=== PATIENT | male | born 1960 | race Two or more races ===

== ENCOUNTER → 2016-04-01 | Outpatient (CLI) | payer BC ==
--- NOTE | 2016-04-01 08:21 | US ---
EXAMINATION TYPE: US abdomen complete DATE OF EXAM: 04/01/2016 7:24 AM COMPARISON: NONE CLINICAL HISTORY: R74.8 elevated liver enzymes. Pt states elevated LFT's EXAM MEASUREMENTS: Liver Length: 17.4 cm Gallbladder Wall: 0.2 cm CBD: 0.4 cm Spleen: 11.3 cm Right Kidney: 10.8 x 5.4 x 5.4 cm Left Kidney: 11.9 x 5.4 x 5.3 cm Pancreas: wnl Liver: Upper limits of normal for size/ Heterogeneous and difficult to penetrate Gallbladder: wnl Evidence for sonographic Morrow's sign: No CBD: wnl Spleen: wnl Right Kidney: wnl Left Kidney: wnl Upper IVC: wnl Abd Aorta: Prox and distal appeared wnl, mid gassed out The liver is heterogenous compatible with fatty liver. The intrahepatic portion of the IVC and proxim al abdominal aorta are within normal limits. There is no evidence of cholelithiasis. Common bile du ct is unremarkable. The visualized portions of the pancreas are homogenous. The spleen is unremarka ble. Kidneys are symmetric and free of hydronephrosis. No renal lesions are seen. IMPRESSION: Hepatic steatosis.
== END | disposition home or self-care (01) ==
LOC: RADUSWWP 07:02
PROVIDERS: ATTEND Family Medicine
DX: K76.0 Fatty (change of) liver, not elsewhere classified (principal)
CPT/HCPCS: 76700

== ENCOUNTER 2016-07-27 15:49 | Emergency (ER) | payer BC ==
--- NOTE | 2016-07-27 16:23 | ED ---
Lower Extremity Injury HPI - General Chief Complaint: Extremity Injury, Lower Stated Complaint: L knee pain Time Seen by Provider: 07/27/16 16:14 Source: patient, RN notes reviewed Mode of arrival: ambulatory Limitations: no limitations - History of Present Illness Initial Comments: 56-year-old male presents emergency department chief complaint of left knee pain. Patient states that 2 weeks ago he tripped and fell onto his left knee. Patient states that it was swollen and a little painful at that time. Patient states he then bumped his knee and a few days ago night been having some bruising around the knee. Patient states he is able to handle it with some discomfort. Patient states that he hasn't noticed any weakness or deformity to the knee. Patient has noticed some swelling over the patella. Patient states she was concerned due to his pains without that he should be evaluated.Patient denies any recent fever, chills, shortness of breath, chest pain, back pain, abdominal pain, nausea vomiting, numbness or tingling, dysuria or hematuria, constipation or diarrhea, headaches or visual changes, or any other current symptoms. - Related Data Home Medications Medication Instructions Recorded Confirmed No Known Home Medications [No 07/27/16 07/27/16 Known Home Medications] Allergies Allergy/AdvReac Type Severity Reaction Status Date / Time No Known Allergies Allergy Verified 07/27/16 16:26 Review of Systems ROS Statement: Those systems with pertinent positive or pertinent negative responses have been documented in the HPI. ROS Other: All systems not noted in ROS Statement are negative. Past Medical History Past Medical History: No Reported History History of Any Multi-Drug Resistant Organisms: None Reported Past Surgical History: No Surgical Hx Reported Past Psychological History: No Psychological Hx Reported Smoking Status: Current every day smoker Past Alcohol Use History: Abuse Past Drug Use History: None Reported General Exam - General Exam Comments Initial Comments: General: The patient is awake and alert, in no distress, and does not appear acutely ill. Neck: The neck is supple, there is no tenderness. Cardiovascular: There is a regular rate and rhythm. No murmur, rub or gallop is appreciated. Respiratory: Lungs are clear to auscultation, respirations are non-labored, breath sounds are equal. No wheezes, stridor, rales, or rhonchi. Musculoskeletal: Sensation intact with 2+ pulses throughout left lower extremity , full range of motion of left hip left knee and left ankle. Swelling over the left patella as well as associated ecchymosis throughout the leg. Neurological: CN II-XII intact, There are no obvious motor or sensory deficits. Coordination appears grossly intact. Speech is normal. Skin: Skin is warm and dry and no rashes or lesions are noted. Psychiatric: Normal mood and affect. Limitations: no limitations Course Vital Signs 07/27/16 16:01 Temperature 99.2 F Pulse Rate 75 Respiratory 20 Rate Blood Pressure 178/83 O2 Sat by Pulse 96 Oximetry Procedures - Orthopedic Splinting/Casting Injury #1 Side: left Lower Extremity Injury Location: knee Lower Extremity Immobilizer: Chi wrap Medical Decision Making - Medical Decision Making 56-year-old male presents emergency room chief complaint of left knee pain and ecchymosis. At this time x-rays reviewed that does show a hematoma. This time we did discuss follow-up we discussed return parameters all patient's questions. He stated that he understood the plan. This and will be discharged home. - Radiology Data Radiology results: report reviewed, image reviewed Disposition Clinical Impression: Traumatic hematoma of left knee Disposition: HOME SELF-CARE Condition: Stable Instructions: Knee Pain (ED) Additional Instructions: Please follow up with family doctor if symptoms have not improved over the next two days. Please return to the emergency room if your symptoms increase or worsen or for any other concerns. Referrals: Andrey Wills MD [Primary Care Provider] - 1-2 days Time of Disposition: 16:58
--- NOTE | 2016-07-27 16:40 | XR ---
EXAMINATION TYPE: XR knee 4V LT DATE OF EXAM: 07/27/2016 COMPARISON: NONE HISTORY: Pain extensive bruising after fall TECHNIQUE: 4 view left knee FINDINGS: Superficial soft tissue swelling is present. No acute fractures evident. No joint effusion is evident. Hematoma may be over the patellar soft tissues. IMPRESSION: 1. Suspected hematoma and soft tissue swelling superficial soft tissue anterior to the patella. 2. No underlying fracture is evident.
[2016-07-27 17:14] VITALS: BP 177/83; PULSE 79; RESP 15; TEMP 98.9
== END 2016-07-27 17:25 | disposition home or self-care (01) ==
LOC: EC 15:49
DX: S80.02XA Contusion of left knee, initial encounter (principal); F17.200 Nicotine dependence, unspecified, uncomplicated; W01.0XXA Fall on same level from slipping, tripping and stumbling without subsequent striking against object, initial encounter
CPT/HCPCS: 99283

== ENCOUNTER 2018-08-02 12:25 | Inpatient (IN) | payer BC ==
[2018-08-02] MEDS ORDERED: LORazepam 2 MG/ML INJ IV PRN ×2 (13:21)
[2018-08-02] MEDS ORDERED: THIAMINE 100 MG/ML 2 ML VIAL IM STA (13:21)
--- NOTE | 2018-08-02 13:22 | ED ---
General Adult HPI - General Chief complaint: Alcohol Stated complaint: bruising, leg swelling, abdominal tightness, alcoh Time Seen by Provider: 08/02/18 12:47 Source: patient, RN notes reviewed Mode of arrival: wheelchair Limitations: physical limitation - History of Present Illness Initial comments: 58-year-old male with a past medical history of GERD, hyperlipidemia, hypertension, chronic alcoholism presents to the emergency department for multiple complaints. She states that for the past few weeks he has had leg swelling. States his legs feel heavy. States he also has bruises on his arms and legs that he thinks could be from scratching. Patient was also complaining of abdominal tightness but denies any pain in the abdomen. States he is an alcoholic. States that he drank a 6 pack today. Denies any significant shortness of breath with this leg swelling. Denies any history of heart failure. Denies fevers or chills. Patient has no other complaints at this time including shortness of breath, chest pain, abdominal pain, nausea or vomiting, headache, or visual changes. - Related Data Home Medications Medication Instructions Recorded Confirmed Omeprazole Magnesium [PriLOSEC OTC] 20 mg PO DAILY PRN 08/02/18 08/02/18 Allergies Allergy/AdvReac Type Severity Reaction Status Date / Time No Known Allergies Allergy Verified 08/02/18 13:39 Review of Systems ROS Statement: Those systems with pertinent positive or pertinent negative responses have been documented in the HPI. ROS Other: All systems not noted in ROS Statement are negative. Past Medical History Past Medical History: GERD/Reflux, Hyperlipidemia, Hypertension History of Any Multi-Drug Resistant Organisms: None Reported Past Surgical History: No Surgical Hx Reported Past Psychological History: No Psychological Hx Reported Smoking Status: Current every day smoker Past Alcohol Use History: Abuse, Daily Past Drug Use History: None Reported General Exam Limitations: physical limitation General appearance: alert, in no apparent distress Head exam: Present: atraumatic, normocephalic, normal inspection Eye exam: Present: normal appearance, PERRL, EOMI. Absent: scleral icterus, conjunctival injection, periorbital swelling ENT exam: Present: normal exam, mucous membranes moist Neck exam: Present: normal inspection, full ROM. Absent: tenderness, meningismus, lymphadenopathy Respiratory exam: Present: normal lung sounds bilaterally. Absent: respiratory distress, wheezes, rales, rhonchi, stridor Cardiovascular Exam: Present: regular rate, normal rhythm, normal heart sounds. Absent: systolic murmur, diastolic murmur, rubs, gallop, clicks GI/Abdominal exam: Present: soft, normal bowel sounds. Absent: distended, tenderness (Soft nontender abdomen.), guarding, rebound, rigid Extremities exam: Present: pedal edema (2+ pitting edemia noted) Neurological exam: Present: alert, oriented X3, CN II-XII intact Psychiatric exam: Present: normal affect, normal mood Skin exam: Present: rash (Patient has a petechial looking rash noted to arms and legs) Course Vital Signs 08/02/18 12:37 Temperature 98.6 F Pulse Rate 96 Respiratory 18 Rate Blood Pressure 153/77 O2 Sat by Pulse 100 Oximetry EKG Findings - EKG Comments: EKG Findings:: Normal sinus rhythm, ventricular rate 94, NC interval 154, QTc 507 Medical Decision Making - Medical Decision Making 58-year-old male with a past medical history of GERD, hyperlipidemia, hypertension, chronic alcohol is a presents for multiple complaints. States he has had leg swelling denies any shortness of breath. States he has had bruises on his arms and legs. Remaining of abdominal tightness as well. Patient states he has an alcoholic drink a sixpack today. On exam patient does have a petechial bruising pattern noted on bilateral arms and legs. Lungs are clear to auscultation bilaterally. He does have some edema noted of the bilateral lower extremities. Patient has mild jaundice noted likely secondary to chronic ogles him. Patient does have a hemoglobin of 6 with a platelet count of 62. Occult blood pending. Ordered 1 unit of blood. This is microcytic in nature, likely secondary to chronic alcoholism and possibly GI bleed although patient denies any significant rectal bleeding noted. CMP does show hyponatremia and hypocalcemia. Bilirubin of 6 with transaminitis likely related to chronic alcoholism. Patient also has a pancreatitis with a lipase of 1851. Started on nothing by mouth diet. Patient will be started on 75 mls/hr of fluid due to hyponatremia. Started on CIWA protocol. Patient will be admitted with GI consult. - Lab Data Result diagrams: 08/02/18 13:45 08/02/18 13:45 Lab Results 08/02/18 08/02/18 08/02/18 Range/Units 13:45 13:45 13:45 WBC 9.8 (3.8-10.6) k/uL RBC 1.76 L (4.30-5.90) m/uL Hgb 6.0 L* (13.0-17.5) gm/dL Hct 17.4 L* (39.0-53.0) % MCV 98.8 (80.0-100.0) fL MCH 34.1 (25.0-35.0) pg MCHC 34.5 (31.0-37.0) g/dL RDW 15.6 H (11.5-15.5) % Plt Count 62 L (150-450) k/uL Neutrophils % 75 % Lymphocytes % 15 % Monocytes % 6 % Eosinophils % 2 % Basophils % 0 % Neutrophils # 7.3 (1.3-7.7) k/uL Lymphocytes # 1.5 (1.0-4.8) k/uL Monocytes # 0.6 (0-1.0) k/uL Eosinophils # 0.2 (0-0.7) k/uL Basophils # 0.0 (0-0.2) k/uL Manual Slide Review Performed Macrocytosis Slight PT (9.0-12.0) sec INR (<1.2) APTT (22.0-30.0) sec Sodium 124 L (137-145) mmol/L Potassium 4.8 (3.5-5.1) mmol/L Chloride 93 L (98-107) mmol/L Carbon Dioxide 14 L (22-30) mmol/L Anion Gap 17 mmol/L BUN 5 L (9-20) mg/dL Creatinine 0.52 L (0.66-1.25) mg/dL Est GFR (CKD-EPI)AfAm >90 (>60 ml/min/1.73 sqM) Est GFR (CKD-EPI)NonAf >90 (>60 ml/min/1.73 sqM) Glucose 106 H (74-99) mg/dL Calcium 7.4 L (8.4-10.2) mg/dL Magnesium 2.2 (1.6-2.3) mg/dL Total Bilirubin 6.0 H (0.2-1.3) mg/dL AST 350 H (17-59) U/L ALT 56 (21-72) U/L Alkaline Phosphatase 254 H (38-126) U/L Troponin I (0.000-0.034) ng/mL NT-Pro-B Natriuret Pep 165 pg/mL Total Protein 8.3 H (6.3-8.2) g/dL Albumin 3.3 L (3.5-5.0) g/dL Amylase 160 H (30-110) U/L Lipase 1851 H (23-300) U/L Serum Alcohol 172 mg/dL Blood Type Recheck 08/02/18 08/02/18 08/02/18 Range/Units 13:45 13:45 14:57 WBC (3.8-10.6) k/uL RBC (4.30-5.90) m/uL Hgb (13.0-17.5) gm/dL Hct (39.0-53.0) % MCV (80.0-100.0) fL MCH (25.0-35.0) pg MCHC (31.0-37.0) g/dL RDW (11.5-15.5) % Plt Count (150-450) k/uL Neutrophils % % Lymphocytes % % Monocytes % % Eosinophils % % Basophils % % Neutrophils # (1.3-7.7) k/uL Lymphocytes # (1.0-4.8) k/uL Monocytes # (0-1.0) k/uL Eosinophils # (0-0.7) k/uL Basophils # (0-0.2) k/uL Manual Slide Review Macrocytosis PT 14.3 H (9.0-12.0) sec INR 1.4 H (<1.2) APTT 37.4 H (22.0-30.0) sec Sodium (137-145) mmol/L Potassium (3.5-5.1) mmol/L Chloride (98-107) mmol/L Carbon Dioxide (22-30) mmol/L Anion Gap mmol/L BUN (9-20) mg/dL Creatinine (0.66-1.25) mg/dL Est GFR (CKD-EPI)AfAm (>60 ml/min/1.73 sqM) Est GFR (CKD-EPI)NonAf (>60 ml/min/1.73 sqM) Glucose (74-99) mg/dL Calcium (8.4-10.2) mg/dL Magnesium (1.6-2.3) mg/dL Total Bilirubin (0.2-1.3) mg/dL AST (17-59) U/L ALT (21-72) U/L Alkaline Phosphatase (38-126) U/L Troponin I 0.014 (0.000-0.034) ng/mL NT-Pro-B Natriuret Pep pg/mL Total Protein (6.3-8.2) g/dL Albumin (3.5-5.0) g/dL Amylase (30-110) U/L Lipase (23-300) U/L Serum Alcohol mg/dL Blood Type Recheck CABO Indicated Disposition Clinical Impression: Chronic alcoholism, Pancreatitis, Hyponatremia, Coagulopathy, Anemia Disposition: ADMITTED IP TO THIS HOSP Is patient prescribed a controlled substance at d/c from ED?: No Referrals: Vaughn Ceballos MD [Primary Care Provider] - 1-2 days Time of Disposition: 15:37
[2018-08-02] MEDS ORDERED: ONDANSETRON 4 MG/2 ML VIAL IVP STA (14:10)
[2018-08-02 14:13] LABS: INR 1.4 (<1.2); Partial Thromboplastin Time 37.4 sec (22.0-30.0); Prothrombin Time 14.3 sec (9.0-12.0)
--- NOTE | 2018-08-02 14:14 | XR ---
EXAMINATION TYPE: XR chest 2V DATE OF EXAM: 08/02/2018 COMPARISON: NONE HISTORY: Chest pain TECHNIQUE: Frontal and lateral views of the chest are obtained. FINDINGS: There is no pleural effusion or pneumothorax seen. Upper lobes of the lungs appears somew hat dense more so on the right than on the left may be technical, patient is rotated and there are ov erlying cardiac leads The cardiac silhouette size is upper limit normal. The osseous structures are intact. There are overlying cardiac leads. IMPRESSION: Suspect density in the upper lobes may be technical, follow-up PA and lateral chest x-ra y may be of benefit when patient is stable.
[2018-08-02 14:20] LABS: ALT 56 U/L (21-72); AST 350 U/L (17-59); African American GFR (CKD) >90 (>60 ml/min/1.73 sqM); Albumin 3.3 g/dL (3.5-5.0); Alkaline Phosphatase 254 U/L (38-126); Amylase 160 U/L (30-110); Anion Gap 17 mmol/L; Blood Urea Nitrogen 5 mg/dL (9-20); Calcium 7.4 mg/dL (8.4-10.2); Carbon Dioxide 14 mmol/L (22-30); Chloride 93 mmol/L (98-107); Glucose 106 mg/dL (74-99); Lipase 1851 U/L (23-300); Magnesium 2.2 mg/dL (1.6-2.3); Sodium 124 mmol/L (137-145); Total Protein 8.3 g/dL (6.3-8.2)
[2018-08-02 14:24] LABS: Potassium 4.8 mmol/L (3.5-5.1)
[2018-08-02 14:25] LABS: Alcohol 172 mg/dL
[2018-08-02 14:30] LABS: Basophils % (A) 0 %; Eosinophils # (A) 0.2 k/uL (0-0.7); Eosinophils % (A) 2 %; Lymphocytes # (A) 1.5 k/uL (1.0-4.8); Lymphocytes % (A) 15 %; MCH 34.1 pg (25.0-35.0); MCHC 34.5 g/dL (31.0-37.0); MCV 98.8 fL (80.0-100.0); Macrocytosis Slight; Mean Platelet Volume 10.4; Monocytes # (A) 0.6 k/uL (0-1.0); Monocytes % (A) 6 %; Neutrophils # (A) 7.3 k/uL (1.3-7.7); Neutrophils % (A) 75 %; RBC 1.76 m/uL (4.30-5.90); RDW 15.6 % (11.5-15.5); WBC 9.8 k/uL (3.8-10.6)
[2018-08-02 14:35] LABS: HCT 17.4 % (39.0-53.0)
[2018-08-02 14:50] LABS: Platelet Count 62 k/uL (150-450)
[2018-08-02] MEDS ORDERED: NALOXONE 0.4 MG/ML 1 ML VIAL IV PRN (15:39)
[2018-08-02] MEDS ORDERED: SODIUM CHLORIDE 0.9% 1,000 ML IV SCH (15:45)
[2018-08-02 15:58] LABS: Amorphous Sediment,Urine Rare /hpf; Appearance,Urine Clear (Clear); Bilirubin,Urine 1+ (Negative); Blood,Urine Trace (Negative); Color,Urine Yellow; Glucose,Urine (UA) Negative (Negative); Ketones,Urine 1+ (Negative); Leukocyte Esterase,Urine Negative (Negative); Mucus,Urine Rare /hpf; Nitrite,Urine Negative (Negative); Protein,Urine Negative (Negative); RBC,Urine 1 /hpf (0-5); Urobilinogen,Urine <2.0 mg/dL (<2.0); WBC,Urine 1 /hpf (0-5)
[2018-08-02] MEDS: PANTOPRAZOLE 40 MG/10 ML VIAL IVP SCH ×2 (17:52→20:06)
[2018-08-02] MEDS: THIAMINE 100 MG TAB PO SCH ×2 (19:11→19:18)
[2018-08-02] MEDS: LORazepam 2 MG/ML INJ IV PRN (19:11)
[2018-08-02] MEDS ORDERED: PANTOPRAZOLE 40 MG/10 ML VIAL IVP SCH (21:00)
[2018-08-02 22:35] LABS: Basophils % (A) 0 %; Eosinophils # (A) 0.2 k/uL (0-0.7); Eosinophils % (A) 3 %; HCT 26.4 % (39.0-53.0); Lymphocytes # (A) 1.3 k/uL (1.0-4.8); Lymphocytes % (A) 19 %; MCH 33.7 pg (25.0-35.0); MCHC 34.2 g/dL (31.0-37.0); MCV 98.7 fL (80.0-100.0); Macrocytosis Slight; Mean Platelet Volume 8.1; Monocytes # (A) 0.4 k/uL (0-1.0); Monocytes % (A) 5 %; Neutrophils # (A) 4.8 k/uL (1.3-7.7); Neutrophils % (A) 70 %; RBC 2.68 m/uL (4.30-5.90); WBC 6.8 k/uL (3.8-10.6)
[2018-08-03 00:01] LABS: Platelet Count 55 k/uL (150-450); Target Cells Present
--- NOTE | 2018-08-03 00:11 | P.HPIM ---
History of Present Illness H&P Date: 08/02/18 Chief Complaint: Tired History of presenting complaint: This is a pleasant 58-year-old patient of Dr. Wills. Patient has a known history of GERD hypertension hyperlipidemia but does not take any medications. Patient is a long-standing alcoholic for many years and his alcohol intake is acting gone up in the last 2 years. Drinks close to 20 beers at night. Patient now presents with feeling weak tired rundown some blood in his stools bruising on both upper extremities tired rundown abdominal distention. Some nausea. Has been feeling miserable most occurred back on drinking and decided to present to the hospital. Hemoglobin was found to be low-dose at 6.6. One unit of blood was ordered. Tired rundown. Review of systems: GEN.: Weak and tired EYES: Jaundiced] HEENT: None NECK: None RESPIRATORY: My shortness of breath CARDIOVASCULAR: Edema GASTROINTESTINAL: Abdominal distention, some blood in the stools GENITOURINARY: None MUSCULOSKELETAL: None LYMPHATICS: None HEMATOLOGICAL: Increased bruising PSYCHIATRY: Anxiety NEUROLOGICAL: None Past medical history: GERD, hypertension, hyperlipidemia patient does not take any medications Social history: Has been drinking for many years. Now closer 20 beers daily for last 2 years. . Used to work in a [employer]. Family history: Renny bypass Physical examination: VITAL SIGNS: 98.1, 99, 17, 157/70, 99% room air GENERAL: Average built BMI 37.2, sitting up, short of breath. EYES: Pupils equal. Conjunctiva icterusl. HEENT: External appearance of nose and ears normal, oral cavity grossly normal. NECK: JVD not raised; masses not palpable. HEART: First and second heart sounds are normal; gross edema. LUNGS: Respiratory rate increased, decreased breath sounds. ABDOMEN: Soft, distended, nontender, liver spleen not palpable, no masses palpable. LYMPHATICS: No lymph nodes palpable in the axilla and neck. PSYCH: Alert and oriented x3; mood and affect anxiousl. NEUROLOGICAL: Cranial nerves grossly intact; no facial asymmetry, power and sensation grossly intact DERMATOLOGICAL:. Extensive bruising on both upper extremities on the forearm. It is of dry skin on the lower extremity and dried up lesions Investigations: White count 9.8 hemoglobin 6 platelets 62 pro time 14.3 sodium 124 potassium 4.8 BUN 5 creatinine 0.5 to AST 350 in the 56 albumin 3.3 amylase 160 lipase is 1851 EKG tracing personally reviewed by me shows prolonged QT Chest x-ray film personally reviewed by me shows cardiomegaly Assessment: -Acute severe alcohol liver disease -Acute GI bleed consider variceal bleed -Acute severe anemia symptomatic from blood loss, requiring blood transfusion -Portal hypertension -Hepatic coagulopathy -Hyponatremia with hypervolemia -Chronic alcohol dependence disorder -Thrombocytopenia from chronic alcoholism -Metabolic acidosis -Acute pancreatitis secondary to alcoholism -Watch for alcohol withdrawal Plan: We will put the patient on Valium 5 mg by mouth 3 times a day for DVT prophylaxis. Stop the IV fluids. Put the patient on fluid restriction. Start the patient Aldactone. Diet clear liquids. GI be consulted with a view to endoscopy. Care was discussed with the patient. Patient presents in a scale. Prognosis guarded. Care was discussed with the patient. Also put the patient on telemetry. Past Medical History Past Medical History: GERD/Reflux, Hyperlipidemia, Hypertension History of Any Multi-Drug Resistant Organisms: None Reported Past Surgical History: No Surgical Hx Reported Past Anesthesia/Blood Transfusion Reactions: No Reported Reaction Smoking Status: Never smoker - Past Family History Father Additional Family Medical History / Comment(s): CABG Mother Family Medical History: Memory Impairment Additional Family Medical History / Comment(s): alzheimers Medications and Allergies Home Medications Medication Instructions Recorded Confirmed Type Omeprazole Magnesium [PriLOSEC OTC] 20 mg PO DAILY PRN 08/02/18 08/02/18 History Allergies Allergy/AdvReac Type Severity Reaction Status Date / Time No Known Allergies Allergy Verified 08/02/18 13:39 Physical Exam Vitals: Vital Signs Temp Pulse Pulse Resp BP BP Pulse Ox 08/02/18 23:19 95 17 08/02/18 23:18 98.3 F 95 17 129/65 98 08/02/18 21:05 98.1 F 96 17 151/70 99 08/02/18 20:00 96 17 08/02/18 19:54 98.1 F 99 17 157/70 99 08/02/18 19:41 98.1 F 99 18 151/70 08/02/18 18:30 93 20 141/81 100 08/02/18 18:00 94 132/63 100 08/02/18 17:30 98.8 F 92 18 136/67 99 08/02/18 17:20 94 18 148/70 08/02/18 17:00 99.1 F 93 19 147/64 100 08/02/18 16:50 99.4 F 91 18 150/70 95 08/02/18 16:30 87 18 139/66 08/02/18 16:20 93 18 139/66 08/02/18 16:10 90 18 139/66 08/02/18 16:00 91 15 154/73 08/02/18 14:00 147/68 08/02/18 12:37 98.6 F 96 18 153/77 100 Intake and Output 08/02/18 08/02/18 08/03/18 14:59 22:59 06:59 Intake Total 310 Balance 310 Intake: Blood Product 310 Rc As-1 Unit 310 [id number] Other: Voiding Method Toilet Toilet Weight 101.378 kg Results CBC & Chem 7: 08/02/18 22:15 08/02/18 13:45 Labs: Abnormal Lab Results - Last 24 Hours (Table) 08/02/18 08/02/18 08/02/18 Range/Units 13:45 13:45 13:45 RBC 1.76 L (4.30-5.90) m/uL Hgb 6.0 L* (13.0-17.5) gm/dL Hct 17.4 L* (39.0-53.0) % RDW 15.6 H (11.5-15.5) % Plt Count 62 L (150-450) k/uL PT 14.3 H (9.0-12.0) sec INR 1.4 H (<1.2) APTT 37.4 H (22.0-30.0) sec Sodium 124 L (137-145) mmol/L Chloride 93 L (98-107) mmol/L Carbon Dioxide 14 L (22-30) mmol/L BUN 5 L (9-20) mg/dL Creatinine 0.52 L (0.66-1.25) mg/dL Glucose 106 H (74-99) mg/dL Calcium 7.4 L (8.4-10.2) mg/dL Total Bilirubin 6.0 H (0.2-1.3) mg/dL AST 350 H (17-59) U/L Alkaline Phosphatase 254 H (38-126) U/L Total Protein 8.3 H (6.3-8.2) g/dL Albumin 3.3 L (3.5-5.0) g/dL Amylase 160 H (30-110) U/L Lipase 1851 H (23-300) U/L Urine Ketones (Negative) Urine Blood (Negative) Urine Bilirubin (Negative) Amorphous Sediment (None) /hpf Urine Mucus (None) /hpf Crossmatch 08/02/18 08/02/18 08/02/18 Range/Units 14:57 15:40 22:15 RBC 2.68 L (4.30-5.90) m/uL Hgb 9.0 L D (13.0-17.5) gm/dL Hct 26.4 L (39.0-53.0) % RDW (11.5-15.5) % Plt Count (150-450) k/uL PT (9.0-12.0) sec INR (<1.2) APTT (22.0-30.0) sec Sodium (137-145) mmol/L Chloride (98-107) mmol/L Carbon Dioxide (22-30) mmol/L BUN (9-20) mg/dL Creatinine (0.66-1.25) mg/dL Glucose (74-99) mg/dL Calcium (8.4-10.2) mg/dL Total Bilirubin (0.2-1.3) mg/dL AST (17-59) U/L Alkaline Phosphatase (38-126) U/L Total Protein (6.3-8.2) g/dL Albumin (3.5-5.0) g/dL Amylase (30-110) U/L Lipase (23-300) U/L Urine Ketones 1+ H (Negative) Urine Blood Trace H (Negative) Urine Bilirubin 1+ H (Negative) Amorphous Sediment Rare H (None) /hpf Urine Mucus Rare H (None) /hpf Crossmatch See Detail Thrombosis Risk Factor Assmnt - Choose All That Apply Each Factor Represents 1 point: Age 41-60 years, Swollen legs (current) Other Risk Factors: No Other congenital or acquired thrombophilia - If yes, enter type in comment: No Thrombosis Risk Factor Assessment Total Risk Factor Score: 2 Thrombosis Risk Factor Assessment Level: Low Risk
[2018-08-03] MEDS: DIAZEPAM 5 MG TAB PO SCH ×4 (00:20→21:20)
[2018-08-03] MEDS: METOPROLOL TARTRATE 12.5 MG TAB PO SCH ×3 (00:20→21:20)
[2018-08-03] MEDS ORDERED: CALCIUM CARBONATE 500 MG CHEWABLE PO PRN (06:39)
[2018-08-03 06:47] LABS: Basophils % (A) 0 %; Eosinophils # (A) 0.2 k/uL (0-0.7); Eosinophils % (A) 3 %; HCT 26.9 % (39.0-53.0); HGB 9.1 gm/dL (13.0-17.5); Lymphocytes # (A) 0.8 k/uL (1.0-4.8); Lymphocytes % (A) 12 %; MCH 33.7 pg (25.0-35.0); MCV 99.1 fL (80.0-100.0); Macrocytosis Slight; Mean Platelet Volume 8.6; Monocytes # (A) 0.3 k/uL (0-1.0); Monocytes % (A) 5 %; Neutrophils # (A) 5.2 k/uL (1.3-7.7); Neutrophils % (A) 79 %; Platelet Count 61 k/uL (150-450); RBC 2.71 m/uL (4.30-5.90); RDW 15.2 % (11.5-15.5); WBC 6.6 k/uL (3.8-10.6)
[2018-08-03 06:59] LABS: African American GFR (CKD) >90 (>60 ml/min/1.73 sqM); Anion Gap 8 mmol/L; Blood Urea Nitrogen 6 mg/dL (9-20); Calcium 7.3 mg/dL (8.4-10.2); Carbon Dioxide 19 mmol/L (22-30); Chloride 98 mmol/L (98-107); Glucose 98 mg/dL (74-99); Potassium 4.1 mmol/L (3.5-5.1); Sodium 125 mmol/L (137-145)
[2018-08-03] MEDS ORDERED: PHYTONADIONE ORAL 5 MG/5 ML ORAL.SYRG PO SCH (09:00)
[2018-08-03] MEDS ORDERED: PNEUMOCOCCAL VACC-PNEUMOVAX 23 25 MCG/0.5 ML VIAL IM ONE (09:00)
--- NOTE | 2018-08-03 09:12 | US ---
EXAMINATION TYPE: US abdomen limited DATE OF EXAM: 08/03/2018 COMPARISON: US 2017 CLINICAL HISTORY: Alcoholism. Alcoholism, abdomen pain, obese patient, exam done portable. EXAM MEASUREMENTS: Liver Length: 18.4 cm Gallbladder Wall: 0.3 cm CBD: 0.4 cm Right Kidney: 10.6 x 5.4 x 6.7 cm Difficult and limited study due to patient body habitus Pancreas: obscured by overlying midline bowel gas Liver: enlarged, attenuating, heterogeneous, decreased visualization of vessels suggestive of fatty infiltrate. This limits evaluation for hepatic masses. Gallbladder: low level echoes within dependant portion Evidence for sonographic Morrow's sign: no CBD: visualized portions wnl, limited by overlying bowel gas Right Kidney: wnl IMPRESSION: 1. Biliary sludge. No current evidence of acute cholecystitis. 2. Heterogenous and coarsened hepatic echotexture that can be seen in hepatic steatosis or other hepa tocellular diseases.
[2018-08-03] MEDS: SPIRONOLACTONE 25 MG TAB PO SCH (09:45)
[2018-08-03] MEDS: THIAMINE 100 MG TAB PO SCH ×2 (09:45→17:21)
[2018-08-03] MEDS: PANTOPRAZOLE 40 MG/10 ML VIAL IVP SCH ×2 (09:52→21:20)
--- NOTE | 2018-08-03 14:17 | P.CONS ---
History of Present Illness - Reason for Consult Consult date: 08/03/18 Pancreatitis Requesting physician: Smitha Jessica - Chief Complaint Abdominal pain - History of Present Illness 58-year-old male with a history of chronic alcoholism presents with abdominal pain lower leg swelling. Past medical history hypertension hyperlipidemia GERD. Hemoglobin 6. MCV 98. Platelet 62,000. White count 9.8. INR 1.4. Sodium 124. Potassium 4.8. BUN 5. Creatinine 0.5. Total bilirubin 6. AST 350. ALT 56. AP 254. Lipase 1851. Amylase 160. FOBT positive. Serum alcohol 172. Reports intermittent red blood stools over the last few days nothing severe. Denies hematemesis melena. No previous labs to compare. No history of GIB no history of EGD/colonoscopy. Consent abdomen biliary sludge no evidence of acute cholecystitis. Hepatic steatosis possible other hepatocellular diseases. Transfused 1 unit of blood present hemoglobin 9.1. Review of Systems RConstitutional: Denies fever, chills, sweats, weight gain, or loss. HEENT: Negative for migraines, blurred vision or loss, earaches, drainage, tinnitus, oral mucosal lesions, dysphagia, or odynophagia. Cardiac: Negative for chest pain, arrhythmias, or palpitation. Respiratory: Negative for shortness of breath, hemoptysis, cough, or sputum production. Gastrointestinal: See HPI for pertinent findings. Genitourinary: Negative for hematuria, urgency, frequency, polyuria, dysuria, or penile discharge. Musculoskeletal: Negative for muscle aches, swelling, arthritis, and arthralgias. Neurologic: Negative for stroke or TIA. Endocrine: Negative for thyroid problems. Skin: Negative for rash or itching. Psychiatric: Negative history for depression and anxietye Past Medical History Past Medical History: GERD/Reflux, Hyperlipidemia, Hypertension History of Any Multi-Drug Resistant Organisms: None Reported Past Surgical History: No Surgical Hx Reported Past Anesthesia/Blood Transfusion Reactions: No Reported Reaction Smoking Status: Never smoker - Past Family History Father Additional Family Medical History / Comment(s): CABG Mother Family Medical History: Memory Impairment Additional Family Medical History / Comment(s): alzheimers Medications and Allergies Home Medications Medication Instructions Recorded Confirmed Type Omeprazole Magnesium [PriLOSEC OTC] 20 mg PO DAILY PRN 08/02/18 08/02/18 History Allergies Allergy/AdvReac Type Severity Reaction Status Date / Time No Known Allergies Allergy Verified 08/02/18 13:39 Physical Exam Vitals: Vital Signs Temp Pulse Pulse Resp BP BP Pulse Ox 08/03/18 12:00 98.3 F 67 16 111/65 98 08/03/18 09:45 98.3 F 85 16 133/75 99 08/03/18 04:00 90 17 145/75 98 08/02/18 23:19 95 17 08/02/18 23:18 98.3 F 95 17 129/65 98 08/02/18 21:05 98.1 F 96 17 151/70 99 08/02/18 20:00 96 17 08/02/18 19:54 98.1 F 99 17 157/70 99 08/02/18 19:41 98.1 F 99 18 151/70 08/02/18 18:30 93 20 141/81 100 08/02/18 18:00 94 132/63 100 08/02/18 17:30 98.8 F 92 18 136/67 99 08/02/18 17:20 94 18 148/70 08/02/18 17:00 99.1 F 93 19 147/64 100 08/02/18 16:50 99.4 F 91 18 150/70 95 08/02/18 16:30 87 18 139/66 08/02/18 16:20 93 18 139/66 08/02/18 16:10 90 18 139/66 08/02/18 16:00 91 15 154/73 Intake and Output 08/02/18 08/03/18 08/03/18 22:59 06:59 14:59 Intake Total 310 1425 Balance 310 1425 Intake: Intake, IV Titration 825 Amount Sodium Chloride 0.9% 1, 825 000 ml @ 75 mls/hr IV . [id number] [facility] Rx#:[id number] Oral 600 Blood Product 310 Rc As-1 Unit 310 [id number] Other: Voiding Method Toilet Toilet # Voids 3 1 Weight 99.8 kg 99.8 kg General appearance: The patient is alert, oriented, in no acute distress. HET: Head is normocephalic and atraumatic. Pupils are equal and reactive. Oropharynx is clear without lesions. Jaundice sclera icterus. Neck: Supple without lymphadenopathy. Trachea midline. Heart: S1 S2. Regular rate and rhythm. Lungs: No crackles or wheezes are heard. Abdomen: Soft, nontender, nondistended with bowel sounds. No peritoneal signs. No palpable organomegaly or masses. Extremities: +3 BLE edema. Radial and pedal pulses are 2/4 bilaterally. Neurological: No focal deficits. Strength and sensation are grossly intact. Results CBC & Chem 7: 08/04/18 05:55 08/04/18 05:55 Labs: Abnormal Lab Results - Last 24 Hours (Table) 08/02/18 08/02/18 08/02/18 Range/Units 13:45 13:45 13:45 RBC 1.76 L (4.30-5.90) m/uL Hgb 6.0 L* (13.0-17.5) gm/dL Hct 17.4 L* (39.0-53.0) % RDW 15.6 H (11.5-15.5) % Plt Count 62 L (150-450) k/uL Lymphocytes # (1.0-4.8) k/uL PT 14.3 H (9.0-12.0) sec INR 1.4 H (<1.2) APTT 37.4 H (22.0-30.0) sec Sodium 124 L (137-145) mmol/L Chloride 93 L (98-107) mmol/L Carbon Dioxide 14 L (22-30) mmol/L BUN 5 L (9-20) mg/dL Creatinine 0.52 L (0.66-1.25) mg/dL Glucose 106 H (74-99) mg/dL Calcium 7.4 L (8.4-10.2) mg/dL Total Bilirubin 6.0 H (0.2-1.3) mg/dL AST 350 H (17-59) U/L Alkaline Phosphatase 254 H (38-126) U/L Total Protein 8.3 H (6.3-8.2) g/dL Albumin 3.3 L (3.5-5.0) g/dL Amylase 160 H (30-110) U/L Lipase 1851 H (23-300) U/L Urine Ketones (Negative) Urine Blood (Negative) Urine Bilirubin (Negative) Amorphous Sediment (None) /hpf Urine Mucus (None) /hpf Crossmatch 08/02/18 08/02/18 08/02/18 Range/Units 14:57 15:40 22:15 RBC 2.68 L (4.30-5.90) m/uL Hgb 9.0 L D (13.0-17.5) gm/dL Hct 26.4 L (39.0-53.0) % RDW (11.5-15.5) % Plt Count 55 L (150-450) k/uL Lymphocytes # (1.0-4.8) k/uL PT (9.0-12.0) sec INR (<1.2) APTT (22.0-30.0) sec Sodium (137-145) mmol/L Chloride (98-107) mmol/L Carbon Dioxide (22-30) mmol/L BUN (9-20) mg/dL Creatinine (0.66-1.25) mg/dL Glucose (74-99) mg/dL Calcium (8.4-10.2) mg/dL Total Bilirubin (0.2-1.3) mg/dL AST (17-59) U/L Alkaline Phosphatase (38-126) U/L Total Protein (6.3-8.2) g/dL Albumin (3.5-5.0) g/dL Amylase (30-110) U/L Lipase (23-300) U/L Urine Ketones 1+ H (Negative) Urine Blood Trace H (Negative) Urine Bilirubin 1+ H (Negative) Amorphous Sediment Rare H (None) /hpf Urine Mucus Rare H (None) /hpf Crossmatch See Detail 08/03/18 08/03/18 Range/Units 06:23 06:23 RBC 2.71 L (4.30-5.90) m/uL Hgb 9.1 L (13.0-17.5) gm/dL Hct 26.9 L (39.0-53.0) % RDW (11.5-15.5) % Plt Count 61 L (150-450) k/uL Lymphocytes # 0.8 L (1.0-4.8) k/uL PT (9.0-12.0) sec INR (<1.2) APTT (22.0-30.0) sec Sodium 125 L (137-145) mmol/L Chloride (98-107) mmol/L Carbon Dioxide 19 L (22-30) mmol/L BUN 6 L (9-20) mg/dL Creatinine 0.57 L (0.66-1.25) mg/dL Glucose (74-99) mg/dL Calcium 7.3 L (8.4-10.2) mg/dL Total Bilirubin (0.2-1.3) mg/dL AST (17-59) U/L Alkaline Phosphatase (38-126) U/L Total Protein (6.3-8.2) g/dL Albumin (3.5-5.0) g/dL Amylase (30-110) U/L Lipase (23-300) U/L Urine Ketones (Negative) Urine Blood (Negative) Urine Bilirubin (Negative) Amorphous Sediment (None) /hpf Urine Mucus (None) /hpf Crossmatch US - abdomen: report reviewed (Dr. Camarillo) Assessment and Plan (1) Pancreatitis Current Visit: Yes Status: Acute Code(s): K85.90 - ACUTE PANCREATITIS WITHOUT NECROSIS OR INFECTION, UNSP SNOMED Code(s): 19356060 (2) Anemia Narrative/Plan: normocytic component of acute blood loss as well as suspected nutritional anemia Current Visit: Yes Status: Acute Code(s): D64.9 - ANEMIA, UNSPECIFIED SNOMED Code(s): 757708857 (3) Chronic alcoholism Current Visit: Yes Status: Acute Code(s): F10.20 - ALCOHOL DEPENDENCE, UNCOMPLICATED SNOMED Code(s): 4917046 (4) Coagulopathy Current Visit: Yes Status: Acute Code(s): D68.9 - COAGULATION DEFECT, UNS PECIFIED SNOMED Code(s): 36540431 (5) Biliary sludge Current Visit: Yes Status: Acute Code(s): K83.8 - OTHER SPECIFIED DISEASES OF BILIARY TRACT SNOMED Code(s): 53219457 (6) Alcoholic hepatitis without ascites Current Visit: Yes Status: Acute Code(s): K70.10 - ALCOHOLIC HEPATITIS WITHOUT ASCITES SNOMED Code(s): 073431872 (7) Thrombocytopenia Current Visit: Yes Status: Acute Code(s): D69.6 - THROMBOCYTOPENIA, UNSPECIFIED SNOMED Code(s): 957256968 (8) Guaiac + stool Narrative/Plan: Underlying esophageal varices peptic ulcer disease portal hypertensive g astropathy cannot be excluded Current Visit: Yes Status: Acute Code(s): R19.5 - OTHER FECAL ABNORMALITIES SNOMED Code(s): 80809504 (9) Hyponatremia Current Visit: Yes Status: Acute Code(s): E87.1 - HYPO-OSMOLALITY AND HYPONATREMIA SNOMED Code(s): 46442529 Plan: 1. EGD/colonoscopy screening advised for evaluation of anemia; GI specialist will advise. Hepatitis screen. Protonix 40 mg twice daily. Liquid diet as tolerated. Daily CBC CMP amylase lipase PT/INR. We'll check ammonia. CIWA protocol. Alcohol abstinence advised. Thank you for this kind referral and the opportunity to participate in the care of your patient. This consultation was discussed with Dr. Camarillo. The impression and plan of care have been directed as dictated.
--- NOTE | 2018-08-03 22:33 | P.PN ---
Progress Note - Text Progress Note Date: 08/03/18 Presenting complaint: Tired Interval history: This is a pleasant 58-year-old patient of Dr. Wills. Patient has a known history of GERD hypertension hyperlipidemia but does not take any medications. Patient is a long-standing alcoholic for many years and his alcohol intake is acting gone up in the last 2 years. Drinks close to 20 beers at night. Patient now presents with feeling weak tired rundown some blood in his stools bruising on both upper extremities tired rundown abdominal distention. Some nausea. Has been feeling miserable most occurred back on drinking and decided to present to the hospital. Hemoglobin was found to be low-dose at 6.6. One unit of blood was ordered. Tired rundown. Today-sitting up. Tired. is present. Awaiting input from GI. On clear liquids. Tired and rundown. Review of systems: Was done for constitutional, cardiovascular, GI, pulmonary. relevant finding as above Physical examination: VITAL SIGNS: 98.3, 85, 16, 133 with 75, 95% room air GENERAL: Sitting at the edge of the bed, tired EYES: Pupils equal. Conjunctiva icterusl. HEENT: External appearance of nose and ears normal, oral cavity grossly normal. NECK: JVD not raised; masses not palpable. HEART: First and second heart sounds are normal; gross edema. LUNGS: Respiratory rate increased, decreased breath sounds. ABDOMEN: Soft, distended, nontender, liver spleen not palpable, no masses palpable. LYMPHATICS: No lymph nodes palpable in the axilla and neck. PSYCH: Alert and oriented x3; mood and affect anxiousl. NEUROLOGICAL: Cranial nerves grossly intact; no facial asymmetry, power and sensation grossly intact DERMATOLOGICAL:. Extensive bruising on both upper extremities on the forearm. It is of dry skin on the lower extremity and dried up lesions Investigations: White count 6.6, hemoglobin 9.1, potassium 4.1 sodium 125 BUN 6 creatinine 0.57 Abdominal ultrasound-showing biliary sludge Assessment: -Acute severe alcohol liver disease -Acute GI bleed consider variceal bleed -Acute severe anemia symptomatic from blood loss, requiring blood transfusion -Portal hypertension -Hepatic coagulopathy -Hyponatremia with hypervolemia -Chronic alcohol dependence disorder -Thrombocytopenia from chronic alcoholism -Metabolic acidosis -Acute pancreatitis secondary to alcoholism -Watch for alcohol withdrawal Plan: Continue current medication treatment plan. Patient is on Aldactone. Valium for DT prophylaxis. Awaiting input from GI. Care was discussed with the patient and at the bedside. Prognosis guarded.. Patient will need EGD/colonoscopy. Follow H&H
[2018-08-04 05:00] LABS: Hepatitis A Antibody IgM Non-Reactive (Non-Reactive); Hepatitis B Core IgM Non-Reactive (Non-Reactive)
[2018-08-04 06:40] LABS: INR 1.6 (<1.2); Prothrombin Time 16.4 sec (9.0-12.0)
[2018-08-04] MEDS: THIAMINE 100 MG TAB PO SCH ×2 (06:47→17:00)
[2018-08-04 06:50] LABS: ALT 48 U/L (21-72); AST 232 U/L (17-59); African American GFR (CKD) >90 (>60 ml/min/1.73 sqM); Albumin 2.3 g/dL (3.5-5.0); Alkaline Phosphatase 176 U/L (38-126); Amylase 80 U/L (30-110); Anion Gap 6 mmol/L; Blood Urea Nitrogen 8 mg/dL (9-20); Calcium 7.3 mg/dL (8.4-10.2); Carbon Dioxide 21 mmol/L (22-30); Chloride 102 mmol/L (98-107); Glucose 105 mg/dL (74-99); Lipase 789 U/L (23-300); Potassium 3.5 mmol/L (3.5-5.1); Sodium 129 mmol/L (137-145); Total Bilirubin 8.5 mg/dL (0.2-1.3); Total Protein 6.4 g/dL (6.3-8.2)
[2018-08-04 07:45] LABS: Anisocytosis Slight; Basophils % (A) 1 %; Eosinophils # (A) 0.2 k/uL (0-0.7); Eosinophils % (A) 3 %; HCT 25.6 % (39.0-53.0); HGB 8.4 gm/dL (13.0-17.5); Lymphocytes # (A) 1.2 k/uL (1.0-4.8); Lymphocytes % (A) 17 %; MCV 100.2 fL (80.0-100.0); Macrocytosis Slight; Mean Platelet Volume 10.7; Monocytes # (A) 0.4 k/uL (0-1.0); Monocytes % (A) 6 %; Neutrophils % (A) 72 %; RBC 2.55 m/uL (4.30-5.90); RDW 16.3 % (11.5-15.5)
[2018-08-04 07:51] LABS: Platelet Count 47 k/uL (150-450)
[2018-08-04] MEDS: METOPROLOL TARTRATE 12.5 MG TAB PO SCH ×2 (09:09→20:32)
[2018-08-04] MEDS: PHYTONADIONE ORAL 5 MG/5 ML ORAL.SYRG PO SCH (09:10)
[2018-08-04] MEDS: SPIRONOLACTONE 25 MG TAB PO SCH (09:10)
[2018-08-04] MEDS: PANTOPRAZOLE 40 MG/10 ML VIAL IVP SCH ×2 (09:10→20:33)
[2018-08-04] MEDS: DIAZEPAM 5 MG TAB PO SCH ×3 (09:10→20:32)
--- NOTE | 2018-08-04 11:02 | P.PN ---
Subjective Progress Note Date: 08/04/18 Principal diagnosis: Alcohol pancreatitis hepatitis anemia No active GI bleeding. No abdominal complaints. Tolerating clears. Hemoglobin 8.4. Platelet decreased to 47,000. INR increased to 1.6. Lipase improved 789. Amylase 80. CIWA protocol. Hepatitis screen nonreactive. Total bilirubin increased total bilirubin 8.5. AST 232. ALT 48. AP 176. Abdominal ultrasound biliary sludge no mentioning of ascites. Ammonia 66. Objective - Vital Signs Vital signs: Vital Signs Temp 98.1 F 08/04/18 09:00 Pulse 90 08/04/18 09:00 Resp 16 08/04/18 09:00 BP 115/61 08/04/18 09:00 Pulse Ox 97 08/04/18 09:00 Intake & Output 08/03/18 08/04/18 08/04/18 18:59 06:59 18:59 Intake Total 160 Balance 160 Weight 99.8 kg 98.9 kg Intake: Oral 160 Other: Voiding Method Toilet Toilet Toilet # Voids 2 1 1 - Exam General appearance: The patient is alert, oriented, in no acute distress. Jaundice. HET: Head is normocephalic and atraumatic. Pupils are equal and reactive. Oropharynx is clear without lesions. Sclerae icterus. Neck: Supple without lymphadenopathy. Trachea midline. Heart: S1 S2. Regular rate and rhythm. Lungs: No crackles or wheezes are heard. Abdomen: Soft, nontender, nondistended with bowel sounds. No peritoneal signs. No palpable organomegaly or masses. Extremities: +2 bilateral lower extremity edema Neurological: No focal deficits. Strength and sensation are grossly intact. - Labs CBC & Chem 7: 08/04/18 05:55 08/04/18 05:55 Labs: Abnormal Lab Results - Last 24 Hours (Table) 08/04/18 08/04/18 08/04/18 Range/Units 05:55 05:55 05:55 RBC 2.55 L (4.30-5.90) m/uL Hgb 8.4 L (13.0-17.5) gm/dL Hct 25.6 L (39.0-53.0) % MCV 100.2 H (80.0-100.0) fL RDW 16.3 H (11.5-15.5) % Plt Count 47 L (150-450) k/uL PT 16.4 H (9.0-12.0) sec INR 1.6 H (<1.2) Sodium (137-145) mmol/L Carbon Dioxide (22-30) mmol/L BUN (9-20) mg/dL Creatinine (0.66-1.25) mg/dL Glucose (74-99) mg/dL Calcium (8.4-10.2) mg/dL Total Bilirubin (0.2-1.3) mg/dL AST (17-59) U/L Alkaline Phosphatase (38-126) U/L Ammonia 66 H (<30) umol/L Albumin (3.5-5.0) g/dL Lipase (23-300) U/L 08/04/18 Range/Units 05:55 RBC (4.30-5.90) m/uL Hgb (13.0-17.5) gm/dL Hct (39.0-53.0) % MCV (80.0-100.0) fL RDW (11.5-15.5) % Plt Count (150-450) k/uL PT (9.0-12.0) sec INR (<1.2) Sodium 129 L (137-145) mmol/L Carbon Dioxide 21 L (22-30) mmol/L BUN 8 L (9-20) mg/dL Creatinine 0.63 L (0.66-1.25) mg/dL Glucose 105 H (74-99) mg/dL Calcium 7.3 L (8.4-10.2) mg/dL Total Bilirubin 8.5 H (0.2-1.3) mg/dL AST 232 H (17-59) U/L Alkaline Phosphatase 176 H (38-126) U/L Ammonia (<30) umol/L Albumin 2.3 L (3.5-5.0) g/dL Lipase 789 H (23-300) U/L Assessment and Plan (1) Pancreatitis Current Visit: Yes Status: Acute Code(s): K85.90 - ACUTE PANCREATITIS WITHOUT NECROSIS OR INFECTION, UNSP SNOMED Code(s): 99795543 (2) Anemia Narrative/Plan: component of acute blood loss as well as suspected nutritional anemia Current Visit: Yes Status: Acute Code(s): D64.9 - ANEMIA, UNSPECIFIED SNOMED Code(s): 089839703 (3) Chronic alcoholism Current Visit: Yes Status: Acute Code(s): F10.20 - ALCOHOL DEPENDENCE, UNCOMPLICATED SNOMED Code(s): 7835536 (4) Hyponatremia Current Visit: Yes Status: Acute Code(s): E87.1 - HYPO-OSMOLALITY AND HYPONATREMIA SNOMED Code(s): 67419840 (5) Biliary sludge Current Visit: Yes Status: Acute Code(s): K83.8 - OTHER SPECIFIED DISEASES OF BILIARY TRACT SNOMED Code(s): 43928992 (6) Alcoholic hepatitis without ascites Current Visit: Yes Status: Acute Code(s): K70.10 - ALCOHOLIC HEPATITIS WITHOUT ASCITES SNOMED Code(s): 826013406 (7) Thrombocytopenia Current Visit: Yes Status: Acute Code(s): D69.6 - THROMBOCYTOPENIA, UNSPECIFIED SNOMED Code(s): 254469699 (8) Guaiac + stool Narrative/Plan: Underlying esophageal varices peptic ulcer disease portal hypertensive gastropathy cannot be excluded Current Visit: Yes Status: Acute Code(s): R19.5 - OTHER FECAL ABNORMALITIES SNOMED Code(s): 36916174 (9) Coagulopathy Current Visit: Yes Status: Acute Code(s): D68.9 - COAGULATION DEFECT, UNSPECIFIED SNOMED Code(s): 81850840 Plan: 1. Dr. Camarillo advised EGD colonoscopy for variceal screening as well as for evaluation of anemia will schedule for Thursday if platelets and INR stable tomorrow. Patient may require FFP and platelets prior to procedure. Daily ammonia CBC CMP PT/INR. Continue present medical therapy. Healthy heart diet. Lactulose 20 grams BID. Receiving vitamin K. The pasteurizer has discussed the risks, benefits and alternative th erapies for the above-mentioned procedure and for both sedation/analgesia as well as necessary blood product administration, if indicated, as they pertain to this patient. The patient has indicated understanding and acceptance of the risks and procedures discussed. Assessment and plan a care discussed with Dr. Camarillo
[2018-08-04] MEDS: LACTULOSE 20 GM/30 ML CUP PO SCH ×2 (13:16→20:33)
--- NOTE | 2018-08-04 20:34 | P.PN ---
Progress Note - Text Progress Note Date: 08/05/18 Presenting complaint: Tired Interval history: This is a pleasant 58-year-old patient of Dr. Wills. Patient has a known history of GERD hypertension hyperlipidemia but does not take any medications. Patient is a long-standing alcoholic for many years and his alcohol intake is acting gone up in the last 2 years. Drinks close to 20 beers at night. Patient now presents with feeling weak tired rundown some blood in his stools bruising on both upper extremities tired rundown abdominal distention. Some nausea. Has been feeling miserable most occurred back on drinking and decided to present to the hospital. Hemoglobin was found to be low-dose at 6.6. One unit of blood was ordered. Tired rundown. Today-. No more GI bleed. Resting a bit. Tired. Seen by GI. Contemplating endoscopy both upper and lower. is present. On clear liquid diet. Review of systems: Was done for constitutional, cardiovascular, GI, pulmonary. relevant finding as above Current medications reviewed: Include Valium, lactulose, Lopressor, Protonix, vitamin K, Aldactone thiamine Physical examination: VITAL SIGNS: 98.1, 79, 16, 96 /50, 99% GENERAL: Laying in bed, awake, tired EYES: Pupils equal. Conjunctiva icterusl. HEENT: External appearance of nose and ears normal, oral cavity grossly normal. NECK: JVD not raised; masses not palpable. HEART: First and second heart sounds are normal; gross edema. LUNGS: Respiratory rate increased, decreased breath sounds. ABDOMEN: Soft, distended, nontender, liver spleen not palpable, no masses palpable. PSYCH: Alert and oriented x3; mood and affect anxiousl. DERMATOLOGICAL:. Extensive bruising on both upper extremities on the forearm. It is of dry skin on the lower extremity and dried up lesions Investigations: White count 7, hemoglobin 8.4, platelets 47, potassium 3.5, Assessment: -Acute severe alcohol liver disease -Acute GI bleed consider variceal bleed -Acute severe anemia symptomatic from blood loss, requiring blood transfusion -Portal hypertension -Hepatic coagulopathy -Hyponatremia with hypervolemia -Chronic alcohol dependence disorder -Thrombocytopenia from chronic alcoholism -Metabolic acidosis -Acute pancreatitis secondary to alcoholism -Watch for alcohol withdrawal Plan: Discussed with patient and . I again reinforced cessation of alcohol. If patient has endoscopy may need FFP and platelet. Otherwise don't expect pro time and platelets 2 improve acutely. Continue to follow labs.
[2018-08-05] MEDS: THIAMINE 100 MG TAB PO SCH ×2 (05:57→16:42)
[2018-08-05 06:25] LABS: ALT 50 U/L (21-72); AST 241 U/L (17-59); African American GFR (CKD) >90 (>60 ml/min/1.73 sqM); Albumin 2.5 g/dL (3.5-5.0); Alkaline Phosphatase 184 U/L (38-126); Anion Gap 8 mmol/L; Blood Urea Nitrogen 7 mg/dL (9-20); Calcium 7.6 mg/dL (8.4-10.2); Carbon Dioxide 19 mmol/L (22-30); Chloride 103 mmol/L (98-107); Glucose 110 mg/dL (74-99); Potassium 3.5 mmol/L (3.5-5.1); Sodium 130 mmol/L (137-145); Total Bilirubin 10.6 mg/dL (0.2-1.3); Total Protein 7.2 g/dL (6.3-8.2)
[2018-08-05 06:27] LABS: INR 1.7 (<1.2)
[2018-08-05 06:54] LABS: Anisocytosis Slight; Basophils % (A) 0 %; Eosinophils # (A) 0.2 k/uL (0-0.7); Eosinophils % (A) 2 %; HCT 25.2 % (39.0-53.0); HGB 8.7 gm/dL (13.0-17.5); Lymphocytes # (A) 1.3 k/uL (1.0-4.8); Lymphocytes % (A) 15 %; MCH 34.5 pg (25.0-35.0); MCHC 34.4 g/dL (31.0-37.0); MCV 100.3 fL (80.0-100.0); Macrocytosis Slight; Mean Platelet Volume 9.6; Monocytes # (A) 0.7 k/uL (0-1.0); Monocytes % (A) 8 %; Neutrophils # (A) 6.2 k/uL (1.3-7.7); Neutrophils % (A) 72 %; RBC 2.52 m/uL (4.30-5.90); RDW 16.7 % (11.5-15.5); WBC 8.6 k/uL (3.8-10.6)
[2018-08-05 07:24] LABS: Platelet Count 73 k/uL (150-450)
[2018-08-05] MEDS: LACTULOSE 20 GM/30 ML CUP PO SCH ×2 (09:25→20:36)
[2018-08-05] MEDS: SPIRONOLACTONE 25 MG TAB PO SCH (09:25)
[2018-08-05] MEDS: METOPROLOL TARTRATE 12.5 MG TAB PO SCH ×2 (09:26→20:36)
[2018-08-05] MEDS: PANTOPRAZOLE 40 MG/10 ML VIAL IVP SCH ×2 (09:26→20:36)
[2018-08-05] MEDS: DIAZEPAM 5 MG TAB PO SCH ×3 (09:26→20:36)
[2018-08-05] MEDS: PHYTONADIONE ORAL 5 MG/5 ML ORAL.SYRG PO SCH (09:27)
[2018-08-05] MEDS ORDERED: BISACODYL 5 MG TABLET.DR PO STA (10:55)
--- NOTE | 2018-08-05 11:08 | P.PN ---
Subjective Progress Note Date: 08/05/18 Principal diagnosis: Alcohol pancreatitis hepatitis anemia Bowel movement this morning with bright red blood on tissue only. No abdominal complaints. Hemoglobin 8.7. Platelet improved to 73,000. INR increased to 1.7. CIWA protocol. Hepatitis screen nonreactive. Total bilirubin increased total bilirubin 10.6. AST 241. ALT 50. AP 184. Abdominal ultrasound biliary sludge no mentioning of ascites. Ammonia improved 41. Objective - Vital Signs Vital signs: Vital Signs Temp 99.1 F 08/05/18 08:00 Pulse 86 08/05/18 08:00 Resp 18 08/05/18 08:00 BP 109/58 08/05/18 08:00 Pulse Ox 97 08/05/18 08:00 Intake & Output 08/04/18 08/05/18 08/05/18 18:59 06:59 18:59 Intake Total 820 Balance 820 Weight 97.8 kg Intake: Oral 820 Other: Voiding Method Toilet Toilet Toilet # Voids 1 2 # Bowel Movements 3 - Exam General appearance: The patient is alert, oriented, in no acute distress. Jaundice. HET: Head is normocephalic and atraumatic. Pupils are equal and reactive. Oropharynx is clear without lesions. Sclerae icterus. Neck: Supple without lymphadenopathy. Trachea midline. Heart: S1 S2. Regular rate and rhythm. Lungs: No crackles or wheezes are heard. Abdomen: Soft, nontender, nondistended with bowel sounds. No peritoneal signs. No palpable organomegaly or masses. Extremities: +2 bilateral lower extremity edema Neurological: No focal deficits. Strength and sensation are grossly intact. - Labs CBC & Chem 7: 08/05/18 06:00 08/05/18 06:00 Labs: Abnormal Lab Results - Last 24 Hours (Table) 08/05/18 08/05/18 08/05/18 Range/Units 06:00 06:00 06:00 RBC 2.52 L (4.30-5.90) m/uL Hgb 8.7 L (13.0-17.5) gm/dL Hct 25.2 L (39.0-53.0) % MCV 100.3 H (80.0-100.0) fL RDW 16.7 H (11.5-15.5) % Plt Count 73 L D (150-450) k/uL PT 17.0 H (9.0-12.0) sec INR 1.7 H (<1.2) Sodium 130 L (137-145) mmol/L Carbon Dioxide 19 L (22-30) mmol/L BUN 7 L (9-20) mg/dL Creatinine 0.65 L (0.66-1.25) mg/dL Glucose 110 H (74-99) mg/dL Calcium 7.6 L (8.4-10.2) mg/dL Total Bilirubin 10.6 H (0.2-1.3) mg/dL AST 241 H (17-59) U/L Alkaline Phosphatase 184 H (38-126) U/L Ammonia (<30) umol/L Albumin 2.5 L (3.5-5.0) g/dL 08/05/18 Range/Units 06:00 RBC (4.30-5.90) m/uL Hgb (13.0-17.5) gm/dL Hct (39.0-53.0) % MCV (80.0-100.0) fL RDW (11.5-15.5) % Plt Count (150-450) k/uL PT (9.0-12.0) sec INR (<1.2) Sodium (137-145) mmol/L Carbon Dioxide (22-30) mmol/L BUN (9-20) mg/dL Creatinine (0.66-1.25) mg/dL Glucose (74-99) mg/dL Calcium (8.4-10.2) mg/dL Total Bilirubin (0.2-1.3) mg/dL AST (17-59) U/L Alkaline Phosphatase (38-126) U/L Ammonia 41 H (<30) umol/L Albumin (3.5-5.0) g/dL Assessment and Plan (1) Pancreatitis Current Visit: Yes Status: Acute Code(s): K85.90 - ACUTE PANCREATITIS WITHOUT NECROSIS OR INFECTION, UNSP SNOMED Code(s): 43721797 (2) Anemia Narrative/Plan: normocytic component of acute blood loss as well as suspected nutritional anemia Current Visit: Yes Status: Acute Code(s): D64.9 - ANEMIA, UNSPECIFIED SNOMED Code(s): 742080615 (3) Chronic alcoholism Current Visit: Yes Status: Acute Code(s): F10.20 - ALCOHOL DEPENDENCE, UNCOMPLICATED SNOMED Code(s): 9594858 (4) Coagulopathy Current Visit: Yes Status: Acute Code(s): D68.9 - COAGULATION DEFECT, UNSP ECIFIED SNOMED Code(s): 22346037 (5) Biliary sludge Current Visit: Yes Status: Acute Code(s): K83.8 - OTHER SPECIFIED DISEASES OF BILIARY TRACT SNOMED Code(s): 63931685 (6) Alcoholic hepatitis without ascites Current Visit: Yes Status: Acute Code(s): K70.10 - ALCOHOLIC HEPATITIS WITHOUT ASCITES SNOMED Code(s): 202439473 (7) Thrombocytopenia Current Visit: Yes Status: Acute Code(s): D69.6 - THROMBOCYTOPENIA, UNSPECIFIED SNOMED Code(s): 598520269 (8) Guaiac + stool Narrative/Plan: Underlying esophageal varices peptic ulcer disease portal hypertensive ga stropathy cannot be excluded Current Visit: Yes Status: Acute Code(s): R19.5 - OTHER FECAL ABNORMALITIES SNOMED Code(s): 39231682 (9) Hyponatremia Current Visit: Yes Status: Acute Code(s): E87.1 - HYPO-OSMOLALITY AND HYPONATREMIA SNOMED Code(s): 86552344 Plan: 1. EGD colonoscopy tomorrow afternoon. Clear liquid diet. Daily CBC CMP ammo so PT/INR. The brick tester has discussed the risks, benefits and alternative therapies for the above-mentioned procedure and for both sedation/analgesia as well as necessary blood product administration, if indicated, as they pertain to this patient. The patient has indicated understanding and acceptance of the risks and procedures discussed. Assessment and plan a care discussed with Dr. Camarillo
[2018-08-05] MEDS ORDERED: PEG 3350-NA SULF,BICARB,CL/KCL 4,000 ML BOTTLE PO ONE (16:00)
[2018-08-05] MEDS: LACTATED RINGERS 1,000 ML IV SCH ×2 (17:28→19:46)
--- NOTE | 2018-08-05 22:39 | P.PN ---
Progress Note - Text Progress Note Date: 08/05/18 Presenting complaint: Tired Interval history: This is a pleasant 58-year-old patient of Dr. Wills. Patient has a known history of GERD hypertension hyperlipidemia but does not take any medications. Patient is a long-standing alcoholic for many years and his alcohol intake is acting gone up in the last 2 years. Drinks close to 20 beers at night. Patient now presents with feeling weak tired rundown some blood in his stools bruising on both upper extremities tired rundown abdominal distention. Some nausea. Has been feeling miserable most occurred back on drinking and decided to present to the hospital. Hemoglobin was found to be low-dose at 6.6. One unit of blood was ordered. Tired rundown. Today-. on clear liquid diet. Does feel a bit tired. Awaiting endoscopy possibly scheduled for Thursday. is present. No new issues. Review of systems: Was done for constitutional, cardiovascular, GI, pulmonary. relevant finding as above Current medications reviewed: Include Valium, lactulose, Lopressor, Protonix, vitamin K, Aldactone thiamine Physical examination: VITAL SIGNS: 99.1, 82, 18, 122/59, 98% room air GENERAL: propped up in bed awake, tired EYES: Pupils equal. Conjunctiva icterus HEENT: External appearance of nose and ears normal, oral cavity grossly normal. NECK: JVD not raised; masses not palpable. HEART: First and second heart sounds are normal; gross edema. LUNGS: Respiratory rate increased, decreased breath sounds. ABDOMEN: Soft, distended, nontender, liver spleen not palpable, no masses palpable. PSYCH: Alert and oriented x3; mood and affect anxiousl. DERMATOLOGICAL:. Extensive bruising on both upper extremities on the forearm. dried circular lesions crusting on both lower extremity Investigations: white count 8.6 hemoglobin 8.7 ProTime 17 sodium [id number] Assessment: - severe alcohol liver disease -Acute GI bleed consider variceal bleed -Acute severe anemia symptomatic from blood loss, requiring blood transfusion -Portal hypertension -Hepatic coagulopathy -Hyponatremia with hypervolemia -Chronic alcohol dependence disorder -Thrombocytopenia from chronic alcoholism -Metabolic acidosis -Acute pancreatitis secondary to alcoholism -Watch for alcohol withdrawal -Lower extremities circular lesions for aoutpatient dermatological consult Plan: relatively stable. Awaiting endoscopy. We'll cut back on the Valium dose. Overall prognosis is guarded.care was discussed with the patient by the time.
[2018-08-06] MEDS: THIAMINE 100 MG TAB PO SCH ×2 (06:45→17:06)
[2018-08-06] MEDS: SPIRONOLACTONE 25 MG TAB PO SCH (09:23)
[2018-08-06] MEDS: DIAZEPAM 5 MG TAB PO SCH ×3 (09:23→20:24)
[2018-08-06] MEDS: PANTOPRAZOLE 40 MG/10 ML VIAL IVP SCH ×2 (09:23→20:25)
[2018-08-06] MEDS: METOPROLOL TARTRATE 12.5 MG TAB PO SCH ×2 (09:23→20:24)
[2018-08-06] MEDS: LACTULOSE 20 GM/30 ML CUP PO SCH ×2 (09:24→20:25)
[2018-08-06 09:55] LABS: INR 1.7 (<1.2); Prothrombin Time 17.2 sec (9.0-12.0)
[2018-08-06 09:58] LABS: Anisocytosis Slight; Basophils # (A) 0.1 k/uL (0-0.2); Basophils % (A) 1 %; Eosinophils # (A) 0.2 k/uL (0-0.7); Eosinophils % (A) 3 %; HCT 25.9 % (39.0-53.0); HGB 8.8 gm/dL (13.0-17.5); Lymphocytes # (A) 1.4 k/uL (1.0-4.8); Lymphocytes % (A) 15 %; MCH 34.5 pg (25.0-35.0); MCHC 33.8 g/dL (31.0-37.0); MCV 101.9 fL (80.0-100.0); Macrocytosis Slight; Monocytes # (A) 0.8 k/uL (0-1.0); Monocytes % (A) 9 %; Neutrophils # (A) 6.3 k/uL (1.3-7.7); Neutrophils % (A) 70 %; RBC 2.54 m/uL (4.30-5.90); RDW 17.4 % (11.5-15.5)
[2018-08-06 09:59] LABS: Platelet Count 87 k/uL (150-450)
[2018-08-06] MEDS: PHYTONADIONE ORAL 5 MG/5 ML ORAL.SYRG PO SCH (10:07)
[2018-08-06 10:08] LABS: African American GFR (CKD) >90 (>60 ml/min/1.73 sqM); Albumin 2.5 g/dL (3.5-5.0); Anion Gap 10 mmol/L; Blood Urea Nitrogen 11 mg/dL (9-20); Calcium 7.4 mg/dL (8.4-10.2); Carbon Dioxide 14 mmol/L (22-30); Chloride 107 mmol/L (98-107); Glucose 96 mg/dL (74-99); Sodium 131 mmol/L (137-145); Total Bilirubin 11.4 mg/dL (0.2-1.3); Total Protein 7.1 g/dL (6.3-8.2)
[2018-08-06 10:12] LABS: ALT 43 U/L (21-72); AST 192 U/L (17-59); Alkaline Phosphatase 161 U/L (38-126); Potassium 3.6 mmol/L (3.5-5.1)
[2018-08-06] MEDS ORDERED: PROPOFOL 10 MG/ML 20 ML VIAL IV ONE (13:24)
[2018-08-06] MEDS ORDERED: LACTATED RINGERS 1,000 ML IV ONE (13:25)
--- NOTE | 2018-08-06 13:48 | P.PCN ---
Date of Procedure: 08/06/18 Procedure(s) Performed: Brief history: Patient is a pleasant 58-year-old male, scheduled for an upper endoscopy as well as colonoscopy as a part of evaluation of anemia and intermittent rectal bleeding. Patient was admitted to the hospital with acute alcoholic hepatitis and hemoglobin of 8.6 g/dL. His hemoglobin of intermittent rectal bleeding for the last few weeks. Procedure performed: Esophagogastroduodenoscopy Colonoscopy Preoperative diagnosis: Anesthesia: [facility] Procedure: After informed consent was obtained from the patient was brought into the endoscopy unit and IV sedation was administered by anesthesia under continuous monitoring. Initially upper endoscopy was done. The Olympus GF 160 video endoscope was inserted inserted into the mouth and esophagus intubated without any difficulty and was gradually advanced into the stomach and duodenum and carefully examined. The bulb and second part of the duodenum appeared normal. The scope was then withdrawn into the stomach adequately insufflated with air and upon careful examination the antrum and body, cardia and fundus had severe portal hypertensive gastropathy with no active bleeding. No gastric varices seen. The scope was then withdrawn into the esophagus. The GE junction was located at 40 cm to the incisors. It appeared regular with no erythema erosions or ulcerations. Rest of the esophagus appeared normal. Patient tolerated the procedure well. At this time the patient continued to remain sedation. Initial digital rectal examination was normal. Olympus CF 160 video colonoscope was then inserted into the rectum and gradually advanced to the cecum without any difficulty. Careful examination was performed as the scope was gradually being withdrawn. The prep was excellent. The cecum, ascending colon, transverse colon, descending colon, sigmoid colon and rectum appeared normal. Retroflexion was performed in the rectum and grade 2 internal hemorrhoids were noted. Patient tolerated the procedure well. Impression: 1. Upper endoscopy revealed severe portal hypertensive gastropathy but no evidence of esophageal or gastric varices. No active bleeding noted 2. Colonoscopy revealed grade 2 internal hemorrhoids but no evidence of colitis or colorectal neoplasia Recommendations: Findings of this examination were discussed with the patient. Diet will be advanced as tolerated.
[2018-08-06 14:45] VITALS: BMI 35.9
--- NOTE | 2018-08-06 20:05 | P.PN ---
Progress Note - Text Progress Note Date: 08/06/18 Presenting complaint: Tired Interval history: This is a pleasant 58-year-old patient of Dr. Wills. Patient has a known history of GERD hypertension hyperlipidemia but does not take any medications. Patient is a long-standing alcoholic for many years and his alcohol intake is acting gone up in the last 2 years. Drinks close to 20 beers at night. Patient now presents with feeling weak tired rundown some blood in his stools bruising on both upper extremities tired rundown abdominal distention. Some nausea. Has been feeling miserable most occurred back on drinking and decided to present to the hospital. Hemoglobin was found to be low-dose at 6.6. One unit of blood was ordered. Tired rundown. Today-. Tired. Had been a clear liquid diet. Saw the patient before evening of endoscopy. No new issues. is present. Review of systems: Was done for constitutional, cardiovascular, GI, pulmonary. relevant finding as above Current medications reviewed: Include Valium, lactulose, Lopressor, Protonix, vitamin K, Aldactone thiamine Physical examination: VITAL SIGNS: 9 8.4, 80, 16, 100/57, 98% r GENERAL: Laying bed awake, tired EYES: Pupils equal. Conjunctiva icterus HEENT: External appearance of nose and ears normal, oral cavity grossly normal. NECK: JVD not raised; masses not palpable. HEART: First and second heart sounds are normal; gross edema. LUNGS: Respiratory rate increased, decreased breath sounds. ABDOMEN: Soft, distended, nontender, liver spleen not palpable, no masses palpable. PSYCH: Alert and oriented x3; mood and affect anxiousl. DERMATOLOGICAL:. Extensive bruising on both upper extremities on the forearm. dried circular lesions crusting on both lower extremity Investigations: White count 9, hemoglobin 8.8, pro time 17.2, potassium 3.6, BUN 11, creatinine 0.89 Assessment: - severe alcohol liver disease -Acute GI bleed consider variceal bleed -Acute severe anemia symptomatic from blood loss, requiring blood transfusion -Portal hypertension -Hepatic coagulopathy -Hyponatremia with hypervolemia -Chronic alcohol dependence disorder -Thrombocytopenia from chronic alcoholism -Metabolic acidosis -Acute pancreatitis secondary to alcoholism -Watch for alcohol withdrawal -Lower extremities circular lesions for aoutpatient dermatological consult -Severe portal hypertensive gastropathy. No evidence of bleeding on EGD Plan: Patient was resumed on a diet after her procedure. We'll watch the patient overnight. She remained stable and could be discharge tomorrow. Earlier spoke to the patient and the .
[2018-08-06] MEDS: LACTATED RINGERS 1,000 ML IV SCH ×2 (20:25)
[2018-08-06] MEDS: LORazepam 2 MG/ML INJ IV PRN (21:42)
[2018-08-07] MEDS: THIAMINE 100 MG TAB PO SCH ×2 (06:34→09:26)
[2018-08-07 08:12] LABS: ALT 43 U/L (21-72); AST 170 U/L (17-59); African American GFR (CKD) >90 (>60 ml/min/1.73 sqM); Albumin 2.3 g/dL (3.5-5.0); Alkaline Phosphatase 166 U/L (38-126); Anion Gap 9 mmol/L; Blood Urea Nitrogen 13 mg/dL (9-20); Calcium 7.4 mg/dL (8.4-10.2); Carbon Dioxide 18 mmol/L (22-30); Chloride 106 mmol/L (98-107); Glucose 107 mg/dL (74-99); Potassium 2.9 mmol/L (3.5-5.1); Sodium 133 mmol/L (137-145); Total Bilirubin 11.5 mg/dL (0.2-1.3)
[2018-08-07] MEDS: LACTULOSE 20 GM/30 ML CUP PO SCH ×2 (09:26→22:43)
[2018-08-07] MEDS: DIAZEPAM 5 MG TAB PO SCH ×3 (09:26→22:42)
[2018-08-07] MEDS: METOPROLOL TARTRATE 12.5 MG TAB PO SCH ×2 (09:26→22:42)
[2018-08-07] MEDS: SPIRONOLACTONE 25 MG TAB PO SCH (09:26)
[2018-08-07] MEDS: PANTOPRAZOLE 40 MG/10 ML VIAL IVP SCH ×2 (09:26→22:42)
[2018-08-07] MEDS: PHYTONADIONE ORAL 5 MG/5 ML ORAL.SYRG PO SCH (09:32)
--- NOTE | 2018-08-07 09:53 | PN ---
PROGRESS NOTE DATE OF DICTATION: August 07, 2018 Patient is a 58-year-old male with history of heavy alcohol abuse of 20 years duration admitted to the hospital with acute alcoholic hepatitis and anemia. He underwent an EGD and colonoscopy yesterday that showed evidence of severe portal hypertensive gastropathy and small internal hemorrhoids. The patient also noted to have elevated LFTs and bilirubin has been gradually increasing consistent with acute alcoholic hepatitis. This morning, he complains of fatigue and weakness. Denies any abdominal pain. No nausea, vomiting. PHYSICAL EXAMINATION: He appears comfortable. No apparent distress. VITAL SIGNS: Stable. Blood pressure is 122/64, pulse 75, temperature 98.3. HEENT Examination unremarkable. Conjunctivae pink. Sclerae deeply icteric. Oral cavity no lesions. NECK: No JVD or lymph node enlargement. Chest was clear to auscultation. HEART: Regular rate and rhythm. ABDOMEN: Soft. Mild tenderness in the right upper quadrant area. Bowel sounds are positive. No organomegaly. EXTREMITIES no pedal edema. SKIN no rashes. NEUROLOGIC: Alert and oriented x3. No focal deficits. LABS: From today, bilirubin is 11.5, AST 170, ALT 143, alkaline phosphatase 166. IMPRESSION: 1. Acute alcoholic hepatitis with elevated LFTs, T-bilirubin gradually increasing but has stabilized since yesterday. 2. History of heavy alcohol abuse of more than 20 years duration. 3. Anemia with no active bleeding. EGD and colonoscopy done yesterday showed severe portal hypertensive gastropathy and grade 2 internal hemorrhoids. RECOMMENDATIONS: 1. Continue with symptomatic and supportive care. 2. I had a lengthy discussion with the patient regarding abstinence from alcohol, which was also discussed with the patient's yesterday. 3. Monitor labs closely. We will follow him closely during his hospital stay. Thank you for this consultation. MMODL / IJN: [id number] /
[2018-08-07] MEDS: LACTATED RINGERS 1,000 ML IV SCH ×2 (14:48)
[2018-08-07] MEDS: POTASSIUM CHLORIDE ER 20 MEQ TAB.ER PO SCH ×2 (14:49→16:20)
[2018-08-07] MEDS ORDERED: POTASSIUM CHLORIDE ER 20 MEQ TAB.ER PO STA (18:10)
[2018-08-08] MEDS: THIAMINE 100 MG TAB PO SCH (06:29)
[2018-08-08] MEDS: SPIRONOLACTONE 25 MG TAB PO SCH (07:31)
[2018-08-08] MEDS: DIAZEPAM 5 MG TAB PO SCH (07:31)
[2018-08-08] MEDS: LACTULOSE 20 GM/30 ML CUP PO SCH (07:32)
[2018-08-08] MEDS: METOPROLOL TARTRATE 12.5 MG TAB PO SCH (07:32)
[2018-08-08] MEDS: PANTOPRAZOLE 40 MG/10 ML VIAL IVP SCH (07:32)
[2018-08-08] MEDS: PHYTONADIONE ORAL 5 MG/5 ML ORAL.SYRG PO SCH (07:33)
[2018-08-08 09:40] VITALS: RESP 20
--- NOTE | 2018-08-08 11:11 | PN ---
PROGRESS NOTE DATE OF DICTATION: August 08, 2018. REQUESTING PHYSICIAN: Dr. Foreman The patient is a 58-year-old pleasant white male with history of alcoholic cirrhosis of the liver, admitted to the hospital with acute alcoholic hepatitis. He had gastrointestinal bleed and anemia. Had an EGD and colonoscopy done 2 days ago that showed severe portal hypertensive gastropathy and small internal hemorrhoids. He is doing much better today. He states at this time he feels more energetic. Appetite is coming back. However, he continues to have fatigue and weakness. No abdominal pain. No nausea, vomiting. No rectal bleeding. PHYSICAL EXAMINATION: Appears comfortable. No apparent distress. VITAL SIGNS: Stable. Blood pressure 111/72, pulse rate 77, temperature 98.6. HEENT examination unremarkable. Conjunctivae pink. Sclerae anicteric. Oral cavity no lesions. NECK: No jugular venous distention or lymph node enlargement. Chest: Clear to auscultation. HEART: Regular rate and rhythm. ABDOMEN was soft, it was slightly distended. Liver was palpable below the right costal margin. Extremities: No pedal edema. Skin no rashes. NEUROLOGIC: Alert and oriented x3. No focal deficits. LABS: From yesterday: T-bili was 11.5. AST 170, ALT 43, alkaline phosphatase 166. No labs from today. IMPRESSION: 1. Acute alcoholic hepatitis superimposed on alcoholic cirrhosis of the liver with LFTs gradually increasing. 2. Mild coagulopathy and thrombocytopenia secondary to advanced liver disease. 3. Heavy alcohol abuse of many years duration. 4. Gastrointestinal bleed status post EGD and colonoscopy 2 days ago. RECOMMENDATIONS: 1. Continue with symptomatic and supportive care. 2. Increase ambulation. 3. Discussed with the patient regarding abstinence from alcohol. 4. Repeat labs in the morning and we will follow him closely during his hospital stay. Thank you for this consultation. MMODL / IJN: [id number] /
[2018-08-08 11:30] VITALS: BP 98/53; PULSE 81; TEMP 98.4
--- NOTE | 2018-08-08 17:40 | P.PN ---
Progress Note - Text Progress Note Date: 08/07/18 Presenting complaint: Tired Interval history: This is a pleasant 58-year-old patient of Dr. Wills. Patient has a known history of GERD hypertension hyperlipidemia but does not take any medications. Patient is a long-standing alcoholic for many years and his alcohol intake is acting gone up in the last 2 years. Drinks close to 20 beers at night. Patient now presents with feeling weak tired rundown some blood in his stools bruising on both upper extremities tired rundown abdominal distention. Some nausea. Has been feeling miserable most occurred back on drinking and decided to present to the hospital. Hemoglobin was found to be low-dose at 6.6. One unit of blood was ordered. Tired rundown. Today-. Tired but laying in bed. Starting a diet. Had a bowel movement. No new issues. Review of systems: Was done for constitutional, cardiovascular, GI, pulmonary. relevant finding as above Current medications reviewed: Include Valium, lactulose, Lopressor, Protonix, vitamin K, Aldactone thiamine Physical examination: VITAL SIGNS: 97.9, 86, 20, 107/65, 96% room air GENERAL: Laying bed awake, tired EYES: Pupils equal. Conjunctiva icterus HEENT: External appearance of nose and ears normal, oral cavity grossly normal. NECK: JVD not raised; masses not palpable. HEART: First and second heart sounds are normal; gross edema. LUNGS: Respiratory rate increased, decreased breath sounds. ABDOMEN: Soft, distended, nontender, liver spleen not palpable, no masses palpable. PSYCH: Alert and oriented x3; mood and affect anxiousl. DERMATOLOGICAL:. Extensive bruising on both upper extremities on the forearm. dried circular lesions crusting on both lower extremity Investigations: Potassium 3.1 Assessment: - severe alcohol liver disease -Acute GI bleed consider variceal bleed -Acute severe anemia symptomatic from blood loss, requiring blood transfusion -Portal hypertension -Hepatic coagulopathy -Hyponatremia with hypervolemia -Chronic alcohol dependence disorder -Thrombocytopenia from chronic alcoholism -Metabolic acidosis -Acute pancreatitis secondary to alcoholism -Watch for alcohol withdrawal -Lower extremities circular lesions for aoutpatient dermatological consult -Severe portal hypertensive gastropathy. No evidence of bleeding on EGD Plan: Potassium was being replaced. The patient were made to discharge the patient home. Later was informed that the patient's and left. The patient did not want to go home today. I did tell the nurse to call the to have her come back to take the patient Home.
--- NOTE | 2018-08-08 17:46 | P.DS ---
Providers Date of admission: 08/02/18 16:01 Expected date of discharge: 08/08/18 Attending physician: William Foreman Consults: 08/02/18 15:40 Consult Physician Routine Consulting Provider: Babar Camarillo Consult Reason/Comments: pancreatitis, hyperbilirubinemia, h/o chronic alcoholism Do you want consulting provider notified?: Yes Primary care physician: [facility] Hospital Course: Discharge diagnoses: - severe alcohol liver disease -Acute GI bleed possible portable gastropathy source -Acute severe anemia symptomatic from blood loss, requiring blood transfusion -Portal hypertension -Hepatic coagulopathy -Hyponatremia with hypervolemia -Chronic alcohol dependence disorder -Thrombocytopenia from chronic alcoholism -Metabolic acidosis -Acute pancreatitis secondary to alcoholism -Lower extremities circular lesions for out patient dermatological consult -Severe portal hypertensive gastropathy. No evidence of bleeding on EGD -Severe hypokalemia Consultation: Dr. Sapp and Dr. Haynes from GI Procedure: EGD Hospital course: This is a pleasant 58-year-old patient of Dr. Wills. Patient has a known history of GERD hypertension hyperlipidemia but does not take any medications. Patient is a long-standing alcoholic for many years and his alcohol intake is acting gone up in the last 2 years. Drinks close to 20 beers at night. Patient now presents with feeling weak tired rundown some blood in his stools bruising on both upper extremities tired rundown abdominal distention. Some nausea. Has been feeling miserable most occurred back on drinking and decided to present to the hospital. Hemoglobin was found to be low-dose at 6.6. One unit of blood was ordered. Tired rundown. EGD was carried out. Patient was found to have severe portal gastropathy. Po ssibly could have been the source of bleeding. Patient has low platelets and elevated pro time. It was discussed with the patient and in detail that prognosis is guarded. How he does time determined. It was reinforced that he should not drink alcohol at all. Home services are being coordinated by case consultant. Today patient's daughter is here. Physical examination: VITAL SIGNS: 98.4, 81, 20, 98/53, 96% on room air GENERAL: Laying bed awake, tired EYES: Pupils equal. Conjunctiva icterus HEENT: External appearance of nose and ears normal, oral cavity grossly normal. NECK: JVD not raised; masses not palpable. HEART: First and second heart sounds are normal; gross edema. LUNGS: Respiratory rate increased, decreased breath sounds. ABDOMEN: Soft, distended, nontender, liver spleen not palpable, no masses palpable. PSYCH: Alert and oriented x3; mood and affect anxiousl. DERMATOLOGICAL:. Extensive bruising on both upper extremities on the forearm. dried circular lesions crusting on both lower extremity Disposition: Home with family Patient Condition at Discharge: Stable Plan - Discharge Summary Discharge Rx Participant: No New Discharge Prescriptions: New Spironolactone [Aldactone] 100 mg PO DAILY #30 tab Lactulose [Cephulac] 20 gm PO BID 30 Days ml Metoprolol Tartrate [Lopressor] 12.5 mg PO BID #60 tab Diazepam [Valium] 2 mg PO DIRECTED #7 tab Thiamine [Vitamin B-1] 100 mg PO BID-W/MEALS #60 tab Changed Omeprazole Magnesium [PriLOSEC OTC] 20 mg PO BID #60 tablet. Discharge Medication List Diazepam [Valium] 2 mg PO DIRECTED #7 tab 08/07/18 [Rx] Lactulose [Cephulac] 20 gm PO BID 30 Days ml 08/07/18 [Rx] Metoprolol Tartrate [Lopressor] 12.5 mg PO BID #60 tab 08/07/18 [Rx] Omeprazole Magnesium [PriLOSEC OTC] 20 mg PO BID #60 tablet. 08/07/18 [Rx] Spironolactone [Aldactone] 100 mg PO DAILY #30 tab 08/07/18 [Rx] Thiamine [Vitamin B-1] 100 mg PO BID-W/MEALS #60 tab 08/07/18 [Rx] Follow up Appointment(s)/Referral(s): Samantha De Jesus MD [STAFF PHYSICIAN] - 1 Week (leg lesions) [facility], [NON-STAFF] - 1-2 Days Vaughn Ceballos MD [Primary Care Provider] - 1 Week Babar Camarillo MD [STAFF PHYSICIAN] - 09/06/18 10:30 am Patient Instructions/Handouts: Alcohol Withdrawal (DC), Alcohol Withdrawal (GEN), Alcohol Dependence (DC) Activity/Diet/Wound Care/Special Instructions: Low sodium diet Fluid restriction 1500 mL a day Discharge after potassium supplement and recheck as ordered home health Discharge Disposition: HOME SELF-CARE
== END 2018-08-08 14:46 | disposition home or self-care (01) | DRG 441 ==
LOC: EC 12:25 → 3SCARD 16:01
PROVIDERS: ADMIT Hospitalist; ATTEND Hospitalist
PROC: 0DJD8ZZ Inspection of Lower Intestinal Tract, Via Natural or Artificial Opening Endoscopic (ICD-10-PCS; principal; 2018-08-06 13:25)
PROC: 0DJ08ZZ Inspection of Upper Intestinal Tract, Via Natural or Artificial Opening Endoscopic (ICD-10-PCS; principal; 2018-08-06 13:25)
PROC: 30233N1 Transfusion of Nonautologous Red Blood Cells into Peripheral Vein, Percutaneous Approach (ICD-10-PCS; principal; 2018-08-06 13:25)
DX: K76.6 Portal hypertension (principal); K85.20 Alcohol induced acute pancreatitis without necrosis or infection; K92.2 Gastrointestinal hemorrhage, unspecified; D68.4 Acquired coagulation factor deficiency; E87.1 Hypo-osmolality and hyponatremia; E87.2 Acidosis; D62 Acute posthemorrhagic anemia; K70.30 Alcoholic cirrhosis of liver without ascites; E87.6 Hypokalemia; K70.10 Alcoholic hepatitis without ascites; K64.1 Second degree hemorrhoids; E87.70 Fluid overload, unspecified; K76.0 Fatty (change of) liver, not elsewhere classified; K31.89 Other diseases of stomach and duodenum; D69.59 Other secondary thrombocytopenia; E78.5 Hyperlipidemia, unspecified; F17.200 Nicotine dependence, unspecified, uncomplicated; I10 Essential (primary) hypertension; K21.9 Gastro-esophageal reflux disease without esophagitis; Z82.0 Family history of epilepsy and other diseases of the nervous system; Z82.49 Family history of ischemic heart disease and other diseases of the circulatory system
CPT/HCPCS: 36415; 43235; 45378; 71046; 76705; 80048; 80053; 80074; 80320; 81001; 82140; 82150; 82272; 83690; 83735; 83880; 84132; 84484; 85025; 85610; 85730; 86850; 86900; 86901; 86920; 90732; 96361; 96372; 96374; 96375; 99284

== ENCOUNTER 2018-09-01 16:35 | Inpatient (IN) | payer BC ==
[2018-09-01] MEDS ORDERED: SODIUM CHLORIDE 0.9% 1,000 ML IV ONE ×2 (16:48→19:15)
--- NOTE | 2018-09-01 16:55 | ED ---
General Adult HPI - General Stated complaint: Weakness Time Seen by Provider: 09/01/18 16:35 Source: RN notes reviewed - History of Present Illness Initial comments: This is a 58-year-old male who has a past medical history significant for alcoholic hepatitis. Patient states he was admitted the hospital a few weeks ago and was discharged home. Patient states she was very jaundiced at that time. Patient states he comes in today because he has not been eating or drinking over that period of time and he is becoming weak and weaker to the point where he can't walk at this time. Patient denies any nausea vomiting or diarrhea. Patient denies any chest pain difficulty breathing or shortness of breath. Patient denies any abdominal pain. Patient denies any fever or chills. Patient denies headache patient denies lightheadedness or dizziness. Patient just complains of generalized body weakness. - Related Data Previous Rx's Medication Instructions Recorded Metoprolol Tartrate [Lopressor] 12.5 mg PO BID #60 tab 08/07/18 Omeprazole Magnesium [PriLOSEC OTC] 20 mg PO BID #60 tablet. 08/07/18 Spironolactone [Aldactone] 100 mg PO DAILY #30 tab 08/07/18 Thiamine [Vitamin B-1] 100 mg PO BID-W/MEALS #60 tab 08/07/18 Allergies Allergy/AdvReac Type Severity Reaction Status Date / Time No Known Allergies Allergy Verified 09/01/18 16:56 Review of Systems ROS Statement: Those systems with pertinent positive or pertinent negative responses have been documented in the HPI. ROS Other: All systems not noted in ROS Statement are negative. Past Medical History Past Medical History: GERD/Reflux, Hyperlipidemia, Hypertension History of Any Multi-Drug Resistant Organisms: None Reported Past Surgical History: No Surgical Hx Reported Past Anesthesia/Blood Transfusion Reactions: No Reported Reaction Smoking Status: Never smoker - Past Family History Father Additional Family Medical History / Comment(s): CABG Mother Family Medical History: Memory Impairment Additional Family Medical History / Comment(s): alzheimers General Exam - General Exam Comments Initial Comments: GENERAL: Patient is well-developed and well-nourished. Patient is nontoxic and well- hydrated and is in mild distress. ENT: Neck is soft and supple. No significant lymphadenopathy is noted. Oropharynx is clear. Moist mucous membranes. Neck has full range of motion without eliciting any pain. EYES: Patient has sclera icterus. Extraocular movements were intact and pupils were equal round and reactive to light. Eyelids were unremarkable. PULMONARY: Unlabored respirations. Good breath sounds bilaterally. No audible rales rhonchi or wheezing was noted. CARDIOVASCULAR: There is a regular rate and rhythm without any murmurs gallops or rubs. ABDOMEN: Soft and nontender with normal bowel sounds. No palpable organomegaly was noted. There is no palpable pulsatile mass. SKIN: Patient is severely jaundiced. NEUROLOGIC: Patient is alert and oriented x3. Cranial nerves II through XII are grossly intact. Motor and sensory are also intact. Normal speech, volume and content. Symmetrical smile. MUSCULOSKELETAL: Normal extremities with adequate strength and full range of motion. No lower extremity swelling or edema. No calf tenderness. LYMPHATICS: No significant lymphadenopathy is noted PSYCHIATRIC: Normal psychiatric evaluation. Course Vital Signs 09/01/18 16:51 Temperature 97.8 F Pulse Rate 98 Respiratory 18 Rate Blood Pressure 93/44 O2 Sat by Pulse 100 Oximetry Medical Decision Making - Medical Decision Making Patient has acute renal failure. Patient also has alcoholic hepatitis. Patient denies any drinking last 3 weeks. I spoke with some physicians agreed to admit the patient admitted the patient wrote admitting orders I consulted nephrology - Lab Data Result diagrams: 09/01/18 16:50 09/01/18 16:50 Lab Results 09/01/18 09/01/18 09/01/18 Range/Units 16:50 16:50 16:50 WBC 15.1 H (3.8-10.6) k/uL RBC 2.40 L (4.30-5.90) m/uL Hgb 8.3 L (13.0-17.5) gm/dL Hct 25.4 L (39.0-53.0) % MCV 105.8 H (80.0-100.0) fL MCH 34.6 (25.0-35.0) pg MCHC 32.7 (31.0-37.0) g/dL RDW 17.6 H (11.5-15.5) % Plt Count 134 L D (150-450) k/uL Neutrophils % (Manual) 79 % Band Neutrophils % 1 % Lymphocytes % (Manual) 10 % Monocytes % (Manual) 10 % Neutrophils # (Manual) 12.00 H (1.3-7.7) k/uL Lymphocytes # (Manual) 1.51 (1.0-4.8) k/uL Monocytes # (Manual) 1.51 H (0-1.0) k/uL Nucleated RBCs 0 (0-0) /100 WBC Manual Slide Review Performed Anisocytosis Slight Macrocytosis Marked A PT 18.2 H (9.0-12.0) sec INR 1.8 H (<1.2) APTT 55.4 H (22.0-30.0) sec Sodium 135 L (137-145) mmol/L Potassium 5.3 H (3.5-5.1) mmol/L Chloride 110 H (98-107) mmol/L Carbon Dioxide 12 L (22-30) mmol/L Anion Gap 13 mmol/L BUN 110 H* (9-20) mg/dL Creatinine 7.94 H* (0.66-1.25) mg/dL Est GFR (CKD-EPI)AfAm 8 (>60 ml/min/1.73 sqM) Est GFR (CKD-EPI)NonAf 7 (>60 ml/min/1.73 sqM) Glucose 123 H (74-99) mg/dL Calcium 7.8 L (8.4-10.2) mg/dL Magnesium 2.6 H (1.6-2.3) mg/dL Total Bilirubin 12.3 H (0.2-1.3) mg/dL AST 108 H (17-59) U/L ALT 23 (21-72) U/L Alkaline Phosphatase 136 H (38-126) U/L Total Protein 8.5 H (6.3-8.2) g/dL Albumin 2.4 L (3.5-5.0) g/dL Amylase 121 H (30-110) U/L Lipase 546 H (23-300) U/L Disposition Clinical Impression: Acute renal failure, Alcoholic hepatitis Disposition: ADMITTED IP TO THIS [facility] Referrals: Andrey Wills MD [Primary Care Provider] - 1-2 days Time of Disposition: 19:13
[2018-09-01 17:14] LABS: INR 1.8 (<1.2); Partial Thromboplastin Time 55.4 sec (22.0-30.0); Prothrombin Time 18.2 sec (9.0-12.0)
[2018-09-01 17:18] LABS: Albumin 2.4 g/dL (3.5-5.0); Calcium 7.8 mg/dL (8.4-10.2); Magnesium 2.6 mg/dL (1.6-2.3); Potassium 5.3 mmol/L (3.5-5.1); Total Bilirubin 12.3 mg/dL (0.2-1.3); Total Protein 8.5 g/dL (6.3-8.2)
[2018-09-01 17:35] LABS: Anisocytosis Slight; HCT 25.4 % (39.0-53.0); HGB 8.3 gm/dL (13.0-17.5); MCH 34.6 pg (25.0-35.0); MCHC 32.7 g/dL (31.0-37.0); MCV 105.8 fL (80.0-100.0); Macrocytosis Marked; Mean Platelet Volume 8.5; RDW 17.6 % (11.5-15.5); WBC 15.1 k/uL (3.8-10.6)
[2018-09-01 17:36] LABS: Platelet Count 134 k/uL (150-450)
--- NOTE | 2018-09-01 18:19 | XR ---
EXAMINATION TYPE: XR chest 2V DATE OF EXAM: 09/01/2018 COMPARISON: Prior chest x-ray 08/02/2018 HISTORY: Difficulty breathing TECHNIQUE: Frontal and lateral views of the chest are obtained. FINDINGS: The patient is rotated and the technique is apical lordotic. Lung volumes appear low. Right hemidiaphragm appears elevated. There is no pleural effusion or pneumothorax seen. Suspect there a re some subsegmental basilar atelectatic changes, the left hemidiaphragm is not well seen. The cardia c silhouette size is likely stable accounting for differences in technique. The osseous structures are intact. IMPRESSION: Probable basilar atelectasis, technique is somewhat compromised. Consider PA and lateral chest x-ray when patient is stable. Rotated expiratory exam.
[2018-09-01 18:21] LABS: Band Neutrophils % 1 %; Lymphocytes # (M) 1.51 k/uL (1.0-4.8); Monocytes # (M) 1.51 k/uL (0-1.0); Neutrophils % (M) 79 %; Nucleated Red Blood Cells 0 /100 WBC (0-0); Total Cells Counted 100
[2018-09-01] MEDS ORDERED: SPIRONOLACTONE 25 MG TAB PO SCH (21:15)
[2018-09-01 21:29] LABS: Lactic Acid, Venous 2.5 mmol/L (0.7-2.0)
[2018-09-01 21:57] LABS: Anisocytosis Slight; Hypochromasia Slight; MCH 33.7 pg (25.0-35.0); MCHC 31.1 g/dL (31.0-37.0); MCV 108.3 fL (80.0-100.0); Macrocytosis Marked; Mean Platelet Volume 8.2; Platelet Count 140 k/uL (150-450); RBC 1.73 m/uL (4.30-5.90); RDW 17.1 % (11.5-15.5); WBC 14.8 k/uL (3.8-10.6)
--- NOTE | 2018-09-01 22:06 | P.HPIM ---
History of Present Illness H&P Date: 09/01/18 Chief Complaint: Progressive weakness and confusion 58-year-old male with advanced liver disease secondary to alcohol abuse. Patient was recently discharged from the hospital 3 weeks ago where he was admitted for acute pancreatitis and GI bleeding from variceal bleed. Patient comes in today due to worsening mental status and progressive weakness. Patient unable to provide meaningful history, history was obtained by talking to the at bedside who reports patient has been having decreased by mouth intake over the past few days barely compliant with his medications. He was growing progressively weak and tired getting episodes of confusion and chills no reported fever no coughing no reported chest pain or trouble breathing. Abdomen was getting bigger and distended. Patient claims that he's been abstinent from alcohol for at least 3 weeks now. She also reports spots of blood in his stool but denies any melena. She also reports dark orange urine. She grew concerned and started thinking of bringing him to the hospital for evaluation. Today he was more confused and very weak he couldn't even get up from a chair for which she decided to bring him to the hospital. In the ED he was found to have acute kidney injury which is thought to be due to hepatorenal syndrome friend fast liver cirrhosis worsening liver function and acidosis. Chest x-ray was unremarkable except for some atelectasis at the bases. Review of Systems ROS unobtainable: due to mental status Past Medical History Past Medical History: GERD/Reflux, GI Bleed, Hyperlipidemia, Hypertension, Liver Disease History of Any Multi-Drug Resistant Organisms: None Reported Past Surgical History: No Surgical Hx Reported Past Anesthesia/Blood Transfusion Reactions: No Reported Reaction Smoking Status: Never smoker - Past Family History Father Additional Family Medical History / Comment(s): CABG Mother Family Medical History: Memory Impairment Additional Family Medical History / Comment(s): alzheimers Medications and Allergies Home Medications Medication Instructions Recorded Confirmed Type Metoprolol Tartrate [Lopressor] 12.5 mg PO BID #60 tab 08/07/18 09/01/18 Rx Omeprazole Magnesium [PriLOSEC OTC] 20 mg PO BID #60 tablet. 08/07/18 09/01/18 Rx Spironolactone [Aldactone] 100 mg PO DAILY #30 tab 08/07/18 09/01/18 Rx Thiamine [Vitamin B-1] 100 mg PO BID-W/MEALS #60 tab 08/07/18 09/01/18 Rx Allergies Allergy/AdvReac Type Severity Reaction Status Date / Time No Known Allergies Allergy Verified 09/01/18 16:56 Physical Exam Vitals: Vital Signs Temp Pulse Resp BP Pulse Ox 09/01/18 20:44 86 13 119/59 09/01/18 19:43 97.7 F 89 12 104/46 99 09/01/18 16:51 97.8 F 98 18 93/44 100 Intake and Output 09/01/18 09/01/18 09/01/18 06:59 14:59 22:59 Other: Weight 99.337 kg Constitutional: No acute distress, waxing and waning confusion. at bedside assisting with history taking, positive asterixis Eyes: Deeply jaundiced, moist conjunctiva, Pupils equal round reactive to light ENMT: NC/AT Oropharynx clear, no erythema, or exudates Neck: Supple, FROM, no masses, or JVD No carotid bruits No thyromegaly Lungs: Clear to auscultation Clear to percussion Normal respiratory effort, no accessory muscle use Cardiovascular: Heart regular in rate and rhythm, Systolic murmurs, no gallops, or rubs No peripheral edema Abdominal: Distended abdomen Nontender, no guarding, rebound or rigidity Abdomen moving with respiration Normoactive bowel sounds Palpable liver below costal margin No palpable mass Umbilical hernia noted Skin: Normal temperature, tone, texture, turgor No induration No subcutaneous nodules No rash, lesions Multiple excoriation brown and superficial scabs over bilateral legs Extremities: No digital cyanosis No clubbing Pedal pulses intact and symmetrical Radial pulses intact and symmetrical No calf tenderness Psychiatric: Mental status waxing and waning, patient confused, oriented to self and place with encouragement but waxes and wanes Neuro Muscles Strength 3-4/5 in all 4 extremities , positive asterixis Sensation to light touch grossly present throughout Cranial nerves II-XII grossly intact No focal sensory deficits Lymphatics: no palpable cervical or supraclavicular , or inguinal lymph nodes Results CBC & Chem 7: 09/01/18 16:50 09/01/18 16:50 Labs: Abnormal Lab Results - Last 24 Hours (Table) 09/01/18 09/01/18 09/01/18 Range/Units 16:50 16:50 16:50 WBC 15.1 H (3.8-10.6) k/uL RBC 2.40 L (4.30-5.90) m/uL Hgb 8.3 L (13.0-17.5) gm/dL Hct 25.4 L (39.0-53.0) % MCV 105.8 H (80.0-100.0) fL RDW 17.6 H (11.5-15.5) % Plt Count 134 L D (150-450) k/uL Neutrophils # (Manual) 12.00 H (1.3-7.7) k/uL Monocytes # (Manual) 1.51 H (0-1.0) k/uL Macrocytosis Marked A PT 18.2 H (9.0-12.0) sec INR 1.8 H (<1.2) APTT 55.4 H (22.0-30.0) sec Sodium 135 L (137-145) mmol/L Potassium 5.3 H (3.5-5.1) mmol/L Chloride 110 H (98-107) mmol/L Carbon Dioxide 12 L (22-30) mmol/L BUN 110 H* (9-20) mg/dL Creatinine 7.94 H* (0.66-1.25) mg/dL Glucose 123 H (74-99) mg/dL Calcium 7.8 L (8.4-10.2) mg/dL Magnesium 2.6 H (1.6-2.3) mg/dL Total Bilirubin 12.3 H (0.2-1.3) mg/dL AST 108 H (17-59) U/L Alkaline Phosphatase 136 H (38-126) U/L Total Protein 8.5 H (6.3-8.2) g/dL Albumin 2.4 L (3.5-5.0) g/dL Amylase 121 H (30-110) U/L Lipase 546 H (23-300) U/L Assessment and Plan Assessment: 58-year-old male with advanced liver cirrhosis secondary to alcoholic hepatitis and alcohol abuse with recent history of pancreatitis and GI bleeding from variceal bleed. Admitted as inpatient with anticipated length of stay more than 48 hours due to hepatic encephalopathy from advanced liver cirrhosis with hepatorenal syndrome. Plan: Metabolic encephalopathy 2/2 hepatorenal syndrome , advanced liver cirhosis and hepatic encephalopathy severe acute alcoholic hepatitis , DF score>32 Hepatorenal syndrome CATHRYN, with metabolic acidosis leukocytosis , without identified source of infection chronic anemia, with recent episode of variceal bleeding ascites plan admission to step down unit with close monitoring strict I / Os urine and blood culture check check ammonia follow up labs for alcoholic hepatitis, start IV methyprednisolone @ 32 mg IV daily lactulose to target 3-5 BM for history of variceal bleeding while sleeping on sleeping all day and not use the meantime he denies cervical spines H&H q8hr PPI metoprolol BID for hepatorenal syndrome octreotide sc midodrine albumin 50 gm BID IVF hydration for acidosis bicarb gtt GI consult and nephro consult DVT PPX heparin sc tid alcohol abuse thiamine last drink >3 weeks ago paracentesis by IR , diagnositic and theraputic Poor prognosis Preformed a thorough record review from recent hospitalization acute pancreatits, metabolic acidosis , acute anemia from GI blood loss, alcohol abuse and advanced liver cirhosis Surrogate decision-maker: CODE STATUS:full code Discussed with: Patient, ER, RN Anticipated discharge: 48-[address]: pending clinical course A total of 70 minutes was spent n the care of this complex patient more than 50% of the time was spent in counseling and care coordination.
--- NOTE | 2018-09-01 22:08 | P.HPADDEND ---
H&P Addendum H&P Addendum Date: 09/01/18 Advanced Care Planning Active diagnoses: Acute metabolic encephalopathy secondary to hepatic encephalopathy and hepatorenal syndrome Alcoholic hepatitis with advanced cirrhosis secondary to alcohol abuse Discussion: Person(s) present and participating in discussion: The patient, myself, and patient Summary: I explained to the patient and his the severity of his illness with poor prognosis outcomes, due to advanced liver cirrhosis and currently dealing with hepatorenal syndrome. I answered their questions. Patient recently had an episode of variceal GI bleeding. Taking all that into consideration patient and his would like to consider full supportive care measures and to escalate care as necessary. They also requested to be a full code and to pursue CPR and resuscitation if needed. And to consider all medically necessary procedures to save his life at this time Time spent: Total time spent face to face in education and discussion directly related to ad vanced care plannin minutes
[2018-09-01 22:32] LABS: HGB 5.8 gm/dL (13.0-17.5)
[2018-09-01 22:33] LABS: HCT 18.8 % (39.0-53.0)
[2018-09-01 23:04] LABS: Band Neutrophils % 1 %; Eosinophils # (M) 0.44 k/uL (0-0.7); Lymphocytes # (M) 0.59 k/uL (1.0-4.8); Neutrophils % (M) 90 %; Nucleated Red Blood Cells 0 /100 WBC (0-0); Total Cells Counted 100
[2018-09-01 23:05] LABS: Rouleaux Present
[2018-09-01 23:06] LABS: Anisocytosis (M) Present
[2018-09-01] MEDS: OCTREOTIDE 100 MCG/ML INJ SQ SCH (23:27)
[2018-09-01] MEDS: ALBUMIN HUMAN 25% 50 ML in EMPTY BAG 1 BAG IVPB SCH (23:55)
[2018-09-02] MEDS ORDERED: HEPARIN SODIUM,PORCINE 5,000 UNIT/ML 1 ML VIAL SQ SCH
[2018-09-02] MEDS ORDERED: OCTREOTIDE 100 MCG/ML INJ SQ SCH
[2018-09-02] MEDS: methylPREDNISolone SOD SUCCI 40 MG/ML 1 ML VIAL IV SCH ×2 (00:20→09:33)
[2018-09-02] MEDS: PANTOPRAZOLE 40 MG TABLET PO SCH ×2 (00:21→09:36)
[2018-09-02] MEDS: ALBUMIN HUMAN 25% 50 ML in EMPTY BAG 1 BAG IVPB SCH ×9 (00:26→18:39)
[2018-09-02 02:20] LABS: Glucose,Whole Blood 110 mg/dL (75-99)
[2018-09-02] MEDS: DEXTROSE 5% IN WATER 1,000 ML with SODIUM BICARB (1 MEQ/ML) 150 ML IV SCH ×3 (02:30→22:18)
[2018-09-02] MEDS: LACTULOSE 20 GM/30 ML CUP PO SCH ×6 (03:11→22:16)
[2018-09-02] MEDS: METOPROLOL TARTRATE 12.5 MG TAB PO SCH ×4 (03:12→22:21)
[2018-09-02] MEDS: MIDODRINE 5 MG TAB PO SCH ×4 (03:12→18:13)
[2018-09-02] MEDS: OCTREOTIDE 100 MCG/ML INJ SQ SCH ×2 (09:34→18:18)
[2018-09-02] MEDS: THIAMINE 100 MG TAB PO SCH ×2 (09:36→18:12)
[2018-09-02 10:08] LABS: Anisocytosis Slight; Basophils % (A) 0 %; Eosinophils % (A) 0 %; HCT 25.1 % (39.0-53.0); Lymphocytes # (A) 0.6 k/uL (1.0-4.8); Lymphocytes % (A) 6 %; MCH 34.3 pg (25.0-35.0); MCHC 33.4 g/dL (31.0-37.0); Macrocytosis Moderate; Mean Platelet Volume 7.5; Monocytes # (A) 0.4 k/uL (0-1.0); Monocytes % (A) 3 %; Neutrophils # (A) 10.2 k/uL (1.3-7.7); Neutrophils % (A) 90 %; Platelet Count 126 k/uL (150-450); RBC 2.44 m/uL (4.30-5.90); WBC 11.3 k/uL (3.8-10.6)
[2018-09-02 10:09] LABS: HGB 8.4 gm/dL (13.0-17.5); MCV 102.7 fL (80.0-100.0)
--- NOTE | 2018-09-02 10:15 | P.NPCON ---
History of Present Illness - Reason for Consult acute renal failure - History of Present Illness Reason for consultation: Acute kidney injury History of present illness: Patient is a 58-year-old male seen in renal consultation for acute kidney injury. Patient's creatinine from August 072018 was 1.0 and is elevated at 7.94 this admission. Patient has history of alcohol-induced liver cirrhosis. Patient states he's been jaundiced at home. His oral intake has been poor. Abdomen is distended. Patient's currently resting in bed and doesn't respond much to verbal commands. Patient's hemoglobin dropped down to 5.8 last night. He has received 2 units of blood transfusion. Patient was noted to be quite acidotic with bicarb level of 12 and is currently maintained on bicarb drip. Patient did receive 1 L normal saline bolus on admission. Hemodynamically is currently stable. He is not on any vasopressors. Aldactone has been discontinued. He is maintained on PPI as well as Sandostatin. Patient's ammonia level is 74. He currently does not have a Vaz catheter. Vital signs are stable. General: The patient appeared well nourished and normally developed. HEENT: Head exam is unremarkable. Neck is without jugular venous distension. LUNGS: Lungs are clear to auscultation and percussion. Breath sounds decreased. HEART: Rate and Rhythm are regular. First and second heart sounds normal. No murmurs, rubs or gallops. ABDOMEN: Distention noted. Nontender to touch. EXTREMITITES: No clubbing, cyanosis, or edema. Past Medical History Past Medical History: GERD/Reflux, GI Bleed, Hyperlipidemia, Hypertension, Liver Disease History of Any Multi-Drug Resistant Organisms: None Reported Past Surgical History: No Surgical Hx Reported Past Anesthesia/Blood Transfusion Reactions: No Reported Reaction Past Psychological History: Anxiety Additional Psychological History / Comment(s): pt took paxil before Smoking Status: Never smoker Past Alcohol Use History: Heavy Additional Past Alcohol Use History / Comment(s): 24 beers or more a day Past Drug Use History: None Reported - Past Family History Father Additional Family Medical History / Comment(s): CABG Mother Family Medical History: Memory Impairment Additional Family Medical History / Comment(s): alzheimers Medications and Allergies Home Medications Medication Instructions Recorded Confirmed Type Metoprolol Tartrate [Lopressor] 12.5 mg PO BID #60 tab 08/07/18 09/01/18 Rx Omeprazole Magnesium [PriLOSEC OTC] 20 mg PO BID #60 tablet. 08/07/18 09/01/18 Rx Spironolactone [Aldactone] 100 mg PO DAILY #30 tab 08/07/18 09/01/18 Rx Thiamine [Vitamin B-1] 100 mg PO BID-W/MEALS #60 tab 08/07/18 09/01/18 Rx Allergies Allergy/AdvReac Type Severity Reaction Status Date / Time No Known Allergies Allergy Verified 09/01/18 16:56 Physical Exam Vitals: Vital Signs Temp Pulse Resp BP Pulse Ox 09/02/18 07:30 74 13 114/61 09/02/18 07:00 78 13 110/53 09/02/18 06:16 71 16 115/50 96 09/02/18 06:00 76 16 116/53 98 09/02/18 05:46 70 16 112/52 97 09/02/18 05:36 97.6 F 80 16 96 09/02/18 05:33 97.7 F 75 18 117/55 09/02/18 05:30 80 14 110/50 99 09/02/18 05:21 20 97 09/02/18 05:00 73 11 L 108/52 09/02/18 04:00 97.5 F L 73 19 109/50 99 09/02/18 03:30 85 15 105/50 96 09/02/18 03:12 97.5 F L 80 20 105/50 09/02/18 03:10 80 18 97 09/02/18 03:00 97.5 F L 86 14 98 09/02/18 02:50 81 9 L 107/50 99 09/02/18 02:40 97.6 F 82 24 95/71 99 09/02/18 02:30 98.2 F 84 21 95/71 99 09/02/18 02:00 97.7 F 88 18 108/51 99 09/02/18 01:52 97.5 F L 85 14 108/51 100 09/02/18 01:30 82 14 103/35 98 09/02/18 01:09 61 18 103/35 09/02/18 00:30 85 14 118/61 98 09/02/18 00:22 60 18 118/61 98 09/02/18 00:00 97.6 F 82 14 121/50 99 09/01/18 23:40 19 109/58 09/01/18 23:30 83 14 118/59 100 09/01/18 23:00 85 14 115/59 97 09/01/18 22:00 85 14 115/61 98 09/01/18 21:00 97.7 F 83 14 119/53 99 09/01/18 20:44 86 13 119/59 09/01/18 20:30 87 12 109/44 98 09/01/18 20:00 85 13 104/46 99 09/01/18 19:43 97.7 F 89 12 104/46 99 09/01/18 19:30 84 13 102/58 100 09/01/18 19:00 86 12 113/61 98 09/01/18 16:51 97.8 F 98 18 93/44 100 Intake and Output 09/01/18 09/02/18 09/02/18 22:59 06:59 14:59 Intake Total 1220 410 Output Total 0 150 Balance 1220 260 Intake: IV 600 100 Albumin Human 25% 50 ml 100 In Empty Bag 1 bag @ 50 mls/hr IVPB Q1H AGUSTIN Rx#: [id number] Dextrose 5% in Water 1, 500 100 000 ml @ 100 mls/hr IV . [id number] AGUSTIN with Sodium Bicarb (1 Meq/ml) 150 ml Rx#:[id number] Blood Product 620 310 Rc As-1 Unit 0 0 [id number] Rc As-1 Unit 310 [id number] Output: Urine 0 150 Other: # Voids 0 1 # Bowel Movements 1 Weight 99.337 kg Results - Lab Results Most recent lab results Calcium 7.8 mg/dL (8.4-10.2) L 09/01/18 16:50 Magnesium 2.6 mg/dL (1.6-2.3) H 09/01/18 16:50 09/01/18 21:26 09/01/18 16:50 Assessment and Plan Plan: Assessment: 1. Acute kidney injury. This is likely prerenal in nature secondary to hypotension, acute anemia and poor oral intake. Creatinine was 7.94 on admission. Baseline creatinine is near 1. UA from last month reveals no protein. Rule out obstructive uropathy. 2. Metabolic acidosis secondary to acute kidney injury maintained on bicarb drip. 3. Acute blood loss anemia status post 2 units of blood transfusion. Maintained on Sandostatin as well as PPI. 4. Alcohol induced liver cirrhosis. 5. Hepatic encephalopathy. 6. Ascites. Plan: Maintain bicarb drip at 100 mL an hour. Check renal ultrasound. Patient scheduled to receive 50 g of albumin. I will give him an additional dose if more than 8 L removed with paracentesis. I will give him a dose of IV DDAVP. Monitor hemoglobin. GI also consulted. Strict I's and O's. Thank you for the consultation. I will continue to follow patient with kymberly cao his hospital stay.
[2018-09-02 10:22] LABS: Albumin 2.7 g/dL (3.5-5.0); Calcium 7.2 mg/dL (8.4-10.2); Potassium 5.2 mmol/L (3.5-5.1); Total Bilirubin 13.4 mg/dL (0.2-1.3); Total Protein 8.2 g/dL (6.3-8.2)
[2018-09-02] MEDS ORDERED: DESMOPRESSIN ACETATE 30 MCG in SODIUM CHLORIDE 0.9% 50 ML IVPB ONE (10:30)
[2018-09-02 13:39] LABS: Appearance,Urine Cloudy (Clear); Bacteria,Urine Rare /hpf; Bilirubin,Urine 2+ (Negative); Blood,Urine Negative (Negative); Cellular Casts,Urine 3 /lpf (0); Color,Urine Dark Brown; Glucose,Urine (UA) Negative (Negative); Hyaline Casts,Urine 10 /lpf (0-2); Ketones,Urine Negative (Negative); Leukocyte Esterase,Urine Negative (Negative); Mucus,Urine Rare /hpf; Nitrite,Urine Negative (Negative); PH, Urine 5.5 (5.0-8.0); Protein,Urine Trace (Negative); RBC,Urine 1 /hpf (0-5); Specific Gravity,Urine 1.016 (1.001-1.035); Squamous Epithelial Cell,Urine <1 /hpf (0-4)
--- NOTE | 2018-09-02 14:33 | P.PN ---
Subjective Progress Note Date: 09/02/18 Principal diagnosis: The patient is a 58-year-old male with a past medical history of severe alcoholic liver disease, liver cirrhosis with ascites, and GI bleed secondary to variceal bleeding who was admitted for progressive weakness and confusion and found to have hepatic encephalopathy after noted elevated serum ammonia level of 75, with likely hepatorenal syndrome with a serum creatinine of 7.94, lactic acid of 2.5 and elevated white count of 14.8. Noted acute on chronic macrocytic anemia with a hemoglobin of 5.8. Patient was typed and crossed and transfused 2 units of packed RBCs. IR was consulted to perform abdominal paracentesis, the patient was started on empiric IV antibiotics due to concern for underlying SBP with ceftriaxone 2 g IV every 24 hours. Nephrology and GI were consulted patient seen and examined at bedside, somnolent and concurrently confused. A.m. labs pending, patient only O 2. Vital signs continue to be stable, complains of some abdominal discomfort and pain Objective - Vital Signs Vital signs: Vital Signs Temp 97.6 F 09/02/18 05:36 Pulse 74 09/02/18 07:30 Resp 13 09/02/18 07:30 BP 114/61 09/02/18 07:30 Pulse Ox 96 09/02/18 06:16 Intake & Output 09/01/18 09/02/18 09/02/18 18:59 06:59 18:59 Intake Total 1220 410 Output Total 0 150 Balance 1220 260 Weight 99.337 kg Intake: IV 600 100 Albumin Human 25% 50 ml 100 In Empty Bag 1 bag @ 50 mls/hr IVPB Q1H AGUSTIN Rx#: [id number] Dextrose 5% in Water 1, 500 100 000 ml @ 100 mls/hr IV . [id number] AGUSTIN with Sodium Bicarb (1 Meq/ml) 150 ml Rx#:[id number] Blood Product 620 310 Rc As-1 Unit 0 0 [id number] Rc As-1 Unit 310 [id number] Output: Urine 0 150 Other: # Voids 0 1 # Bowel Movements 1 - Exam Constitutional: No acute distress, somnolent but arousable Eyes: icteric sclerae, moist conjunctiva, no lid-lag, PERRLA ENMT: NC/AT,Oropharynx clear, no erythema, exudates Neck:Supple, FROM, no masses, or JVD, No carotid bruits; No thyromegaly Lungs: Clear to auscultation, Clear to percussion, Normal respiratory effort, no accessory muscle use Cardiovascular: Heart regular in rate and rhythm, No murmurs, gallops, or rubs no peripheral edema Abdominal: Soft Nontender, severely distended, no guarding, no rebound or rigidity, diminished bowel sounds, caput [place] Skin: Normal temperature, tone, texture, turgor, No induration No subcutaneous nodules, No rash, lesions, No ulcers Extremities:No digital cyanosis No clubbing, Pedal pulses intact and symmetrical Radial pulses intact and symmetrical Normal gait and station, No calf tenderness Psychiatric: Oriented to location and place and year and self, not agitated psychomotor diminished Neuro: Flapping tremors - Labs CBC & Chem 7: 09/02/18 09:40 09/02/18 09:40 Labs: Abnormal Lab Results - Last 24 Hours (Table) 09/01/18 09/01/18 09/01/18 Range/Units 16:50 16:50 16:50 WBC 15.1 H (3.8-10.6) k/uL RBC 2.40 L (4.30-5.90) m/uL Hgb 8.3 L (13.0-17.5) gm/dL Hct 25.4 L (39.0-53.0) % MCV 105.8 H (80.0-100.0) fL RDW 17.6 H (11.5-15.5) % Plt Count 134 L D (150-450) k/uL Neutrophils # (Manual) 12.00 H (1.3-7.7) k/uL Lymphocytes # (Manual) (1.0-4.8) k/uL Monocytes # (Manual) 1.51 H (0-1.0) k/uL Macrocytosis Marked A PT 18.2 H (9.0-12.0) sec INR 1.8 H (<1.2) APTT 55.4 H (22.0-30.0) sec Sodium 135 L (137-145) mmol/L Potassium 5.3 H (3.5-5.1) mmol/L Chloride 110 H (98-107) mmol/L Carbon Dioxide 12 L (22-30) mmol/L BUN 110 H* (9-20) mg/dL Creatinine 7.94 H* (0.66-1.25) mg/dL Glucose 123 H (74-99) mg/dL POC Glucose (mg/dL) (75-99) mg/dL Plasma Lactic Acid Nando (0.7-2.0) mmol/L Calcium 7.8 L (8.4-10.2) mg/dL Magnesium 2.6 H (1.6-2.3) mg/dL Total Bilirubin 12.3 H (0.2-1.3) mg/dL AST 108 H (17-59) U/L Alkaline Phosphatase 136 H (38-126) U/L Ammonia (<30) umol/L Total Protein 8.5 H (6.3-8.2) g/dL Albumin 2.4 L (3.5-5.0) g/dL Amylase 121 H (30-110) U/L Lipase 546 H (23-300) U/L Crossmatch 09/01/18 09/01/18 09/01/18 Range/Units 19:36 21:26 21:26 WBC 14.8 H (3.8-10.6) k/uL RBC 1.73 L (4.30-5.90) m/uL Hgb 5.8 L* D (13.0-17.5) gm/dL Hct 18.8 L* (39.0-53.0) % MCV 108.3 H (80.0-100.0) fL RDW 17.1 H (11.5-15.5) % Plt Count 140 L (150-450) k/uL Neutrophils # (Manual) 13.40 H (1.3-7.7) k/uL Lymphocytes # (Manual) 0.59 L (1.0-4.8) k/uL Monocytes # (Manual) (0-1.0) k/uL Macrocytosis Marked A PT (9.0-12.0) sec INR (<1.2) APTT (22.0-30.0) sec Sodium (137-145) mmol/L Potassium (3.5-5.1) mmol/L Chloride (98-107) mmol/L Carbon Dioxide (22-30) mmol/L BUN (9-20) mg/dL Creatinine (0.66-1.25) mg/dL Glucose (74-99) mg/dL POC Glucose (mg/dL) (75-99) mg/dL Plasma Lactic Acid Nando 2.5 H* (0.7-2.0) mmol/L Calcium (8.4-10.2) mg/dL Magnesium (1.6-2.3) mg/dL Total Bilirubin (0.2-1.3) mg/dL AST (17-59) U/L Alkaline Phosphatase (38-126) U/L Ammonia 75 H (<30) umol/L Total Protein (6.3-8.2) g/dL Albumin (3.5-5.0) g/dL Amylase (30-110) U/L Lipase (23-300) U/L Crossmatch See Detail 09/02/18 Range/Units 02:06 WBC (3.8-10.6) k/uL RBC (4.30-5.90) m/uL Hgb (13.0-17.5) gm/dL Hct (39.0-53.0) % MCV (80.0-100.0) fL RDW (11.5-15.5) % Plt Count (150-450) k/uL Neutrophils # (Manual) (1.3-7.7) k/uL Lymphocytes # (Manual) (1.0-4.8) k/uL Monocytes # (Manual) (0-1.0) k/uL Macrocytosis PT (9.0-12.0) sec INR (<1.2) APTT (22.0-30.0) sec Sodium (137-145) mmol/L Potassium (3.5-5.1) mmol/L Chloride (98-107) mmol/L Carbon Dioxide (22-30) mmol/L BUN (9-20) mg/dL Creatinine (0.66-1.25) mg/dL Glucose (74-99) mg/dL POC Glucose (mg/dL) 110 H (75-99) mg/dL Plasma Lactic Acid Nando (0.7-2.0) mmol/L Calcium (8.4-10.2) mg/dL Magnesium (1.6-2.3) mg/dL Total Bilirubin (0.2-1.3) mg/dL AST (17-59) U/L Alkaline Phosphatase (38-126) U/L Ammonia (<30) umol/L Total Protein (6.3-8.2) g/dL Albumin (3.5-5.0) g/dL Amylase (30-110) U/L Lipase (23-300) U/L Crossmatch Assessment and Plan (1) Alcoholic cirrhosis of liver with ascites Narrative/Plan: * Decompensated alcoholic liver cirrhosis with ascites with history of variceal bleed * Patient will need paracentesis by IR along with 50 g of albumin * GI consultation requested * Continue octreotide, lactulose, and metoprolol. Current Visit: Yes Status: Acute Code(s): K70.31 - ALCOHOLIC CIRRHOSIS OF LIVER WITH ASCITES SNOMED Code(s): 062353583 (2) Macrocytic anemia Narrative/Plan: * Acute blood loss on chronic microcytic anemia in the setting of alcoholic liver cirrhosis and previous history of variceal bleed * Status post 3 units packed RBC transfusion hemoglobin hemoglobin up to 8.4 from 5.8 * GI consultation requested * We'll check iron studies and Hemoccult * Continue to monitor hemoglobin Current Visit: Yes Status: Acute Code(s): D53.9 - NUTRITIONAL ANEMIA, UNSPECIFIED SNOMED Code(s): 07494152 (3) Acute renal failure Narrative/Plan: * Likely prerenal etiology secondary to hypotension and poor oral intake concern for underlying hepatorenal syndrome * With associated metabolic acidosis and mild hyperkalemia K at 5.2 * Creatinine up to 7 * Renal ultrasound will be ordered, continue bicarb drip * Nephrology consultation requested Current Visit: Yes Status: Acute Code(s): N17.9 - ACUTE KIDNEY FAILURE, UNSPECIFIED SNOMED Code(s): 12723356 (4) Coagulopathy Narrative/Plan: * Secondary to underlying liver cirrhosis Current Visit: No Status: Chronic Code(s): D68.9 - COAGULATION DEFECT, UNSPECIFIED SNOMED Code(s): 61248564 (5) Leukocytosis Narrative/Plan: * Patient afebrile and is currently on steroids * Leukocytosis improving down to 11.3 * Concern for underlying SBP given liver cirrhosis with ascites * Initiated on Rocephin 2 g IV every 24 hours Current Visit: Yes Status: Chronic Code(s): D72.829 - ELEVATED WHITE BLOOD CELL COUNT, UNSPECIFIED SNOMED Code(s): 002914119 (6) Hepatic encephalopathy Narrative/Plan: * Serum ammonia level still elevated at 74 the patient has only had 2 doses * continue with lactulose QID * Continue to follow ammonia level Current Visit: Yes Status: Acute Code(s): K72.90 - HEPATIC FAILURE, UNSPECIFIED WITHOUT COMA SNOMED Code(s): 83967848 (7) Thrombocytopenia Narrative/Plan: * Chronic due to alcoholic liver cirrhosis * Continue to monitor Current Visit: No Status: Chronic Code(s): D69.6 - THROMBOCYTOPENIA, UNSPECIFIED SNOMED Code(s): 533358795 Plan: Disposition * Continue current management follow-up consultants recommendations * Patient will need paracentesis follow-up renal ultrasound * Continue antibiotics * Patient is a discharge to be determined by course, Time with Patient: Greater than 30
--- NOTE | 2018-09-02 15:03 | US ---
EXAMINATION TYPE: US kidneys/renal and bladder DATE OF EXAM: 09/02/2018 COMPARISON: NONE CLINICAL HISTORY: abigail. ICU patient EXAM MEASUREMENTS: Right Kidney: 9.9 x 4.9 x 5.0 cm Left Kidney: 10.8 x 4.4 x 5.7 cm Right Kidney: No hydronephrosis or masses seen Left Kidney: No hydronephrosis or masses seen Bladder: not distended moderate amount ascites seen There is no evidence for hydronephrosis at this point in time. No nephrolithiasis is seen. No sahra s are identified. The urinary bladder is incompletely distended. IMPRESSION: 1. Partial visualization of moderate volume ascites. 2. No hydronephrosis nor nephrolithiasis.
[2018-09-02 16:01] LABS: Anisocytosis Slight; Basophils % (A) 0 %; Eosinophils # (A) 0.1 k/uL (0-0.7); Eosinophils % (A) 1 %; HCT 23.2 % (39.0-53.0); HGB 7.3 gm/dL (13.0-17.5); Lymphocytes # (A) 0.6 k/uL (1.0-4.8); Lymphocytes % (A) 6 %; MCH 32.4 pg (25.0-35.0); MCHC 31.2 g/dL (31.0-37.0); MCV 103.6 fL (80.0-100.0); Macrocytosis Moderate; Mean Platelet Volume 7.2; Monocytes # (A) 0.4 k/uL (0-1.0); Monocytes % (A) 4 %; Neutrophils # (A) 9.2 k/uL (1.3-7.7); Neutrophils % (A) 89 %; RBC 2.24 m/uL (4.30-5.90); RDW 16.2 % (11.5-15.5); WBC 10.4 k/uL (3.8-10.6)
[2018-09-02] MEDS ORDERED: KETAMINE 10 MG/ML 20 ML VIAL ONE (16:14)
[2018-09-02] MEDS ORDERED: GLYCOPYRROLATE 0.2 MG/ML 2 ML VIAL ONE (16:14)
[2018-09-02] MEDS ORDERED: MIDAZOLAM 2 MG/2 ML VIAL ONE (16:14)
[2018-09-02] MEDS ORDERED: ePHEDrine SULFATE/0.9% NACL/PF 50 MG/5 ML SYRINGE IV ONE (16:14)
[2018-09-02] MEDS ORDERED: fentaNYL (PF) 50 MCG/ML 2 ML AMP ONE (16:14)
[2018-09-02] MEDS ORDERED: PROPOFOL 10 MG/ML 20 ML VIAL IV ONE (16:14)
[2018-09-02] MEDS ORDERED: IV FLUID CONTINUATION 1,000 ML IV ONE ×2 (16:19)
--- NOTE | 2018-09-02 16:38 | US ---
EXAMINATION TYPE: US paracentesis abd w/image DATE OF EXAM: 09/02/2018 COMPARISON: NONE HISTORY: Ascites. PROCEDURE: Maximal barrier technique was utilized. The skin overlying a suitable pocket of fluid was localized with ultrasound and the overlying skin was prepped and draped. Ultrasound was utilized with sterile technique. Lidocaine was used for local anesthesia and a skin gabriel made with a scalpel. Catheter was advanced under direct ultrasound guidance into a suitable pocket of fluid and approximately 7.6 liter s of yellow fluid were removed. Catheter was withdrawn and hemostasis achieved. There is no immedia te complication; the patient is discharged in stable condition. IMPRESSION: STATUS POST ULTRASOUND GUIDED PARACENTESIS FOR PALLIATION OF ASCITES. THIS PROCEDURE WA S PERFORMED BY THE UNDERSIGNED. Specimen sent for laboratory analysis
[2018-09-02 17:00] LABS: Platelet Count 96 k/uL (150-450)
--- NOTE | 2018-09-02 17:01 | P.PCN ---
Date of Procedure: 09/02/18 Description of Procedure: BRIEF HISTORY: 58-year-old male with a known history of decompensated alcoholic cirrhosis who previously was hospitalized for pancreatitis. At that time EGD and colonoscopy were done and significant for severe portal hypertensive gastropathy and internal hemorrhoids. The patient was subsequently discharged and comes back approximate 2 weeks later with reports of weakness, melena and found to have acute fall in his hemoglobin. EGD was ordered for further evaluation. PROCEDURE PERFORMED: Esophagogastroduodenoscopy. PREOPERATIVE DIAGNOSIS: Anemia of acute blood loss, melena. ESTIMATED BLOOD LOSS: Minimal. IV sedation per anesthesia. PROCEDURE: After informed consent was obtained, the patient was brought into the endoscopy unit. IV sedation was administered by Anesthesia under continuous monitoring. Initially the Olympus GIF-190 video endoscope was inserted into the mouth. Esophagus intubated without any difficulty. It was gradually advanced into the stomach and duodenum and carefully examined. The bulb and the second part of the duodenum appeared normal. The scope at this time was withdrawn to the stomach, adequately insufflated with air, and upon careful examination, mucosa of the antrum, body, cardia and the fundus or old hemolyzed blood was noted throughout the entire stomach. Copious lavage and suctioning was performed with removal of the old blood. Severe diffuse portal hypertensive gastropathy was noted throughout the stomach with weeping of blood from the mucosa of the entire stomach without any focal bleed.. The scope was then withdrawn into the esophagus. The GE junction was located at 39 cm from the incisors. The esophagus appeared normal. There were no varices or no erosions or ulcerations seen and the patient tolerated the procedure well. IMPRESSION: 1. Severe portal hypertensive gastropathy, with weeping of blood from the mucosa of the stomach. 2. No varices or esophageal pathology noted. RECOMMENDATIONS: The findings of this examination were discussed with the patient and his and daughter. Okay for ice chips and meds with sips of water. Continue Protonix 40 mg IV twice daily. Continue Sandostatin. Continue to monitor hemoglobin and hematocrit and transfuse as needed. Continue alcohol abstinence.
[2018-09-02 19:35] LABS: Appearance,BF Hazy; Color,BF Yellow; Nucleated Cells, Body Fluid 40 /uL; RBC, Body Fluid 3315 /uL
[2018-09-02 19:37] LABS: Mononuclear WBC,Body Fluid 65 %; Polynuclear WBC,Body Fluid 35 %; Total Cells Counted,Body Fluid 100
--- NOTE | 2018-09-02 21:55 | P.CONS ---
History of Present Illness - Reason for Consult Consult date: 09/02/18 GI bleed Requesting physician: Priya Love - Chief Complaint Weakness - History of Present Illness 58-year-old male with known history of decompensated alcoholic cirrhosis who presented to the hospital due to worsening mental status and progressive weakness.. Of note, history is been taken in discussion with the medical team, the patient's and upon review of the electronic medical record. Patient had recent hospitalization 3 weeks ago for acute pancreatitis and GI bleeding at which time EGD was performed with findings of severe portal hypertensive gastrop athy without any evidence of varices. Prior to discharge the patient was becoming increasingly weak and confused. Patient had not been compliant with medications due to his symptoms and was taking decreased oral intake. Patient had been having dark colored stool. Concern was also for dark urine. On presentation to the hospital patient had elevated INR of 1.8, creatinine 7.9, WBC 14.8, hemoglobin 8.3 which fell to 5.8 and platelet count 140,000. The patient underwent high-volume paracentesis with albumin given. Currently being seen by the pocket cutter service and the nephrology service. No reports of hematemesis. Colonoscopy on prior to presentation was significant for internal hemorrhoids. Review of Systems Unable to obtain review of systems secondary to mental status. Past Medical History Past Medical History: GERD/Reflux, GI Bleed, Hyperlipidemia, Hypertension, Liver Disease History of Any Multi-Drug Resistant Organisms: None Reported Past Surgical History: No Surgical Hx Reported Past Anesthesia/Blood Transfusion Reactions: No Reported Reaction Past Psychological History: Anxiety Additional Psychological History / Comment(s): pt took paxil before Smoking Status: Never smoker Past Alcohol Use History: Heavy Additional Past Alcohol Use History / Comment(s): 24 beers or more a day Past Drug Use History: None Reported - Past Family History Father Additional Family Medical History / Comment(s): CABG Mother Family Medical History: Memory Impairment Additional Family Medical History / Comment(s): alzheimers Medications and Allergies Home Medications Medication Instructions Recorded Confirmed Type Metoprolol Tartrate [Lopressor] 12.5 mg PO BID #60 tab 08/07/18 09/01/18 Rx Omeprazole Magnesium [PriLOSEC OTC] 20 mg PO BID #60 tablet. 08/07/18 09/01/18 Rx Spironolactone [Aldactone] 100 mg PO DAILY #30 tab 08/07/18 09/01/18 Rx Thiamine [Vitamin B-1] 100 mg PO BID-W/MEALS #60 tab 08/07/18 09/01/18 Rx Allergies Allergy/AdvReac Type Severity Reaction Status Date / Time No Known Allergies Allergy Verified 09/01/18 16:56 Physical Exam Vitals: Vital Signs Temp Pulse Pulse Resp BP BP Pulse Ox 09/02/18 15:45 60 16 110/58 98 09/02/18 15:35 62 18 111/54 99 09/02/18 15:20 67 18 116/59 99 09/02/18 15:10 65 18 120/54 99 09/02/18 15:00 68 18 122/60 99 09/02/18 14:50 64 20 114/63 98 09/02/18 14:44 65 18 125/60 97 09/02/18 14:34 64 15 126/65 98 09/02/18 12:00 96.7 F L 70 20 99/55 94 L 09/02/18 10:00 63 18 112/58 97 09/02/18 08:00 96.6 F L 67 10 L 107/60 98 09/02/18 07:30 74 13 114/61 09/02/18 07:00 78 13 110/53 09/02/18 06:16 71 16 115/50 96 09/02/18 06:00 76 16 116/53 98 09/02/18 05:46 70 16 112/52 97 09/02/18 05:36 97.6 F 80 16 96 09/02/18 05:33 97.7 F 75 18 117/55 09/02/18 05:30 80 14 110/50 99 09/02/18 05:21 20 97 09/02/18 05:00 73 11 L 108/52 09/02/18 04:00 97.5 F L 73 19 109/50 99 09/02/18 03:30 85 15 105/50 96 09/02/18 03:12 97.5 F L 80 20 105/50 09/02/18 03:10 80 18 97 09/02/18 03:00 97.5 F L 86 14 98 09/02/18 02:50 81 9 L 107/50 99 09/02/18 02:40 97.6 F 82 24 95/71 99 09/02/18 02:30 98.2 F 84 21 95/71 99 09/02/18 02:00 97.7 F 88 18 108/51 99 09/02/18 01:52 97.5 F L 85 14 108/51 100 09/02/18 01:30 82 14 103/35 98 09/02/18 01:09 61 18 103/35 09/02/18 00:30 85 14 118/61 98 09/02/18 00:22 60 18 118/61 98 09/02/18 00:00 97.6 F 82 14 121/50 99 09/01/18 23:40 19 109/58 09/01/18 23:30 83 14 118/59 100 09/01/18 23:00 85 14 115/59 97 09/01/18 22:00 85 14 115/61 98 09/01/18 21:00 97.7 F 83 14 119/53 99 09/01/18 20:44 86 13 119/59 09/01/18 20:30 87 12 109/44 98 09/01/18 20:00 85 13 104/46 99 09/01/18 19:43 97.7 F 89 12 104/46 99 09/01/18 19:30 84 13 102/58 100 09/01/18 19:00 86 12 113/61 98 09/01/18 16:51 97.8 F 98 18 93/44 100 Intake and Output 09/02/18 09/02/18 09/02/18 06:59 14:59 22:59 Intake Total 1220 410 Output Total 0 150 Balance 1220 260 Intake: IV 600 100 Albumin Human 25% 50 ml 100 In Empty Bag 1 bag @ 50 mls/hr IVPB Q1H AGUSTIN Rx#: [id number] Dextrose 5% in Water 1, 500 100 000 ml @ 100 mls/hr IV . [id number] AGUSTIN with Sodium Bicarb (1 Meq/ml) 150 ml Rx#:[id number] Blood Product 620 310 Rc As-1 Unit 0 0 [id number] Rc As-1 Unit 310 [id number] Output: Urine 0 150 Other: # Voids 0 1 # Bowel Movements 1 On physical examination, patient appears comfortable in no apparent distress. HEAD: Normocephalic, atraumatic. EYES: Scleral icterus. No conjunctival injection. MOUTH: No lesions, tongue midline. NECK: Trachea midline, no gross abnormalities. CHEST: Decreased air entry bilaterally. HEART: Regular rate and rhythm. ABDOMEN: Soft, obese, mildly distended after paracentesis with positive fluid wave. Bowel sounds are positive. No organomegaly. No guarding or rigidity. EXTREMITIES: Bilateral pedal edema. SKIN: No rashes, jaundice. NEUROLOGIC: Alert and oriented x1, with the patient somnolent but arousable. No focal deficits. Results CBC & Chem 7: 09/02/18 15:37 09/02/18 09:40 Labs: Abnormal Lab Results - Last 24 Hours (Table) 09/01/18 09/01/18 09/01/18 Range/Units 16:50 16:50 16:50 WBC 15.1 H (3.8-10.6) k/uL RBC 2.40 L (4.30-5.90) m/uL Hgb 8.3 L (13.0-17.5) gm/dL Hct 25.4 L (39.0-53.0) % MCV 105.8 H (80.0-100.0) fL RDW 17.6 H (11.5-15.5) % Plt Count 134 L D (150-450) k/uL Neutrophils # (1.3-7.7) k/uL Neutrophils # (Manual) 12.00 H (1.3-7.7) k/uL Lymphocytes # (1.0-4.8) k/uL Lymphocytes # (Manual) (1.0-4.8) k/uL Monocytes # (Manual) 1.51 H (0-1.0) k/uL Macrocytosis Marked A PT 18.2 H (9.0-12.0) sec INR 1.8 H (<1.2) APTT 55.4 H (22.0-30.0) sec Sodium 135 L (137-145) mmol/L Potassium 5.3 H (3.5-5.1) mmol/L Chloride 110 H (98-107) mmol/L Carbon Dioxide 12 L (22-30) mmol/L BUN 110 H* (9-20) mg/dL Creatinine 7.94 H* (0.66-1.25) mg/dL Glucose 123 H (74-99) mg/dL POC Glucose (mg/dL) (75-99) mg/dL Plasma Lactic Acid Nando (0.7-2.0) mmol/L Calcium 7.8 L (8.4-10.2) mg/dL Magnesium 2.6 H (1.6-2.3) mg/dL Total Bilirubin 12.3 H (0.2-1.3) mg/dL AST 108 H (17-59) U/L Alkaline Phosphatase 136 H (38-126) U/L Ammonia (<30) umol/L Total Protein 8.5 H (6.3-8.2) g/dL Albumin 2.4 L (3.5-5.0) g/dL Amylase 121 H (30-110) U/L Lipase 546 H (23-300) U/L Urine Protein (Negative) Urine Bilirubin (Negative) Urine WBC (0-5) /hpf Urine Bacteria (None) /hpf Hyaline Casts (0-2) /lpf Urine Mucus (None) /hpf Crossmatch 09/01/18 09/01/18 09/01/18 Range/Units 19:36 21:26 21:26 WBC 14.8 H (3.8-10.6) k/uL RBC 1.73 L (4.30-5.90) m/uL Hgb 5.8 L* D (13.0-17.5) gm/dL Hct 18.8 L* (39.0-53.0) % MCV 108.3 H (80.0-100.0) fL RDW 17.1 H (11.5-15.5) % Plt Count 140 L (150-450) k/uL Neutrophils # (1.3-7.7) k/uL Neutrophils # (Manual) 13.40 H (1.3-7.7) k/uL Lymphocytes # (1.0-4.8) k/uL Lymphocytes # (Manual) 0.59 L (1.0-4.8) k/uL Monocytes # (Manual) (0-1.0) k/uL Macrocytosis Marked A PT (9.0-12.0) sec INR (<1.2) APTT (22.0-30.0) sec Sodium (137-145) mmol/L Potassium (3.5-5.1) mmol/L Chloride (98-107) mmol/L Carbon Dioxide (22-30) mmol/L BUN (9-20) mg/dL Creatinine (0.66-1.25) mg/dL Glucose (74-99) mg/dL POC Glucose (mg/dL) (75-99) mg/dL Plasma Lactic Acid Nando 2.5 H* (0.7-2.0) mmol/L Calcium (8.4-10.2) mg/dL Magnesium (1.6-2.3) mg/dL Total Bilirubin (0.2-1.3) mg/dL AST (17-59) U/L Alkaline Phosphatase (38-126) U/L Ammonia 75 H (<30) umol/L Total Protein (6.3-8.2) g/dL Albumin (3.5-5.0) g/dL Amylase (30-110) U/L Lipase (23-300) U/L Urine Protein (Negative) Urine Bilirubin (Negative) Urine WBC (0-5) /hpf Urine Bacteria (None) /hpf Hyaline Casts (0-2) /lpf Urine Mucus (None) /hpf Crossmatch See Detail 09/02/18 09/02/18 09/02/18 Range/Units 02:06 09:40 09:40 WBC (3.8-10.6) k/uL RBC (4.30-5.90) m/uL Hgb (13.0-17.5) gm/dL Hct (39.0-53.0) % MCV (80.0-100.0) fL RDW (11.5-15.5) % Plt Count (150-450) k/uL Neutrophils # (1.3-7.7) k/uL Neutrophils # (Manual) (1.3-7.7) k/uL Lymphocytes # (1.0-4.8) k/uL Lymphocytes # (Manual) (1.0-4.8) k/uL Monocytes # (Manual) (0-1.0) k/uL Macrocytosis PT (9.0-12.0) sec INR (<1.2) APTT (22.0-30.0) sec Sodium (137-145) mmol/L Potassium 5.2 H (3.5-5.1) mmol/L Chloride 110 H (98-107) mmol/L Carbon Dioxide 14 L (22-30) mmol/L BUN 105 H* (9-20) mg/dL Creatinine 7.08 H* (0.66-1.25) mg/dL Glucose 190 H (74-99) mg/dL POC Glucose (mg/dL) 110 H (75-99) mg/dL Plasma Lactic Acid Nando (0.7-2.0) mmol/L Calcium 7.2 L (8.4-10.2) mg/dL Magnesium (1.6-2.3) mg/dL Total Bilirubin 13.4 H (0.2-1.3) mg/dL AST 88 H (17-59) U/L Alkaline Phosphatase (38-126) U/L Ammonia 74 H (<30) umol/L Total Protein (6.3-8.2) g/dL Albumin 2.7 L (3.5-5.0) g/dL Amylase (30-110) U/L Lipase (23-300) U/L Urine Protein (Negative) Urine Bilirubin (Negative) Urine WBC (0-5) /hpf Urine Bacteria (None) /hpf Hyaline Casts (0-2) /lpf Urine Mucus (None) /hpf Crossmatch 09/02/18 09/02/18 Range/Units 09:40 12:38 WBC 11.3 H (3.8-10.6) k/uL RBC 2.44 L (4.30-5.90) m/uL Hgb 8.4 L D (13.0-17.5) gm/dL Hct 25.1 L (39.0-53.0) % MCV 102.7 H D (80.0-100.0) fL RDW 16.0 H (11.5-15.5) % Plt Count 126 L (150-450) k/uL Neutrophils # 10.2 H (1.3-7.7) k/uL Neutrophils # (Manual) (1.3-7.7) k/uL Lymphocytes # 0.6 L (1.0-4.8) k/uL Lymphocytes # (Manual) (1.0-4.8) k/uL Monocytes # (Manual) (0-1.0) k/uL Macrocytosis PT (9.0-12.0) sec INR (<1.2) APTT (22.0-30.0) sec Sodium (137-145) mmol/L Potassium (3.5-5.1) mmol/L Chloride (98-107) mmol/L Carbon Dioxide (22-30) mmol/L BUN (9-20) mg/dL Creatinine (0.66-1.25) mg/dL Glucose (74-99) mg/dL POC Glucose (mg/dL) (75-99) mg/dL Plasma Lactic Acid Nando (0.7-2.0) mmol/L Calcium (8.4-10.2) mg/dL Magnesium (1.6-2.3) mg/dL Total Bilirubin (0.2-1.3) mg/dL AST (17-59) U/L Alkaline Phosphatase (38-126) U/L Ammonia (<30) umol/L Total Protein (6.3-8.2) g/dL Albumin (3.5-5.0) g/dL Amylase (30-110) U/L Lipase (23-300) U/L Urine Protein Trace H (Negative) Urine Bilirubin 2+ H (Negative) Urine WBC 7 H (0-5) /hpf Urine Bacteria Rare H (None) /hpf Hyaline Casts 10 H (0-2) /lpf Urine Mucus Rare H (None) /hpf Crossmatch US - abdomen: report reviewed (Moderate volume ascites noted on ultrasound of the abdomen.) Assessment and Plan (1) Alcoholic cirrhosis of liver with ascites Narrative/Plan: 58-year-old male with decompensated alcoholic cirrhosis of the liver with ascites, hepatic encephalopathy, and portal hypertensive gastropathy presented to the hospital for increasing weakness and confusion. Ammonia found to be elevated on presentation currently receiving lactulose therapy. Patient also been reporting dark colored bowel movements with acute fall in hemoglobin. Previously EGD was significant for portal hypertensive gastropathy and colono scopy for internal hemorrhoids. Patient had been discharged on diuretic therapy but abdomen was distended on presentation to the hospital. Current Visit: Yes Status: Acute Code(s): K70.31 - ALCOHOLIC CIRRHOSIS OF LIVER WITH ASCITES SNOMED Code(s): 957500967 (2) Hepatic encephalopathy Current Visit: Yes Status: Acute Code(s): K72.90 - HEPATIC FAILURE, UNSPECIFIED WITHOUT COMA SNOMED Code(s): 59696478 (3) Thrombocytopenia Current Visit: No Status: Chronic Code(s): D69.6 - THROMBOCYTOPENIA, UNSPECIFIED SNOMED Code(s): 072803617 Plan: Supportive care Nothing by mouth for now Plan for EGD Continue Protonix 40 mg IV twice daily Continue octreotide, nutrition and albumin due to concerns over hepatorenal syndrome, nephrology currently following the patient and bleed continue lactulose, titrated to 2-3 bowel movements daily Patient's reports 2 weeks of alcohol abstinence, continue to abstain Continue to monitor INR, liver enzymes, CBC, CMP Continue to monitor clinically Thank you for allowing us to participate in the care of the patient we will continue to follow
[2018-09-02] MEDS: PANTOPRAZOLE 40 MG/10 ML VIAL IVP SCH (22:17)
[2018-09-02 22:33] LABS: Anisocytosis Slight; HCT 20.9 % (39.0-53.0); MCH 34.5 pg (25.0-35.0); MCHC 33.3 g/dL (31.0-37.0); MCV 103.6 fL (80.0-100.0); Macrocytosis Moderate; Mean Platelet Volume 7.7; Platelet Count 102 k/uL (150-450); RBC 2.01 m/uL (4.30-5.90); RDW 17.1 % (11.5-15.5); WBC 12.8 k/uL (3.8-10.6)
[2018-09-02 22:42] LABS: HGB 6.9 gm/dL (13.0-17.5)
[2018-09-03 00:19] LABS: Iron Saturation 40.91 (15.00-50.00)
[2018-09-03] MEDS: OCTREOTIDE 100 MCG/ML INJ SQ SCH ×4 (01:16→23:59)
[2018-09-03 01:43] LABS: Band Neutrophils % 4 %; Lymphocytes # (M) 0.51 k/uL (1.0-4.8); Monocytes # (M) 0.38 k/uL (0-1.0); Neutrophils % (M) 89 %; Nucleated Red Blood Cells 0 /100 WBC (0-0); Total Cells Counted 100
[2018-09-03 01:44] LABS: Poikilocytosis (M) Present; RBC Fragments Present
[2018-09-03 08:43] LABS: Anisocytosis Slight; Basophils % (A) 0 %; Eosinophils # (A) 0.1 k/uL (0-0.7); Eosinophils % (A) 0 %; HCT 27.2 % (39.0-53.0); Lymphocytes # (A) 0.6 k/uL (1.0-4.8); Lymphocytes % (A) 4 %; MCH 33.4 pg (25.0-35.0); MCHC 33.7 g/dL (31.0-37.0); MCV 99.1 fL (80.0-100.0); Macrocytosis Slight; Mean Platelet Volume 7.8; Monocytes % (A) 8 %; Neutrophils % (A) 86 %; RBC 2.75 m/uL (4.30-5.90); RDW 17.6 % (11.5-15.5); WBC 13.9 k/uL (3.8-10.6)
--- NOTE | 2018-09-03 08:43 | CT ---
EXAMINATION TYPE: CT brain wo con DATE OF EXAM: 09/03/2018 COMPARISON: None HISTORY: altered mental status CT DLP: 1158.[address] of the brain was performed. The ventricles, basal cisterns and sulci overlying the cerebral convexities demonstrate mild enlargem ent. There is no evidence for intracranial hemorrhage or sulcal effacement. There is decreased attenuation about the periventricular white matter and deep white matter of both c erebral hemispheres, compatible with chronic small vessel ischemia. Differential diagnosis does inclu de demyelination. No mass effects are seen.No midline shift. Osseous calvarium is intact. If symptoms persist consider MRI. IMPRESSION: 1. Age related atrophic and chronic small vessel ischemic change without acute intracranial process s een at this time.
[2018-09-03 08:47] LABS: HGB 9.2 gm/dL (13.0-17.5); INR 2.2 (<1.2); Prothrombin Time 21.4 sec (9.0-12.0)
[2018-09-03] MEDS: PANTOPRAZOLE 40 MG/10 ML VIAL IVP SCH ×2 (08:56→21:27)
[2018-09-03] MEDS: methylPREDNISolone SOD SUCCI 40 MG/ML 1 ML VIAL IV SCH (08:56)
[2018-09-03 09:01] LABS: Albumin 2.7 g/dL (3.5-5.0); Bilirubin, Conjugated 4.1 mg/dL (0.0-0.3); Bilirubin, Delta 2.9 mg/dL (0.0-0.2); Calcium 6.9 mg/dL (8.4-10.2); Potassium 3.6 mmol/L (3.5-5.1); Total Protein 7.1 g/dL (6.3-8.2)
[2018-09-03] MEDS ORDERED: POTASSIUM CHLORIDE ER 20 MEQ TAB.ER PO STA (09:30)
--- NOTE | 2018-09-03 09:32 | P.PN ---
Subjective Patient is seen in follow-up for acute kidney injury. Patient's creatinine on 08/07/2018 was 1 and elevated at 7.94 this admission. It is 5.6 today. Urine output has been about 30 mL an hour. Patient has history [place]:-induced liver cirrhosis. Patient had paracentesis done on September 02 with 7.6 L drained. He did receive a total of 75 g of albumin. He is currently maintained on bicarb drip. Bicarb level is up to 20. Patient's hemoglobin was also 5.8 this admission and is up to 9.2 today. He has received blood transfusions as well as IV DDAVP. Patient is currently quite confused and lethargic. Vital signs are stable. General: The patient appeared well nourished and normally developed. Lethargic. HEENT: Head exam is unremarkable. Neck is without jugular venous distension. LUNGS: Lungs are clear to auscultation and percussion. Breath sounds decreased. HEART: Rate and Rhythm are regular. First and second heart sounds normal. No mur murs, rubs or gallops. ABDOMEN: Bowel sounds decreased. Distention noted. EXTREMITITES: Trace edema. Objective - Vital Signs Vital signs: Vital Signs Temp 97.2 F L 09/03/18 08:00 Pulse 74 09/03/18 09:00 Resp 12 09/03/18 09:00 BP 111/54 09/03/18 09:00 Pulse Ox 98 09/03/18 09:00 Intake & Output 09/02/18 09/03/18 09/03/18 18:59 06:59 18:59 Intake Total 2160 1120 950 Output Total 8175 125 240 Balance -6015 995 710 Weight 83.1 kg Intake: IV 1850 500 950 Albumin Human 25% 50 ml 300 In Empty Bag 1 bag @ 50 mls/hr IVPB Q1H AGUSTIN Rx#: [id number] Desmopressin Acetate 30 50 mcg In Sodium Chloride 0. 9% 50 ml @ 200 mls/hr IVPB ONCE ONE Rx#: [id number] Dextrose 5% in Water 1, 1300 500 900 000 ml @ 100 mls/hr IV . [id number] AGUSTIN with Sodium Bicarb (1 Meq/ml) 150 ml Rx#:[id number] cefTRIAXone 2 gm In 50 50 Sodium Chloride 0.9% 50 ml @ 100 mls/hr IVPB ONCE STA Rx#:[id number] Blood Product 310 620 Rc As-1 Unit 0 [id number] Rc As-1 Unit 310 [id number] Rc As-1 Unit 310 [id number] Output: Gastric Drainage 7600 Urine 575 125 240 Other: Voiding Method Indwelling Catheter Indwelling Catheter # Voids 1 # Bowel Movements 1 - Labs CBC & Chem 7: 09/03/18 08:17 09/03/18 08:17 Labs: Abnormal Lab Results - Last 24 Hours (Table) 09/01/18 09/02/18 09/02/18 Range/Units 21:26 09:40 09:40 WBC (3.8-10.6) k/uL RBC (4.30-5.90) m/uL Hgb (13.0-17.5) gm/dL Hct (39.0-53.0) % MCV (80.0-100.0) fL RDW (11.5-15.5) % Plt Count (150-450) k/uL Neutrophils # (1.3-7.7) k/uL Neutrophils # (Manual) (1.3-7.7) k/uL Lymphocytes # (1.0-4.8) k/uL Lymphocytes # (Manual) (1.0-4.8) k/uL PT (9.0-12.0) sec INR (<1.2) Potassium 5.2 H (3.5-5.1) mmol/L Chloride 110 H (98-107) mmol/L Carbon Dioxide 14 L (22-30) mmol/L BUN 105 H* (9-20) mg/dL Creatinine 7.08 H* (0.66-1.25) mg/dL Glucose 190 H (74-99) mg/dL Calcium 7.2 L (8.4-10.2) mg/dL Iron (65-175) ug/dL TIBC (228-460) ug/dL Ferritin (22.0-322.0) ng/mL Total Bilirubin 13.4 H (0.2-1.3) mg/dL Conjugated Bilirubin (0.0-0.3) mg/dL Unconjugated Bilirubin (0.0-1.1) mg/dL Delta Bilirubin (0.0-0.2) mg/dL AST 88 H (17-59) U/L Ammonia 74 H (<30) umol/L Albumin 2.7 L (3.5-5.0) g/dL Urine Protein (Negative) Urine Bilirubin (Negative) Urine WBC (0-5) /hpf Urine Bacteria (None) /hpf Hyaline Casts (0-2) /lpf Urine Mucus (None) /hpf Crossmatch See Detail 09/02/18 09/02/18 09/02/18 Range/Units 09:40 09:40 12:38 WBC 11.3 H (3.8-10.6) k/uL RBC 2.44 L (4.30-5.90) m/uL Hgb 8.4 L D (13.0-17.5) gm/dL Hct 25.1 L (39.0-53.0) % MCV 102.7 H D (80.0-100.0) fL RDW 16.0 H (11.5-15.5) % Plt Count 126 L (150-450) k/uL Neutrophils # 10.2 H (1.3-7.7) k/uL Neutrophils # (Manual) (1.3-7.7) k/uL Lymphocytes # 0.6 L (1.0-4.8) k/uL Lymphocytes # (Manual) (1.0-4.8) k/uL PT (9.0-12.0) sec INR (<1.2) Potassium (3.5-5.1) mmol/L Chloride (98-107) mmol/L Carbon Dioxide (22-30) mmol/L BUN (9-20) mg/dL Creatinine (0.66-1.25) mg/dL Glucose (74-99) mg/dL Calcium (8.4-10.2) mg/dL Iron 45 L (65-175) ug/dL TIBC 110 L (228-460) ug/dL Ferritin 1886.9 H (22.0-322.0) ng/mL Total Bilirubin (0.2-1.3) mg/dL Conjugated Bilirubin (0.0-0.3) mg/dL Unconjugated Bilirubin (0.0-1.1) mg/dL Delta Bilirubin (0.0-0.2) mg/dL AST (17-59) U/L Ammonia (<30) umol/L Albumin (3.5-5.0) g/dL Urine Protein Trace H (Negative) Urine Bilirubin 2+ H (Negative) Urine WBC 7 H (0-5) /hpf Urine Bacteria Rare H (None) /hpf Hyaline Casts 10 H (0-2) /lpf Urine Mucus Rare H (None) /hpf Crossmatch 09/02/18 09/02/18 09/03/18 Range/Units 15:37 22:14 08:17 WBC 12.8 H 13.9 H (3.8-10.6) k/uL RBC 2.24 L 2.01 L 2.75 L (4.30-5.90) m/uL Hgb 7.3 L 6.9 L* 9.2 L D (13.0-17.5) gm/dL Hct 23.2 L 20.9 L 27.2 L (39.0-53.0) % MCV 103.6 H 103.6 H (80.0-100.0) fL RDW 16.2 H 17.1 H 17.6 H (11.5-15.5) % Plt Count 96 L 102 L (150-450) k/uL Neutrophils # 9.2 H (1.3-7.7) k/uL Neutrophils # (Manual) 11.90 H (1.3-7.7) k/uL Lymphocytes # 0.6 L (1.0-4.8) k/uL Lymphocytes # (Manual) 0.51 L (1.0-4.8) k/uL PT (9.0-12.0) sec INR (<1.2) Potassium (3.5-5.1) mmol/L Chloride (98-107) mmol/L Carbon Dioxide (22-30) mmol/L BUN (9-20) mg/dL Creatinine (0.66-1.25) mg/dL Glucose (74-99) mg/dL Calcium (8.4-10.2) mg/dL Iron (65-175) ug/dL TIBC (228-460) ug/dL Ferritin (22.0-322.0) ng/mL Total Bilirubin (0.2-1.3) mg/dL Conjugated Bilirubin (0.0-0.3) mg/dL Unconjugated Bilirubin (0.0-1.1) mg/dL Delta Bilirubin (0.0-0.2) mg/dL AST (17-59) U/L Ammonia (<30) umol/L Albumin (3.5-5.0) g/dL Urine Protein (Negative) Urine Bilirubin (Negative) Urine WBC (0-5) /hpf Urine Bacteria (None) /hpf Hyaline Casts (0-2) /lpf Urine Mucus (None) /hpf Crossmatch 09/03/18 09/03/18 09/03/18 Range/Units 08:17 08:17 Unknown WBC (3.8-10.6) k/uL RBC (4.30-5.90) m/uL Hgb (13.0-17.5) gm/dL Hct (39.0-53.0) % MCV (80.0-100.0) fL RDW (11.5-15.5) % Plt Count (150-450) k/uL Neutrophils # (1.3-7.7) k/uL Neutrophils # (Manual) (1.3-7.7) k/uL Lymphocytes # (1.0-4.8) k/uL Lymphocytes # (Manual) (1.0-4.8) k/uL PT 21.4 H (9.0-12.0) sec INR 2.2 H (<1.2) Potassium (3.5-5.1) mmol/L Chloride (98-107) mmol/L Carbon Dioxide 20 L (22-30) mmol/L BUN 104 H* (9-20) mg/dL Creatinine 5.60 H (0.66-1.25) mg/dL Glucose 191 H (74-99) mg/dL Calcium 6.9 L (8.4-10.2) mg/dL Iron (65-175) ug/dL TIBC (228-460) ug/dL Ferritin (22.0-322.0) ng/mL Total Bilirubin 10.0 H (0.2-1.3) mg/dL Conjugated Bilirubin 4.1 H (0.0-0.3) mg/dL Unconjugated Bilirubin 3.0 H (0.0-1.1) mg/dL Delta Bilirubin 2.9 H (0.0-0.2) mg/dL AST 65 H (17-59) U/L Ammonia 119 H (<30) umol/L Albumin 2.7 L (3.5-5.0) g/dL Urine Protein (Negative) Urine Bilirubin (Negative) Urine WBC (0-5) /hpf Urine Bacteria (None) /hpf Hyaline Casts (0-2) /lpf Urine Mucus (None) /hpf Crossmatch Microbiology - Last 24 Hours (Table) 09/02/18 14:43 Gram Stain - Preliminary Ascites Fluid Body Fluid Culture - Preliminary 09/01/18 21:40 Blood Culture - Preliminary Blood No Growth after 24 hours 09/01/18 21:26 Blood Culture - Preliminary Blood No Growth after 24 hours 09/02/18 14:43 Anaerobic Culture - Preliminary Ascites Fluid Assessment and Plan Plan: Assessment: 1. Acute kidney injury. This is prerenal in nature secondary to hypotension, acute anemia and poor oral intake. Creatinine was 7.94 on admission and is down to 5.6 today. Baseline creatinine is near 1. UA from last month reveals no protein. No evidence of hydronephrosis noted on renal ultrasound. Need to monitor for hepatorenal syndrome. 2 . Metabolic acidosis secondary to acute kidney injury maintained on bicarb drip. better. 3. Acute blood loss anemia status post 2 units of blood transfusion. Maintained on Sandostatin as well as PPI. status post IV DDAVP on September 02. 4. Alcohol induced liver cirrhosis. 5. Hepatic encephalopathy. 6. Ascites. status post paracentesis on September 02 with 7.6 L drained. 7. Hypokalemia secondary to intracellular shifting from IV bicarb. Plan: Maintain bicarb drip at 100 mL an hour. Replace potassium. 20 mg once today. Increase Midodrine to 10 mg 3 times daily. Continue to monitor renal function and urine output. May need an NG tube as not able to take oral medication.
[2018-09-03 09:40] LABS: ABG Base Excess -2.1 mmol/L; ABG HCO3 22 mmol/L (21-25); ABG PCO2 33 mmHg (35-45); ABG PH 7.44 (7.35-7.45); ABG PO2 93 mmHg (83-108); ABG TCO2 23 mmol/L (19-24); Allen Test Performed? Yes
[2018-09-03] MEDS: LACTULOSE 20 GM/30 ML CUP PO SCH ×4 (10:01→21:27)
--- NOTE | 2018-09-03 10:03 | P.CNPUL ---
History of Present Illness Consult date: 09/03/18 Requesting physician: Vladislav Dolan Reason for consult: other Chief complaint: Acute GI bleeding, anemia History of present illness: This a 58-year-old patient of Dr. Wills with past medical history of alcoholic cirrhosis, hypertension, hyperlipidemia, GERD/reflux, previous episodes of GI bleeding, who was admitted to the hospital on 09/01/2018 with complaints of progressive weakness, and worsening mental status. Patient was recently hospitalized for acute pancreatitis acute GI bleeding, hepatic coagulopathy, patient had a EGD during that admission and was found to have severe portal gastropathy without any evidence of varices, patient was transfused with the unit of blood, and was discharged home on 08/08/2018. Admission blood work was reviewed showing hemoglobin of 5.8, platelet count of 140, INR of 1.8, patient was in acute kidney injury with a BUN of 110 and creatinine of 7.94, patient had a normal renal function during his last admission, he was mild lactic acidosis of 2.5, ammonia level was 75, urinalysis was negative for signs of urinary tract infection, serum alcohol level was less than 10, and patient was reportedly abstaining from alcohol use. Patient was transfused with 4 units of blood on this admission, and his current hemoglobin is 9.2 on this morning's blood work. Patient underwent high-volume paracentesis on 09/02/2018 with removal of 7.6 L of ascitic fluid. Patient has been in the intensive care unit, for concerns of GI bleeding, altered mental status, inability to take his medications related to altered mentation. Patient's ammonia level had increased to 119 due to his inability to take his lactulose, and NG tube will be placed for medication administration. Patient has been having black tarry stools, no hematemesis, patient underwent EGD yesterday, which showed severe portal hypertensive gastropathy, with weeping of blood from the mucosa of the stomach, no varices or esophageal pathology was noted. Review of Systems All systems: negative Constitutional: Denies chills, Denies fever Eyes: denies blurred vision, denies pain Ears, nose, mouth and throat: Denies headache, Denies sore throat Cardiovascular: Denies chest pain, Denies shortness of breath Respiratory: Denies cough Gastrointestinal: Denies abdominal pain, Denies diarrhea, Denies nausea, Denies vomiting Musculoskeletal: Denies myalgias Integumentary: Denies pruritus, Denies rash Neurological: Reports as per HPI, Reports change in mentation, Reports confusion, Reports weakness, Denies numbness Psychiatric: Denies anxiety, Denies depression Endocrine: Denies fatigue, Denies weight change Hematologic/Lymphatic: Reports as per HPI, Reports easy bleeding, Reports easy bruising Past Medical History Past Medical History: GERD/Reflux, GI Bleed, Hyperlipidemia, Hypertension, Liver Disease History of Any Multi-Drug Resistant Organisms: None Reported Past Surgical History: No Surgical Hx Reported Past Anesthesia/Blood Transfusion Reactions: No Reported Reaction Past Psychological History: Anxiety Additional Psychological History / Comment(s): pt took paxil before Smoking Status: Never smoker Past Alcohol Use History: Heavy Additional Past Alcohol Use History / Comment(s): 24 beers or more a day Past Drug Use History: None Reported - Past Family History Father Additional Family Medical History / Comment(s): CABG Mother Family Medical History: Memory Impairment Additional Family Medical History / Comment(s): alzheimers Medications and Allergies Home Medications Medication Instructions Recorded Confirmed Type Metoprolol Tartrate [Lopressor] 12.5 mg PO BID #60 tab 08/07/18 09/01/18 Rx Omeprazole Magnesium [PriLOSEC OTC] 20 mg PO BID #60 tablet. 08/07/18 09/01/18 Rx Spironolactone [Aldactone] 100 mg PO DAILY #30 tab 08/07/18 09/01/18 Rx Thiamine [Vitamin B-1] 100 mg PO BID-W/MEALS #60 tab 08/07/18 09/01/18 Rx Allergies Allergy/AdvReac Type Severity Reaction Status Date / Time No Known Allergies Allergy Verified 09/01/18 16:56 Physical Exam Vitals: Vital Signs Temp Pulse Pulse Resp BP BP Pulse Ox 09/03/18 09:00 74 12 111/54 98 09/03/18 08:00 97.2 F L 75 11 L 101/51 98 09/03/18 07:00 73 21 99/53 95 09/03/18 06:30 75 15 110/58 97 09/03/18 06:00 67 23 100/53 98 09/03/18 05:31 64 17 93 L 09/03/18 05:01 74 12 105/53 96 09/03/18 04:30 73 12 99/52 07/26/19 04:01 73 12 97/50 96 09/03/18 03:45 97.8 F 64 17 87/47 98 09/03/18 03:30 74 12 97/47 97 09/03/18 03:15 73 12 98/54 98 09/03/18 03:00 74 12 100/49 97 09/03/18 02:45 74 11 L 100/49 98 09/03/18 02:30 76 19 92/55 09/03/18 02:15 71 14 92/55 98 09/03/18 02:00 76 11 L 92/55 99 09/03/18 01:45 76 9 L 97/48 98 09/03/18 01:30 72 11 L 92/65 09/03/18 01:15 71 18 100/49 97 09/03/18 01:00 98.5 F 71 15 93/51 09/03/18 00:45 98.4 F 73 15 89/51 98 09/03/18 00:00 98.6 F 68 17 92/45 98 09/02/18 20:00 70 14 104/52 98 09/02/18 16:00 97.5 F L 66 16 108/52 100 09/02/18 15:45 57 L 60 10 L 110/56 110/58 99 09/02/18 15:35 62 18 111/54 99 09/02/18 15:30 57 L 14 112/54 99 09/02/18 15:20 67 18 116/59 99 09/02/18 15:10 65 18 120/54 99 09/02/18 15:00 67 68 11 L 123/61 122/60 98 09/02/18 14:50 64 20 114/63 98 09/02/18 14:44 65 18 125/60 97 09/02/18 14:34 64 15 126/65 98 09/02/18 14:00 64 7 L 115/59 97 09/02/18 13:00 68 18 92/53 96 09/02/18 12:00 96.7 F L 70 20 99/55 94 L 09/02/18 10:00 63 18 112/58 97 Intake and Output 09/02/18 09/03/18 09/03/18 22:59 06:59 14:59 Intake Total 750 1120 950 Output Total 7785 125 240 Balance -7013 595 710 Intake: IV 750 500 950 Albumin Human 25% 50 ml 100 In Empty Bag 1 bag @ 50 mls/hr IVPB Q1H AGUSTNI Rx#: [id number] Dextrose 5% in Water 1, 500 500 900 000 ml @ 100 mls/hr IV . [id number] AGUSTIN with Sodium Bicarb (1 Meq/ml) 150 ml Rx#:[id number] cefTRIAXone 2 gm In 50 Sodium Chloride 0.9% 50 ml @ 100 mls/hr IVPB ONCE STA Rx#:[id number] Blood Product 620 Rc As-1 Unit 310 [id number] Rc As-1 Unit 310 [id number] Output: Gastric Drainage 7600 Urine 185 125 240 Other: Voiding Method Indwelling Catheter Indwelling Catheter Weight 83.1 kg GENERAL EXAM: 58-year-old male comfortable in no apparent distress, quite jaundiced, awake and oriented to place and year. NG tube is in place medication administration HEAD: Normocephalic/atraumatic. EYES: Normal reaction of pupils, equal size. Conjunctiva pink, sclera white. NOSE: Clear with pink turbinates. THROAT: No erythema or exudates. NECK: No masses, no JVD, no thyroid enlargement, no adenopathy. CHEST: No chest wall deformity. Symmetrical expansion. LUNGS: Equal air entry with no crackles, wheeze, rhonchi or dullness. CVS: Regular rate and rhythm, normal S1 and S2, no gallops, no murmurs, no rubs ABDOMEN: Soft, nontender, soft. No hepatosplenomegaly, normal bowel sounds, no guarding or rigidity. EXTREMITIES: No clubbing, no edema, no cyanosis, 2+ pulses and upper and lower extremities. MUSCULOSKELETAL: Muscle strength and tone normal. SPINE: No scoliosis or deformity SKIN: No rashes CENTRAL NERVOUS SYSTEM: Lethargic, No focal deficits, tone is normal in all 4 extremities. Results - Laboratory Findings CBC and BMP: 09/03/18 08:17 09/03/18 08:17 PT/INR, D-dimer PT 21.4 sec (9.0-12.0) H 09/03/18 08:17 INR 2.2 (<1.2) H 09/03/18 08:17 Abnormal lab findings: Abnormal Labs 09/01/18 09/01/1819 16:50 16:50 16:50 WBC 15.1 H RBC 2.40 L Hgb 8.3 L Hct 25.4 L MCV 105.8 H RDW 17.6 H Plt Count 134 L D Neutrophils # Neutrophils # (Manual) 12.00 H Lymphocytes # Lymphocytes # (Manual) Monocytes # (Manual) 1.51 H Macrocytosis Marked A PT 18.2 H INR 1.8 H APTT 55.4 H Sodium 135 L Potassium 5.3 H Chloride 110 H Carbon Dioxide 12 L BUN 110 H* Creatinine 7.94 H* Glucose 123 H POC Glucose (mg/dL) Plasma Lactic Acid Nando Calcium 7.8 L Magnesium 2.6 H Iron TIBC Ferritin Total Bilirubin 12.3 H Conjugated Bilirubin Unconjugated Bilirubin Delta Bilirubin AST 108 H Alkaline Phosphatase 136 H Ammonia Total Protein 8.5 H Albumin 2.4 L Amylase 121 H Lipase 546 H Urine Protein Urine Bilirubin Urine WBC Urine Bacteria Hyaline Casts Urine Mucus Crossmatch 09/01/18 09/01/18 09/01/18 19:36 21:26 21:26 WBC 14.8 H RBC 1.73 L Hgb 5.8 L* D Hct 18.8 L* MCV 108.3 H RDW 17.1 H Plt Count 140 L Neutrophils # Neutrophils # (Manual) 13.40 H Lymphocytes # Lymphocytes # (Manual) 0.59 L Monocytes # (Manual) Macrocytosis Marked A PT INR APTT Sodium Potassium Chloride Carbon Dioxide BUN Creatinine Glucose POC Glucose (mg/dL) Plasma Lactic Acid Nando 2.5 H* Calcium Magnesium Iron TIBC Ferritin Total Bilirubin Conjugated Bilirubin Unconjugated Bilirubin Delta Bilirubin AST Alkaline Phosphatase Ammonia 75 H Total Protein Albumin Amylase Lipase Urine Protein Urine Bilirubin Urine WBC Urine Bacteria Hyaline Casts Urine Mucus Crossmatch See Detail 09/02/18 09/02/18 09/02/18 02:06 09:40 09:40 WBC RBC Hgb Hct MCV RDW Plt Count Neutrophils # Neutrophils # (Manual) Lymphocytes # Lymphocytes # (Manual) Monocytes # (Manual) Macrocytosis PT INR APTT Sodium Potassium 5.2 H Chloride 110 H Carbon Dioxide 14 L BUN 105 H* Creatinine 7.08 H* Glucose 190 H POC Glucose (mg/dL) 110 H Plasma Lactic Acid Nando Calcium 7.2 L Magnesium Iron TIBC Ferritin Total Bilirubin 13.4 H Conjugated Bilirubin Unconjugated Bilirubin Delta Bilirubin AST 88 H Alkaline Phosphatase Ammonia 74 H Total Protein Albumin 2.7 L Amylase Lipase Urine Protein Urine Bilirubin Urine WBC Urine Bacteria Hyaline Casts Urine Mucus Crossmatch 09/02/18 09/02/18 09/02/18 09:40 09:40 12:38 WBC 11.3 H RBC 2.44 L Hgb 8.4 L D Hct 25.1 L MCV 102.7 H D RDW 16.0 H Plt Count 126 L Neutrophils # 10.2 H Neutrophils # (Manual) Lymphocytes # 0.6 L Lymphocytes # (Manual) Monocytes # (Manual) Macrocytosis PT INR APTT Sodium Potassium Chloride Carbon Dioxide BUN Creatinine Glucose POC Glucose (mg/dL) Plasma Lactic Acid Nando Calcium Magnesium Iron 45 L TIBC 110 L Ferritin 1886.9 H Total Bilirubin Conjugated Bilirubin Unconjugated Bilirubin Delta Bilirubin AST Alkaline Phosphatase Ammonia Total Protein Albumin Amylase Lipase Urine Protein Trace H Urine Bilirubin 2+ H Urine WBC 7 H Urine Bacteria Rare H Hyaline Casts 10 H Urine Mucus Rare H Crossmatch 09/02/18 09/02/18 09/03/18 15:37 22:14 08:17 WBC 12.8 H 13.9 H RBC 2.24 L 2.01 L 2.75 L Hgb 7.3 L 6.9 L* 9.2 L D Hct 23.2 L 20.9 L 27.2 L MCV 103.6 H 103.6 H RDW 16.2 H 17.1 H 17.6 H Plt Count 96 L 102 L Neutrophils # 9.2 H Neutrophils # (Manual) 11.90 H Lymphocytes # 0.6 L Lymphocytes # (Manual) 0.51 L Monocytes # (Manual) Macrocytosis PT INR APTT Sodium Potassium Chloride Carbon Dioxide BUN Creatinine Glucose POC Glucose (mg/dL) Plasma Lactic Acid Nando Calcium Magnesium Iron TIBC Ferritin Total Bilirubin Conjugated Bilirubin Unconjugated Bilirubin Delta Bilirubin AST Alkaline Phosphatase Ammonia Total Protein Albumin Amylase Lipase Urine Protein Urine Bilirubin Urine WBC Urine Bacteria Hyaline Casts Urine Mucus Crossmatch 09/03/18 09/03/18 09/03/18 08:17 08:17 Unknown WBC RBC Hgb Hct MCV RDW Plt Count Neutrophils # Neutrophils # (Manual) Lymphocytes # Lymphocytes # (Manual) Monocytes # (Manual) Macrocytosis PT 21.4 H INR 2.2 H APTT Sodium Potassium Chloride Carbon Dioxide 20 L BUN 104 H* Creatinine 5.60 H Glucose 191 H POC Glucose (mg/dL) Plasma Lactic Acid Nando Calcium 6.9 L Magnesium Iron TIBC Ferritin Total Bilirubin 10.0 H Conjugated Bilirubin 4.1 H Unconjugated Bilirubin 3.0 H Delta Bilirubin 2.9 H AST 65 H Alkaline Phosphatase Ammonia 119 H Total Protein Albumin 2.7 L Amylase Lipase Urine Protein Urine Bilirubin Urine WBC Urine Bacteria Hyaline Casts Urine Mucus Crossmatch - Diagnostic Findings Chest x-ray: report reviewed, image reviewed Additional studies: Brain CT results reviewed Assessment and Plan Plan: Assessment: #1. Acute GI blood loss anemia #2. Alcoholic liver disease, with hyperammonemia and ascites, is post large volume paracentesis with removal of 7.8 liters of ascitic fluid on 09/02/2018 #3. Acute mental status related to acute metabolic encephalopathy #4. Acute kidney injury, related to ATN #5. Mild lactic acidosis present on admission improved #6. Recent history of acute pancreatitis and GI bleeding, EGD was completed showing severe portal gastropathy without evidence of varices, patient was hospitalized and required blood transfusions #7. Hypertension #8. Hyperlipidemia #9. Lifetime nonsmoker Plan: We'll continue to monitor the patient in the intensive care unit, hemodynamically patient is stable, his hemoglobin is 9.2 this morning, patient has been having black tarry stools. NG tube is being placed for administration of lactulose. Mentation is improved this morning, patient is awake and oriented to place and the year. Patient underwent large-volume paracentesis yesterday, ascitic fluid cultures are pending, blood cultures are pending. Chest x-ray and brain CT have been reviewed, showing no acute lung or intracranial process. Continue with octreotide, continue IV hydration and bicarb replacement, continue with the lactulose via NG tube, continue empiric antibiotics, and at her electrolytes and renal profile, fever pattern, mentation. We'll continue monitoring the patient in the intensive care unit, GI service is following, nephrology is following. Patient will remain on IV Protonix I performed a history & physical examination of the patient and discussed their management with my nurse practitioner, Sybil Zaraet. I reviewed the nurse practitioner's note and agree with the documented findings and plan of care. Lung sounds are positive for diminished breath sounds. The findings and the impression was discussed with the patient. I attest to the documentation by the nurse practitioner. Time with Patient: Greater than 30
[2018-09-03] MEDS ORDERED: POTASSIUM BICARBONATE/CIT AC 20 MEQ TABLET.EFF PO STA (10:32)
[2018-09-03 10:34] LABS: Platelet Count 97 k/uL (150-450)
[2018-09-03] MEDS: THIAMINE 100 MG TAB PO SCH ×2 (10:49→17:48)
[2018-09-03] MEDS: METOPROLOL TARTRATE 12.5 MG TAB PO SCH ×2 (10:50→21:27)
--- NOTE | 2018-09-03 11:08 | P.PN ---
Subjective Progress Note Date: 09/03/18 Principal diagnosis: The patient is a 58-year-old male with a past medical history of severe alcoholic liver disease, liver cirrhosis with ascites, and GI bleed secondary to severe portal gastropathy who was admitted for progressive weakness and confusion and found to have hepatic encephalopathy after noted elevated serum ammonia level of 75, with likely hepatorenal syndrome with a serum creatinine of 7.94, lactic acid of 2.5 and elevated white count of 14.8. Noted acute on chronic macrocytic anemia with a hemoglobin of 5.8. Patient was typed and crossed and transfused 4 units of packed RBCs. IR was consulted to perform abdominal paracentesis removed 7.6 L of ascitic fluid, the patient was started on empiric IV antibiotics due to concern for underlying SBP with ceftriaxone 2 g IV every 24 hours. Nephrology and GI were consulted, EGD performed, showed severe portal hypertensive gastropathy, with weeping of blood from the mucosa of the stomach, no varices or esophageal pathology was noted. patient seen and examined at bedside . Patient much more lethargic and difficult to arouse today, confused reporting that he is at home. The patient received 2 more units of packed RBCs for hemoglobin up to 9.2 this morning, creatinine down to 5.6 and serum bicarbonate 20. Received infusions of DDAVP. Urine output approximately 30 mL an hour Objective - Vital Signs Vital signs: Vital Signs Temp 97.2 F L 09/03/18 08:00 Pulse 78 09/03/18 10:00 Resp 16 09/03/18 10:00 BP 105/57 09/03/18 10:00 Pulse Ox 97 09/03/18 10:00 Intake & Output 09/02/18 09/03/18 09/03/18 18:59 06:59 18:59 Intake Total 2160 1120 1050 Output Total 8175 125 270 Balance -6015 995 780 Weight 83.1 kg Intake: IV 0620 794 2109 Albumin Human 25% 50 ml 300 In Empty Bag 1 bag @ 50 mls/hr IVPB Q1H AGUSTIN Rx#: [id number] Desmopressin Acetate 30 50 mcg In Sodium Chloride 0. 9% 50 ml @ 200 mls/hr IVPB ONCE ONE Rx#: [id number] Dextrose 5% in Water 1, 8806 465 7008 000 ml @ 100 mls/hr IV . [id number] AGUSTIN with Sodium Bicarb (1 Meq/ml) 150 ml Rx#:[id number] cefTRIAXone 2 gm In 50 50 Sodium Chloride 0.9% 50 ml @ 100 mls/hr IVPB ONCE STA Rx#:[id number] Blood Product 310 620 Rc As-1 Unit 0 [id number] Rc As-1 Unit 310 [id number] Rc As-1 Unit 310 [id number] Output: Gastric Drainage 7600 Urine 575 125 270 Other: Voiding Method Indwelling Catheter Indwelling Catheter # Voids 1 # Bowel Movements 1 - Exam Constitutional: No acute distress, somnolent but arousable Eyes: icteric sclerae, moist conjunctiva, no lid-lag, PERRLA ENMT: NC/AT,Oropharynx clear, no erythema, exudates Neck:Supple, FROM, no masses, or JVD, No carotid bruits; No thyromegaly Lungs: Clear to auscultation, Clear to percussion, Normal respiratory effort, no accessory muscle use Cardiovascular: Heart regular in rate and rhythm, No murmurs, gallops, or rubs no peripheral edema Abdominal: Soft Nontender, severely distended, no guarding, no rebound or rigidity, diminished bowel sounds, caput [place] Skin: Normal temperature, tone, texture, turgor, No induration No subcutaneous nodules, No rash, lesions, No ulcers Extremities:No digital cyanosis No clubbing, Pedal pulses intact and symmetrical Radial pulses intact and symmetrical Normal gait and station, No calf tenderness Psychiatric: Oriented to location and place and year and self, not agitated psychomotor diminished Neuro: Flapping tremors - Labs CBC & Chem 7: 09/03/18 08:17 09/03/18 08:17 Labs: Abnormal Lab Results - Last 24 Hours (Table) 09/01/18 09/02/18 09/02/18 Range/Units 21:26 09:40 12:38 WBC (3.8-10.6) k/uL RBC (4.30-5.90) m/uL Hgb (13.0-17.5) gm/dL Hct (39.0-53.0) % MCV (80.0-100.0) fL RDW (11.5-15.5) % Plt Count (150-450) k/uL Neutrophils # (1.3-7.7) k/uL Neutrophils # (Manual) (1.3-7.7) k/uL Lymphocytes # (1.0-4.8) k/uL Lymphocytes # (Manual) (1.0-4.8) k/uL PT (9.0-12.0) sec INR (<1.2) ABG pCO2 (35-45) mmHg ABG O2 Saturation (94-97) % Carbon Dioxide (22-30) mmol/L BUN (9-20) mg/dL Creatinine (0.66-1.25) mg/dL Glucose (74-99) mg/dL Calcium (8.4-10.2) mg/dL Iron 45 L (65-175) ug/dL TIBC 110 L (228-460) ug/dL Ferritin 1886.9 H (22.0-322.0) ng/mL Total Bilirubin (0.2-1.3) mg/dL Conjugated Bilirubin (0.0-0.3) mg/dL Unconjugated Bilirubin (0.0-1.1) mg/dL Delta Bilirubin (0.0-0.2) mg/dL AST (17-59) U/L Ammonia (<30) umol/L Albumin (3.5-5.0) g/dL Urine Protein Trace H (Negative) Urine Bilirubin 2+ H (Negative) Urine WBC 7 H (0-5) /hpf Urine Bacteria Rare H (None) /hpf Hyaline Casts 10 H (0-2) /lpf Urine Mucus Rare H (None) /hpf Crossmatch See Detail 09/02/18 09/02/18 09/03/18 Range/Units 15:37 22:14 08:17 WBC 12.8 H 13.9 H (3.8-10.6) k/uL RBC 2.24 L 2.01 L 2.75 L (4.30-5.90) m/uL Hgb 7.3 L 6.9 L* 9.2 L D (13.0-17.5) gm/dL Hct 23.2 L 20.9 L 27.2 L (39.0-53.0) % MCV 103.6 H 103.6 H (80.0-100.0) fL RDW 16.2 H 17.1 H 17.6 H (11.5-15.5) % Plt Count 96 L 102 L 97 L (150-450) k/uL Neutrophils # 9.2 H 12.0 H (1.3-7.7) k/uL Neutrophils # (Manual) 11.90 H (1.3-7.7) k/uL Lymphocytes # 0.6 L 0.6 L (1.0-4.8) k/uL Lymphocytes # (Manual) 0.51 L (1.0-4.8) k/uL PT (9.0-12.0) sec INR (<1.2) ABG pCO2 (35-45) mmHg ABG O2 Saturation (94-97) % Carbon Dioxide (22-30) mmol/L BUN (9-20) mg/dL Creatinine (0.66-1.25) mg/dL Glucose (74-99) mg/dL Calcium (8.4-10.2) mg/dL Iron (65-175) ug/dL TIBC (228-460) ug/dL Ferritin (22.0-322.0) ng/mL Total Bilirubin (0.2-1.3) mg/dL Conjugated Bilirubin (0.0-0.3) mg/dL Unconjugated Bilirubin (0.0-1.1) mg/dL Delta Bilirubin (0.0-0.2) mg/dL AST (17-59) U/L Ammonia (<30) umol/L Albumin (3.5-5.0) g/dL Urine Protein (Negative) Urine Bilirubin (Negative) Urine WBC (0-5) /hpf Urine Bacteria (None) /hpf Hyaline Casts (0-2) /lpf Urine Mucus (None) /hpf Crossmatch 09/03/18 09/03/18 09/03/18 Range/Units 08:17 08:17 09:25 WBC (3.8-10.6) k/uL RBC (4.30-5.90) m/uL Hgb (13.0-17.5) gm/dL Hct (39.0-53.0) % MCV (80.0-100.0) fL RDW (11.5-15.5) % Plt Count (150-450) k/uL Neutrophils # (1.3-7.7) k/uL Neutrophils # (Manual) (1.3-7.7) k/uL Lymphocytes # (1.0-4.8) k/uL Lymphocytes # (Manual) (1.0-4.8) k/uL PT 21.4 H (9.0-12.0) sec INR 2.2 H (<1.2) ABG pCO2 33 L (35-45) mmHg ABG O2 Saturation 98.0 H (94-97) % Carbon Dioxide 20 L (22-30) mmol/L BUN 104 H* (9-20) mg/dL Creatinine 5.60 H (0.66-1.25) mg/dL Glucose 191 H (74-99) mg/dL Calcium 6.9 L (8.4-10.2) mg/dL Iron (65-175) ug/dL TIBC (228-460) ug/dL Ferritin (22.0-322.0) ng/mL Total Bilirubin 10.0 H (0.2-1.3) mg/dL Conjugated Bilirubin 4.1 H (0.0-0.3) mg/dL Unconjugated Bilirubin 3.0 H (0.0-1.1) mg/dL Delta Bilirubin 2.9 H (0.0-0.2) mg/dL AST 65 H (17-59) U/L Ammonia (<30) umol/L Albumin 2.7 L (3.5-5.0) g/dL Urine Protein (Negative) Urine Bilirubin (Negative) Urine WBC (0-5) /hpf Urine Bacteria (None) /hpf Hyaline Casts (0-2) /lpf Urine Mucus (None) /hpf Crossmatch 09/03/18 Range/Units Unknown WBC (3.8-10.6) k/uL RBC (4.30-5.90) m/uL Hgb (13.0-17.5) gm/dL Hct (39.0-53.0) % MCV (80.0-100.0) fL RDW (11.5-15.5) % Plt Count (150-450) k/uL Neutrophils # (1.3-7.7) k/uL Neutrophils # (Manual) (1.3-7.7) k/uL Lymphocytes # (1.0-4.8) k/uL Lymphocytes # (Manual) (1.0-4.8) k/uL PT (9.0-12.0) sec INR (<1.2) ABG pCO2 (35-45) mmHg ABG O2 Saturation (94-97) % Carbon Dioxide (22-30) mmol/L BUN (9-20) mg/dL Creatinine (0.66-1.25) mg/dL Glucose (74-99) mg/dL Calcium (8.4-10.2) mg/dL Iron (65-175) ug/dL TIBC (228-460) ug/dL Ferritin (22.0-322.0) ng/mL Total Bilirubin (0.2-1.3) mg/dL Conjugated Bilirubin (0.0-0.3) mg/dL Unconjugated Bilirubin (0.0-1.1) mg/dL Delta Bilirubin (0.0-0.2) mg/dL AST (17-59) U/L Ammonia 119 H (<30) umol/L Albumin (3.5-5.0) g/dL Urine Protein (Negative) Urine Bilirubin (Negative) Urine WBC (0-5) /hpf Urine Bacteria (None) /hpf Hyaline Casts (0-2) /lpf Urine Mucus (None) /hpf Crossmatch Microbiology - Last 24 Hours (Table) 09/02/18 14:43 Gram Stain - Preliminary Ascites Fluid Body Fluid Culture - Preliminary 09/01/18 21:40 Blood Culture - Preliminary Blood No Growth after 24 hours 09/01/18 21:26 Blood Culture - Preliminary Blood No Growth after 24 hours 09/02/18 14:43 Anaerobic Culture - Preliminary Ascites Fluid Assessment and Plan (1) Alcoholic cirrhosis of liver with ascites Narrative/Plan: * Decompensated alcoholic liver cirrhosis with ascites with history of variceal bleed * Patient will need paracentesis by IR along with 50 g of albumin * GI consultation requested * Continue octreotide, lactulose, and metoprolol. Current Visit: Yes Status: Acute Code(s): K70.31 - ALCOHOLIC CIRRHOSIS OF LIVER WITH ASCITES SNOMED Code(s): 917269139 (2) Macrocytic anemia Narrative/Plan: * Acute blood loss on chronic macrocytic anemia/ACD in the setting of alcoholic liver cirrhosis and previous history of severe portal gastropathy * Status post 4 units packed RBC transfusion hemoglobin hemoglobin up to 9.2 from 6.9 * GI consultation requested * We'll check iron studies and Hemoccult * Continue to monitor hemoglobin Current Visit: Yes Status: Acute Code(s): D53.9 - NUTRITIONAL ANEMIA, UNSPECIFIED SNOMED Code(s): 56923471 (3) Acute renal failure Narrative/Plan: * Likely prerenal etiology secondary to hypotension and poor oral intake concern for underlying hepatorenal syndrome * With associated metabolic acidosis and mild hyperkalemia K at 5.2 now resolved post bicarbonate infusion * Creatinine down to 5.6 from 7 * Appreciate nephrology recommendations Current Visit: Yes Status: Acute Code(s): N17.9 - ACUTE KIDNEY FAILURE, UNSPECIFIED SNOMED Code(s): 09530979 (4) Coagulopathy Narrative/Plan: * Hepatic coagulopathy Secondary to underlying liver cirrhosis * INR 2.2 today Current Visit: No Status: Chronic Code(s): D68.9 - COAGULATION DEFECT, UNSPECIFIED SNOMED Code(s): 59858165 (5) Leukocytosis Narrative/Plan: * Patient afebrile and is currently on steroids * Leukocytosis up to 13.9 from 11.3 * Concern for underlying SBP given liver cirrhosis with ascites * Continued on Rocephin 2 g IV every 24 hours Current Visit: Yes Status: Chronic Code(s): D72.829 - ELEVATED WHITE BLOOD CELL COUNT, UNSPECIFIED SNOMED Code(s): 792064143 (6) Hepatic encephalopathy Narrative/Plan: * CT of the head negative for any acute intracranial pathology noted age-related atrophy and chronic small vessel ischemia * Serum ammonia level even more elevated at 119 up from 74 * We'll add rifaximin to his regimen * continue with lactulose QID we'll place NG tube if needed * Continue to follow ammonia level Current Visit: Yes Status: Acute Code(s): K72.90 - HEPATIC FAILURE, UNSPECIFIED WITHOUT COMA SNOMED Code(s): 97370582 (7) Thrombocytopenia Narrative/Plan: * Chronic due to alcoholic liver cirrhosis * Continue to monitor Current Visit: No Status: Chronic Code(s): D69.6 - THROMBOCYTOPENIA, UNSPECIFIED SNOMED Code(s): 925395675 Plan: Disposition * Continue current management follow-up consultants recommendations * Continue antibiotics * Patient is a discharge to be determined by course,
[2018-09-03] MEDS: MIDODRINE 5 MG TAB PO SCH ×2 (11:12→18:42)
[2018-09-03] MEDS: RIFAXIMIN 550 MG TABLET PO SCH ×2 (11:13→21:44)
[2018-09-03] MEDS ORDERED: FUROSEMIDE 10 MG/ML 10 ML VIAL IV STA (14:25)
[2018-09-03 14:56] LABS: Anisocytosis Slight; Basophils % (A) 0 %; Eosinophils # (A) 0.1 k/uL (0-0.7); Eosinophils % (A) 1 %; HCT 27.8 % (39.0-53.0); HGB 9.6 gm/dL (13.0-17.5); Lymphocytes # (A) 0.8 k/uL (1.0-4.8); Lymphocytes % (A) 5 %; MCH 32.6 pg (25.0-35.0); MCHC 34.5 g/dL (31.0-37.0); MCV 94.4 fL (80.0-100.0); Mean Platelet Volume 7.5; Monocytes # (A) 0.9 k/uL (0-1.0); Monocytes % (A) 5 %; Neutrophils # (A) 16.1 k/uL (1.3-7.7); Neutrophils % (A) 89 %; Platelet Count 115 k/uL (150-450); RBC 2.94 m/uL (4.30-5.90); RDW 16.6 % (11.5-15.5); WBC 18.1 k/uL (3.8-10.6)
[2018-09-03 15:04] LABS: Poikilocytosis (M) Present; Rouleaux Present
[2018-09-03] MEDS: DEXTROSE 5% IN WATER 1,000 ML with SODIUM BICARB (1 MEQ/ML) 150 ML IV SCH ×2 (15:27→20:00)
[2018-09-03] MEDS: ONDANSETRON 4 MG/2 ML VIAL IVP PRN ×2 (16:32→22:20)
--- NOTE | 2018-09-03 20:46 | P.PN ---
Subjective Progress Note Date: 09/03/18 Principal diagnosis: Decompensated alcoholic cirrhosis, hepatic encephalopathy, portal hypertensive gastropathy Patient seen with at bedside. More awake today. No abdominal pain reported. One episode of vomiting with blood noted. Objective - Vital Signs Vital signs: Vital Signs Temp 96.6 F L 09/03/18 16:00 Pulse 78 09/03/18 20:00 Resp 15 09/03/18 20:00 BP 121/62 09/03/18 20:00 Pulse Ox 96 09/03/18 20:00 Intake & Output 09/03/18 09/03/18 09/04/18 06:59 18:59 06:59 Intake Total 1120 1850 200 Output Total 125 518 150 Balance 995 1332 50 Weight 83.1 kg Intake: IV 500 1850 200 Dextrose 5% in Water 1, 500 1800 200 000 ml @ 100 mls/hr IV . [id number] AGUSTIN with Sodium Bicarb (1 Meq/ml) 150 ml Rx#:[id number] cefTRIAXone 2 gm In 50 Sodium Chloride 0.9% 50 ml @ 100 mls/hr IVPB ONCE STA Rx#:[id number] Blood Product 620 Rc As-1 Unit 310 [id number] Rc As-1 Unit 310 [id number] Output: Urine 125 518 150 Other: Voiding Method Indwelling Catheter Indwelling Catheter Indwelling Catheter - Exam On physical examination, patient appears comfortable in no apparent distress. HEAD: Normocephalic, atraumatic. EYES: Scleral icterus. No conjunctival injection. MOUTH: No lesions, tongue midline. NECK: Trachea midline, no gross abnormalities. CHEST: Decreased air entry bilaterally. HEART: Regular rate and rhythm. ABDOMEN: Soft, obese, distended with positive fluid wave. Bowel sounds are positive. No organomegaly. No guarding or rigidity. EXTREMITIES: Bilateral +1 pedal edema. SKIN: No rashes, no jaundice. NEUROLOGIC: Alert and oriented to person and place with minimal asterixis noted. No focal deficits. - Labs CBC & Chem 7: 09/03/18 14:21 09/03/18 08:17 Labs: Abnormal Lab Results - Last 24 Hours (Table) 09/01/18 09/02/18 09/02/18 Range/Units 21:26 09:40 22:14 WBC 12.8 H (3.8-10.6) k/uL RBC 2.01 L (4.30-5.90) m/uL Hgb 6.9 L* (13.0-17.5) gm/dL Hct 20.9 L (39.0-53.0) % MCV 103.6 H (80.0-100.0) fL RDW 17.1 H (11.5-15.5) % Plt Count 102 L (150-450) k/uL Neutrophils # (1.3-7.7) k/uL Neutrophils # (Manual) 11.90 H (1.3-7.7) k/uL Lymphocytes # (1.0-4.8) k/uL Lymphocytes # (Manual) 0.51 L (1.0-4.8) k/uL PT (9.0-12.0) sec INR (<1.2) ABG pCO2 (35-45) mmHg ABG O2 Saturation (94-97) % Carbon Dioxide (22-30) mmol/L BUN (9-20) mg/dL Creatinine (0.66-1.25) mg/dL Glucose (74-99) mg/dL Calcium (8.4-10.2) mg/dL Iron 45 L (65-175) ug/dL TIBC 110 L (228-460) ug/dL Ferritin 1886.9 H (22.0-322.0) ng/mL Total Bilirubin (0.2-1.3) mg/dL Conjugated Bilirubin (0.0-0.3) mg/dL Unconjugated Bilirubin (0.0-1.1) mg/dL Delta Bilirubin (0.0-0.2) mg/dL AST (17-59) U/L Ammonia (<30) umol/L Albumin (3.5-5.0) g/dL Crossmatch See Detail 09/03/18 09/03/18 09/03/18 Range/Units 08:17 08:17 08:17 WBC 13.9 H (3.8-10.6) k/uL RBC 2.75 L (4.30-5.90) m/uL Hgb 9.2 L D (13.0-17.5) gm/dL Hct 27.2 L (39.0-53.0) % MCV (80.0-100.0) fL RDW 17.6 H (11.5-15.5) % Plt Count 97 L (150-450) k/uL Neutrophils # 12.0 H (1.3-7.7) k/uL Neutrophils # (Manual) (1.3-7.7) k/uL Lymphocytes # 0.6 L (1.0-4.8) k/uL Lymphocytes # (Manual) (1.0-4.8) k/uL PT 21.4 H (9.0-12.0) sec INR 2.2 H (<1.2) ABG pCO2 (35-45) mmHg ABG O2 Saturation (94-97) % Carbon Dioxide 20 L (22-30) mmol/L BUN 104 H* (9-20) mg/dL Creatinine 5.60 H (0.66-1.25) mg/dL Glucose 191 H (74-99) mg/dL Calcium 6.9 L (8.4-10.2) mg/dL Iron (65-175) ug/dL TIBC (228-460) ug/dL Ferritin (22.0-322.0) ng/mL Total Bilirubin 10.0 H (0.2-1.3) mg/dL Conjugated Bilirubin 4.1 H (0.0-0.3) mg/dL Unconjugated Bilirubin 3.0 H (0.0-1.1) mg/dL Delta Bilirubin 2.9 H (0.0-0.2) mg/dL AST 65 H (17-59) U/L Ammonia (<30) umol/L Albumin 2.7 L (3.5-5.0) g/dL Crossmatch 09/03/18 09/03/18 09/03/18 Range/Units 09:25 14:21 Unknown WBC 18.1 H (3.8-10.6) k/uL RBC 2.94 L (4.30-5.90) m/uL Hgb 9.6 L (13.0-17.5) gm/dL Hct 27.8 L (39.0-53.0) % MCV (80.0-100.0) fL RDW 16.6 H (11.5-15.5) % Plt Count 115 L (150-450) k/uL Neutrophils # 16.1 H (1.3-7.7) k/uL Neutrophils # (Manual) (1.3-7.7) k/uL Lymphocytes # 0.8 L (1.0-4.8) k/uL Lymphocytes # (Manual) (1.0-4.8) k/uL PT (9.0-12.0) sec INR (<1.2) ABG pCO2 33 L (35-45) mmHg ABG O2 Saturation 98.0 H (94-97) % Carbon Dioxide (22-30) mmol/L BUN (9-20) mg/dL Creatinine (0.66-1.25) mg/dL Glucose (74-99) mg/dL Calcium (8.4-10.2) mg/dL Iron (65-175) ug/dL TIBC (228-460) ug/dL Ferritin (22.0-322.0) ng/mL Total Bilirubin (0.2-1.3) mg/dL Conjugated Bilirubin (0.0-0.3) mg/dL Unconjugated Bilirubin (0.0-1.1) mg/dL Delta Bilirubin (0.0-0.2) mg/dL AST (17-59) U/L Ammonia 119 H (<30) umol/L Albumin (3.5-5.0) g/dL Crossmatch Microbiology - Last 24 Hours (Table) 09/02/18 14:43 Gram Stain - Preliminary Ascites Fluid Body Fluid Culture - Preliminary 09/01/18 21:40 Blood Culture - Preliminary Blood No Growth after 24 hours 09/01/18 21:26 Blood Culture - Preliminary Blood No Growth after 24 hours 09/02/18 14:43 Anaerobic Culture - Preliminary Ascites Fluid Assessment and Plan (1) Alcoholic cirrhosis of liver with ascites Narrative/Plan: 58-year-old male with decompensated alcoholic cirrhosis of the liver with ascites, hepatic encephalopathy, and portal hypertensive gastropathy presented to the hospital for increasing weakness and confusion. Ammonia found to be elevated on presentation currently receiving lactulose therapy. Patient also been reporting dark colored bowel movements with acute fall in hemoglobin. Previously EGD was significant for portal hypertensive gastropathy and colonoscopy for internal hemorrhoids, with repeat EGD on this admission showing severe portal hypertensive gastropathy with old blood and active bleeding from mucosa of stomach noted. Current Visit: Yes Status: Acute Code(s): K70.31 - ALCOHOLIC CIRRHOSIS OF LIVER WITH ASCITES SNOMED Code(s): 534846414 (2) Hepatic encephalopathy Narrative/Plan: More alert today, able to take oral lactulose therapy. Current Visit: Yes Status: Acute Code(s): K72.90 - HEPATIC FAILURE, UNSPECIFIED WITHOUT COMA SNOMED Code(s): 82247619 (3) Thrombocytopenia Current Visit: No Status: Chronic Code(s): D69.6 - THROMBOCYTOPENIA, UNSPECIFIED SNOMED Code(s): 926933311 (4) Acute renal failure Narrative/Plan: Discussed with nephrology service, felt to be prerenal and secondary to ATN with improvement with fluid hydration. Patient continues on Midodrine and Sandostatin with albumin given. Current Visit: Yes Status: Acute Code(s): N17.9 - ACUTE KIDNEY FAILURE, UNSPECIFIED SNOMED Code(s): 41732026 Plan: Supportive care Nothing by mouth for now EGD performed with no varices noted Continue Protonix 40 mg IV twice daily Continue octreotide, Midodrine and albumin due to concerns over hepatorenal syndrome, nephrology currently following and feel increased creatinine is more prerenal in nature with improvement with fluid hydration and creatinine continue lactulose, titrated to 2-3 bowel movements daily Patient's reports 2 weeks of alcohol abstinence, with long conversation with the patient's and patient with seriousness of patient's medical condition discussed, patients condition remains guarded Continue to monitor INR, liver enzymes, CBC, CMP Continue to monitor clinically Case discussed with complaint clerk service and nephrology and if patient has further decompensation we'll consider referral to tertiary center for dedicated hepatology consultation, although patient's recent alcohol consumption is prohibitive of evaluation for liver transplant Thank you for allowing us to participate in the care of the patient we will continue to follow
[2018-09-03] MEDS ORDERED: PHYTONADIONE 10 MG in SODIUM CHLORIDE 0.9% 50 ML IVPB STA (20:50)
[2018-09-04 06:44] LABS: Anisocytosis Slight; HCT 27.6 % (39.0-53.0); MCH 32.2 pg (25.0-35.0); MCHC 32.7 g/dL (31.0-37.0); MCV 98.5 fL (80.0-100.0); Macrocytosis Slight; Mean Platelet Volume 7.5; Platelet Count 108 k/uL (150-450); RDW 16.5 % (11.5-15.5); WBC 14.5 k/uL (3.8-10.6)
[2018-09-04] MEDS: DEXTROSE 5% IN WATER 1,000 ML with SODIUM BICARB (1 MEQ/ML) 150 ML IV SCH ×2 (06:45→22:00)
[2018-09-04] MEDS: MIDODRINE 5 MG TAB PO SCH ×4 (06:45→17:52)
[2018-09-04] MEDS: THIAMINE 100 MG TAB PO SCH ×3 (06:45→17:13)
[2018-09-04 06:54] LABS: INR 2.2 (<1.2); Prothrombin Time 21.1 sec (9.0-12.0)
[2018-09-04 07:23] LABS: Albumin 2.5 g/dL (3.5-5.0); Bilirubin, Conjugated 3.2 mg/dL (0.0-0.3); Bilirubin, Delta 2.7 mg/dL (0.0-0.2); Bilirubin,Unconjugated 2.5 mg/dL (0.0-1.1); Calcium 6.9 mg/dL (8.4-10.2); Potassium 3.4 mmol/L (3.5-5.1); Total Bilirubin 8.4 mg/dL (0.2-1.3); Total Protein 6.8 g/dL (6.3-8.2)
[2018-09-04] MEDS: OCTREOTIDE 100 MCG/ML INJ SQ SCH ×2 (08:22→15:48)
[2018-09-04] MEDS: methylPREDNISolone SOD SUCCI 40 MG/ML 1 ML VIAL IV SCH (08:23)
[2018-09-04] MEDS: METOPROLOL TARTRATE 12.5 MG TAB PO SCH ×2 (08:23→22:00)
[2018-09-04] MEDS: LACTULOSE 20 GM/30 ML CUP PO SCH ×4 (08:23→23:00)
[2018-09-04] MEDS: PANTOPRAZOLE 40 MG/10 ML VIAL IVP SCH ×2 (08:24→21:10)
--- NOTE | 2018-09-04 08:47 | P.PN ---
Subjective Progress Note Date: 09/04/18 Seen and examined for the follow-up of acute kidney injury. Baseline creatinine 1.0 MG per DL. Admitted with decompensated liver disease status post paracentesis and 7.6 L of fluid was drained. Currently making urine, 1150 ML's in the last 24 hours. Family at bedside. Confusion better. Objective - Vital Signs Vital signs: Vital Signs Temp 97.5 F L 09/04/18 08:00 Pulse 62 09/04/18 08:00 Resp 16 09/04/18 08:00 BP 117/67 09/04/18 08:00 Pulse Ox 97 09/04/18 08:00 Intake & Output 09/03/18 09/04/18 09/04/18 18:59 06:59 18:59 Intake Total 1850 1470 340 Output Total 518 625 85 Balance 1332 845 255 Intake: IV 1850 1470 240 Dextrose 5% in Water 1, 1800 1200 200 000 ml @ 100 mls/hr IV . [id number] AGUSTIN with Sodium Bicarb (1 Meq/ml) 150 ml Rx#:[id number] KVO 220 40 Phytonadione 10 mg In 50 Sodium Chloride 0.9% 50 ml @ 100 mls/hr IVPB ONCE STA Rx#:[id number] cefTRIAXone 2 gm In 50 Sodium Chloride 0.9% 50 ml @ 100 mls/hr IVPB ONCE STA Rx#:[id number] Oral 100 Output: Urine 518 625 85 Other: Voiding Method Indwelling Catheter Indwelling Catheter - Exam No acute distress S1-S2 heard Lungs clear Distended abdomen Edema Vaz dark urine - Labs CBC & Chem 7: 09/04/18 06:06 09/04/18 06:06 Labs: Abnormal Lab Results - Last 24 Hours (Table) 09/03/18 09/03/18 09/03/18 Range/Units 08:17 08:17 08:17 WBC 13.9 H (3.8-10.6) k/uL RBC 2.75 L (4.30-5.90) m/uL Hgb 9.2 L D (13.0-17.5) gm/dL Hct 27.2 L (39.0-53.0) % RDW 17.6 H (11.5-15.5) % Plt Count 97 L (150-450) k/uL Neutrophils # 12.0 H (1.3-7.7) k/uL Lymphocytes # 0.6 L (1.0-4.8) k/uL PT 21.4 H (9.0-12.0) sec INR 2.2 H (<1.2) ABG pCO2 (35-45) mmHg ABG O2 Saturation (94-97) % Potassium (3.5-5.1) mmol/L Carbon Dioxide 20 L (22-30) mmol/L BUN 104 H* (9-20) mg/dL Creatinine 5.60 H (0.66-1.25) mg/dL Glucose 191 H (74-99) mg/dL Calcium 6.9 L (8.4-10.2) mg/dL Total Bilirubin 10.0 H (0.2-1.3) mg/dL Conjugated Bilirubin 4.1 H (0.0-0.3) mg/dL Unconjugated Bilirubin 3.0 H (0.0-1.1) mg/dL Delta Bilirubin 2.9 H (0.0-0.2) mg/dL AST 65 H (17-59) U/L Ammonia (<30) umol/L Albumin 2.7 L (3.5-5.0) g/dL 09/03/18 09/03/18 09/04/18 Range/Units 09:25 14:21 06:06 WBC 18.1 H (3.8-10.6) k/uL RBC 2.94 L (4.30-5.90) m/uL Hgb 9.6 L (13.0-17.5) gm/dL Hct 27.8 L (39.0-53.0) % RDW 16.6 H (11.5-15.5) % Plt Count 115 L (150-450) k/uL Neutrophils # 16.1 H (1.3-7.7) k/uL Lymphocytes # 0.8 L (1.0-4.8) k/uL PT (9.0-12.0) sec INR (<1.2) ABG pCO2 33 L (35-45) mmHg ABG O2 Saturation 98.0 H (94-97) % Potassium 3.4 L (3.5-5.1) mmol/L Carbon Dioxide (22-30) mmol/L BUN 111 H* (9-20) mg/dL Creatinine 5.31 H (0.66-1.25) mg/dL Glucose 150 H (74-99) mg/dL Calcium 6.9 L (8.4-10.2) mg/dL Total Bilirubin 8.4 H (0.2-1.3) mg/dL Conjugated Bilirubin 3.2 H (0.0-0.3) mg/dL Unconjugated Bilirubin 2.5 H (0.0-1.1) mg/dL Delta Bilirubin 2.7 H (0.0-0.2) mg/dL AST 81 H (17-59) U/L Ammonia (<30) umol/L Albumin 2.5 L (3.5-5.0) g/dL 09/04/18 09/04/18 09/04/18 Range/Units 06:06 06:06 06:06 WBC 14.5 H (3.8-10.6) k/uL RBC 2.80 L (4.30-5.90) m/uL Hgb 9.0 L (13.0-17.5) gm/dL Hct 27.6 L (39.0-53.0) % RDW 16.5 H (11.5-15.5) % Plt Count 108 L (150-450) k/uL Neutrophils # (1.3-7.7) k/uL Lymphocytes # (1.0-4.8) k/uL PT 21.1 H (9.0-12.0) sec INR 2.2 H (<1.2) ABG pCO2 (35-45) mmHg ABG O2 Saturation (94-97) % Potassium (3.5-5.1) mmol/L Carbon Dioxide (22-30) mmol/L BUN (9-20) mg/dL Creatinine (0.66-1.25) mg/dL Glucose (74-99) mg/dL Calcium (8.4-10.2) mg/dL Total Bilirubin (0.2-1.3) mg/dL Conjugated Bilirubin (0.0-0.3) mg/dL Unconjugated Bilirubin (0.0-1.1) mg/dL Delta Bilirubin (0.0-0.2) mg/dL AST (17-59) U/L Ammonia 62 H (<30) umol/L Albumin (3.5-5.0) g/dL Microbiology - Last 24 Hours (Table) 09/01/18 21:40 Blood Culture - Preliminary Blood No Growth after 48 hours 09/01/18 21:26 Blood Culture - Preliminary Blood No Growth after 48 hours 09/02/18 14:43 Gram Stain - Preliminary Ascites Fluid Body Fluid Culture - Preliminary Assessment and Plan Assessment: #1 nonoliguric acute kidney injury secondary to hepatorenal syndrome. Baseline creatinine 1.0 MG per DL. #2 decompensated alcoholic liver disease. #3 encephalopathy multifactorial, liver disease/uremia #4 acute blood loss anemia status post 2 unit PRBC. #5 hypokalemia Plan: #1 continue HRS protocol with midodrine, octreotide and albumin. #2 potassium replacement. Maintain potassium more than 4. Encephalopathy worsens with hypokalemia in decompensated liver disease. #3 avoid nephrotoxic agents and hypotensive episodes. #4 no acute indication for renal replacement therapy at this time.
[2018-09-04] MEDS: RIFAXIMIN 550 MG TABLET PO SCH ×2 (09:04→22:00)
[2018-09-04] MEDS: POTASSIUM CHLORIDE ER 20 MEQ TAB.ER PO SCH (09:05)
--- NOTE | 2018-09-04 09:32 | P.PN ---
Subjective Progress Note Date: 09/04/18 (seen at 0905) Principal diagnosis: Altered mentation Patient is a 58-year-old male with a past medical history of advanced cirrhosis secondary to alcohol use, recent GI bleed secondary to esophageal varices, dyslipidemia, and hypertension who presented to the emergency department with progressive worsening mental status and weakness. In the emergency department he underwent an extensive evaluation. Initial vital signs showed slight hypotension with blood pressure 93/44. Initial laboratory analysis showed an elevated white blood cell count 15.1, hemoglobin 8.3 which is near his baseline, platelets of 134 which are at baseline, INR 1.8 which was at baseline, potassium of 5.3, creatinine 7.94, his total bilirubin was elevated at 12.3 (baseline was 6 last month and has been steadily increasing), ammonia elevated at 75, AST 108, and ALT 23. He had a chest x-ray obtained that showed probable basilar atelectasis. He was subsequently admitted for further care of his cirrhosis and altered mentation with acute renal failure. He was started on IV methylprednisolone for alcoholic hepatitis, he was started on lactulose due to elevated ammonia levels. Hemoglobin was trended every 8 hours. There is also concern for hepatorenal syndrome and he was started on octreotide, Midrin, and albumin. He was found to have profound acidosis was started on a bicarb drip. Consults were placed for GI and nephrology. On the morning after admission his hemoglobin had dropped to 5.8, he was started on IV Protonix, and received 2 units of packed red blood cells. He was seen by nephrology who recommended renal ultrasound and additional albumin should more than 8 L being removed for paracentesis. He was also given DDAVP for his bleeding. He was seen by gastroenterology who agreed with the initiation of Protonix 40 mg IV twice daily. GI performed EGD on 09/02 which showed severe portal hypertensive gastropathy with weeping blood from mucosa of the stomach, no varices or esophageal pathology noted. On 09/02 he underwent a renal ultrasound which showed no hydronephrosis but moderate volume ascites, he then underwent paracentesis with interventional radiology and they were able to remove 7.6 L of yellow ascitic fluid. He then received an additional 2 units of packed red blood cells, with a total of 4 units being transfused. On 09/[address] of the brain was performed which showed chronic small vessel ischemic changes. In 09/03 his creatinine improved to 5.6, his hyperkalemia had resolved. His ammonia level was increasing and rifaximin was added to lactulose. Critical care was consulted and he was transitioned to ICU status. Patient seen and examined at bedside with family present. No chest pain, tired, no abdominal pain, wanting to eat, no shortness of breath. Family present and all questions ansered. Objective - Vital Signs Vital signs: Vital Signs Temp 97.8 F 09/04/18 04:00 Pulse 60 09/04/18 07:00 Resp 16 09/04/18 07:00 BP 115/60 09/04/18 07:00 Pulse Ox 98 09/04/18 07:00 Intake & Output 09/03/18 09/04/18 09/04/18 18:59 06:59 18:59 Intake Total 1850 1470 120 Output Total 518 625 50 Balance 1332 845 70 Intake: IV 1850 1470 120 Dextrose 5% in Water 1, 1800 1200 100 000 ml @ 100 mls/hr IV . [id number] AGUSTIN with Sodium Bicarb (1 Meq/ml) 150 ml Rx#:[id number] KVO 220 20 Phytonadione 10 mg In 50 Sodium Chloride 0.9% 50 ml @ 100 mls/hr IVPB ONCE STA Rx#:[id number] cefTRIAXone 2 gm In 50 Sodium Chloride 0.9% 50 ml @ 100 mls/hr IVPB ONCE STA Rx#:[id number] Output: Urine 518 625 50 Other: Voiding Method Indwelling Catheter Indwelling Catheter - Labs CBC & Chem 7: 09/04/18 06:06 09/04/18 06:06 Labs: Abnormal Lab Results - Last 24 Hours (Table) 09/01/18 09/03/18 09/03/18 Range/Units 21:26 08:17 08:17 WBC 13.9 H (3.8-10.6) k/uL RBC 2.75 L (4.30-5.90) m/uL Hgb 9.2 L D (13.0-17.5) gm/dL Hct 27.2 L (39.0-53.0) % RDW 17.6 H (11.5-15.5) % Plt Count 97 L (150-450) k/uL Neutrophils # 12.0 H (1.3-7.7) k/uL Lymphocytes # 0.6 L (1.0-4.8) k/uL PT (9.0-12.0) sec INR (<1.2) ABG pCO2 (35-45) mmHg ABG O2 Saturation (94-97) % Carbon Dioxide 20 L (22-30) mmol/L BUN 104 H* (9-20) mg/dL Creatinine 5.60 H (0.66-1.25) mg/dL Glucose 191 H (74-99) mg/dL Calcium 6.9 L (8.4-10.2) mg/dL Total Bilirubin 10.0 H (0.2-1.3) mg/dL Conjugated Bilirubin 4.1 H (0.0-0.3) mg/dL Unconjugated Bilirubin 3.0 H (0.0-1.1) mg/dL Delta Bilirubin 2.9 H (0.0-0.2) mg/dL AST 65 H (17-59) U/L Ammonia (<30) umol/L Albumin 2.7 L (3.5-5.0) g/dL Crossmatch See Detail 09/03/18 09/03/18 09/03/18 Range/Units 08:17 09:25 14:21 WBC 18.1 H (3.8-10.6) k/uL RBC 2.94 L (4.30-5.90) m/uL Hgb 9.6 L (13.0-17.5) gm/dL Hct 27.8 L (39.0-53.0) % RDW 16.6 H (11.5-15.5) % Plt Count 115 L (150-450) k/uL Neutrophils # 16.1 H (1.3-7.7) k/uL Lymphocytes # 0.8 L (1.0-4.8) k/uL PT 21.4 H (9.0-12.0) sec INR 2.2 H (<1.2) ABG pCO2 33 L (35-45) mmHg ABG O2 Saturation 98.0 H (94-97) % Carbon Dioxide (22-30) mmol/L BUN (9-20) mg/dL Creatinine (0.66-1.25) mg/dL Glucose (74-99) mg/dL Calcium (8.4-10.2) mg/dL Total Bilirubin (0.2-1.3) mg/dL Conjugated Bilirubin (0.0-0.3) mg/dL Unconjugated Bilirubin (0.0-1.1) mg/dL Delta Bilirubin (0.0-0.2) mg/dL AST (17-59) U/L Ammonia (<30) umol/L Albumin (3.5-5.0) g/dL Crossmatch 09/03/18 09/04/18 09/04/18 Range/Units Unknown 06:06 06:06 WBC 14.5 H (3.8-10.6) k/uL RBC 2.80 L (4.30-5.90) m/uL Hgb 9.0 L (13.0-17.5) gm/dL Hct 27.6 L (39.0-53.0) % RDW 16.5 H (11.5-15.5) % Plt Count 108 L (150-450) k/uL Neutrophils # (1.3-7.7) k/uL Lymphocytes # (1.0-4.8) k/uL PT 21.1 H (9.0-12.0) sec INR 2.2 H (<1.2) ABG pCO2 (35-45) mmHg ABG O2 Saturation (94-97) % Carbon Dioxide (22-30) mmol/L BUN (9-20) mg/dL Creatinine (0.66-1.25) mg/dL Glucose (74-99) mg/dL Calcium (8.4-10.2) mg/dL Total Bilirubin (0.2-1.3) mg/dL Conjugated Bilirubin (0.0-0.3) mg/dL Unconjugated Bilirubin (0.0-1.1) mg/dL Delta Bilirubin (0.0-0.2) mg/dL AST (17-59) U/L Ammonia 119 H (<30) umol/L Albumin (3.5-5.0) g/dL Crossmatch Microbiology - Last 24 Hours (Table) 09/01/18 21:40 Blood Culture - Preliminary Blood No Growth after 48 hours 09/01/18 21:26 Blood Culture - Preliminary Blood No Growth after 48 hours 09/02/18 14:43 Gram Stain - Preliminary Ascites Fluid Body Fluid Culture - Preliminary Assessment and Plan Assessment: Acute blood loss anemia secondary to portal gastropathy -Status post EGD -GI recommendations -Continue with Protonix-3 times a day -Allow ice chips, no clear liquids until documented resolution of GI bleed, per nursing had some vomiting with blood in the last evening. Alcoholic hepatitis -Patient currently on methylprednisolone therapy -GI recommendations -AST is improving Thrombocytopenia, related to liver disease -Platelet -Related liver disease -Stable Acute kidney injury secondary to prerenal and probable hepatorenal syndrome -On Midrin, octreotide, and albumin -Follow renal function -GI and nephrology recommendations -Avoid additional nephrotoxic agents Decompensated cirrhosis with hepatic encephalopathy -Patient had ascites and a history of esophageal varices and is therefore on prophylactic Rocephin - s/p paracentesis on 09/02 will plan again for 09/06 - unable to start diuresis due to hepatorenal syndrome -Continue with rifaximin and lactulose -GI recommendations Coagulopathy secondary to advanced cirrhosis -Stable -May be a component of nutritional deficiency at this stage as patient has been unable to have oral intake -We'll repeat INR in a.m. if still elevated administer vitamin K -Hold for paracentesis on Thursday Leukocytosis -Suspect reactive -Improving -Patient continues to be on steroids -Ascitic fluid not consistent with SBP Metabolic acidosis secondary to acute liver injury, resolved -Currently on bicarb drip -decrease sodium bicarb gtt Hypokalemia due to bicarb drip -replace per nephro - repeat in AM Chronic: Hypertension Dyslipidemia DVT prophylaxis: SCDs Discussed with: Patient, nursing, Dr. Serrano, family Anticipated discharge: 5-[address]: undetermined A total of 35 minutes was spent on the care of this complex patient more than 50% of the time was spent in counseling and care coordination.
[2018-09-04] MEDS: ALBUMIN HUMAN 25% 50 ML in EMPTY BAG 1 BAG IVPB SCH (09:35)
[2018-09-04] MEDS: ONDANSETRON 4 MG/2 ML VIAL IVP PRN ×2 (12:40→17:52)
--- NOTE | 2018-09-04 13:32 | P.PN ---
Subjective Progress Note Date: 09/04/18 On today's evaluation the patient is being seen in follow-up in the intensive care unit. The sedation was done on 09/04/2018. The patient has advanced liver cirrhosis secondary to alcoholism and recent GI bleeding secondary to portal gastropathy. The patient is still in the intensive care unit. The patient is receiving IV Solu-Medrol regarding the possibility of an acute alcoholic hepatitis. The patient is also taking lactulose and ammonia level has dropped significantly. Note that he is also taking Xifaxan for hepatic encephalopathy. He is awake and alert. He is still nothing by mouth for now. He is on 2 types. He had developed an acute kidney injury and there was a consent hours hepato renal syndrome. The patient was started on a combination of IV fluids, mitogen, and octreotide. The patient is showing some improvement in the renal function slowly. Creatinine is improved somewhat compared to yesterday. Nevertheless overall kidney function continues to be impaired. The patient is lethargic and sleepy at arousable and he is following commands and answering questions appropriately. No focal neurological deficit. He is post large volume paracentesis. No shortness of breath. No angina. No palpitation. No cardiac arrhythmias. No pressor use. Objective - Vital Signs Vital signs: Vital Signs Temp 97.0 F L 09/04/18 12:00 Pulse 66 09/04/18 13:00 Resp 17 09/04/18 13:00 BP 102/69 09/04/18 13:00 Pulse Ox 96 09/04/18 13:00 Intake & Output 09/03/18 09/04/18 09/04/18 18:59 06:59 18:59 Intake Total 1850 1470 890 Output Total 518 625 255 Balance 1332 845 635 Intake: IV 1850 1470 740 Dextrose 5% in Water 1, 1800 1200 550 000 ml @ 75 mls/hr IV . [id number] AGUSTIN with Sodium Bicarb (1 Meq/ml) 150 ml Rx#:[id number] KVO 220 140 Phytonadione 10 mg In 50 Sodium Chloride 0.9% 50 ml @ 100 mls/hr IVPB ONCE STA Rx#:[id number] cefTRIAXone 2 gm In 50 50 Sodium Chloride 0.9% 50 ml @ 100 mls/hr IVPB ONCE STA Rx#:[id number] Intake, IV Titration 50 Amount Albumin Human 25% 50 ml 50 In Empty Bag 1 bag @ 50 mls/hr IVPB DAILY [facility] Rx# :[id number] Oral 100 Output: Urine 518 625 205 Emesis 50 Other: Voiding Method Indwelling Catheter Indwelling Catheter Indwelling Catheter # Emeses 1 - Exam GENERAL EXAM: 58-year-old male comfortable in no apparent distress, he is jaundiced. He looks pale. HEAD: Normocephalic/atraumatic. EYES: Normal reaction of pupils, equal size. Conjunctiva pink, sclera white. NOSE: Clear with pink turbinates. THROAT: No erythema or exudates. NECK: No masses, no JVD, no thyroid enlargement, no adenopathy. CHEST: No chest wall deformity. Symmetrical expansion. LUNGS: Equal air entry with no crackles, wheeze, rhonchi or dullness. CVS: Regular rate and rhythm, normal S1 and S2, no gallops, no murmurs, no rubs ABDOMEN: Soft, nontender, soft. No hepatosplenomegaly, normal bowel sounds, no guarding or rigidity. The patient also has an umbilical hernia which is easily reducible. He has also some underlying ascites with some mild degree of abdominal distention. EXTREMITIES: No clubbing, no edema, no cyanosis, 2+ pulses and upper and lower extremities. MUSCULOSKELETAL: Muscle strength and tone normal. SPINE: No scoliosis or deformity SKIN: No rashes CENTRAL NERVOUS SYSTEM: Lethargic, No focal deficits, tone is normal in all 4 extremities. - Labs CBC & Chem 7: 09/04/18 06:06 09/04/18 06:06 Labs: Abnormal Lab Results - Last 24 Hours (Table) 09/03/18 09/04/18 09/04/18 Range/Units 14:21 06:06 06:06 WBC 18.1 H (3.8-10.6) k/uL RBC 2.94 L (4.30-5.90) m/uL Hgb 9.6 L (13.0-17.5) gm/dL Hct 27.8 L (39.0-53.0) % RDW 16.6 H (11.5-15.5) % Plt Count 115 L (150-450) k/uL Neutrophils # 16.1 H (1.3-7.7) k/uL Lymphocytes # 0.8 L (1.0-4.8) k/uL PT (9.0-12.0) sec INR (<1.2) Potassium 3.4 L (3.5-5.1) mmol/L BUN 111 H* (9-20) mg/dL Creatinine 5.31 H (0.66-1.25) mg/dL Glucose 150 H (74-99) mg/dL Calcium 6.9 L (8.4-10.2) mg/dL Total Bilirubin 8.4 H (0.2-1.3) mg/dL Conjugated Bilirubin 3.2 H (0.0-0.3) mg/dL Unconjugated Bilirubin 2.5 H (0.0-1.1) mg/dL Delta Bilirubin 2.7 H (0.0-0.2) mg/dL AST 81 H (17-59) U/L Ammonia 62 H (<30) umol/L Albumin 2.5 L (3.5-5.0) g/dL 09/04/18 09/04/18 Range/Units 06:06 06:06 WBC 14.5 H (3.8-10.6) k/uL RBC 2.80 L (4.30-5.90) m/uL Hgb 9.0 L (13.0-17.5) gm/dL Hct 27.6 L (39.0-53.0) % RDW 16.5 H (11.5-15.5) % Plt Count 108 L (150-450) k/uL Neutrophils # (1.3-7.7) k/uL Lymphocytes # (1.0-4.8) k/uL PT 21.1 H (9.0-12.0) sec INR 2.2 H (<1.2) Potassium (3.5-5.1) mmol/L BUN (9-20) mg/dL Creatinine (0.66-1.25) mg/dL Glucose (74-99) mg/dL Calcium (8.4-10.2) mg/dL Total Bilirubin (0.2-1.3) mg/dL Conjugated Bilirubin (0.0-0.3) mg/dL Unconjugated Bilirubin (0.0-1.1) mg/dL Delta Bilirubin (0.0-0.2) mg/dL AST (17-59) U/L Ammonia (<30) umol/L Albumin (3.5-5.0) g/dL Microbiology - Last 24 Hours (Table) 09/01/18 21:40 Blood Culture - Preliminary Blood No Growth after 48 hours 09/01/18 21:26 Blood Culture - Preliminary Blood No Growth after 48 hours 09/02/18 14:43 Gram Stain - Preliminary Ascites Fluid Body Fluid Culture - Preliminary Assessment and Plan Plan: #1. Acute GI blood loss anemia, and the patient has portal gastropathy currently on octreotide. No further bouts of bleeding for now. #2. Alcoholic liver cirrhosis, with hyperammonemia and ascites, is post large volume paracentesis with removal of 7.8 liters of ascitic fluid on 09/02/2018 #3. Acute mental status related to acute metabolic encephalopathy, improved and the patient is responding to a combination of Xifaxan and lactulose #4. Acute kidney injury, related to ATN versus hepatorenal syndrome, improving slowly #5. Mild lactic acidosis present on admission improved #6. Recent history of acute pancreatitis and GI bleeding, EGD was completed showing severe portal gastropathy without evidence of varices, patient was hospitalized and required blood transfusions #7. Hypertension #8. Hyperlipidemia #9. Lifetime nonsmoker Plan Continue Xifaxan. Continue lactulose. Continue IV fluids. Continue bicarb infusion at the rate of 75 mL an hour. Continue midodrine. Continue IV Protonix. Continue empiric antibiotic coverage with Rocephin. Prognosis poor baseline above-mentioned comorbidities. Watch for any signs of GI bleeding. HEENT the patient ICU for now. I have not allowed feeding yet yet, the patient can be considered to clear liquid diet and this will be discussed with gastroenterology.
[2018-09-04 16:13] LABS: Anisocytosis Slight; HCT 28.1 % (39.0-53.0); HGB 9.5 gm/dL (13.0-17.5); MCH 33.9 pg (25.0-35.0); MCHC 33.7 g/dL (31.0-37.0); MCV 100.7 fL (80.0-100.0); Macrocytosis Slight; Mean Platelet Volume 7.7; Platelet Count 102 k/uL (150-450); RDW 17.8 % (11.5-15.5); WBC 15.8 k/uL (3.8-10.6)
[2018-09-05] MEDS: ONDANSETRON 4 MG/2 ML VIAL IVP PRN ×3 (00:02→15:48)
[2018-09-05] MEDS: OCTREOTIDE 100 MCG/ML INJ SQ SCH ×3 (00:38→15:53)
[2018-09-05 06:41] LABS: Albumin 2.7 g/dL (3.5-5.0); Potassium 3.4 mmol/L (3.5-5.1); Total Bilirubin 9.2 mg/dL (0.2-1.3); Total Protein 7.1 g/dL (6.3-8.2)
[2018-09-05 06:48] LABS: Anisocytosis Slight; HCT 30.3 % (39.0-53.0); HGB 10.2 gm/dL (13.0-17.5); MCH 33.8 pg (25.0-35.0); MCHC 33.7 g/dL (31.0-37.0); MCV 100.4 fL (80.0-100.0); Macrocytosis Slight; Mean Platelet Volume 7.7; Platelet Count 99 k/uL (150-450); RBC 3.02 m/uL (4.30-5.90); RDW 17.9 % (11.5-15.5); WBC 18.8 k/uL (3.8-10.6)
[2018-09-05] MEDS ORDERED: PHYTONADIONE ORAL 5 MG/5 ML ORAL.SYRG PO STA (07:17)
[2018-09-05] MEDS: ALBUMIN HUMAN 25% 50 ML in EMPTY BAG 1 BAG IVPB SCH (08:32)
[2018-09-05] MEDS: RIFAXIMIN 550 MG TABLET PO SCH ×2 (08:40→20:51)
[2018-09-05] MEDS: MIDODRINE 5 MG TAB PO SCH ×3 (08:40→17:03)
[2018-09-05] MEDS: METOPROLOL TARTRATE 12.5 MG TAB PO SCH ×2 (08:40→20:51)
[2018-09-05] MEDS: methylPREDNISolone SOD SUCCI 40 MG/ML 1 ML VIAL IV SCH (08:50)
--- NOTE | 2018-09-05 09:17 | P.PN ---
Subjective Progress Note Date: 09/05/18 Principal diagnosis: Altered mentation Patient is a 58-year-old male with a past medical history of advanced cirrhosis secondary to alcohol use, recent GI bleed secondary to esophageal varices, dyslipidemia, and hypertension who presented to the emergency department with progressive worsening mental status and weakness. In the emergency department he underwent an extensive evaluation. Initial vital signs showed slight hypotension with blood pressure 93/44. Initial laboratory analysis showed an elevated white blood cell count 15.1, hemoglobin 8.3 which is near his baseline, platelets of 134 which are at baseline, INR 1.8 which was at baseline, potassium of 5.3, creatinine 7.94, his total bilirubin was elevated at 12.3 (baseline was 6 last month and has been steadily increasing), ammonia elevated at 75, AST 108, and ALT 23. He had a chest x-ray obtained that showed probable basilar atelectasis. He was subsequently admitted for further care of his cirrhosis and altered mentation with acute renal failure. He was started on IV methylprednisolone for alcoholic hepatitis, he was started on lactulose due to elevated ammonia levels. Hemoglobin was trended every 8 hours. There is also concern for hepatorenal syndrome and he was started on octreotide, Midrin, and albumin. He was found to have profound acidosis was started on a bicarb drip. Consults were placed for GI and nephrology. On the morning after admission his hemoglobin had dropped to 5.8, he was started on IV Protonix, and received 2 units of packed red blood cells. He was seen by nephrology who recommended renal ultrasound and additional albumin should more than 8 L being removed for paracentesis. He was also given DDAVP for his bleeding. He was seen by gastroenterology who agreed with the initiation of Protonix 40 mg IV twice daily. GI performed EGD on 09/02 which showed severe portal hypertensive gastropathy with weeping blood from mucosa of the stomach, no varices or esophageal pathology noted. On 09/02 he underwent a renal ultrasound which showed no hydronephrosis but moderate volume ascites, he then underwent paracentesis with interventional radiology and they were able to remove 7.6 L of yellow ascitic fluid. He then received an additional 2 units of packed red blood cell s, with a total of 4 units being transfused. On 09/[address] of the brain was performed which showed chronic small vessel ischemic changes. In 09/03 his creatinine improved to 5.6, his hyperkalemia had resolved. His ammonia level was increasing and rifaximin was added to lactulose. Critical care was consulted and he was transitioned to ICU status. He was continued on lactulose and rifaxamin. He had 2 episodes of vomiting on 09/04. His ascities was increasing. Patient seen and examined at bedside with family present. Denies chest pain or shortness of breath, no abdominal pain, no nausea at this time. Family present and all questions ansered. Objective - Vital Signs Vital signs: Vital Signs Temp 97.6 F 09/05/18 08:00 Pulse 64 09/05/18 08:00 Resp 17 09/05/18 08:00 BP 130/60 09/05/18 08:00 Pulse Ox 95 09/05/18 08:00 Intake & Output 09/04/18 09/05/18 09/05/18 18:59 06:59 18:59 Intake Total 1365 780 95 Output Total 565 410 170 Balance 800 370 -75 Intake: IV 1215 780 95 Dextrose 5% in Water 1, 925 600 75 000 ml @ 75 mls/hr IV . [id number] AGSUTIN with Sodium Bicarb (1 Meq/ml) 150 ml Rx#:[id number] KVO 240 180 20 cefTRIAXone 2 gm In 50 Sodium Chloride 0.9% 50 ml @ 100 mls/hr IVPB ONCE STA Rx#:[id number] Intake, IV Titration 50 Amount Albumin Human 25% 50 ml 50 In Empty Bag 1 bag @ 50 mls/hr IVPB DAILY AGUSTIN Rx# :[id number] Oral 100 Output: Urine 415 410 170 Emesis 150 Other: Voiding Method Indwelling Catheter Indwelling Catheter # Voids 1 # Emeses 1 - Exam General: ill appearing, mild distress, appears older than stated age Derm: multiple areas of ecchymosis, warm, dry Head: atraumatic, normocephalic, symmetric Eyes: EOMI, no lid lag, anicteric sclera Mouth: no lip lesion, mucus membranes moist Cardiovascular: S1S2 reg, no murmur, positive posterior tibial pulse bilateral, Lungs: CTA bilateral, no rhonchi, no rales , no accessory muscle use Abdominal: soft, nontender to palpation, no guarding, no appreciable organomegaly, + distended Ext: no gross muscle atrophy, trace edema, no contractures Neuro: CN II-XI grossly intact, no focal neuro deficits Psych: lethargic, appropriate affect - Labs CBC & Chem 7: 09/05/18 05:47 09/05/18 05:47 Labs: Abnormal Lab Results - Last 24 Hours (Table) 09/04/18 09/05/18 09/05/18 Range/Units 15:55 05:47 05:47 WBC 15.8 H (3.8-10.6) k/uL RBC 2.80 L (4.30-5.90) m/uL Hgb 9.5 L (13.0-17.5) gm/dL Hct 28.1 L (39.0-53.0) % MCV 100.7 H (80.0-100.0) fL RDW 17.8 H (11.5-15.5) % Plt Count 102 L (150-450) k/uL PT (9.0-12.0) sec INR (<1.2) Potassium 3.4 L (3.5-5.1) mmol/L BUN 111 H* (9-20) mg/dL Creatinine 4.56 H (0.66-1.25) mg/dL Glucose 172 H (74-99) mg/dL Calcium 7.0 L (8.4-10.2) mg/dL Total Bilirubin 9.2 H (0.2-1.3) mg/dL AST 98 H (17-59) U/L Ammonia 69 H (<30) umol/L Albumin 2.7 L (3.5-5.0) g/dL 09/05/18 09/05/18 Range/Units 05:47 05:47 WBC 18.8 H (3.8-10.6) k/uL RBC 3.02 L (4.30-5.90) m/uL Hgb 10.2 L (13.0-17.5) gm/dL Hct 30.3 L (39.0-53.0) % MCV 100.4 H (80.0-100.0) fL RDW 17.9 H (11.5-15.5) % Plt Count 99 L (150-450) k/uL PT 20.0 H (9.0-12.0) sec INR 2.0 H (<1.2) Potassium (3.5-5.1) mmol/L BUN (9-20) mg/dL Creatinine (0.66-1.25) mg/dL Glucose (74-99) mg/dL Calcium (8.4-10.2) mg/dL Total Bilirubin (0.2-1.3) mg/dL AST (17-59) U/L Ammonia (<30) umol/L Albumin (3.5-5.0) g/dL Microbiology - Last 24 Hours (Table) 09/02/18 14:43 Gram Stain - Preliminary Ascites Fluid Body Fluid Culture - Preliminary 09/01/18 21:40 Blood Culture - Preliminary Blood No Growth after 72 hours 09/01/18 21:26 Blood Culture - Preliminary Blood No Growth after 72 hours 09/02/18 14:43 Anaerobic Culture - Preliminary Ascites Fluid Assessment and Plan Assessment: Decompensated cirrhosis with hepatic encephalopathy - Para ordered for tomorrow, 25 G ambumin on order if more than 4 L removed will need an additional 25 grams -Patient had ascites and a history of esophageal varices and is therefore on prophylactic Rocephin - s/p paracentesis on 09/02 - unable to start diuresis due to hepatorenal syndrome -Continue with rifaximin and lactulose -GI recommendations Acute blood loss anemia secondary to portal gastropathy with bleeding -Status post EGD -GI recommendations -Continue with Protonix-3 times a day - clear liquids diet, per nursing had some vomiting X 2 yesterday - Accucheck q6h due to low glycemic reserve in advanced liver disease Alcoholic hepatitis -Patient currently on methylprednisolone therapy -GI recommendations -AST is improving Acute kidney injury secondary to prerenal and probable hepatorenal syndrome -On Midrin, octreotide, and albumin -Follow renal function -GI and nephrology recommendations -Avoid additional nephrotoxic agents Thrombocytopenia, related to liver disease -Platelets relatively stable -Related liver disease -Stable Coagulopathy secondary to advanced cirrhosis - Stable - May be a component of nutritional deficiency at this stage as patient has been unable to have oral intake - INR oral given today - Hold for paracentesis on Thursday Leukocytosis, a febrile -Suspect reactive to steroids -Improving -Patient continues to be on steroids -Ascitic fluid not consistent with SBP Hypokalemia due to bicarb drip -replace per nephro - repeat in AM Metabolic acidosis secondary to acute liver injury, resolved - off bicarb today Chronic: Hypertension Dyslipidemia DVT prophylaxis: SCDs Discussed with: Patient, nursing, Dr. Serrano, family, Nephro Anticipated discharge: 5-[address]: undetermined A total of 35 minutes was spent on the care of this complex patient more than 50% of the time was spent in counseling and care coordination.
--- NOTE | 2018-09-05 09:17 | P.PN ---
Subjective Progress Note Date: 09/05/18 Seen and examined for the follow-up of acute kidney injury. Baseline creatinine 1.0 MG per DL. Admitted with decompensated liver disease status post paracentesis and 7.6 L of fluid was drained. Currently making urine, 825 ML's in the last 24 hours. Family at bedside. Confusion better. Objective - Vital Signs Vital signs: Vital Signs Temp 97.6 F 09/05/18 08:00 Pulse 62 09/05/18 09:00 Resp 10 L 09/05/18 09:00 BP 129/64 09/05/18 09:00 Pulse Ox 95 09/05/18 08:00 Intake & Output 09/04/18 09/05/18 09/05/18 18:59 06:59 18:59 Intake Total 1365 780 295 Output Total 565 410 220 Balance 800 370 75 Intake: IV 1215 780 145 Dextrose 5% in Water 1, 925 600 75 000 ml @ 75 mls/hr IV . [id number] AGUSTIN with Sodium Bicarb (1 Meq/ml) 150 ml Rx#:[id number] KVO 240 180 20 cefTRIAXone 2 gm In 50 50 Sodium Chloride 0.9% 50 ml @ 100 mls/hr IVPB ONCE STA Rx#:[id number] Intake, IV Titration 50 50 Amount Albumin Human 25% 50 ml 50 50 In Empty Bag 1 bag @ 50 mls/hr IVPB DAILY AGUSTIN Rx# :[id number] Oral 100 100 Output: Urine 415 410 220 Emesis 150 Other: Voiding Method Indwelling Catheter Indwelling Catheter Indwelling Catheter # Voids 1 # Emeses 1 - Exam No acute distress S1-S2 heard Lungs clear Distended abdomen Edema Vaz dark urine - Labs CBC & Chem 7: 09/05/18 05:47 09/05/18 05:47 Labs: Abnormal Lab Results - Last 24 Hours (Table) 09/04/18 09/05/18 09/05/18 Range/Units 15:55 05:47 05:47 WBC 15.8 H (3.8-10.6) k/uL RBC 2.80 L (4.30-5.90) m/uL Hgb 9.5 L (13.0-17.5) gm/dL Hct 28.1 L (39.0-53.0) % MCV 100.7 H (80.0-100.0) fL RDW 17.8 H (11.5-15.5) % Plt Count 102 L (150-450) k/uL PT (9.0-12.0) sec INR (<1.2) Potassium 3.4 L (3.5-5.1) mmol/L BUN 111 H* (9-20) mg/dL Creatinine 4.56 H (0.66-1.25) mg/dL Glucose 172 H (74-99) mg/dL Calcium 7.0 L (8.4-10.2) mg/dL Total Bilirubin 9.2 H (0.2-1.3) mg/dL AST 98 H (17-59) U/L Ammonia 69 H (<30) umol/L Albumin 2.7 L (3.5-5.0) g/dL 09/05/18 09/05/18 Range/Units 05:47 05:47 WBC 18.8 H (3.8-10.6) k/uL RBC 3.02 L (4.30-5.90) m/uL Hgb 10.2 L (13.0-17.5) gm/dL Hct 30.3 L (39.0-53.0) % MCV 100.4 H (80.0-100.0) fL RDW 17.9 H (11.5-15.5) % Plt Count 99 L (150-450) k/uL PT 20.0 H (9.0-12.0) sec INR 2.0 H (<1.2) Potassium (3.5-5.1) mmol/L BUN (9-20) mg/dL Creatinine (0.66-1.25) mg/dL Glucose (74-99) mg/dL Calcium (8.4-10.2) mg/dL Total Bilirubin (0.2-1.3) mg/dL AST (17-59) U/L Ammonia (<30) umol/L Albumin (3.5-5.0) g/dL Microbiology - Last 24 Hours (Table) 09/02/18 14:43 Gram Stain - Preliminary Ascites Fluid Body Fluid Culture - Preliminary 09/01/18 21:40 Blood Culture - Preliminary Blood No Growth after 72 hours 09/01/18 21:26 Blood Culture - Preliminary Blood No Growth after 72 hours 09/02/18 14:43 Anaerobic Culture - Preliminary Ascites Fluid Assessment and Plan Assessment: #1 nonoliguric acute kidney injury secondary to hepatorenal syndrome. Baseline creatinine 1.0 MG per DL. #2 decompensated alcoholic liver disease. #3 encephalopathy multifactorial, liver disease/uremia #4 acute blood loss anemia status post 2 unit PRBC. #5 hypokalemia #6 metabolic alkalosis Plan: #1 continue HRS protocol with midodrine, octreotide and albumin. #2 potassium replacement. Maintain potassium more than 4. Encephalopathy worsens with hypokalemia in decompensated liver disease. #3 avoid nephrotoxic agents and hypotensive episodes. #4 no acute indication for renal replacement therapy at this time. #5 stop bicarb drip
[2018-09-05] MEDS: THIAMINE 100 MG TAB PO SCH ×2 (09:29→17:03)
[2018-09-05] MEDS: LACTULOSE 20 GM/30 ML CUP PO SCH ×4 (09:31→20:51)
[2018-09-05] MEDS: PANTOPRAZOLE 40 MG/10 ML VIAL IVP SCH ×2 (09:33→20:51)
[2018-09-05] MEDS: POTASSIUM CHLORIDE ER 20 MEQ TAB.ER PO SCH (11:55)
[2018-09-05 11:56] LABS: Glucose,Whole Blood 164 mg/dL (75-99)
[2018-09-05] MEDS: INSULIN ASPART (NovoLOG) 100 UNIT/ML VIAL SQ SCH ×2 (12:04→17:15)
--- NOTE | 2018-09-05 12:52 | P.PN ---
Subjective Progress Note Date: 09/05/18 On 09/05/2018, the patient is resting comfortably in bed. He is sleepy. Ammonia level is stable compared to yesterday without any further drop. Currently on a combination of lactulose and Xifaxan. The patient is taking clear liquid diet. Oral intake is minimal. No further episodes of GI bleeding. No melanotic stool. No hematochezia. No hematemesis. Abdomen is slightly more distended and the patient is in the activating the ascites. No nausea. No vomiting. No abdominal pain. The patient is on IV Solu-Medrol regarding the possibility of an acute alcoholic hepatitis. This was started by the medical team. No chest pain. No palpitation. No arrhythmias. No seizure activity. No other complaints otherwise for now. The patient is also showing improvement in renal function with IV fluids. Creatinine is gradually dropping. BNP remains elevated. Objective - Vital Signs Vital signs: Vital Signs Temp 97.6 F 09/05/18 12:00 Pulse 64 09/05/18 12:00 Resp 14 09/05/18 12:00 BP 131/62 09/05/18 12:00 Pulse Ox 94 L 09/05/18 12:00 Intake & Output 09/04/18 09/05/18 09/05/18 18:59 06:59 18:59 Intake Total 1365 780 445 Output Total 565 410 470 Balance 800 370 -25 Intake: IV 1215 780 145 Dextrose 5% in Water 1, 925 600 75 000 ml @ 75 mls/hr IV . [id number] AGUSTIN with Sodium Bicarb (1 Meq/ml) 150 ml Rx#:[id number] KVO 240 180 20 cefTRIAXone 2 gm In 50 50 Sodium Chloride 0.9% 50 ml @ 100 mls/hr IVPB ONCE STA Rx#:[id number] Intake, IV Titration 50 50 Amount Albumin Human 25% 50 ml 50 50 In Empty Bag 1 bag @ 50 mls/hr IVPB DAILY AGUSTIN Rx# :[id number] Oral 100 250 Output: Urine 415 410 470 Emesis 150 Other: Voiding Method Indwelling Catheter Indwelling Catheter Indwelling Catheter # Voids 1 1 # Emeses 1 - Exam GENERAL EXAM: 58-year-old male comfortable in no apparent distress, he is jau ndiced. He looks pale. HEAD: Normocephalic/atraumatic. EYES: Normal reaction of pupils, equal size. Conjunctiva pink, sclera white. NOSE: Clear with pink turbinates. THROAT: No erythema or exudates. NECK: No masses, no JVD, no thyroid enlargement, no adenopathy. CHEST: No chest wall deformity. Symmetrical expansion. LUNGS: Equal air entry with no crackles, wheeze, rhonchi or dullness. CVS: Regular rate and rhythm, normal S1 and S2, no gallops, no murmurs, no rubs ABDOMEN: Soft, nontender, soft. No hepatosplenomegaly, normal bowel sounds, no guarding or rigidity. The patient also has an umbilical hernia which is easily reducible. He has also some underlying ascites with some mild degree of abdominal distention. EXTREMITIES: No clubbing, no edema, no cyanosis, 2+ pulses and upper and lower extremities. MUSCULOSKELETAL: Muscle strength and tone normal. SPINE: No scoliosis or deformity SKIN: No rashes CENTRAL NERVOUS SYSTEM: Lethargic, No focal deficits, tone is normal in all 4 extremities. - Labs CBC & Chem 7: 09/05/18 05:47 09/05/18 05:47 Labs: Abnormal Lab Results - Last 24 Hours (Table) 09/04/18 09/05/18 09/05/18 Range/Units 15:55 05:47 05:47 WBC 15.8 H (3.8-10.6) k/uL RBC 2.80 L (4.30-5.90) m/uL Hgb 9.5 L (13.0-17.5) gm/dL Hct 28.1 L (39.0-53.0) % MCV 100.7 H (80.0-100.0) fL RDW 17.8 H (11.5-15.5) % Plt Count 102 L (150-450) k/uL PT (9.0-12.0) sec INR (<1.2) Potassium 3.4 L (3.5-5.1) mmol/L BUN 111 H* (9-20) mg/dL Creatinine 4.56 H (0.66-1.25) mg/dL Glucose 172 H (74-99) mg/dL POC Glucose (mg/dL) (75-99) mg/dL Calcium 7.0 L (8.4-10.2) mg/dL Total Bilirubin 9.2 H (0.2-1.3) mg/dL AST 98 H (17-59) U/L Ammonia 69 H (<30) umol/L Albumin 2.7 L (3.5-5.0) g/dL 09/05/18 09/05/18 09/05/18 Range/Units 05:47 05:47 11:53 WBC 18.8 H (3.8-10.6) k/uL RBC 3.02 L (4.30-5.90) m/uL Hgb 10.2 L (13.0-17.5) gm/dL Hct 30.3 L (39.0-53.0) % MCV 100.4 H (80.0-100.0) fL RDW 17.9 H (11.5-15.5) % Plt Count 99 L (150-450) k/uL PT 20.0 H (9.0-12.0) sec INR 2.0 H (<1.2) Potassium (3.5-5.1) mmol/L BUN (9-20) mg/dL Creatinine (0.66-1.25) mg/dL Glucose (74-99) mg/dL POC Glucose (mg/dL) 164 H (75-99) mg/dL Calcium (8.4-10.2) mg/dL Total Bilirubin (0.2-1.3) mg/dL AST (17-59) U/L Ammonia (<30) umol/L Albumin (3.5-5.0) g/dL Microbiology - Last 24 Hours (Table) 09/02/18 14:43 Gram Stain - Preliminary Ascites Fluid Body Fluid Culture - Preliminary 09/01/18 21:40 Blood Culture - Preliminary Blood No Growth after 72 hours 09/01/18 21:26 Blood Culture - Preliminary Blood No Growth after 72 hours 09/02/18 14:43 Anaerobic Culture - Preliminary Ascites Fluid Assessment and Plan Plan: #1. Acute GI blood loss anemia, and the patient has portal gastropathy currently on octreotide. No further bouts of bleeding for now. The patient's hemoglobin is stable and clinically there is no evidence of bleeding. He has chronic coagulopathy related to liver cirrhosis. INR is stable for now. #2. Alcoholic liver cirrhosis, with hyperammonemia and ascites, is post large volume paracentesis with removal of 7.8 liters of ascitic fluid on 09/02/2018, and on today's evaluation that is some reaccumulation of ascitic fluid. #3. Acute mental status related to acute metabolic encephalopathy, improved and the patient is responding to a combination of Xifaxan and lactulose, this is improving and the patient's ammonia level is stable for now #4. Acute kidney injury, related to ATN versus hepatorenal syndrome, improving slowly as the patient is being given IV fluids #5. Mild lactic acidosis present on admission improved #6. Recent history of acute pancreatitis and GI bleeding, EGD was completed showing severe portal gastropathy without evidence of varices, patient was hospitalized and required blood transfusions #7. Hypertension #8. Hyperlipidemia #9. Lifetime nonsmoker Plan Continue Xifaxan. Continue lactulose. Continue IV fluids. Continue bicarb infusion at the rate of 75 mL an hour. Continue midodrine. Continue IV Protonix. Continue empiric antibiotic coverage with Rocephin. Prognosis poor baseline above-mentioned comorbidities. We're going to ask the patient to sit up on a chair if possible. We will going to consider another paracentesis should there be any the accumulation of significant amount of abdominal fluid/sinusitis. Continue midodrine. Continue octreotide. Follow-up renal function. Management was essentially the same. The patient can be transferred to a medical surgical floor with telemetry monitoring.
[2018-09-05 17:05] LABS: Glucose,Whole Blood 200 mg/dL (75-99)
--- NOTE | 2018-09-05 18:19 | P.PN ---
Subjective Progress Note Date: 09/05/18 Principal diagnosis: Decompensated alcoholic cirrhosis, hepatic encephalopathy, portal hypertensive gastropathy Patient seen with at bedside. Patient did have a dark bowel movement today. Has tolerated a liquid diet. Does feel abdomen is distended. Objective - Vital Signs Vital signs: Vital Signs Temp 97.6 F 09/05/18 16:00 Pulse 64 09/05/18 12:00 Resp 15 09/05/18 16:00 BP 129/72 09/05/18 16:00 Pulse Ox 94 L 09/05/18 12:00 Intake & Output 09/04/18 09/05/18 09/05/18 18:59 06:59 18:59 Intake Total 1365 780 545 Output Total 565 410 995 Balance 800 370 -450 Intake: IV 1215 780 145 Dextrose 5% in Water 1, 925 600 75 000 ml @ 75 mls/hr IV . [id number] AGUSTIN with Sodium Bicarb (1 Meq/ml) 150 ml Rx#:[id number] KVO 240 180 20 cefTRIAXone 2 gm In 50 50 Sodium Chloride 0.9% 50 ml @ 100 mls/hr IVPB ONCE STA Rx#:[id number] Intake, IV Titration 50 50 Amount Albumin Human 25% 50 ml 50 50 In Empty Bag 1 bag @ 50 mls/hr IVPB DAILY AGUSTIN Rx# :[id number] Oral 100 350 Output: Urine 415 410 895 Stool 100 Emesis 150 Other: Voiding Method Indwelling Catheter Indwelling Catheter Indwelling Catheter # Voids 1 1 # Emeses 1 - Exam On physical examination, patient appears comfortable in no apparent distress. HEAD: Normocephalic, atraumatic. EYES: Scleral icterus. No conjunctival injection. MOUTH: No lesions, tongue midline. NECK: Trachea midline, no gross abnormalities. CHEST: Decreased air entry bilaterally. HEART: Regular rate and rhythm. ABDOMEN: Soft, obese, distended with positive fluid wave. Bowel sounds are positive. No organomegaly. No guarding or rigidity. EXTREMITIES: Bilateral +1 pedal edema. SKIN: No rashes, no jaundice. NEUROLOGIC: Alert and oriented to person and place with minimal asterixis noted. No focal deficits. - Labs CBC & Chem 7: 09/05/18 05:47 09/05/18 05:47 Labs: Abnormal Lab Results - Last 24 Hours (Table) 0709/05/18 09/05/18 Range/Units 05:47 05:47 05:47 WBC 18.8 H (3.8-10.6) k/uL RBC 3.02 L (4.30-5.90) m/uL Hgb 10.2 L (13.0-17.5) gm/dL Hct 30.3 L (39.0-53.0) % MCV 100.4 H (80.0-100.0) fL RDW 17.9 H (11.5-15.5) % Plt Count 99 L (150-450) k/uL PT (9.0-12.0) sec INR (<1.2) Potassium 3.4 L (3.5-5.1) mmol/L BUN 111 H* (9-20) mg/dL Creatinine 4.56 H (0.66-1.25) mg/dL Glucose 172 H (74-99) mg/dL POC Glucose (mg/dL) (75-99) mg/dL Calcium 7.0 L (8.4-10.2) mg/dL Total Bilirubin 9.2 H (0.2-1.3) mg/dL AST 98 H (17-59) U/L Ammonia 69 H (<30) umol/L Albumin 2.7 L (3.5-5.0) g/dL 09/05/18 09/05/18 09/05/18 Range/Units 05:47 11:53 17:03 WBC (3.8-10.6) k/uL RBC (4.30-5.90) m/uL Hgb (13.0-17.5) gm/dL Hct (39.0-53.0) % MCV (80.0-100.0) fL RDW (11.5-15.5) % Plt Count (150-450) k/uL PT 20.0 H (9.0-12.0) sec INR 2.0 H (<1.2) Potassium (3.5-5.1) mmol/L BUN (9-20) mg/dL Creatinine (0.66-1.25) mg/dL Glucose (74-99) mg/dL POC Glucose (mg/dL) 164 H 200 H (75-99) mg/dL Calcium (8.4-10.2) mg/dL Total Bilirubin (0.2-1.3) mg/dL AST (17-59) U/L Ammonia (<30) umol/L Albumin (3.5-5.0) g/dL Microbiology - Last 24 Hours (Table) 09/02/18 14:43 Gram Stain - Preliminary Ascites Fluid Body Fluid Culture - Preliminary 09/01/18 21:40 Blood Culture - Preliminary Blood No Growth after 72 hours 09/01/18 21:26 Blood Culture - Preliminary Blood No Growth after 72 hours 09/02/18 14:43 Anaerobic Culture - Preliminary Ascites Fluid Assessment and Plan (1) Alcoholic cirrhosis of liver with ascites Narrative/Plan: 58-year-old male with decompensated alcoholic cirrhosis of the liver with ascites, hepatic encephalopathy, and portal hypertensive gastropathy presented to the hospital for increasing weakness and confusion. Ammonia found to be elevated on presentation currently receiving lactulose therapy. Patient also been reporting dark colored bowel movements with acute fall in hemoglobin. Previously EGD was significant for portal hypertensive gastropathy and colonosc opy for internal hemorrhoids, with repeat EGD on this admission showing severe portal hypertensive gastropathy with old blood and active bleeding from mucosa of stomach noted. Current Visit: Yes Status: Acute Code(s): K70.31 - ALCOHOLIC CIRRHOSIS OF LIVER WITH ASCITES SNOMED Code(s): 994334501 (2) Hepatic encephalopathy Narrative/Plan: More alert today, able to take oral lactulose therapy. Current Visit: Yes Status: Acute Code(s): K72.90 - HEPATIC FAILURE, UNSPECIFIED WITHOUT COMA SNOMED Code(s): 14258146 (3) Thrombocytopenia Current Visit: No Status: Chronic Code(s): D69.6 - THROMBOCYTOPENIA, UNSPECIFIED SNOMED Code(s): 691212666 (4) Acute renal failure Narrative/Plan: Discussed with nephrology service, felt to be prerenal and secondary to ATN with improvement with fluid hydration. Patient continues on Midodrine and Sandostatin with albumin given. Current Visit: Yes Status: Acute Code(s): N17.9 - ACUTE KIDNEY FAILURE, UNSPECIFIED SNOMED Code(s): 80950316 Plan: Supportive care Full liquid diet, sodium restricted EGD performed with no varices noted Continue Protonix 40 mg IV twice daily Continue octreotide, Midodrine and albumin due to concerns over hepatorenal syndrome, nephrology currently following continue lactulose, titrated to 2-3 bowel movements daily and rifaximin Alcohol abstinence Continue to monitor INR, liver enzymes, CBC, CMP Continue to monitor clinically Thank you for allowing us to participate in the care of the patient we will continue to follow
[2018-09-06] MEDS: INSULIN ASPART (NovoLOG) 100 UNIT/ML VIAL SQ SCH ×4 (00:04→17:31)
[2018-09-06] MEDS: OCTREOTIDE 100 MCG/ML INJ SQ SCH ×3 (00:04→17:31)
[2018-09-06 00:11] LABS: Glucose,Whole Blood 156 mg/dL (75-99)
[2018-09-06 05:04] LABS: Anisocytosis Slight; HCT 31.2 % (39.0-53.0); HGB 10.3 gm/dL (13.0-17.5); MCHC 32.9 g/dL (31.0-37.0); MCV 100.4 fL (80.0-100.0); Macrocytosis Slight; Mean Platelet Volume 8.7; RDW 17.8 % (11.5-15.5); WBC 23.7 k/uL (3.8-10.6)
[2018-09-06 05:06] LABS: Platelet Count 92 k/uL (150-450)
[2018-09-06 05:14] LABS: Albumin 2.7 g/dL (3.5-5.0); Calcium 7.3 mg/dL (8.4-10.2); Potassium 3.3 mmol/L (3.5-5.1); Total Bilirubin 10.3 mg/dL (0.2-1.3)
[2018-09-06 05:53] LABS: INR 2.1 (<1.2); Prothrombin Time 20.7 sec (9.0-12.0)
[2018-09-06 06:13] LABS: Glucose,Whole Blood 175 mg/dL (75-99)
[2018-09-06] MEDS: MIDODRINE 5 MG TAB PO SCH ×3 (06:13→17:31)
[2018-09-06] MEDS: THIAMINE 100 MG TAB PO SCH ×2 (06:14→17:31)
[2018-09-06] MEDS ORDERED: POTASSIUM CHLORIDE ER 20 MEQ TAB.ER PO STA (09:02)
[2018-09-06] MEDS: LACTULOSE 20 GM/30 ML CUP PO SCH ×2 (09:03→14:09)
[2018-09-06] MEDS: POTASSIUM CHLORIDE ER 20 MEQ TAB.ER PO SCH (09:04)
[2018-09-06] MEDS: RIFAXIMIN 550 MG TABLET PO SCH ×2 (09:04→21:33)
[2018-09-06] MEDS: METOPROLOL TARTRATE 12.5 MG TAB PO SCH ×2 (09:04→21:32)
--- NOTE | 2018-09-06 09:04 | P.PN ---
Subjective Patient is seen in follow-up for acute kidney injury. Patient's creatinine on 08/07/2018 was 1 and was elevated at 7.94 this admission. It is 3.95 today. Urine output 1.6 L in the last 24 hours. Patient has history of alcohol induced liver cirrhosis. Patient had paracentesis done on September 02 with 7.6 L drained. He did receive a total of 75 g of albumin. Patient's hemoglobin was also 5.8 this admission and is up to 10.3 today. He has received blood transfusions as well as IV DDAVP. Scheduled for another paracentesis today. Vital signs are stable. General: The patient appeared well nourished and normally developed. Lethargic. HEENT: Head exam is unremarkable. Neck is without jugular venous distension. LUNGS: Lungs are clear to auscultation and percussion. Breath sounds decreased. HEART: Rate and Rhythm are regular. First and second heart sounds normal. No murmurs, rubs or gallops. ABDOMEN: Bowel sounds decreased. Distention noted. EXTREMITITES: Trace edema. Objective - Vital Signs Vital signs: Vital Signs Temp 98.2 F 09/06/18 04:00 Pulse 61 09/06/18 04:00 Resp 14 09/06/18 04:00 BP 139/60 09/06/18 04:00 Pulse Ox 93 L 09/06/18 04:00 Intake & Output 09/05/18 09/06/18 09/06/18 18:59 06:59 18:59 Intake Total 545 Output Total 995 650 Balance -450 -650 Intake: IV 145 Dextrose 5% in Water 1, 75 000 ml @ 75 mls/hr IV . [id number] AGUSTIN with Sodium Bicarb (1 Meq/ml) 150 ml Rx#:[id number] KVO 20 cefTRIAXone 2 gm In 50 Sodium Chloride 0.9% 50 ml @ 100 mls/hr IVPB ONCE STA Rx#:[id number] Intake, IV Titration 50 Amount Albumin Human 25% 50 ml 50 In Empty Bag 1 bag @ 50 mls/hr IVPB DAILY AGUSTIN Rx# :[id number] Oral 350 Output: Urine 895 650 Stool 100 Other: Voiding Method Indwelling Catheter Indwelling Catheter # Voids 1 # Bowel Movements 1 1 - Labs CBC & Chem 7: 09/06/18 04:50 09/06/18 04:50 Labs: Abnormal Lab Results - Last 24 Hours (Table) 09/05/18 09/05/18 09/05/18 Range/Units 11:53 17:03 23:57 WBC (3.8-10.6) k/uL RBC (4.30-5.90) m/uL Hgb (13.0-17.5) gm/dL Hct (39.0-53.0) % MCV (80.0-100.0) fL RDW (11.5-15.5) % Plt Count (150-450) k/uL PT (9.0-12.0) sec INR (<1.2) Potassium (3.5-5.1) mmol/L BUN (9-20) mg/dL Creatinine (0.66-1.25) mg/dL Glucose (74-99) mg/dL POC Glucose (mg/dL) 164 H 200 H 156 H (75-99) mg/dL Calcium (8.4-10.2) mg/dL Total Bilirubin (0.2-1.3) mg/dL AST (17-59) U/L Albumin (3.5-5.0) g/dL 09/06/18 09/06/18 09/06/18 Range/Units 04:50 04:50 05:35 WBC 23.7 H (3.8-10.6) k/uL RBC 3.10 L (4.30-5.90) m/uL Hgb 10.3 L (13.0-17.5) gm/dL Hct 31.2 L (39.0-53.0) % MCV 100.4 H (80.0-100.0) fL RDW 17.8 H (11.5-15.5) % Plt Count 92 L (150-450) k/uL PT 20.7 H (9.0-12.0) sec INR 2.1 H (<1.2) Potassium 3.3 L (3.5-5.1) mmol/L BUN 111 H* (9-20) mg/dL Creatinine 3.95 H (0.66-1.25) mg/dL Glucose 174 H (74-99) mg/dL POC Glucose (mg/dL) (75-99) mg/dL Calcium 7.3 L (8.4-10.2) mg/dL Total Bilirubin 10.3 H (0.2-1.3) mg/dL AST 108 H (17-59) U/L Albumin 2.7 L (3.5-5.0) g/dL 09/06/18 Range/Units 06:10 WBC (3.8-10.6) k/uL RBC (4.30-5.90) m/uL Hgb (13.0-17.5) gm/dL Hct (39.0-53.0) % MCV (80.0-100.0) fL RDW (11.5-15.5) % Plt Count (150-450) k/uL PT (9.0-12.0) sec INR (<1.2) Potassium (3.5-5.1) mmol/L BUN (9-20) mg/dL Creatinine (0.66-1.25) mg/dL Glucose (74-99) mg/dL POC Glucose (mg/dL) 175 H (75-99) mg/dL Calcium (8.4-10.2) mg/dL Total Bilirubin (0.2-1.3) mg/dL AST (17-59) U/L Albumin (3.5-5.0) g/dL Microbiology - Last 24 Hours (Table) 09/01/18 21:40 Blood Culture - Preliminary Blood No Growth after 96 hours 09/01/18 21:26 Blood Culture - Preliminary Blood No Growth after 96 hours 09/02/18 14:43 Gram Stain - Preliminary Ascites Fluid Body Fluid Culture - Preliminary Assessment and Plan Plan: Assessment: 1. Acute kidney injury. Initially prerenal in nature secondary to hypotension, acute anemia and poor oral intake. Now hepatorenal syndrome. Creatinine was 7.94 on admission and is down to 3.95 today. Baseline creatinine is near 1. UA from last month reveals no protein. No evidence of hydronephrosis noted on renal ultrasound. 2 . Metabolic acidosis secondary to acute kidney injury s/p bicarb drip. Resolved. 3. Acute blood loss anemia status post 2 units of blood transfusion. Maintained on Sandostatin as well as PPI. Status post IV DDAVP on September 02. Better. 4. Alcohol induced liver cirrhosis. 5. Hepatic encephalopathy. 6. Ascites. Status post paracentesis on Domitila 25 with 7.6 L drained. 7. Hypokalemia secondary to intracellular shifting from IV bicarb and poor oral intake. Plan: 50 g of albumin prior to paracentesis. Additional 25 g if more than 8 L drained. Replace potassium. 60 mEq today. Maintain management for hepatorenal syndrome including midodrine and Sandostatin. Advance diet per GI recommendations. No urgent need for renal replacement therapy at this time.
[2018-09-06] MEDS: methylPREDNISolone SOD SUCCI 40 MG/ML 1 ML VIAL IV SCH (10:56)
[2018-09-06] MEDS: PANTOPRAZOLE 40 MG/10 ML VIAL IVP SCH ×2 (10:56→21:33)
[2018-09-06 14:08] LABS: Glucose,Whole Blood 199 mg/dL (75-99)
--- NOTE | 2018-09-06 14:34 | P.PN ---
Subjective Progress Note Date: 09/06/18 Principal diagnosis: Decompensated alcoholic cirrhosis, hepatic encephalopathy, portal hypertensive gastropathy. On 09/06/2018, patient is resting in bed, denies any complaints, denies any shortness of breath no cough no wheezing, his abdomen seems to be getting more and more distended, remains on a combination of lactulose and Xifaxan, remains on clear liquid diet, no further episodes of GI bleeding, no melena, no hematemesis, no hematochezia, my understanding and the patient may undergo another paracentesis since the abdominal distention seems to be getting worse. Labs continued to show leukocytosis with WBC count of 23.7, INR is 2.1, BUN is 111 and creatinine is 3.95, both are improving slowly. Ammonia level was not done today. But was trending down yesterday. Objective - Vital Signs Vital signs: Vital Signs Temp 98.0 F 09/06/18 08:00 Pulse 70 09/06/18 08:00 Resp 13 09/06/18 08:00 BP 110/68 09/06/18 08:00 Pulse Ox 96 09/06/18 08:00 Intake & Output 09/05/18 09/06/18 09/06/18 18:59 06:59 18:59 Intake Total 545 200 Output Total 995 650 200 Balance -450 -650 0 Intake: IV 145 Dextrose 5% in Water 1, 75 000 ml @ 75 mls/hr IV . [id number] AGUSTIN with Sodium Bicarb (1 Meq/ml) 150 ml Rx#:[id number] KVO 20 cefTRIAXone 2 gm In 50 Sodium Chloride 0.9% 50 ml @ 100 mls/hr IVPB ONCE STA Rx#:[id number] Intake, IV Titration 50 Amount Albumin Human 25% 50 ml 50 In Empty Bag 1 bag @ 50 mls/hr IVPB DAILY AGUSTIN Rx# :[id number] Oral 350 200 Output: Urine 895 650 200 Stool 100 Other: Voiding Method Indwelling Catheter Indwelling Catheter Indwelling Catheter # Voids 1 # Bowel Movements 1 1 - Exam Physical exam revealed a 58-year-old white male, in no distress. Lethargic. HEAD: Normocephalic/atraumatic. EYES: PERRLA, EOMI, positive icterus. NOSE: Clear with pink turbinates. THROAT: No erythema or exudates. NECK: No masses, no JVD, no thyroid enlargement, no adenopathy. CHEST: No chest wall deformity. Symmetrical expansion. LUNGS: Equal air entry with no crackles, wheeze, rhonchi or dullness. CVS: Regular rate and rhythm, normal S1 and S2, no gallops, no murmurs, no rubs ABDOMEN: Soft, nontender, soft. No hepatosplenomegaly, normal bowel sounds, no guarding or rigidity. The patient also has an umbilical hernia which is easily reducible. Positive ascites is noted EXTREMITIES: No clubbing, no edema, no cyanosis, 2+ pulses and upper and lower extremities. MUSCULOSKELETAL: Muscle strength and tone normal. SKIN: No rashes CENTRAL NERVOUS SYSTEM: Lethargic, No focal deficits, tone is normal in all 4 extremities. - Labs CBC & Chem 7: 09/06/18 04:50 09/06/18 04:50 Labs: Abnormal Lab Results - Last 24 Hours (Table) 09/05/18 09/05/18 09/06/18 Range/Units 17:03 23:57 04:50 WBC 23.7 H (3.8-10.6) k/uL RBC 3.10 L (4.30-5.90) m/uL Hgb 10.3 L (13.0-17.5) gm/dL Hct 31.2 L (39.0-53.0) % MCV 100.4 H (80.0-100.0) fL RDW 17.8 H (11.5-15.5) % Plt Count 92 L (150-450) k/uL PT (9.0-12.0) sec INR (<1.2) Potassium (3.5-5.1) mmol/L BUN (9-20) mg/dL Creatinine (0.66-1.25) mg/dL Glucose (74-99) mg/dL POC Glucose (mg/dL) 200 H 156 H (75-99) mg/dL Calcium (8.4-10.2) mg/dL Total Bilirubin (0.2-1.3) mg/dL AST (17-59) U/L Albumin (3.5-5.0) g/dL 09/06/18 09/06/18 09/06/18 Range/Units 04:50 05:35 06:10 WBC (3.8-10.6) k/uL RBC (4.30-5.90) m/uL Hgb (13.0-17.5) gm/dL Hct (39.0-53.0) % MCV (80.0-100.0) fL RDW (11.5-15.5) % Plt Count (150-450) k/uL PT 20.7 H (9.0-12.0) sec INR 2.1 H (<1.2) Potassium 3.3 L (3.5-5.1) mmol/L BUN 111 H* (9-20) mg/dL Creatinine 3.95 H (0.66-1.25) mg/dL Glucose 174 H (74-99) mg/dL POC Glucose (mg/dL) 175 H (75-99) mg/dL Calcium 7.3 L (8.4-10.2) mg/dL Total Bilirubin 10.3 H (0.2-1.3) mg/dL AST 108 H (17-59) U/L Albumin 2.7 L (3.5-5.0) g/dL 09/06/18 Range/Units 14:05 WBC (3.8-10.6) k/uL RBC (4.30-5.90) m/uL Hgb (13.0-17.5) gm/dL Hct (39.0-53.0) % MCV (80.0-100.0) fL RDW (11.5-15.5) % Plt Count (150-450) k/uL PT (9.0-12.0) sec INR (<1.2) Potassium (3.5-5.1) mmol/L BUN (9-20) mg/dL Creatinine (0.66-1.25) mg/dL Glucose (74-99) mg/dL POC Glucose (mg/dL) 199 H (75-99) mg/dL Calcium (8.4-10.2) mg/dL Total Bilirubin (0.2-1.3) mg/dL AST (17-59) U/L Albumin (3.5-5.0) g/dL Microbiology - Last 24 Hours (Table) 09/01/18 21:40 Blood Culture - Preliminary Blood No Growth after 96 hours 09/01/18 21:26 Blood Culture - Preliminary Blood No Growth after 96 hours 09/02/18 14:43 Gram Stain - Preliminary Ascites Fluid Body Fluid Culture - Preliminary Assessment and Plan Assessment: Impression: Acute GI blood loss anemia and portal hypertensive gastropathy with coagulopathy secondary to liver cirrhosis. Alcoholic liver cirrhosis with ascites, hyperammonemia, status post paracentesis. Acute hepatic encephalopathy improving with improving ammonia level Acute kidney injury improving with IV fluids and with paracentesis. History of pancreatitis and GI bleeding, no documented varices on previous EGD. Benign essential hypertension Hyperlipidemia. Recommendation: Continue present supportive care measures, continue IV fluids, midodrine, IV Protonix, empiric antibiotics, patient is on Rocephin, continue to follow, agree with plans for paracentesis again, we'll continue to follow. Discussed his condition with at bedside. Time with Patient: Less than 30
[2018-09-06] MEDS ORDERED: LACTULOSE 20 GM/30 ML CUP PO PRN (16:01)
[2018-09-06] MEDS: ALBUMIN HUMAN 25% 50 ML in EMPTY BAG 1 BAG IVPB SCH (17:19)
[2018-09-06 17:52] LABS: Glucose,Whole Blood 179 mg/dL (75-99)
--- NOTE | 2018-09-06 19:12 | PN ---
PROGRESS NOTE DATE OF SERVICE: 09/06/2090 The patient is a 58-year-old male with history of decompensated alcoholic cirrhosis of the liver with hepatic encephalopathy and GI bleed, who was admitted to the hospital with altered mental status and GI bleeding. He underwent an upper endoscopy with Dr. Camarillo during this hospitalization that showed severe portal hypertensive gastropathy. The patient remains in intensive care unit. He denies any new complaints. No abdominal pain. No nausea, vomiting, had 4 bowel movements, presently receiving lactulose for hepatic encephalopathy. Complains of abdominal distention, scheduled for large volume paracentesis today. PHYSICAL EXAMINATION: He appears comfortable. No apparent distress. VITAL SIGNS: Stable. Blood pressure is 110/68, pulse is 70, temperature 98.3. HEENT examination unremarkable. Conjunctivae pink. Sclerae slightly icteric. Oral cavity no lesions. Neck: No JVD or lymph node enlargement. Chest was clear to auscultation. HEART: Regular rate and rhythm. ABDOMEN: Distended. There was free fluid noted. EXTREMITIES: No pedal edema. SKIN: No rashes. NEURO: He is awake, oriented to name but not to place and time. LABS: From today WBC 20.7, hemoglobin 10.3, platelets are 92,000. INR is 2.1, T-bilirubin is 10.3, AST 108, ALT 40, alkaline phosphatase normal. IMPRESSION: 1. Acute alcoholic hepatitis superimposed on decompensated liver disease with portal hypertension and ascites. 2. Ascites, possible spontaneous bacterial peritonitis. Presently on broad-spectrum antibiotics. 3. Coagulopathy related to chronic underlying liver disease. 4. Ascites related to portal hypertension, status post large volume paracentesis 5 days ago. He is scheduled for another paracentesis today. 5. Acute kidney injury/hepatorenal syndrome. Nephrology following the patient closely. Presently on IV Sandostatin and Amiodarone drip. BUN is 111, creatinine 3.95. RECOMMENDATIONS: 1. Continue with broad-spectrum antibiotics. 2. Continue with symptomatic and supportive care. 3. We will continue Protonix 40 mg q.12 hours. 4. Monitor hemoglobin on a daily basis. 5. Continue Xifaxan and oral lactulose. 6. We will follow him closely during his hospital stay. Thank you for this consultation. MMODL / IJN: [id number] /
--- NOTE | 2018-09-06 20:12 | P.PN ---
Progress Note - Text Progress Note Date: 09/06/18 Presenting complaint: Dark stools Interval history: This is a pleasant 58-year-old patient of Dr. Wills. Patient has a known history of GERD hypertension hyperlipidemia, alcohol liver disease portal hypertension and hepatic coagulopathy thrombocytopenia severe portal hypertensive gastropathy was admitted with dark stools. Status post EGD. Also acute renal failure from hypertension and hepatorenal syndrome. Status post large volume paracentesis of 7.6 L Today-laying in bed. Tired appearing. Less confusion. Had about 4-5 bowel movements to late afternoon. Dark stools. Eating a full liquid diet. is present. Review of systems: Was done for constitutional, cardiovascular, GI, pulmonary. relevant finding as above Active Medications Ceftriaxone Sodium 2 gm/ (Sodium Chloride) 50 mls @ 100 mls/hr IVPB Q24HR [facility] Last Admin: 09/06/18 10:56 Dose: 100 mls/hr Documented by: Albumin Human 50 ml/ IV (Solution) 50 mls @ 200 mls/hr IVPB Q15M [facility] Stop: 09/07/18 07:59 Insulin Aspart (Novolog) 0 unit SQ Q6H [facility]; Protocol Last Admin: 09/06/18 17:31 Dose: 2 unit Documented by: Lactulose (Cephulac) 30 gm PO QID PRN PRN Reason: Ammonia level Methylprednisolone Sodium Succinate (Solu-Medrol) 32 mg IV DAILY [facility] Last Admin: 09/06/18 10:56 Dose: 32 mg Documented by: Metoprolol Tartrate (Lopressor) 12.5 mg PO BID [facility] Last Admin: 09/06/18 09:04 Dose: 12.5 mg Documented by: Midodrine (Proamatine) 10 mg PO AC-TID [facility] Last Admin: 09/06/18 17:31 Dose: 10 mg Documented by: Octreotide Acetate (Sandostatin) 100 mcg SQ Q8HR [facility] Last Admin: 09/06/18 17:31 Dose: 100 mcg Documented by: Ondansetron HCl (Zofran) 4 mg IVP Q6HR PRN PRN Reason: Nausea And Vomiting Last Admin: 09/05/18 15:48 Dose: 4 mg Documented by: Pantoprazole Sodium (Protonix) 40 mg IVP BID [facility] Last Admin: 09/06/18 10:56 Dose: 40 mg Documented by: Potassium Chloride (K-Dur 20) 20 meq PO DAILY [facility] Last Admin: 09/06/18 09:04 Dose: 20 meq Documented by: Rifaximin (Xifaxan) 550 mg PO BID [facility] Stop: 10/03/18 11:01 Last Admin: 09/06/18 09:04 Dose: 550 mg Documented by: Thiamine HCl (Vitamin B-1) 100 mg PO BID-W/MEALS [facility] Last Admin: 09/06/18 17:31 Dose: 100 mg Documented by: Physical examination: VITAL SIGNS: 97.9, 65, 14, 136/75, 96% room air GENERAL: Laying bed awake, tired EYES: Pupils equal. Conjunctiva icterus HEENT: External appearance of nose and ears normal, oral cavity grossly normal. NECK: JVD not raised; masses not palpable. HEART: First and second heart sounds are normal; minimal edema LUNGS: Respiratory rate increased, decreased breath sounds. ABDOMEN: Soft, distended, nontender, liver spleen not palpable, no masses palpable. PSYCH: Tired lethargic but able to answer questions. DERMATOLOGICAL:. Extensive bruising on both upper extremities on the forearm. INVESTIGATIONS, reviewed in the clinical context: White count 23.7 hemoglobin 10.3 L 92 pro time 20.7 Potassium 3.3 bun 111 creatinine 3.95 total bilirubin 10.3 albumin 2.7 Assessment: - severe alcohol liver disease -Acute GI bleed -Acute severe anemia symptomatic from blood loss, requiring blood transfusion -Secondary Portal hypertension -Hepatic coagulopathy -Thrombocytopenia from chronic alcoholism -Metabolic acidosis -Severe portal hypertensive gastropathy. -Hepatic encephalopathy, slow to respond -Severe hyper bilirubinemia -Acute renal failure combination of hypotension and hepatorenal syndrome, slow to respond Plan: Spoke to Dr. alan from radiology. He will speak to interventional radiology regarding large volume paracentesis. Patient's pro time is elevated because of cirrhosis. This is not expected to correct with vitamin K. Fresh frozen plasma can be given prior to paracentesis. Also spoke at length to patient's at the bedside. Questions were answered. Patient's stool to be titrated to 3-4 times a day with lactulose. Total time spent today was about 40 minutes with over 20/25 minutes of discussion.
[2018-09-06 23:42] LABS: Glucose,Whole Blood 225 mg/dL (75-99)
[2018-09-07 06:06] LABS: INR 1.9 (<1.2); Prothrombin Time 18.9 sec (9.0-12.0)
[2018-09-07 06:09] LABS: Glucose,Whole Blood 150 mg/dL (75-99)
[2018-09-07] MEDS: INSULIN ASPART (NovoLOG) 100 UNIT/ML VIAL SQ SCH ×4 (06:14→18:12)
[2018-09-07] MEDS: ALBUMIN HUMAN 25% 50 ML in EMPTY BAG 1 BAG IVPB SCH ×4 (06:14→06:57)
--- NOTE | 2018-09-07 08:38 | P.PN ---
Subjective Progress Note Date: 09/07/18 Principal diagnosis: Decompensated alcohol liver disease, GI bleed, hepatic encephalopathy, ascites Per nursing no active bleeding. Passing nonbloody bowel movements. Scheduled f or paracentesis today. Status post EGD Dr. Camarillo during this hospitalization that showed severe portal hypertensive gastropathy. Presently denies abdominal pain just discomfort secondary to ascites. Receiving FFP INR 1.9. CBC pending. Afebrile. Creatinine 4.0. Nephrology following. Objective - Vital Signs Vital signs: Vital Signs Temp 97.5 F L 09/07/18 07:30 Pulse 70 09/07/18 07:30 Resp 15 09/07/18 07:30 BP 121/63 09/07/18 07:30 Pulse Ox 96 09/07/18 07:54 Intake & Output 09/06/18 09/07/18 09/07/18 18:59 06:59 18:59 Intake Total 360 240 0 Output Total 490 300 Balance -130 -60 0 Intake: IV 160 240 KVO 160 240 Oral 200 Blood Product 0 Ffp 24 Cpd Unit 0 [id number] Output: Urine 490 300 Other: Voiding Method Indwelling Catheter Indwelling Catheter # Bowel Movements 1 - Exam General appearance: The patient is alert, oriented, in no acute distress. Jaundice. HET: Head is normocephalic and atraumatic. Pupils are equal and reactive. Oropharynx is clear without lesions. Sclerae icterus. Neck: Supple without lymphadenopathy. Trachea midline. Heart: S1 S2. Regular rate and rhythm. Lungs: No crackles or wheezes are heard. Abdomen: Soft, distended with moderate ascites nontender with bowel sounds. No peritoneal signs. No palpable organomegaly or masses. Neurological: No focal deficits. Strength and sensation are grossly intact. - Labs CBC & Chem 7: 09/07/18 08:53 09/07/18 08:53 Labs: Abnormal Lab Results - Last 24 Hours (Table) 09/01/18 09/06/18 09/06/18 Range/Units 21:26 14:05 17:27 PT (9.0-12.0) sec INR (<1.2) POC Glucose (mg/dL) 199 H 179 H (75-99) mg/dL Crossmatch See Detail 09/06/18 09/07/18 09/07/18 Range/Units 23:40 05:20 06:07 PT 18.9 H (9.0-12.0) sec INR 1.9 H (<1.2) POC Glucose (mg/dL) 225 H 150 H (75-99) mg/dL Crossmatch Microbiology - Last 24 Hours (Table) 09/01/18 21:40 Blood Culture - Preliminary Blood No Growth after 120 hours 09/01/18 21:26 Blood Culture - Preliminary Blood No Growth after 120 hours 09/02/18 14:43 Gram Stain - Final Ascites Fluid Body Fluid Culture - Final 09/02/18 14:43 Anaerobic Culture - Final Ascites Fluid Assessment and Plan (1) Decompensated hepatic cirrhosis Narrative/Plan: 58 [id number] gentleman with a history of alcohol abuse admitted with acute GI bleed acute blood loss anemia alcoholic hepatitis hepatic encephalopathy superimposed on decompensated alcohol liver disease with underlying portal hypertension and ascites. Possible spontaneous bacterial peritonitis cannot be excluded. EGD during this hospitalization reported severe portal hypertensive gastropathy Denies cannot be excluded presently on broad-spectrum antibiotics. Acute kidney injury underlying hepatorenal syndrome cannot be excluded nephrology following. Current Visit: Yes Status: Acute Code(s): K72.90 - HEPATIC FAILURE, UNSPECIFIED WITHOUT COMA SNOMED Code(s): 640177689 (2) Acute alcoholic hepatitis Current Visit: Yes Status: Acute Code(s): K70.10 - ALCOHOLIC HEPATITIS WITHOUT ASCITES SNOMED Code(s): 9093875 (3) Portal hypertension Current Visit: Yes Status: Acute Code(s): K76.6 - PORTAL HYPERTENSION SNOMED Code(s): 25177091 (4) Coagulopathy Current Visit: Yes Status: Acute Code(s): D68.9 - COAGULATION DEFECT, UNSPECIFIED SNOMED Code(s): 75666845 (5) Thrombocytopenia Current Visit: Yes Status: Acute Code(s): D69.6 - THROMBOCYTOPENIA, UNSPECIFIED SNOMED Code(s): 238629618 (6) Acute kidney injury Narrative/Plan: Underlying hepatorenal syndrome cannot be excluded. Current Visit: Yes Status: Acute Code(s): N17.9 - ACUTE KIDNEY FAILURE, UNSPECIFIED SNOMED Code(s): 37724006 (7) Hepatic encephalopathy Current Visit: Yes Status: Acute Code(s): K72.90 - HEPATIC FAILURE, UNSPECIFIED WITHOUT COMA SNOMED Code(s): 50020349 (8) H/O ETOH abuse Current Visit: Yes Status: Acute Code(s): F10.11 - ALCOHOL ABUSE, IN REMISSION SNOMED Code(s): 275976986 (9) Portal hypertensive gastropathy Current Visit: Yes Status: Acute Code(s): K76.6 - PORTAL HYPERTENSION; K31.89 - OTHER DISEASES OF STOMACH AND DUODENUM SNOMED Code(s): 987167751 (10) Acute GI bleeding Current Visit: Yes Status: Acute Code(s): K92.2 - GASTROINTESTINAL HEMORRHAGE, UNSPECIFIED SNOMED Code(s): 36072027 (11) Acute blood loss anemia Current Visit: Yes Status: Acute Code(s): D62 - ACUTE POSTHEMORRHAGIC ANEMIA SNOMED Code(s): 048868103 Plan: 1. Daily CBC CMP PT INR and ammonia. 2. Lactulose 20 g 3 times a day titrated 3-5 movements daily. Xifaxan 550 mg twice daily. 3. Continue broad-spectrum antibiotics. 4. Agreeable for Low-salt diet as tolerated. Assessment and plan a care discussed with Dr. Daley
[2018-09-07] MEDS: methylPREDNISolone SOD SUCCI 40 MG/ML 1 ML VIAL IV SCH (08:42)
[2018-09-07] MEDS: PANTOPRAZOLE 40 MG/10 ML VIAL IVP SCH ×2 (08:42→20:52)
[2018-09-07] MEDS: ONDANSETRON 4 MG/2 ML VIAL IVP PRN (08:43)
[2018-09-07] MEDS: OCTREOTIDE 100 MCG/ML INJ SQ SCH ×3 (08:50→15:57)
[2018-09-07 09:30] LABS: Anisocytosis Slight; Basophils # (A) 0.1 k/uL (0-0.2); Basophils % (A) 0 %; Eosinophils # (A) 0.1 k/uL (0-0.7); Eosinophils % (A) 0 %; HCT 26.9 % (39.0-53.0); Lymphocytes # (A) 0.9 k/uL (1.0-4.8); Lymphocytes % (A) 4 %; MCHC 31.6 g/dL (31.0-37.0); MCV 104.4 fL (80.0-100.0); Macrocytosis Moderate; Mean Platelet Volume 8.1; Monocytes # (A) 1.2 k/uL (0-1.0); Monocytes % (A) 5 %; Neutrophils # (A) 20.4 k/uL (1.3-7.7); Neutrophils % (A) 89 %; RBC 2.58 m/uL (4.30-5.90); RDW 17.5 % (11.5-15.5)
[2018-09-07 09:35] LABS: HGB 8.5 gm/dL (13.0-17.5)
[2018-09-07 09:37] LABS: Platelet Count 75 k/uL (150-450)
[2018-09-07 09:45] LABS: Calcium 7.7 mg/dL (8.4-10.2); Potassium 3.9 mmol/L (3.5-5.1); Total Bilirubin 10.6 mg/dL (0.2-1.3); Total Protein 6.7 g/dL (6.3-8.2)
--- NOTE | 2018-09-07 10:07 | P.PN ---
Subjective Patient is seen in follow-up for acute kidney injury. Patient's creatinine on 08/07/2018 was 1 and was elevated at 7.94 this admission. It is 4.07 today. Urine output 790 cc in the last 24 hours. Patient has history of alcohol induced liver cirrhosis. Patient had paracentesis done on September 02 with 7.6 L drained. He did receive a total of 75 g of albumin. Patient's hemoglobin was also 5.8 this admission for which she received blood transfusions as well as DDAVP. Scheduled for another paracentesis today. IV fluids were started again this morning due to low urine output. Vital signs are stable. General: The patient appeared well nourished and normally developed. Lethargic. HEENT: Head exam is unremarkable. Neck is without jugular venous distension. LUNGS: Lungs are clear to auscultation and percussion. Breath sounds decreased. HEART: Rate and Rhythm are regular. First and second heart sounds normal. No murmurs, rubs or gallops. ABDOMEN: Bowel sounds decreased. Distention noted. EXTREMITITES: Trace edema. Objective - Vital Signs Vital signs: Vital Signs Temp 97.8 F 09/07/18 09:23 Pulse 70 09/07/18 09:50 Resp 14 09/07/18 09:50 BP 119/59 09/07/18 09:50 Pulse Ox 97 09/07/18 09:50 Intake & Output 09/06/18 09/07/18 09/07/18 18:59 06:59 18:59 Intake Total 360 240 80 Output Total 490 300 75 Balance -130 -60 5 Intake: IV 160 240 80 KVO 160 240 80 Oral 200 Blood Product 0 Ffp 24 Cpd Unit 0 [id number] Output: Urine 490 300 75 Other: Voiding Method Indwelling Catheter Indwelling Catheter Indwelling Catheter # Bowel Movements 1 - Labs CBC & Chem 7: 09/07/18 08:53 09/07/18 08:53 Labs: Abnormal Lab Results - Last 24 Hours (Table) 09/01/18 09/06/18 09/06/18 Range/Units 21:26 14:05 17:27 WBC (3.8-10.6) k/uL RBC (4.30-5.90) m/uL Hgb (13.0-17.5) gm/dL Hct (39.0-53.0) % MCV (80.0-100.0) fL RDW (11.5-15.5) % PT (9.0-12.0) sec INR (<1.2) BUN (9-20) mg/dL Creatinine (0.66-1.25) mg/dL Glucose (74-99) mg/dL POC Glucose (mg/dL) 199 H 179 H (75-99) mg/dL Calcium (8.4-10.2) mg/dL Total Bilirubin (0.2-1.3) mg/dL AST (17-59) U/L Ammonia (<30) umol/L Albumin (3.5-5.0) g/dL Crossmatch See Detail 09/06/18 09/07/18 09/07/18 Range/Units 23:40 05:20 06:07 WBC (3.8-10.6) k/uL RBC (4.30-5.90) m/uL Hgb (13.0-17.5) gm/dL Hct (39.0-53.0) % MCV (80.0-100.0) fL RDW (11.5-15.5) % PT 18.9 H (9.0-12.0) sec INR 1.9 H (<1.2) BUN (9-20) mg/dL Creatinine (0.66-1.25) mg/dL Glucose (74-99) mg/dL POC Glucose (mg/dL) 225 H 150 H (75-99) mg/dL Calcium (8.4-10.2) mg/dL Total Bilirubin (0.2-1.3) mg/dL AST (17-59) U/L Ammonia (<30) umol/L Albumin (3.5-5.0) g/dL Crossmatch 09/07/18 09/07/18 09/07/18 Range/Units 08:53 08:53 08:53 WBC 23.0 H (3.8-10.6) k/uL RBC 2.58 L (4.30-5.90) m/uL Hgb 8.5 L D (13.0-17.5) gm/dL Hct 26.9 L (39.0-53.0) % MCV 104.4 H (80.0-100.0) fL RDW 17.5 H (11.5-15.5) % PT (9.0-12.0) sec INR (<1.2) BUN 107 H* (9-20) mg/dL Creatinine 4.07 H (0.66-1.25) mg/dL Glucose 143 H (74-99) mg/dL POC Glucose (mg/dL) (75-99) mg/dL Calcium 7.7 L (8.4-10.2) mg/dL Total Bilirubin 10.6 H (0.2-1.3) mg/dL AST 97 H (17-59) U/L Ammonia 33 H (<30) umol/L Albumin 3.0 L (3.5-5.0) g/dL Crossmatch Microbiology - Last 24 Hours (Table) 09/01/18 21:40 Blood Culture - Preliminary Blood No Growth after 120 hours 09/01/18 21:26 Blood Culture - Preliminary Blood No Growth after 120 hours 09/02/18 14:43 Gram Stain - Final Ascites Fluid Body Fluid Culture - Final 09/02/18 14:43 Anaerobic Culture - Final Ascites Fluid Assessment and Plan Plan: Assessment: 1. Acute kidney injury. Initially prerenal in nature secondary to hypotension, acute anemia and poor oral intake. Now hepatorenal syndrome. Creatinine was 7.94 on admission and did down to 3.95 - 4.07 today. Baseline creatinine is near 1. UA from last month reveals no protein. No evidence of hydronephrosis noted on renal ultrasound. 2 . Metabolic acidosis secondary to acute kidney injury s/p bicarb drip. Resolved. 3. Acute blood loss anemia status post 2 units of blood transfusion. Maintained on Sandostatin as well as PPI. Status post IV DDAVP on September 02. 4. Alcohol induced liver cirrhosis. 5. Hepatic encephalopathy. 6. Ascites. Status post paracentesis on September 02 with 7.6 L drained. Scheduled for a paracentesis today. 7. Hypokalemia secondary to intracellular shifting from IV bicarb and poor oral intake. Better. Plan: 50 g of albumin given prior to paracentesis. Additional 25 g if more than 8 L d rained. Maintain management for hepatorenal syndrome including midodrine and Sandostatin. Advance diet per GI recommendations. No urgent need for renal replacement therapy at this time. Maintain normal saline at 70 mL an hour. Strict is and os. Plan to start diuretics tomorrow. If renal function continues to decline, will need to initiate renal replacement therapy.
[2018-09-07] MEDS: MIDODRINE 5 MG TAB PO SCH ×3 (10:19→17:05)
[2018-09-07] MEDS: THIAMINE 100 MG TAB PO SCH ×2 (10:19→17:05)
[2018-09-07] MEDS: METOPROLOL TARTRATE 12.5 MG TAB PO SCH ×2 (10:28→20:52)
[2018-09-07] MEDS: LACTULOSE 20 GM/30 ML CUP PO SCH ×3 (10:28→20:52)
[2018-09-07] MEDS: POTASSIUM CHLORIDE ER 20 MEQ TAB.ER PO SCH (10:29)
[2018-09-07] MEDS: RIFAXIMIN 550 MG TABLET PO SCH ×2 (10:29→20:52)
[2018-09-07] MEDS: SODIUM CHLORIDE 0.9% 1,000 ML IV SCH ×2 (10:29→20:53)
--- NOTE | 2018-09-07 11:43 | US ---
Therapeutic paracentesis. DATE OF EXAM: 09/07/2018 CLINICAL HISTORY: ascites The procedure was discussed with the patient. The risks, complications, benefits, and alternatives we re discussed and any questions were answered. Informed consent was obtained. The patient was placed s upine on the ultrasound table and prepped and draped in the usual sterile fashion. All elements of maximal barrier technique were utilized. Under ultrasound guidance, access into the right lower quadrant was obtained, via the paracentesis catheter system and direct ultrasound guidanc e. Approximately 4.8 liters of straw-colored fluid was removed. The patient was stable throughout the pr ocedure and remained stable upon discharge from Department of Radiology. IMPRESSION: Successful therapeutic paracentesis under ultrasound guidance.
[2018-09-07 12:07] LABS: Glucose,Whole Blood 242 mg/dL (75-99)
--- NOTE | 2018-09-07 14:19 | P.PN ---
Subjective Progress Note Date: 09/07/18 Principal diagnosis: Decompensated alcoholic cirrhosis, hepatic encephalopathy, portal hypertensive gastropathy. On 09/06/2018, patient is resting in bed, denies any complaints, denies any shortness of breath no cough no wheezing, his abdomen seems to be getting more and more distended, remains on a combination of lactulose and Xifaxan, remains on clear liquid diet, no further episodes of GI bleeding, no melena, no hematemesis, no hematochezia, my understanding and the patient may undergo another paracentesis since the abdominal distention seems to be getting worse. Labs continued to show leukocytosis with WBC count of 23.7, INR is 2.1, BUN is 111 and creatinine is 3.95, both are improving slowly. Ammonia level was not done today. But was trending down yesterday. Reevaluated today on 09/07/2018, patient remains in the intensive care unit, he is now an overflow, and he underwent paracentesis today. 4.8 L of straw-colored fluid was removed by interventional radiology, patient is feeling better, he is hemodynamically stable, and he is showing improvement in his hepatic encephalopathy, ammonia level is significantly improved down to 33 today. Renal profile continues to show BUN of 107 creatinine 4.07. His CBC is relatively unremarkable platelets remained low at 75. And his hemoglobin is 8.5, WBC count is 23.0 INR is 1.9. Objective - Vital Signs Vital signs: Vital Signs Temp 97.6 F 09/07/18 12:00 Pulse 70 09/07/18 14:00 Resp 14 09/07/18 14:00 BP 118/60 09/07/18 14:00 Pulse Ox 98 09/07/18 10:00 Intake & Output 09/06/18 09/07/18 09/07/18 18:59 06:59 18:59 Intake Total 360 240 80 Output Total 364 755 6609 Balance -130 60 -4381 Weight 83.1 kg Intake: IV 160 240 80 KVO 160 240 80 Oral 200 Blood Product 0 Ffp 24 Cpd Unit 0 [id number] Output: Urine 490 300 75 Other 4800 Other: Voiding Method Indwelling Catheter Indwelling Catheter Indwelling Catheter # Bowel Movements 1 - Exam Physical exam revealed a 58-year-old white male, in no distress. More alert today, awake, and responsive. HEAD: Normocephalic/atraumatic. EYES: PERRLA, EOMI, positive icterus. NOSE: Clear with pink turbinates. THROAT: No erythema or exudates. NECK: No masses, no JVD, no thyroid enlargement, no adenopathy. CHEST: No chest wall deformity. Symmetrical expansion. LUNGS: Equal air entry with no crackles, wheeze, rhonchi or dullness. CVS: Regular rate and rhythm, normal S1 and S2, no gallops, no murmurs, no rubs ABDOMEN: Soft, nontender, soft. No hepatosplenomegaly, normal bowel sounds, no guarding or rigidity. The patient also has an umbilical hernia which is easily reducible. Positive ascites is noted EXTREMITIES: No clubbing, no edema, no cyanosis, 2+ pulses and upper and lower extremities. MUSCULOSKELETAL: Muscle strength and tone normal. SKIN: No rashes CENTRAL NERVOUS SYSTEM: Awake, alert, oriented 3. - Labs CBC & Chem 7: 09/07/18 08:53 09/07/18 08:53 Labs: Abnormal Lab Results - Last 24 Hours (Table) 09/01/18 09/06/18 09/06/18 Range/Units 21:26 17:27 23:40 WBC (3.8-10.6) k/uL RBC (4.30-5.90) m/uL Hgb (13.0-17.5) gm/dL Hct (39.0-53.0) % MCV (80.0-100.0) fL RDW (11.5-15.5) % Plt Count (150-450) k/uL Neutrophils # (1.3-7.7) k/uL Lymphocytes # (1.0-4.8) k/uL Monocytes # (0-1.0) k/uL PT (9.0-12.0) sec INR (<1.2) BUN (9-20) mg/dL Creatinine (0.66-1.25) mg/dL Glucose (74-99) mg/dL POC Glucose (mg/dL) 179 H 225 H (75-99) mg/dL Calcium (8.4-10.2) mg/dL Total Bilirubin (0.2-1.3) mg/dL AST (17-59) U/L Ammonia (<30) umol/L Albumin (3.5-5.0) g/dL Crossmatch See Detail 09/07/18 09/07/18 09/07/18 Range/Units 05:20 06:07 08:53 WBC 23.0 H (3.8-10.6) k/uL RBC 2.58 L (4.30-5.90) m/uL Hgb 8.5 L D (13.0-17.5) gm/dL Hct 26.9 L (39.0-53.0) % MCV 104.4 H (80.0-100.0) fL RDW 17.5 H (11.5-15.5) % Plt Count 75 L (150-450) k/uL Neutrophils # 20.4 H (1.3-7.7) k/uL Lymphocytes # 0.9 L (1.0-4.8) k/uL Monocytes # 1.2 H (0-1.0) k/uL PT 18.9 H (9.0-12.0) sec INR 1.9 H (<1.2) BUN (9-20) mg/dL Creatinine (0.66-1.25) mg/dL Glucose (74-99) mg/dL POC Glucose (mg/dL) 150 H (75-99) mg/dL Calcium (8.4-10.2) mg/dL Total Bilirubin (0.2-1.3) mg/dL AST (17-59) U/L Ammonia (<30) umol/L Albumin (3.5-5.0) g/dL Crossmatch 09/07/18 09/07/18 09/07/18 Range/Units 08:53 08:53 12:04 WBC (3.8-10.6) k/uL RBC (4.30-5.90) m/uL Hgb (13.0-17.5) gm/dL Hct (39.0-53.0) % MCV (80.0-100.0) fL RDW (11.5-15.5) % Plt Count (150-450) k/uL Neutrophils # (1.3-7.7) k/uL Lymphocytes # (1.0-4.8) k/uL Monocytes # (0-1.0) k/uL PT (9.0-12.0) sec INR (<1.2) BUN 107 H* (9-20) mg/dL Creatinine 4.07 H (0.66-1.25) mg/dL Glucose 143 H (74-99) mg/dL POC Glucose (mg/dL) 242 H (75-99) mg/dL Calcium 7.7 L (8.4-10.2) mg/dL Total Bilirubin 10.6 H (0.2-1.3) mg/dL AST 97 H (17-59) U/L Ammonia 33 H (<30) umol/L Albumin 3.0 L (3.5-5.0) g/dL Crossmatch Microbiology - Last 24 Hours (Table) 09/01/18 21:40 Blood Culture - Preliminary Blood No Growth after 120 hours 09/01/18 21:26 Blood Culture - Preliminary Blood No Growth after 120 hours 09/02/18 14:43 Gram Stain - Final Ascites Fluid Body Fluid Culture - Final 09/02/18 14:43 Anaerobic Culture - Final Ascites Fluid Assessment and Plan Assessment: Impression: Acute GI blood loss anemia and portal hypertensive gastropathy with coagulopathy secondary to liver cirrhosis. Alcoholic liver cirrhosis with ascites, hyperammonemia, status post paracentesis. Acute hepatic encephalopathy improving with improving ammonia level Acute kidney injury improving with IV fluids and with paracentesis. History of pancreatitis and GI bleeding, no documented varices on previous EGD. Benign essential hypertension Hyperlipidemia. Recommendation: Continue present supportive care measures, Continue empiric antibiotics. Continue Protonix. Continue midodrine. Continue lactulose. Consider transferring the patient out of the ICU to a regular medical floor once a bed is available. Family and the patient were updated on his condition and overall poor prognosis considering his liver disease. Time with Patient: Less than 30
[2018-09-07 14:54] LABS: Appearance,BF Cloudy; Color,BF Red; Nucleated Cells, Body Fluid 720 /uL; RBC, Body Fluid 72200 /uL
[2018-09-07 14:57] LABS: Mononuclear WBC,Body Fluid 36 %; Polynuclear WBC,Body Fluid 64 %; Total Cells Counted,Body Fluid 100
[2018-09-07 18:18] LABS: Glucose,Whole Blood 202 mg/dL (75-99)
--- NOTE | 2018-09-07 23:04 | P.PN ---
Progress Note - Text Progress Note Date: 09/07/18 Presenting complaint: Intermittently confused Interval history: This is a pleasant 58-year-old patient of Dr. Wills. Patient has a known history of GERD hypertension hyperlipidemia, alcohol liver disease portal hypertension and hepatic coagulopathy thrombocytopenia severe portal hypertensive gastropathy was admitted with dark stools. Status post EGD. Also acute renal failure from hypertension and hepatorenal syndrome. Status post large volume paracentesis of 7.6 L Today-received a unit of FFP this morning. Subsequently had a large volume paracentesis was carried out. 4.8 L was removed. Patient remains on a full liquid diet. Intermittently confused and delirious. Having bowel movements. Hasn't been out of bed. at the bedside. Review of systems: Was done for constitutional, cardiovascular, GI, pulmonary. relevant finding as above Active Medications Ceftriaxone Sodium 2 gm/ (Sodium Chloride) 50 mls @ 100 mls/hr IVPB Q24HR [facility] Last Admin: 09/07/18 10:27 Dose: 100 mls/hr Documented by: Sodium Chloride (Saline 0.9%) 1,000 mls @ 70 mls/hr IV .[id number] [facility] Last Admin: 09/07/18 20:53 Dose: 70 mls/hr Documented by: Insulin Aspart (Novolog) 0 unit SQ Q6H [facility]; Protocol Last Admin: 09/07/18 18:12 Dose: 2 unit Documented by: Lactulose (Cephulac) 20 gm PO TID [facility] Last Admin: 09/07/18 20:52 Dose: 20 gm Documented by: Methylprednisolone Sodium Succinate (Solu-Medrol) 32 mg IV DAILY [facility] Last Admin: 09/07/18 08:42 Dose: 32 mg Documented by: Metoprolol Tartrate (Lopressor) 12.5 mg PO BID [facility] Last Admin: 09/07/18 20:52 Dose: 12.5 mg Documented by: Midodrine (Proamatine) 10 mg PO AC-TID [facility] Last Admin: 09/07/18 17:05 Dose: 10 mg Documented by: Octreotide Acetate (Sandostatin) 100 mcg SQ Q8HR [facility] Last Admin: 09/07/18 15:57 Dose: 100 mcg Documented by: Ondansetron HCl (Zofran) 4 mg IVP Q6HR PRN PRN Reason: Nausea And Vomiting Last Admin: 09/07/18 08:43 Dose: 4 mg Documented by: Pantoprazole Sodium (Protonix) 40 mg IVP BID [facility] Last Admin: 09/07/18 20:52 Dose: 40 mg Documented by: Potassium Chloride (K-Dur 20) 20 meq PO DAILY [facility] Last Admin: 09/07/18 10:29 Dose: 20 meq Documented by: Rifaximin (Xifaxan) 550 mg PO BID [facility] Stop: 10/03/18 11:01 Last Admin: 09/07/18 20:52 Dose: 550 mg Documented by: Thiamine HCl (Vitamin B-1) 100 mg PO BID-W/MEALS [facility] Last Admin: 09/07/18 17:05 Dose: 100 mg Documented by: Physical examination: VITAL SIGNS: 98.1, 66, 12, 130/56, 96% room air GENERAL: Laying bed awake, tired EYES: Pupils equal. Conjunctiva icterus HEENT: External appearance of nose and ears normal, oral cavity grossly normal. NECK: JVD not raised; masses not palpable. HEART: First and second heart sounds are normal; minimal edema LUNGS: Respiratory rate increased, decreased breath sounds. ABDOMEN: Soft, less distended, nontender, liver spleen not palpable, no masses palpable. PSYCH: Tired lethargic but able to answer questions. DERMATOLOGICAL:. Extensive bruising on both upper extremities on the forearm. INVESTIGATIONS, reviewed in the clinical context: White count 23, hemoglobin 8.5, platelets 75, potassium 3.9, bun 107, creatinine 4.07 Assessment: - severe alcohol liver disease -Acute GI bleed -Acute severe anemia symptomatic from blood loss, requiring blood transfusion -Secondary Portal hypertension -Hepatic coagulopathy -Thrombocytopenia from chronic alcoholism -Metabolic acidosis -Severe portal hypertensive gastropathy. -Hepatic encephalopathy, slow to respond -Severe hyper bilirubinemia -Acute renal failure combination of hypotension and hepatorenal syndrome, slow to respond -Tense ascites, status post large volume paracentesis 7.6 L followed by repeat paracentesis of 4.8 L Plan: Continue current medication treatment plan. Prognosis remains guarded. Patient's currently not stable for transfer. We'll watch for another 1 or 2 days. Care was discussed with the at the bedside. Patient also did receive albumin today. Patient also getting normal saline 70 mL an hour. Prognosis guarded
[2018-09-08 00:12] LABS: Glucose,Whole Blood 203 mg/dL (75-99)
[2018-09-08] MEDS: OCTREOTIDE 100 MCG/ML INJ SQ SCH ×4 (00:16→22:29)
[2018-09-08] MEDS: INSULIN ASPART (NovoLOG) 100 UNIT/ML VIAL SQ SCH ×5 (00:16→22:27)
[2018-09-08 05:18] LABS: Anisocytosis Slight; HCT 31.6 % (39.0-53.0); HGB 10.2 gm/dL (13.0-17.5); MCH 33.4 pg (25.0-35.0); MCHC 32.3 g/dL (31.0-37.0); MCV 103.7 fL (80.0-100.0); Macrocytosis Moderate; Mean Platelet Volume 8.9; RBC 3.05 m/uL (4.30-5.90); RDW 17.7 % (11.5-15.5); WBC 27.9 k/uL (3.8-10.6)
[2018-09-08] MEDS: MIDODRINE 5 MG TAB PO SCH ×4 (05:20→19:31)
[2018-09-08 05:23] LABS: Prothrombin Time 19.7 sec (9.0-12.0)
[2018-09-08 05:33] LABS: Hypochromasia (M) Present; Lymphocytes # (M) 1.67 k/uL (1.0-4.8); Monocytes # (M) 1.12 k/uL (0-1.0); Neutrophils % (M) 90 %; Nucleated Red Blood Cells 0 /100 WBC (0-0); Poikilocytosis (M) Present; Stomatocytes Present; Total Cells Counted 100
[2018-09-08 05:34] LABS: Platelet Count 69 k/uL (150-450)
[2018-09-08 05:48] LABS: Albumin 2.8 g/dL (3.5-5.0); Calcium 7.8 mg/dL (8.4-10.2); Potassium 4.4 mmol/L (3.5-5.1); Total Bilirubin 11.4 mg/dL (0.2-1.3); Total Protein 6.6 g/dL (6.3-8.2)
[2018-09-08] MEDS: THIAMINE 100 MG TAB PO SCH ×2 (06:32→17:09)
[2018-09-08 06:53] LABS: Glucose,Whole Blood 158 mg/dL (75-99)
[2018-09-08] MEDS: LACTULOSE 20 GM/30 ML CUP PO SCH ×3 (08:36→22:29)
[2018-09-08] MEDS: methylPREDNISolone SOD SUCCI 40 MG/ML 1 ML VIAL IV SCH (08:36)
[2018-09-08] MEDS: PANTOPRAZOLE 40 MG/10 ML VIAL IVP SCH ×2 (08:37→22:28)
[2018-09-08] MEDS: POTASSIUM CHLORIDE ER 20 MEQ TAB.ER PO SCH (08:37)
[2018-09-08] MEDS: RIFAXIMIN 550 MG TABLET PO SCH ×2 (08:38→22:28)
[2018-09-08] MEDS: METOPROLOL TARTRATE 12.5 MG TAB PO SCH ×2 (09:38→22:27)
--- NOTE | 2018-09-08 10:38 | P.PN ---
Subjective Progress Note Date: 09/08/18 Principal diagnosis: Decompensated alcohol liver disease, GI bleed, hepatic encephalopathy, ascites Per nursing no active bleeding. Passing nonbloody bowel movements. Paracentesi s yesterday 4.8 L removed. Status post EGD Dr. Camarillo during this hospitalization that showed severe portal hypertensive gastropathy. Presently denies abdominal pain. INR slightly increased 2.0. Platelets 69,000. White count increased 27.9. He will been 10.2. Afebrile. Creatinine improved 3.3. Nephrology following. Total bilirubin 11.4. AST 114. ALT 59. AP 82. Ammonia 28. Objective - Vital Signs Vital signs: Vital Signs Temp 97.9 F 09/07/18 18:00 Pulse 59 L 09/08/18 08:00 Resp 12 09/08/18 08:00 BP 124/63 09/08/18 08:00 Pulse Ox 98 09/08/18 08:00 Intake & Output 09/07/18 09/08/18 09/08/18 18:59 06:59 18:59 Intake Total 1430 1320 280 Output Total 5275 560 300 Balance -3845 760 -20 Weight 83.1 kg Intake: IV 980 840 280 KVO 980 Sodium Chloride 0.9% 1, 840 280 000 ml @ 70 mls/hr IV . [id number] [facility] Rx#:[id number] Oral 450 480 Blood Product 0 Ffp 24 Cpd Unit 0 [id number] Output: Urine 475 560 300 Other 4800 Other: Voiding Method Indwelling Catheter Indwelling Catheter Indwelling Catheter - Exam General appearance: The patient is alert, oriented, in no acute distress. Jaundice. HET: Head is normocephalic and atraumatic. Pupils are equal and reactive. Oropharynx is clear without lesions. Sclerae icterus. Neck: Supple without lymphadenopathy. Trachea midline. Heart: S1 S2. Regular rate and rhythm. Lungs: No crackles or wheezes are heard. Abdomen: Soft, distended with mild ascites nontender with bowel sounds. No peritoneal signs. No palpable organomegaly or masses. Neurological: No focal deficits. Strength and sensation are grossly intact. - Labs CBC & Chem 7: 09/08/18 05:01 09/08/18 05:01 Labs: Abnormal Lab Results - Last 24 Hours (Table) 09/07/18 09/07/1809/07/19 Range/Units 08:53 12:04 18:05 WBC 23.0 H (3.8-10.6) k/uL RBC 2.58 L (4.30-5.90) m/uL Hgb 8.5 L D (13.0-17.5) gm/dL Hct 26.9 L (39.0-53.0) % MCV 104.4 H (80.0-100.0) fL RDW 17.5 H (11.5-15.5) % Plt Count 75 L (150-450) k/uL Neutrophils # 20.4 H (1.3-7.7) k/uL Neutrophils # (Manual) (1.3-7.7) k/uL Lymphocytes # 0.9 L (1.0-4.8) k/uL Monocytes # 1.2 H (0-1.0) k/uL Monocytes # (Manual) (0-1.0) k/uL PT (9.0-12.0) sec INR (<1.2) BUN (9-20) mg/dL Creatinine (0.66-1.25) mg/dL Glucose (74-99) mg/dL POC Glucose (mg/dL) 242 H 202 H (75-99) mg/dL Calcium (8.4-10.2) mg/dL Total Bilirubin (0.2-1.3) mg/dL AST (17-59) U/L Albumin (3.5-5.0) g/dL 09/07/18 09/08/18 09/08/18 Range/Units 23:58 05:01 05:01 WBC 27.9 H (3.8-10.6) k/uL RBC 3.05 L (4.30-5.90) m/uL Hgb 10.2 L (13.0-17.5) gm/dL Hct 31.6 L (39.0-53.0) % MCV 103.7 H (80.0-100.0) fL RDW 17.7 H (11.5-15.5) % Plt Count 69 L (150-450) k/uL Neutrophils # (1.3-7.7) k/uL Neutrophils # (Manual) 25.11 H (1.3-7.7) k/uL Lymphocytes # (1.0-4.8) k/uL Monocytes # (0-1.0) k/uL Monocytes # (Manual) 1.12 H (0-1.0) k/uL PT 19.7 H (9.0-12.0) sec INR 2.0 H (<1.2) BUN (9-20) mg/dL Creatinine (0.66-1.25) mg/dL Glucose (74-99) mg/dL POC Glucose (mg/dL) 203 H (75-99) mg/dL Calcium (8.4-10.2) mg/dL Total Bilirubin (0.2-1.3) mg/dL AST (17-59) U/L Albumin (3.5-5.0) g/dL 09/08/18 09/08/18 Range/Units 05:01 06:28 WBC (3.8-10.6) k/uL RBC (4.30-5.90) m/uL Hgb (13.0-17.5) gm/dL Hct (39.0-53.0) % MCV (80.0-100.0) fL RDW (11.5-15.5) % Plt Count (150-450) k/uL Neutrophils # (1.3-7.7) k/uL Neutrophils # (Manual) (1.3-7.7) k/uL Lymphocytes # (1.0-4.8) k/uL Monocytes # (0-1.0) k/uL Monocytes # (Manual) (0-1.0) k/uL PT (9.0-12.0) sec INR (<1.2) BUN 99 H (9-20) mg/dL Creatinine 3.37 H (0.66-1.25) mg/dL Glucose 143 H (74-99) mg/dL POC Glucose (mg/dL) 158 H (75-99) mg/dL Calcium 7.8 L (8.4-10.2) mg/dL Total Bilirubin 11.4 H (0.2-1.3) mg/dL AST 114 H (17-59) U/L Albumin 2.8 L (3.5-5.0) g/dL Microbiology - Last 24 Hours (Table) 09/01/18 21:40 Blood Culture - Final Blood No Growth after 144 hours 09/01/18 21:26 Blood Culture - Final Blood No Growth after 144 hours Assessment and Plan (1) Decompensated hepatic cirrhosis Narrative/Plan: 58 [id number] gentleman with a history of alcohol abuse admitted with acute GI bleed acute blood loss anemia alcoholic hepatitis hepatic encephalopathy superimposed on decompensated alcohol liver disease with underlying portal hypertension and ascites. Possible spontaneous bacterial peritonitis cannot be excluded. EGD during this hospitalization reported severe portal hypertensive gastropathy Denies cannot be excluded presently on broad-spectrum antibiotics. Acute kidney injury underlying hepatorenal syndrome cannot be excluded nephrology following. Current Visit: Yes Status: Acute Code(s): K72.90 - HEPATIC FAILURE, UNSPECIFIED WITHOUT COMA SNOMED Code(s): 593358649 (2) Acute alcoholic hepatitis Current Visit: Yes Status: Acute Code(s): K70.10 - ALCOHOLIC HEPATITIS WITHOUT ASCITES SNOMED Code(s): 0676184 (3) Portal hypertension Current Visit: Yes Status: Acute Code(s): K76.6 - PORTAL HYPERTENSION SNOMED Code(s): 80342734 (4) Coagulopathy Current Visit: Yes Status: Acute Code(s): D68.9 - COAGULATION DEFECT, UNSPECIFIED SNOMED Code(s): 80521581 (5) Thrombocytopenia Current Visit: Yes Status: Acute Code(s): D69.6 - THROMBOCYTOPENIA, UNSPECIFIED SNOMED Code(s): 127212021 (6) Acute kidney injury Narrative/Plan: Underlying hepatorenal syndrome cannot be excluded. Current Visit: Yes Status: Acute Code(s): N17.9 - ACUTE KIDNEY FAILURE, UNSPECIFIED SNOMED Code(s): 35899913 (7) Hepatic encephalopathy Current Visit: Yes Status: Acute Code(s): K72.90 - HEPATIC FAILURE, UNSPECIFIED WITHOUT COMA SNOMED Code(s): 21040274 (8) H/O ETOH abuse Current Visit: Yes Status: Acute Code(s): F10.11 - ALCOHOL ABUSE, IN REMISSION SNOMED Code(s): 782316478 (9) Portal hypertensive gastropathy Current Visit: Yes Status: Acute Code(s): K76.6 - PORTAL HYPERTENSION; K31.89 - OTHER DISEASES OF STOMACH AND DUODENUM SNOMED Code(s): 188571523 (10) Acute GI bleeding Current Visit: Yes Status: Acute Code(s): K92.2 - GASTROINTESTINAL HEMORRHAGE, UNSPECIFIED SNOMED Code(s): 70476343 (11) Acute blood loss anemia Current Visit: Yes Status: Acute Code(s): D62 - ACUTE POSTHEMORRHAGIC ANEMIA SNOMED Code(s): 824098591 (12) Leukocytosis Current Visit: Yes Status: Acute Code(s): D72.829 - ELEVATED WHITE BLOOD CELL COUNT, UNSPECIFIED SNOMED Code(s): 950876529 Plan: 1. Case was discussed with flight engineer inspector will start Aldactone 50 mg twice a day. Continue with maintenance medications. PT OT. We'll continue to follow. Daily PT/INR CMP CBC. GI prophylaxis. Assessment and plan a care discussed with Dr. Daley
--- NOTE | 2018-09-08 11:19 | P.PN ---
Subjective Patient is seen in follow-up for acute kidney injury. Patient's creatinine on 08/07/2018 was 1 and was elevated at 7.94 this admission. It is 4.07 today. Urine output 790 cc in the last 24 hours. Patient has history of alcohol induced liver cirrhosis. Patient had paracentesis done on September 02 with 7.6 L drained. He did receive a total of 75 g of albumin. Patient's hemoglobin was also 5.8 this admission for which he received blood transfusions as well as DDAVP. Another paracentesis done 09/07/18 - 4.8 L drained - received 50 g of albumin . On NS at 70 cc/hr - non-oliguric. Vital signs are stable. General: The patient appeared well nourished and normally developed. Lethargic. HEENT: Head exam is unremarkable. Neck is without jugular venous distension. LUNGS: Lungs are clear to auscultation and percussion. Breath sounds decreased. HEART: Rate and Rhythm are regular. First and second heart sounds normal. No murmurs, rubs or gallops. ABDOMEN: Bowel sounds decreased. Distention noted. EXTREMITITES: Trace edema. Objective - Vital Signs Vital signs: Vital Signs Temp 97.9 F 09/07/18 18:00 Pulse 59 L 09/08/18 08:00 Resp 12 09/08/18 08:00 BP 124/63 09/08/18 08:00 Pulse Ox 98 09/08/18 08:00 Intake & Output 09/07/18 09/08/18 09/08/18 18:59 06:59 18:59 Intake Total 1430 1320 280 Output Total 5275 560 300 Balance -3845 760 -20 Weight 83.1 kg Intake: IV 980 840 280 KVO 980 Sodium Chloride 0.9% 1, 840 280 000 ml @ 70 mls/hr IV . [id number] [facility] Rx#:[id number] Oral 450 480 Blood Product 0 Ffp 24 Cpd Unit 0 [id number] Output: Urine 475 560 300 Other 4800 Other: Voiding Method Indwelling Catheter Indwelling Catheter Indwelling Catheter - Labs CBC & Chem 7: 09/08/18 05:01 09/08/18 05:01 Labs: Abnormal Lab Results - Last 24 Hours (Table) 09/07/18 09/07/18 09/07/18 Range/Units 12:04 18:05 23:58 WBC (3.8-10.6) k/uL RBC (4.30-5.90) m/uL Hgb (13.0-17.5) gm/dL Hct (39.0-53.0) % MCV (80.0-100.0) fL RDW (11.5-15.5) % Plt Count (150-450) k/uL Neutrophils # (Manual) (1.3-7.7) k/uL Monocytes # (Manual) (0-1.0) k/uL PT (9.0-12.0) sec INR (<1.2) BUN (9-20) mg/dL Creatinine (0.66-1.25) mg/dL Glucose (74-99) mg/dL POC Glucose (mg/dL) 242 H 202 H 203 H (75-99) mg/dL Calcium (8.4-10.2) mg/dL Total Bilirubin (0.2-1.3) mg/dL AST (17-59) U/L Albumin (3.5-5.0) g/dL 09/08/18 09/08/18 09/08/18 Range/Units 05:01 05:01 05:01 WBC 27.9 H (3.8-10.6) k/uL RBC 3.05 L (4.30-5.90) m/uL Hgb 10.2 L (13.0-17.5) gm/dL Hct 31.6 L (39.0-53.0) % MCV 103.7 H (80.0-100.0) fL RDW 17.7 H (11.5-15.5) % Plt Count 69 L (150-450) k/uL Neutrophils # (Manual) 25.11 H (1.3-7.7) k/uL Monocytes # (Manual) 1.12 H (0-1.0) k/uL PT 19.7 H (9.0-12.0) sec INR 2.0 H (<1.2) BUN 99 H (9-20) mg/dL Creatinine 3.37 H (0.66-1.25) mg/dL Glucose 143 H (74-99) mg/dL POC Glucose (mg/dL) (75-99) mg/dL Calcium 7.8 L (8.4-10.2) mg/dL Total Bilirubin 11.4 H (0.2-1.3) mg/dL AST 114 H (17-59) U/L Albumin 2.8 L (3.5-5.0) g/dL 09/08/18 Range/Units 06:28 WBC (3.8-10.6) k/uL RBC (4.30-5.90) m/uL Hgb (13.0-17.5) gm/dL Hct (39.0-53.0) % MCV (80.0-100.0) fL RDW (11.5-15.5) % Plt Count (150-450) k/uL Neutrophils # (Manual) (1.3-7.7) k/uL Monocytes # (Manual) (0-1.0) k/uL PT (9.0-12.0) sec INR (<1.2) BUN (9-20) mg/dL Creatinine (0.66-1.25) mg/dL Glucose (74-99) mg/dL POC Glucose (mg/dL) 158 H (75-99) mg/dL Calcium (8.4-10.2) mg/dL Total Bilirubin (0.2-1.3) mg/dL AST (17-59) U/L Albumin (3.5-5.0) g/dL Microbiology - Last 24 Hours (Table) 09/01/18 21:40 Blood Culture - Final Blood No Growth after 144 hours 09/01/18 21:26 Blood Culture - Final Blood No Growth after 144 hours Assessment and Plan Plan: Assessment: 1. Acute kidney injury. Initially prerenal in nature secondary to hypotension, acute anemia and poor oral intake. Now hepatorenal syndrome. Creatinine was 7.94 on admission and did down to 3.37 today. Baseline creatinine is near 1. UA from last month reveals no protein. No evidence of hydronephrosis noted on renal ultrasound. 2 . Metabolic acidosis secondary to acute kidney injury s/p bicarb drip. Resolved. 3. Acute blood loss anemia status post 2 units of blood transfusion. Maintained on Sandostatin as well as PPI. Status post IV DDAVP on September 02. 4. Alcohol induced liver cirrhosis. 5. Hepatic encephalopathy. Better. 6. Ascites. Status post paracentesis on September 02 with 7.6 L drained; 4.8 L drained on 09/07/18. 7. Hypokalemia secondary to intracellular shifting from IV bicarb and poor oral intake. Better. Plan: Maintain management for hepatorenal syndrome including midodrine and Sandostatin. Advance diet per GI recommendations. No urgent need for renal replacement therapy at this time. Strict is and os. Start aldactone 50 mg bid.
[2018-09-08 12:27] LABS: Glucose,Whole Blood 237 mg/dL (75-99)
[2018-09-08] MEDS: SPIRONOLACTONE 25 MG TAB PO SCH ×2 (12:45→22:28)
[2018-09-08] MEDS: SODIUM CHLORIDE 0.9% 1,000 ML IV SCH (12:47)
--- NOTE | 2018-09-08 14:21 | P.PN ---
Subjective Progress Note Date: 09/08/18 Principal diagnosis: Decompensated alcoholic cirrhosis, hepatic encephalopathy, portal hypertensive gastropathy. On 09/06/2018, patient is resting in bed, denies any complaints, denies any shortness of breath no cough no wheezing, his abdomen seems to be getting more and more distended, remains on a combination of lactulose and Xifaxan, remains on clear liquid diet, no further episodes of GI bleeding, no melena, no hematemesis, no hematochezia, my understanding and the patient may undergo another paracentesis since the abdominal distention seems to be getting worse. Labs continued to show leukocytosis with WBC count of 23.7, INR is 2.1, BUN is 111 and creatinine is 3.95, both are improving slowly. Ammonia level was not done today. But was trending down yesterday. Reevaluated today on 09/07/2018, patient remains in the intensive care unit, he is now an overflow, and he underwent paracentesis today. 4.8 L of straw-colored fluid was removed by interventional radiology, patient is feeling better, he is hemodynamically stable, and he is showing improvement in his hepatic encephalopathy, ammonia level is significantly improved down to 33 today. Renal profile continues to show BUN of 107 creatinine 4.07. His CBC is relatively unremarkable platelets remained low at 75. And his hemoglobin is 8.5, WBC count is 23.0 INR is 1.9. Reevaluated today on 09/08/2018, patient remains as an overflow in the ICU, feeling better, breathing easier, mental status is gradually improving with the improvement in his ammonia level. No active bleeding, no bloody bowel movemen ts, patient denies any abdominal pain, his white count remains elevated at 27.9, INR is 2.0, ammonia level today is 28. Objective - Vital Signs Vital signs: Vital Signs Temp 97.9 F 09/07/18 18:00 Pulse 59 L 09/08/18 08:00 Resp 12 09/08/18 08:00 BP 124/63 09/08/18 08:00 Pulse Ox 98 09/08/18 08:00 Intake & Output 09/07/18 09/08/18 09/08/18 18:59 06:59 18:59 Intake Total 1430 1320 280 Output Total 5275 560 300 Balance -3845 760 -20 Weight 83.1 kg Intake: IV 980 840 280 KVO 980 Sodium Chloride 0.9% 1, 840 280 000 ml @ 70 mls/hr IV . [id number] [facility] Rx#:[id number] Oral 450 480 Blood Product 0 Ffp 24 Cpd Unit 0 [id number] Output: Urine 475 560 300 Other 4800 Other: Voiding Method Indwelling Catheter Indwelling Catheter Indwelling Catheter - Exam Physical exam revealed a 58-year-old white male, in no distress. HEAD: Normocephalic/atraumatic. EYES: PERRLA, EOMI, positive icterus. NOSE: Clear with pink turbinates. THROAT: No erythema or exudates. NECK: No masses, no JVD, no thyroid enlargement, no adenopathy. CHEST: No chest wall deformity. Symmetrical expansion. LUNGS: Equal air entry with no crackles, wheeze, rhonchi or dullness. CVS: Regular rate and rhythm, normal S1 and S2, no gallops, no murmurs, no rubs ABDOMEN: Soft, nontender, soft. No hepatosplenomegaly, normal bowel sounds, no guarding or rigidity. The patient also has an umbilical hernia which is easily reducible. Positive ascites is noted EXTREMITIES: No clubbing, no edema, no cyanosis, 2+ pulses and upper and lower extremities. MUSCULOSKELETAL: Muscle strength and tone normal. SKIN: No rashes CENTRAL NERVOUS SYSTEM: Awake, alert, oriented 3. - Labs CBC & Chem 7: 09/08/18 05:01 09/08/18 05:01 Labs: Abnormal Lab Results - Last 24 Hours (Table) 09/07/18 09/07/18 09/08/18 Range/Units 18:05 23:58 05:01 WBC 27.9 H (3.8-10.6) k/uL RBC 3.05 L (4.30-5.90) m/uL Hgb 10.2 L (13.0-17.5) gm/dL Hct 31.6 L (39.0-53.0) % MCV 103.7 H (80.0-100.0) fL RDW 17.7 H (11.5-15.5) % Plt Count 69 L (150-450) k/uL Neutrophils # (Manual) 25.11 H (1.3-7.7) k/uL Monocytes # (Manual) 1.12 H (0-1.0) k/uL PT (9.0-12.0) sec INR (<1.2) BUN (9-20) mg/dL Creatinine (0.66-1.25) mg/dL Glucose (74-99) mg/dL POC Glucose (mg/dL) 202 H 203 H (75-99) mg/dL Calcium (8.4-10.2) mg/dL Total Bilirubin (0.2-1.3) mg/dL AST (17-59) U/L Albumin (3.5-5.0) g/dL 09/08/18 09/08/18 09/08/18 Range/Units 05:01 05:01 06:28 WBC (3.8-10.6) k/uL RBC (4.30-5.90) m/uL Hgb (13.0-17.5) gm/dL Hct (39.0-53.0) % MCV (80.0-100.0) fL RDW (11.5-15.5) % Plt Count (150-450) k/uL Neutrophils # (Manual) (1.3-7.7) k/uL Monocytes # (Manual) (0-1.0) k/uL PT 19.7 H (9.0-12.0) sec INR 2.0 H (<1.2) BUN 99 H (9-20) mg/dL Creatinine 3.37 H (0.66-1.25) mg/dL Glucose 143 H (74-99) mg/dL POC Glucose (mg/dL) 158 H (75-99) mg/dL Calcium 7.8 L (8.4-10.2) mg/dL Total Bilirubin 11.4 H (0.2-1.3) mg/dL AST 114 H (17-59) U/L Albumin 2.8 L (3.5-5.0) g/dL 09/08/18 Range/Units 12:23 WBC (3.8-10.6) k/uL RBC (4.30-5.90) m/uL Hgb (13.0-17.5) gm/dL Hct (39.0-53.0) % MCV (80.0-100.0) fL RDW (11.5-15.5) % Plt Count (150-450) k/uL Neutrophils # (Manual) (1.3-7.7) k/uL Monocytes # (Manual) (0-1.0) k/uL PT (9.0-12.0) sec INR (<1.2) BUN (9-20) mg/dL Creatinine (0.66-1.25) mg/dL Glucose (74-99) mg/dL POC Glucose (mg/dL) 237 H (75-99) mg/dL Calcium (8.4-10.2) mg/dL Total Bilirubin (0.2-1.3) mg/dL AST (17-59) U/L Albumin (3.5-5.0) g/dL Microbiology - Last 24 Hours (Table) 09/01/18 21:40 Blood Culture - Final Blood No Growth after 144 hours 09/01/18 21:26 Blood Culture - Final Blood No Growth after 144 hours Assessment and Plan Assessment: Impression: Acute GI blood loss anemia and portal hypertensive gastropathy with coagulopathy secondary to liver cirrhosis. Alcoholic liver cirrhosis with ascites, hyperammonemia, status post paracentesis. Acute hepatic encephalopathy improving with improving ammonia level Acute kidney injury improving with IV fluids and with paracentesis. History of pancreatitis and GI bleeding, no documented varices on previous EGD. Benign essential hypertension Hyperlipidemia. Recommendation: Continue present supportive care measures, Continue empiric antibiotics. Continue Protonix. Continue midodrine. Continue lactulose. Overall, the patient has made a significant improvement over the last few days, hence we'll continue present supportive care measures. Agree with adding Aldactone, will see the patient on when necessary basis Time with Patient: Less than 30
--- NOTE | 2018-09-08 16:02 | P.PN ---
Progress Note - Text Progress Note Date: 09/08/18 Presenting complaint: Intermittently confused Interval history: This is a pleasant 58-year-old patient of Dr. Wills. Patient has a known history of GERD hypertension hyperlipidemia, alcohol liver disease portal hypertension and hepatic coagulopathy thrombocytopenia severe portal hypertensive gastropathy was admitted with dark stools. Status post EGD. Also acute renal failure from hypertension and hepatorenal syndrome. Status post large volume paracentesis of 7.6 L and repeat 4.8 L Today-remains in the ICU. Getting fluids at 50 mL an hour. Aldactone was added. Intermittently confused. at the bedside. Having bowel movements. Review of systems: Was done for constitutional, cardiovascular, GI, pulmonary. relevant finding as above Active Medications Ceftriaxone Sodium 2 gm/ (Sodium Chloride) 50 mls @ 100 mls/hr IVPB Q24HR [facility] Last Admin: 09/08/18 08:35 Dose: 100 mls/hr Documented by: Sodium Chloride (Saline 0.9%) 1,000 mls @ 50 mls/hr IV .Q20H [facility] Last Admin: 09/08/18 12:47 Dose: 50 mls/hr Documented by: Insulin Aspart (Novolog) 0 unit SQ Q6H [facility]; Protocol Last Admin: 09/08/18 12:44 Dose: 3 unit Documented by: Lactulose (Cephulac) 20 gm PO TID [facility] Last Admin: 09/08/18 08:36 Dose: 20 gm Documented by: Methylprednisolone Sodium Succinate (Solu-Medrol) 32 mg IV DAILY [facility] Last Admin: 09/08/18 08:36 Dose: 32 mg Documented by: Metoprolol Tartrate (Lopressor) 12.5 mg PO BID [facility] Last Admin: 09/08/18 09:38 Dose: 12.5 mg Documented by: Midodrine (Proamatine) 10 mg PO AC-TID [facility] Last Admin: 09/08/18 12:45 Dose: 10 mg Documented by: Octreotide Acetate (Sandostatin) 100 mcg SQ Q8HR [facility] Last Admin: 09/08/18 08:35 Dose: 100 mcg Documented by: Ondansetron HCl (Zofran) 4 mg IVP Q6HR PRN PRN Reason: Nausea And Vomiting Last Admin: 09/07/18 08:43 Dose: 4 mg Documented by: Pantoprazole Sodium (Protonix) 40 mg IVP BID [facility] Last Admin: 09/08/18 08:37 Dose: 40 mg Documented by: Potassium Chloride (K-Dur 20) 20 meq PO DAILY [facility] Last Admin: 09/08/18 08:37 Dose: 20 meq Documented by: Rifaximin (Xifaxan) 550 mg PO BID [facility] Stop: 10/03/18 11:01 Last Admin: 09/08/18 08:38 Dose: 550 mg Documented by: Spironolactone (Aldactone) 50 mg PO BID [facility] Last Admin: 09/08/18 12:45 Dose: 50 mg Documented by: Thiamine HCl (Vitamin B-1) 100 mg PO BID-W/MEALS [facility] Last Admin: 09/08/18 06:32 Dose: 100 mg Documented by: Physical examination: VITAL SIGNS: 59, 12, 132/90, 96% room air GENERAL: Laying bed awake, lethargic EYES: Pupils equal. Conjunctiva icterus HEENT: External appearance of nose and ears normal, oral cavity grossly normal. NECK: JVD not raised; masses not palpable. HEART: First and second heart sounds are normal; minimal edema LUNGS: Respiratory rate increased, decreased breath sounds. ABDOMEN: Soft, less distended, nontender, liver spleen not palpable, no masses palpable. PSYCH: Tired lethargic but able to answer questions. DERMATOLOGICAL:. Extensive bruising on both upper extremities on the forearm. INVESTIGATIONS, reviewed in the clinical context: White count 27.9 hemoglobin 10.2 which is 69 potassium 4.4 creatinine 3.37 Assessment: - severe alcohol liver disease -Acute GI bleed -Acute severe anemia symptomatic from blood loss, requiring blood transfusion -Secondary Portal hypertension -Hepatic coagulopathy -Thrombocytopenia from chronic alcoholism -Metabolic acidosis -Severe portal hypertensive gastropathy. -Hepatic encephalopathy, slow to respond -Severe hyper bilirubinemia -Acute renal failure combination of hypotension and hepatorenal syndrome, slow to respond -Tense ascites, status post large volume paracentesis 7.6 L followed by repeat paracentesis of 4.8 L Plan: Remains on normal saline at 50 mL an hour. Aldactone was added. We'll DC IV Solu-Medrol and switched to by mouth prednisone. Patient still was stable to go down to rehab. Prognosis remains guarded. Spoke to the nurse to sit of the patient more often. to sit him up at the edge of the bed.
[2018-09-08 17:07] LABS: Glucose,Whole Blood 166 mg/dL (75-99)
[2018-09-08 21:54] LABS: Glucose,Whole Blood 287 mg/dL (75-99)
[2018-09-09 06:57] LABS: Glucose,Whole Blood 200 mg/dL (75-99)
[2018-09-09] MEDS: MIDODRINE 5 MG TAB PO SCH ×3 (07:04→17:34)
[2018-09-09] MEDS: INSULIN ASPART (NovoLOG) 100 UNIT/ML VIAL SQ SCH ×4 (07:04→22:20)
[2018-09-09] MEDS: THIAMINE 100 MG TAB PO SCH ×2 (07:04→17:47)
[2018-09-09] MEDS: POTASSIUM CHLORIDE ER 20 MEQ TAB.ER PO SCH (09:09)
[2018-09-09] MEDS: predniSONE 20 MG TAB PO SCH (09:09)
[2018-09-09] MEDS: METOPROLOL TARTRATE 12.5 MG TAB PO SCH ×2 (09:09→22:20)
[2018-09-09] MEDS: PANTOPRAZOLE 40 MG/10 ML VIAL IVP SCH ×2 (09:09→22:20)
[2018-09-09] MEDS: LACTULOSE 20 GM/30 ML CUP PO SCH ×3 (09:09→22:21)
[2018-09-09] MEDS: SPIRONOLACTONE 25 MG TAB PO SCH ×2 (09:10→22:20)
[2018-09-09] MEDS: SODIUM CHLORIDE 0.9% 1,000 ML IV SCH ×3 (09:10→17:40)
[2018-09-09] MEDS: RIFAXIMIN 550 MG TABLET PO SCH ×2 (09:10→22:22)
--- NOTE | 2018-09-09 10:24 | P.PN ---
Subjective Patient is seen in follow-up for acute kidney injury. Patient's creatinine on 08/07/2018 was 1 and was elevated at 7.94 this admission. It was 3.37 as of yesterday. Urine output 1.6 L in the last 24 hours. Patient has history of alcohol induced liver cirrhosis. Patient had paracentesis done on September 02 with 7.6 L drained. He did receive a total of 75 g of albumin. Patient's hemoglobin was also 5.8 this admission for which he received blood transfusions as well as DDAVP. Another paracentesis done 09/07/18 - 4.8 L drained - received 50 g of albumin. Aldactone was started September 08. Vital signs are stable. General: The patient appeared well nourished and normally developed. Lethargic. HEENT: Head exam is unremarkable. Neck is without jugular venous distension. LUNGS: Lungs are clear to auscultation and percussion. Breath sounds decreased. HEART: Rate and Rhythm are regular. First and second heart sounds normal. No murmurs, rubs or gallops. ABDOMEN: Bowel sounds decreased. Distention noted. EXTREMITITES: Trace edema. Objective - Vital Signs Vital signs: Vital Signs Temp 98.0 F 09/09/18 08:00 Pulse 66 09/09/18 08:00 Resp 14 09/09/18 08:00 BP 130/63 09/09/18 08:00 Pulse Ox 98 09/09/18 03:56 Intake & Output 09/08/18 09/09/18 09/09/18 18:59 06:59 18:59 Intake Total 480 809 Output Total 700 900 Balance -220 -91 Weight 92.6 kg Intake: IV 480 Sodium Chloride 0.9% 1, 480 000 ml @ 50 mls/hr IV . Q20H [facility] Rx#:[id number] Oral 480 Blood Product 329 Ffp 24 Cpd Unit 329 [id number] Output: Urine 700 900 Other: Voiding Method Indwelling Catheter Indwelling Catheter Indwelling Catheter # Voids 1 # Bowel Movements 1 - Labs CBC & Chem 7: 09/08/18 05:01 09/08/18 05:01 Labs: Abnormal Lab Results - Last 24 Hours (Table) 09/08/18 09/08/18 09/08/18 Range/Units 12:23 17:05 21:51 POC Glucose (mg/dL) 237 H 166 H 287 H (75-99) mg/dL 09/09/18 Range/Units 06:46 POC Glucose (mg/dL) 200 H (75-99) mg/dL Assessment and Plan Plan: Assessment: 1. Acute kidney injury. Initially prerenal in nature secondary to hypotension, acute anemia and poor oral intake. Now hepatorenal syndrome. Creatinine was 7.94 on admission and was down to 3.37 as of yesterday. Baseline creatinine is near 1. UA from last month reveals no protein. No evidence of hydronephrosis noted on renal ultrasound. 2 . Metabolic acidosis secondary to acute kidney injury s/p bicarb drip. Resolved. 3. Acute blood loss anemia status post 2 units of blood transfusion. Maintained on Sandostatin as well as PPI. Status post IV DDAVP on September 02. 4. Alcohol induced liver cirrhosis. 5. Hepatic encephalopathy. Better. 6. Ascites. Status post paracentesis on September 02 with 7.6 L drained; 4.8 L drained on 09/07/18. 7. Hypokalemia secondary to intracellular shifting from IV bicarb and poor oral intake. Better. Plan: Maintain management for hepatorenal syndrome including midodrine and Sandostatin. Advance diet per GI recommendations. No urgent need for renal replacement therapy at this time. Strict is and os. Maintain aldactone 50 mg bid. Hep-Lock IV fluids. Follow-up morning labs.
[2018-09-09] MEDS: OCTREOTIDE 100 MCG/ML INJ SQ SCH ×2 (10:41→17:34)
[2018-09-09 10:57] LABS: Calcium 7.7 mg/dL (8.4-10.2)
[2018-09-09 12:33] LABS: Glucose,Whole Blood 182 mg/dL (75-99)
--- NOTE | 2018-09-09 12:39 | P.PN ---
Progress Note - Text Progress Note Date: 09/09/18 Presenting complaint: Tired Interval history: This is a pleasant 58-year-old patient of Dr. Wills. Patient has a known history of GERD hypertension hyperlipidemia, alcohol liver disease portal hypertension and hepatic coagulopathy thrombocytopenia severe portal hypertensive gastropathy was admitted with dark stools. Status post EGD. Also acute renal failure from hypertension and hepatorenal syndrome. Status post large volume paracentesis of 7.6 L and repeat 4.8 L Today-overflow bed in the ICU. Did tolerate full liquids. Having bowel movements. A bit less lethargic. Was getting IV fluids at 50 mL an hour that have been further decreased. Hasn't been out of bed. Less confused Review of systems: Was done for constitutional, cardiovascular, GI, pulmonary. psychiatry relevant finding as above Active Medications Ceftriaxone Sodium 2 gm/ (Sodium Chloride) 50 mls @ 100 mls/hr IVPB Q24HR [facility] Last Admin: 09/09/18 09:08 Dose: 100 mls/hr Documented by: Sodium Chloride (Saline 0.9%) 1,000 mls @ 20 mls/hr IV .Q24H [facility] Last Admin: 09/09/18 10:41 Dose: 20 mls/hr Documented by: Insulin Aspart (Novolog) 0 unit SQ ACHS [facility]; Protocol Last Admin: 09/09/18 07:04 Dose: 2 unit Documented by: Lactulose (Cephulac) 20 gm PO TID [facility] Last Admin: 09/09/18 09:09 Dose: 20 gm Documented by: Metoprolol Tartrate (Lopressor) 12.5 mg PO BID [facility] Last Admin: 09/09/18 09:09 Dose: 12.5 mg Documented by: Midodrine (Proamatine) 10 mg PO AC-TID [facility] Last Admin: 09/09/18 07:04 Dose: 10 mg Documented by: Octreotide Acetate (Sandostatin) 100 mcg SQ Q8HR [facility] Last Admin: 09/09/18 10:41 Dose: 100 mcg Documented by: Ondansetron HCl (Zofran) 4 mg IVP Q6HR PRN PRN Reason: Nausea And Vomiting Last Admin: 09/07/18 08:43 Dose: 4 mg Documented by: Pantoprazole Sodium (Protonix) 40 mg IVP BID [facility] Last Admin: 09/09/18 09:09 Dose: 40 mg Documented by: Potassium Chloride (K-Dur 20) 20 meq PO DAILY [facility] Last Admin: 09/09/18 09:09 Dose: 20 meq Documented by: Prednisone () 40 mg PO DAILY [facility] Last Admin: 09/09/18 09:09 Dose: 40 mg Documented by: Rifaximin (Xifaxan) 550 mg PO BID [facility] Stop: 10/03/18 11:01 Last Admin: 09/09/18 09:10 Dose: 550 mg Documented by: Spironolactone (Aldactone) 50 mg PO BID [facility] Last Admin: 09/09/18 09:10 Dose: 50 mg Documented by: Thiamine HCl (Vitamin B-1) 100 mg PO BID-W/MEALS [facility] Last Admin: 09/09/18 07:04 Dose: 100 mg Documented by: Physical examination: VITAL SIGNS: 98, 66, 14, 130/63, 96% room air GENERAL: Laying bed awake, less lethargic EYES: Pupils equal. Conjunctiva icterus HEENT: External appearance of nose and ears normal, oral cavity grossly normal. NECK: JVD not raised; masses not palpable. HEART: First and second heart sounds are normal; minimal edema LUNGS: Respiratory rate increased, decreased breath sounds. ABDOMEN: Soft, less distended, nontender, liver spleen not palpable, no masses palpable. PSYCH: Tired lethargic but able to answer questions. DERMATOLOGICAL:. Extensive bruising on both upper extremities on the forearm. INVESTIGATIONS, reviewed in the clinical context: 191 creatinine 3.5 to Assessment: - severe alcohol liver disease -Acute GI bleed -Acute severe anemia symptomatic from blood loss, requiring blood transfusion -Secondary Portal hypertension -Hepatic coagulopathy -Thrombocytopenia from chronic alcoholism -Metabolic acidosis -Severe portal hypertensive gastropathy. -Hepatic encephalopathy, slow to respond -Severe hyper bilirubinemia -Acute renal failure combination of hypotension and hepatorenal syndrome, slow to respond -Tense ascites, status post large volume paracentesis 7.6 L followed by repeat paracentesis of 4.8 L Plan: Decrease IV fluids. Advance to soft bland diet. Spoke to the nurse to set him up in a chair. Looking at possible DC the ECF tomorrow
[2018-09-09 17:06] LABS: Glucose,Whole Blood 166 mg/dL (75-99)
[2018-09-09 20:44] LABS: Glucose,Whole Blood 167 mg/dL (75-99)
[2018-09-10] MEDS: SODIUM CHLORIDE 0.9% 1,000 ML IV SCH ×2 (00:19→21:40)
[2018-09-10] MEDS: OCTREOTIDE 100 MCG/ML INJ SQ SCH ×3 (00:20→15:05)
[2018-09-10 06:04] LABS: Anisocytosis Slight; HCT 30.4 % (39.0-53.0); HGB 9.8 gm/dL (13.0-17.5); INR 1.7 (<1.2); MCH 33.5 pg (25.0-35.0); MCHC 32.2 g/dL (31.0-37.0); MCV 104.3 fL (80.0-100.0); Macrocytosis Moderate; Mean Platelet Volume 8.8; Prothrombin Time 16.9 sec (9.0-12.0); RBC 2.92 m/uL (4.30-5.90); RDW 17.6 % (11.5-15.5)
[2018-09-10 06:10] LABS: Albumin 2.5 g/dL (3.5-5.0); Calcium 8.2 mg/dL (8.4-10.2); Potassium 4.9 mmol/L (3.5-5.1); Total Bilirubin 13.5 mg/dL (0.2-1.3); Total Protein 6.5 g/dL (6.3-8.2)
[2018-09-10 06:19] LABS: Platelet Count 84 k/uL (150-450)
[2018-09-10] MEDS ORDERED: FUROSEMIDE 10 MG/ML 10 ML VIAL IV STA (06:39)
[2018-09-10 06:40] LABS: Band Neutrophils % 1 %; Lymphocytes # (M) 1.04 k/uL (1.0-4.8); Monocytes # (M) 1.56 k/uL (0-1.0); Neutrophils % (M) 89 %; Nucleated Red Blood Cells 0 /100 WBC (0-0); Total Cells Counted 100
[2018-09-10] MEDS: MIDODRINE 5 MG TAB PO SCH ×3 (06:40→17:02)
[2018-09-10] MEDS: THIAMINE 100 MG TAB PO SCH ×2 (06:40→17:02)
[2018-09-10 06:44] LABS: Glucose,Whole Blood 152 mg/dL (75-99)
[2018-09-10] MEDS: INSULIN ASPART (NovoLOG) 100 UNIT/ML VIAL SQ SCH ×4 (06:50→21:39)
[2018-09-10] MEDS ORDERED: SODIUM CHLORIDE 0.9% 500 ML 250 ML IV ONE (07:03)
[2018-09-10] MEDS: ALBUMIN HUMAN 25% 50 ML in EMPTY BAG 1 BAG IVPB SCH ×2 (07:19→08:28)
[2018-09-10] MEDS: SPIRONOLACTONE 25 MG TAB PO SCH ×2 (08:30→21:39)
[2018-09-10] MEDS: RIFAXIMIN 550 MG TABLET PO SCH ×2 (08:30→21:41)
[2018-09-10] MEDS: predniSONE 20 MG TAB PO SCH (08:30)
[2018-09-10] MEDS: LACTULOSE 20 GM/30 ML CUP PO SCH ×3 (08:30→21:38)
[2018-09-10] MEDS: METOPROLOL TARTRATE 12.5 MG TAB PO SCH ×2 (08:30→21:39)
[2018-09-10] MEDS: POTASSIUM CHLORIDE ER 20 MEQ TAB.ER PO SCH (08:30)
[2018-09-10] MEDS: PANTOPRAZOLE 40 MG/10 ML VIAL IVP SCH ×2 (08:31→21:38)
--- NOTE | 2018-09-10 11:54 | P.PN ---
Subjective Progress Note Date: 09/10/18 Principal diagnosis: Decompensated alcohol liver disease, GI bleed, hepatic encephalopathy, ascites Per nursing no active bleeding. Status post EGD Dr. Camarillo during this hospital ization that showed severe portal hypertensive gastropathy. Presently denies abdominal pain. Afebrile. Creatinine increased 4.0. BUN 101. Nephrology following closely. INR improved 1.7. White count 26. Hemoglobin 9.8. Platelet 84,000. Sodium 135. LFTs total bilirubin 13.5. AST 102. ALT 62. AP 115. Ammonia 51. Receiving lactulose Xifaxan Aldactone and 1 dose of Lasix today. Protonix 40 mg twice daily. Tolerating regular diet. Objective - Vital Signs Vital signs: Vital Signs Temp 97.6 F 09/10/18 11:00 Pulse 66 09/10/18 11:00 Resp 16 09/10/18 11:00 BP 123/61 09/10/18 11:00 Pulse Ox 100 09/10/18 11:00 Intake & Output 09/09/18 09/10/18 09/10/18 18:59 06:59 18:59 Output Total 250 200 Balance -250 -200 Weight 92.6 kg Output: Urine 150 200 Coude 150 200 Stool 100 Other: Voiding Method Indwelling Catheter Indwelling Catheter Indwelling Catheter # Bowel Movements 1 1 - Exam General appearance: The patient is alert, oriented, in no acute distress. Jaundice. HET: Head is normocephalic and atraumatic. Pupils are equal and reactive. Oropharynx is clear without lesions. Sclerae icterus. Neck: Supple without lymphadenopathy. Trachea midline. Heart: S1 S2. Regular rate and rhythm. Lungs: No crackles or wheezes are heard. Abdomen: Soft, distended with mild ascites nontender with bowel sounds. No peritoneal signs. No palpable organomegaly or masses. Neurological: No focal deficits. Strength and sensation are grossly intact. - Labs CBC & Chem 7: 09/10/18 05:37 09/10/18 05:37 Labs: Abnormal Lab Results - Last 24 Hours (Table) 09/09/18 09/09/18 09/09/18 Range/Units 12:07 17:03 20:39 WBC (3.8-10.6) k/uL RBC (4.30-5.90) m/uL Hgb (13.0-17.5) gm/dL Hct (39.0-53.0) % MCV (80.0-100.0) fL RDW (11.5-15.5) % Plt Count (150-450) k/uL Neutrophils # (Manual) (1.3-7.7) k/uL Monocytes # (Manual) (0-1.0) k/uL PT (9.0-12.0) sec INR (<1.2) Sodium (137-145) mmol/L Carbon Dioxide (22-30) mmol/L BUN (9-20) mg/dL Creatinine (0.66-1.25) mg/dL Glucose (74-99) mg/dL POC Glucose (mg/dL) 182 H 166 H 167 H (75-99) mg/dL Calcium (8.4-10.2) mg/dL Total Bilirubin (0.2-1.3) mg/dL AST (17-59) U/L Ammonia (<30) umol/L Albumin (3.5-5.0) g/dL 09/10/18 09/10/18 09/10/18 Range/Units 05:37 05:37 05:37 WBC 26.0 H (3.8-10.6) k/uL RBC 2.92 L (4.30-5.90) m/uL Hgb 9.8 L (13.0-17.5) gm/dL Hct 30.4 L (39.0-53.0) % MCV 104.3 H (80.0-100.0) fL RDW 17.6 H (11.5-15.5) % Plt Count 84 L (150-450) k/uL Neutrophils # (Manual) 23.40 H (1.3-7.7) k/uL Monocytes # (Manual) 1.56 H (0-1.0) k/uL PT 16.9 H (9.0-12.0) sec INR 1.7 H (<1.2) Sodium 135 L (137-145) mmol/L Carbon Dioxide 21 L (22-30) mmol/L BUN 101 H* (9-20) mg/dL Creatinine 4.01 H (0.66-1.25) mg/dL Glucose 146 H (74-99) mg/dL POC Glucose (mg/dL) (75-99) mg/dL Calcium 8.2 L (8.4-10.2) mg/dL Total Bilirubin 13.5 H (0.2-1.3) mg/dL AST 102 H (17-59) U/L Ammonia (<30) umol/L Albumin 2.5 L (3.5-5.0) g/dL 09/10/18 09/10/18 Range/Units 05:37 06:42 WBC (3.8-10.6) k/uL RBC (4.30-5.90) m/uL Hgb (13.0-17.5) gm/dL Hct (39.0-53.0) % MCV (80.0-100.0) fL RDW (11.5-15.5) % Plt Count (150-450) k/uL Neutrophils # (Manual) (1.3-7.7) k/uL Monocytes # (Manual) (0-1.0) k/uL PT (9.0-12.0) sec INR (<1.2) Sodium (137-145) mmol/L Carbon Dioxide (22-30) mmol/L BUN (9-20) mg/dL Creatinine (0.66-1.25) mg/dL Glucose (74-99) mg/dL POC Glucose (mg/dL) 152 H (75-99) mg/dL Calcium (8.4-10.2) mg/dL Total Bilirubin (0.2-1.3) mg/dL AST (17-59) U/L Ammonia 51 H (<30) umol/L Albumin (3.5-5.0) g/dL Assessment and Plan (1) Decompensated hepatic cirrhosis Narrative/Plan: 58 [id number] gentleman with a history of alcohol abuse admitted with acute GI bleed acute blood loss anemia alcoholic hepatitis hepatic encephalopathy superimposed on decompensated alcohol liver disease with underlying portal hypertension and ascites. Possible spontaneous bacterial peritonitis cannot be excluded. EGD during this hospitalization reported severe portal hypertensive gastropathy Denies cannot be excluded presently on broad-spectrum antibiotics. Acute kidney injury underlying hepatorenal syndrome cannot be excluded nephrology following. Present meld score 35; 52% mortality. Current Visit: Yes Status: Acute Code(s): K72.90 - HEPATIC FAILURE, UNSPECIFIED WITHOUT COMA SNOMED Code(s): 443611140 (2) Acute alcoholic hepatitis Current Visit: Yes Status: Acute Code(s): K70.10 - ALCOHOLIC HEPATITIS WITHOUT ASCITES SNOMED Code(s): 5334577 (3) Portal hypertension Current Visit: Yes Status: Acute Code(s): K76.6 - PORTAL HYPERTENSION S NOMED Code(s): 40140106 (4) Coagulopathy Current Visit: Yes Status: Acute Code(s): D68.9 - COAGULATION DEFECT, UNSPECIFIED SNOMED Code(s): 11135426 (5) Thrombocytopenia Current Visit: Yes Status: Acute Code(s): D69.6 - THROMBOCYTOPENIA, UNSPECIFIED SNOMED Code(s): 058186922 (6) Acute kidney injury Narrative/Plan: Underlying hepatorenal syndrome cannot be excluded. Current Visit: Yes Status: Acute Code(s): N17.9 - ACUTE KIDNEY FAILURE, UNSPECIFIED SNOMED Code(s): 24010257 (7) Hepatic encephalopathy Current Visit: Yes Status: Acute Code(s): K72.90 - HEPATIC FAILURE, UNSPECIFIED WITHOUT COMA SNOMED Code(s): 47811812 (8) H/O ETOH abuse Current Visit: Yes Status: Acute Code(s): F10.11 - ALCOHOL ABUSE, IN REMISSION SNOMED Code(s): 967406654 (9) Portal hypertensive gastropathy Current Visit: Yes Status: Acute Code(s): K76.6 - PORTAL HYPERTENSION; K31.89 - OTHER DISEASES OF STOMACH AND DUODENUM SNOMED Code(s): 784480839 (10) Acute GI bleeding Current Visit: Yes Status: Acute Code(s): K92.2 - GASTROINTESTINAL HEMOR RHAGE, UNSPECIFIED SNOMED Code(s): 63098082 (11) Acute blood loss anemia Current Visit: Yes Status: Acute Code(s): D62 - ACUTE POSTHEMORRHAGIC ANEMIA SNOMED Code(s): 396739587 (12) Leukocytosis Current Visit: Yes Status: Acute Code(s): D72.829 - ELEVATED WHITE BLOOD CELL COUNT, UNSPECIFIED SNOMED Code(s): 336669323 Plan: 1. Continue with maintenance medications. PT OT. We'll continue to follow. Daily PT/INR CMP CBC. GI prophylaxis. Assessment and plan a care discussed with Dr. Daley
[2018-09-10 12:05] LABS: Glucose,Whole Blood 172 mg/dL (75-99)
--- NOTE | 2018-09-10 15:49 | PN ---
PROGRESS NOTE Patient is seen for followup for acute kidney injury. His renal function has worsened. Patient also had very minimal urine output overnight. He has been confused, according to nursing staff, and apparently his mentation is worse today. On examination this morning, blood pressure was 129/60, heart rate 68 per minute. Patient did open his eyes, but he did not communicate much. EXAMINATION OF THE HEART: S1 and S2. EXAMINATION OF LUNGS: Bilateral breath sounds are heard. ABDOMEN: Soft, non-tender. Examination of lower extremities shows no evidence of edema. SENIOR PRINCIPAL PROCESS ENGINEER is not examined in detail. Labs show sodium 135, potassium 4.9, BUN 101, serum creatinine 4.01, hemoglobin 9.8 g/dL. ASSESSMENT: 1. Acute kidney injury; hepatorenal syndrome versus acute tubular necrosis. Patient appears hypovolemic today. I will give him a fluid bolus. He has already received albumin and a dose of Lasix early this morning. If urine output does not pharmacy picking technician or if mentation continues to worsen, patient will need to start dialysis. 2. Chronic liver disease secondary to ethanol abuse. 3. Encephalopathy, partly hepatic versus uremic. 4. Portal hypertension, recurrent ascites, status post paracentesis. 5. Hypokalemia, status post replacement. 6. Acute blood loss anemia, status post packed red blood cell transfusions. Maintained on Sandostatin. PLAN: Hemodialysis today if mentation does not improve or if urine output does not improve. Bolus of 250 mL IV fluids x1 now. Repeat labs in morning. Overall prognosis is guarded. MMODL / IJN: [id number] /
[2018-09-10 16:45] LABS: Glucose,Whole Blood 179 mg/dL (75-99)
--- NOTE | 2018-09-10 19:32 | P.PN ---
Progress Note - Text Progress Note Date: 09/10/18 Presenting complaint: Tired Interval history: This is a pleasant 58-year-old patient of Dr. Wills. Patient has a known history of GERD hypertension hyperlipidemia, alcohol liver disease portal hypertension and hepatic coagulopathy thrombocytopenia severe portal hypertensive gastropathy was admitted with dark stools. Status post EGD. Also acute renal failure from hypertension and hepatorenal syndrome. Status post large volume paracentesis of 7.6 L and repeat 4.8 L Today-old the medical floor. Intermittently tired and lethargic. Earlier given a fluid bolus by Dr. Kirk. Decreased oral intake Review of systems: Was done for constitutional, cardiovascular, GI, pulmonary. psychiatry relevant finding as above Active Medications Sodium Chloride (Saline 0.9%) 1,000 mls @ 20 mls/hr IV .Q24H [facility] Last Admin: 09/10/18 00:19 Dose: Not Given Documented by: Insulin Aspart (Novolog) 0 unit SQ ACHS [facility]; Protocol Last Admin: 09/10/18 17:02 Dose: 2 unit Documented by: Lactulose (Cephulac) 20 gm PO TID [facility] Last Admin: 09/10/18 15:05 Dose: 20 gm Documented by: Metoprolol Tartrate (Lopressor) 12.5 mg PO BID [facility] Last Admin: 09/10/18 08:30 Dose: 12.5 mg Documented by: Midodrine (Proamatine) 10 mg PO AC-TID [facility] Last Admin: 09/10/18 17:02 Dose: 10 mg Documented by: Octreotide Acetate (Sandostatin) 100 mcg SQ Q8HR [facility] Last Admin: 09/10/18 15:05 Dose: 100 mcg Documented by: Ondansetron HCl (Zofran) 4 mg IVP Q6HR PRN PRN Reason: Nausea And Vomiting Last Admin: 09/07/18 08:43 Dose: 4 mg Documented by: Pantoprazole Sodium (Protonix) 40 mg IVP BID [facility] Last Admin: 09/10/18 08:31 Dose: 40 mg Documented by: Potassium Chloride (K-Dur 20) 20 meq PO DAILY [facility] Last Admin: 09/10/18 08:30 Dose: 20 meq Documented by: Prednisone () 40 mg PO DAILY [facility] Last Admin: 09/10/18 08:30 Dose: 40 mg Documented by: Rifaximin (Xifaxan) 550 mg PO BID [facility] Stop: 10/03/18 11:01 Last Admin: 09/10/18 08:30 Dose: 550 mg Documented by: Spironolactone (Aldactone) 50 mg PO BID [facility] Last Admin: 09/10/18 08:30 Dose: 50 mg Documented by: Thiamine HCl (Vitamin B-1) 100 mg PO BID-W/MEALS [facility] Last Admin: 09/10/18 17:02 Dose: 100 mg Documented by: Physical examination: VITAL SIGNS: 97.6, 66, 16, 1 23 x 61, 100% room air GENERAL: Laying in bed, more lethargic today EYES: Pupils equal. Conjunctiva icterus HEENT: External appearance of nose and ears normal, oral cavity grossly normal. NECK: JVD not raised; masses not palpable. HEART: First and second heart sounds are normal; minimal edema LUNGS: Respiratory rate increased, decreased breath sounds. ABDOMEN: Soft, less distended, nontender, liver spleen not palpable, no masses palpable. PSYCH: Tired lethargic answering some questions. DERMATOLOGICAL:. Extensive bruising on both upper extremities on the forearm. INVESTIGATIONS, reviewed in the clinical context: White count today 6 hemoglobin 9.8 platelets 84 potassium 4.9 Bun 101 creatinine 4.01 bilirubin 30.5 ammonia 51 Assessment: - severe alcohol liver disease -Acute GI bleed -Acute severe anemia symptomatic from blood loss, requiring blood transfusion -Secondary Portal hypertension -Hepatic coagulopathy -Thrombocytopenia from chronic alcoholism -Metabolic acidosis -Severe portal hypertensive gastropathy. -Hepatic encephalopathy, with some worsening today -Severe hyper bilirubinemia -Acute renal failure combination of hypotension and hepatorenal syndrome, with worsening -Tense ascites, status post large volume paracentesis 7.6 L followed by repeat paracentesis of 4.8 L -Severe hypoalbuminemia combination of mild protein calorie malnutrition and cirrhosis Plan: -Patient looks to be clinically worse today. Did get a fluid bolus earlier today. Discussed with Dr. Kirk. Possibly needs renal replacement therapy. Discharge of courses been held off. Renal replacement therapy may be commenced
[2018-09-10 20:44] LABS: Glucose,Whole Blood 171 mg/dL (75-99)
[2018-09-11] MEDS: OCTREOTIDE 100 MCG/ML INJ SQ SCH ×4 (00:55→23:00)
[2018-09-11 06:23] LABS: Glucose,Whole Blood 185 mg/dL (75-99)
[2018-09-11] MEDS: INSULIN ASPART (NovoLOG) 100 UNIT/ML VIAL SQ SCH ×4 (06:37→22:10)
[2018-09-11] MEDS: THIAMINE 100 MG TAB PO SCH ×2 (06:37→15:44)
[2018-09-11] MEDS: MIDODRINE 5 MG TAB PO SCH ×3 (06:37→15:44)
[2018-09-11 06:40] LABS: INR 1.9 (<1.2); Prothrombin Time 18.3 sec (9.0-12.0)
[2018-09-11 06:48] LABS: Albumin 2.6 g/dL (3.5-5.0); Calcium 8.4 mg/dL (8.4-10.2); Total Bilirubin 14.2 mg/dL (0.2-1.3); Total Protein 6.4 g/dL (6.3-8.2)
[2018-09-11 07:44] LABS: Anisocytosis Slight; Basophils # (A) 0.1 k/uL (0-0.2); Basophils % (A) 0 %; Eosinophils # (A) 0.1 k/uL (0-0.7); Eosinophils % (A) 0 %; HCT 31.1 % (39.0-53.0); Hypochromasia Slight; Lymphocytes # (A) 0.7 k/uL (1.0-4.8); Lymphocytes % (A) 3 %; MCH 34.2 pg (25.0-35.0); MCHC 32.1 g/dL (31.0-37.0); MCV 106.7 fL (80.0-100.0); Macrocytosis Marked; Mean Platelet Volume 9.8; Monocytes # (A) 1.2 k/uL (0-1.0); Monocytes % (A) 5 %; Neutrophils # (A) 20.8 k/uL (1.3-7.7); Neutrophils % (A) 89 %; RBC 2.92 m/uL (4.30-5.90); RDW 17.6 % (11.5-15.5); WBC 23.4 k/uL (3.8-10.6)
[2018-09-11 07:46] LABS: Platelet Count 73 k/uL (150-450)
[2018-09-11 08:41] LABS: Crenated RBC Present; Poikilocytosis (M) Present
[2018-09-11] MEDS ORDERED: SODIUM CHLORIDE 0.9% 500 ML 500 ML IV ONE (09:28)
[2018-09-11] MEDS ORDERED: SODIUM CHLORIDE 0.9% 250 ML IV ONE (09:28)
[2018-09-11] MEDS ORDERED: SODIUM CHLORIDE 0.9% 500 ML IV ONE (09:28)
[2018-09-11] MEDS ORDERED: fentaNYL (PF) 50 MCG/ML 2 ML AMP IV ONE (09:38)
[2018-09-11] MEDS ORDERED: LIDOCAINE 1% INJ 10MG/ML (20 ML MDV) SQ ONE ×2 (09:39→09:44)
[2018-09-11 11:36] LABS: Glucose,Whole Blood 156 mg/dL (75-99)
--- NOTE | 2018-09-11 11:37 | XR ---
EXAMINATION TYPE: XR chest 1V portable DATE OF EXAM: 09/11/2018 HISTORY: Post dialysis cath R chest. REFERENCE: Previous study dated 09/01/2018. FINDINGS: There is been interval placement of a large-bore, double-lumen catheter via a right interna l jugular approach. Its tip is within the right atrium. I do not see evidence of pneumothorax. Lungs appear clear. Pleural spaces are clear. The heart is enlarged. IMPRESSION: NO SIGNIFICANT POST CATHETER INSERTION COMPLICATION.
--- NOTE | 2018-09-11 14:26 | P.PN ---
Progress Note - Text Progress Note Date: 09/11/18 Presenting complaint: Tired Interval history: This is a pleasant 58-year-old patient of Dr. Wills. Patient has a known history of GERD hypertension hyperlipidemia, alcohol liver disease portal hypertension and hepatic coagulopathy thrombocytopenia severe portal hypertensive gastropathy was admitted with dark stools. Status post EGD. Also acute renal failure from hypertension and hepatorenal syndrome. Status post large volume paracentesis of 7.6 L and repeat 4.8 L Today-had a dialysis catheter placed this morning. Getting hemodialysis currently. Tired lethargic. Review of systems: Was done for constitutional, cardiovascular, GI, pulmonary. psychiatry relevant finding as above Active Medications Sodium Chloride (Saline 0.9%) 1,000 mls @ 20 mls/hr IV .Q24H [facility] Last Admin: 09/10/18 21:40 Dose: 20 mls/hr Documented by: Insulin Aspart (Novolog) 0 unit SQ ACHS [facility]; Protocol Last Admin: 09/11/18 12:19 Dose: Not Given Documented by: Lactulose (Cephulac) 20 gm PO TID [facility] Last Admin: 09/10/18 21:38 Dose: 20 gm Documented by: Metoprolol Tartrate (Lopressor) 12.5 mg PO BID [facility] Last Admin: 09/10/18 21:39 Dose: 12.5 mg Documented by: Midodrine (Proamatine) 10 mg PO AC-TID [facility] Last Admin: 09/11/18 12:19 Dose: 10 mg Documented by: Octreotide Acetate (Sandostatin) 100 mcg SQ Q8HR [facility] Last Admin: 09/11/18 00:55 Dose: 100 mcg Documented by: Ondansetron HCl (Zofran) 4 mg IVP Q6HR PRN PRN Reason: Nausea And Vomiting Last Admin: 09/07/18 08:43 Dose: 4 mg Documented by: Pantoprazole Sodium (Protonix) 40 mg IVP BID [facility] Last Admin: 09/10/18 21:38 Dose: 40 mg Documented by: Potassium Chloride (K-Dur 20) 20 meq PO DAILY [facility] Last Admin: 09/10/18 08:30 Dose: 20 meq Documented by: Prednisone () 40 mg PO DAILY [facility] Last Admin: 09/10/18 08:30 Dose: 40 mg Documented by: Rifaximin (Xifaxan) 550 mg PO BID [facility] Stop: 10/03/18 11:01 Last Admin: 09/10/18 21:41 Dose: 550 mg Documented by: Spironolactone (Aldactone) 50 mg PO BID [facility] Last Admin: 09/10/18 21:39 Dose: 50 mg Documented by: Thiamine HCl (Vitamin B-1) 100 mg PO BID-W/MEALS [facility] Last Admin: 09/11/18 06:37 Dose: 100 mg Documented by: Physical examination: VITAL SIGNS: 97.9, 69, 18, 1 27 x 73, 100% room air GENERAL: Laying in bed, tired appearing EYES: Pupils equal. Conjunctiva icterus HEENT: External appearance of nose and ears normal, oral cavity grossly normal. NECK: JVD not raised; masses not palpable. HEART: First and second heart sounds are normal; minimal edema LUNGS: Respiratory rate increased, decreased breath sounds. ABDOMEN: Soft, less distended, nontender, liver spleen not palpable, no masses palpable. PSYCH: Tired lethargic answering some questions. DERMATOLOGICAL:. Extensive bruising on both upper extremities on the forearm. Chest wall-right upper chest dialysis catheter INVESTIGATIONS, reviewed in the clinical context: Laboratory Tests 09/11/18 09/11/18 06:14 06:14 WBC 23.4 H Hgb 10.0 L Plt Count 73 L BUN 102 H* Creatinine 4.38 H Total Bilirubin 14.2 H Assessment: - severe alcohol liver disease -Acute GI bleed -Acute severe anemia symptomatic from blood loss, requiring blood transfusion -Secondary Portal hypertension -Hepatic coagulopathy -Thrombocytopenia from chronic alcoholism -Metabolic acidosis -Severe portal hypertensive gastropathy. -Hepatic encephalopathy, with some worsening today -Severe hyper bilirubinemia -Acute renal failure combination of hypotension and hepatorenal syndrome, with worsening, started on renal replacement therapy -Tense ascites, status post large volume paracentesis 7.6 L followed by repeat paracentesis of 4.8 L -Severe hypoalbuminemia combination of mild protein calorie malnutrition and cirrhosis Plan: Had a dialysis cath placed today started on renal replacement therapy. We'll se e how he does. Prognosis guarded.
--- NOTE | 2018-09-11 15:12 | IR ---
EXAMINATION TYPE: IR cvc insert central tunneled DATE OF EXAM: 09/11/2018 CLINICAL HISTORY: Failed dialysis. TECHNIQUE: Fluoroscopy. COMPARISON: None. FINDINGS: Fluoroscopic guidance was provided during right internal jugular dialysis catheter inserti on procedure performed by Dr. Hamm. A total of 0.4 minutes of fluoroscopic time was utilized duri ng the procedure and 2 cine runs are acquired. Images acquired show advancement of guidewire and subs equent placement of large bore dialysis catheter through right internal jugular vein terminating SVC. IMPRESSION: As Above.
[2018-09-11] MEDS: predniSONE 20 MG TAB PO SCH (15:40)
[2018-09-11] MEDS: SPIRONOLACTONE 25 MG TAB PO SCH ×2 (15:40→22:08)
[2018-09-11] MEDS: RIFAXIMIN 550 MG TABLET PO SCH ×2 (15:41→22:08)
[2018-09-11] MEDS: LACTULOSE 20 GM/30 ML CUP PO SCH ×3 (15:41→22:10)
[2018-09-11] MEDS: PANTOPRAZOLE 40 MG/10 ML VIAL IVP SCH ×2 (15:41→22:10)
[2018-09-11] MEDS: METOPROLOL TARTRATE 12.5 MG TAB PO SCH ×2 (15:41→22:08)
[2018-09-11] MEDS: SODIUM CHLORIDE 0.9% 1,000 ML IV SCH ×2 (15:42→23:05)
[2018-09-11] MEDS: POTASSIUM CHLORIDE ER 20 MEQ TAB.ER PO SCH (15:42)
--- NOTE | 2018-09-11 15:50 | PN ---
PROGRESS NOTE The patient is seen for followup for acute kidney injury and hepatorenal syndrome. He was oliguric yesterday. However, patient did respond to IV fluid bolus. Renal function continues to deteriorate. Urine output has dropped again overnight. This morning patient is sleepy but arousable. He is not able to communicate much. There are plans for hemodialysis today, the dialysis catheter will be placed at 9 o'clock this morning. PHYSICAL EXAMINATION: On examination, blood pressure this morning was 127/61, heart rate of 69 per minute. Patient is afebrile. Examination of the heart S1, S2. Examination of the lungs, bilateral breath sounds are heard. Abdomen is soft, nontender. Examination lower extremities shows no significant edema. CELERY PACKER exam shows patient is moving his extremities; however, he is not communicating much. LABS: Show hemoglobin 10.0, sodium 137, potassium 5.0, BUN 102, serum creatinine 4.38, total bilirubin 14.2. ASSESSMENT: 1. Acute kidney injury, oligoanuric secondary to hepatorenal syndrome versus ATN in view of deteriorating mentation and worsening renal function. Patient will be dialyzed today. We will repeat his dialysis again tomorrow. No significant ultrafiltration with hemodialysis. 2. Hyperbilirubinemia secondary to alcoholic liver disease. 3. Thrombocytopenia secondary to chronic liver disease/hypersplenism. 4. Metabolic acidosis secondary to renal failure. Expect improvement with dialysis. PLAN: Hemodialysis today as well as in a.m. No ultrafiltration with dialysis. MMODL / IJN: [id number] /
--- NOTE | 2018-09-11 16:35 | CONS ---
CONSULTATION This is a 58-year-old gentleman, history of hepatic vein syndrome. The patient also has a history of portal hypertension, hepatic encephalopathy. The patient's potassium is 4.9, BUN is 101 and creatinine is 401. Consulted for placement of a dialysis catheter. PHYSICAL EXAMINATION: Patient is seen. NECK: Supple. CHEST: Clear to auscultation. First and second sounds present. Abdomen is protuberant. No peritoneal signs noted. Femorals are 2 are 1+ bilaterally. No pitting edema. PLAN: Placement of the dialysis catheter. Risks and complications of bleeding, infection, thrombosis have been discussed. MMODL / IJN: [id number] /
--- NOTE | 2018-09-11 16:47 | OP ---
OPERATIVE REPORT PREOP DIAGNOSIS: Acute on chronic renal failure. PROCEDURE: Ultrasound-guided 23 cm dialysis catheter placed with right jugular approach. SEDATION TIME: 26 minutes. This patient was brought to the laborer wharf. Right side of the neck was shaved and prepped. 1% lidocaine infiltrated in the neck and chest area. Ultrasound-guided micropuncture into the right jugular vein. Micropuncture guidewire was passed and 4- Albanian dilator advanced on the top of the guidewire under fluoroscopy control. After that, we made incision of the chest wall. Tunnel was created. Through the tunnel we brought 23 cm dialysis catheter. After that we passed a regular guidewire which was parked in the inferior vena cava under fluoroscopy control. After the dilator was advanced, a sheath was advanced on the top of the guidewire. Through the sheath we introduced the dialysis catheter the tip of the catheter in superior vena cava and atrium. Catheter and sheath was removed, flushed with heparin saline and hep-locked and incision closed with Vicryl and nylon. Dressing applied. Patient tolerated the procedure well. MMODL / IJN: [id number] /
[2018-09-11 16:54] LABS: Glucose,Whole Blood 126 mg/dL (75-99)
[2018-09-11 20:35] LABS: Glucose,Whole Blood 151 mg/dL (75-99)
[2018-09-12 06:30] LABS: Glucose,Whole Blood 162 mg/dL (75-99)
[2018-09-12] MEDS: INSULIN ASPART (NovoLOG) 100 UNIT/ML VIAL SQ SCH ×4 (06:31→20:33)
[2018-09-12] MEDS: MIDODRINE 5 MG TAB PO SCH ×3 (06:31→17:18)
[2018-09-12] MEDS: THIAMINE 100 MG TAB PO SCH ×2 (06:32→17:18)
[2018-09-12] MEDS: LACTULOSE 20 GM/30 ML CUP PO SCH ×3 (08:24→22:41)
[2018-09-12] MEDS: RIFAXIMIN 550 MG TABLET PO SCH ×2 (08:25→20:22)
[2018-09-12] MEDS: OCTREOTIDE 100 MCG/ML INJ SQ SCH ×3 (08:25→22:41)
[2018-09-12] MEDS: SPIRONOLACTONE 25 MG TAB PO SCH ×2 (08:25→20:21)
[2018-09-12] MEDS: PANTOPRAZOLE 40 MG/10 ML VIAL IVP SCH ×2 (08:25→20:22)
[2018-09-12] MEDS: METOPROLOL TARTRATE 12.5 MG TAB PO SCH ×2 (08:25→20:39)
[2018-09-12] MEDS: predniSONE 20 MG TAB PO SCH (08:25)
[2018-09-12 10:31] LABS: Calcium 8.2 mg/dL (8.4-10.2); Potassium 4.9 mmol/L (3.5-5.1)
[2018-09-12] MEDS: POTASSIUM CHLORIDE ER 20 MEQ TAB.ER PO SCH (10:34)
--- NOTE | 2018-09-12 10:44 | PN ---
PROGRESS NOTE Patient is seen for followup for acute kidney injury. He had his first treatment of hemodialysis yesterday. The patient is doing better. His mentation seems to have improved. He will be dialyzed again today. The patient has not had any significant urine output. For 24 hours, he has had only 275 mL. PHYSICAL EXAMINATION: This morning, blood pressure was 118/62, heart rate 64 per minute, patient is afebrile. Examination of the heart S1, S2. Examination of the lungs, bilateral breath sounds are heard. Abdomen is soft, distended, nontender. Examination lower extremities shows no significant edema bilaterally. VOCATIONAL ADVISER exam shows patient is able to communicate slightly better today. He is moving all 4 extremities. LABS: Not available from today. ASSESSMENT: 1. Acute kidney injury, acute tubular necrosis versus hepatorenal syndrome. Currently, maintained on hemodialysis. Patient will have a second treatment today. 2. Chronic liver disease and portal hypertension secondary to alcoholic liver disease. 3. Severe hyperbilirubinemia from portal hypertension. 4. Metabolic acidosis. Expect improvement with dialysis. We can discontinue the sodium bicarb once the acidosis is improved with dialysis. PLAN: Repeat hemodialysis today and then again in a.m. Check labs today. MMODL / IJN: [id number] /
--- NOTE | 2018-09-12 11:26 | CONS ---
CONSULTATION DATE OF SERVICE: September 12, 2018. REQUESTING PHYSICIAN: Dr. Foreman. The patient is a white male with history of severe acute alcoholic hepatitis/alcoholic cirrhosis of the liver complicated with acute kidney injury and hepatorenal syndrome. He had a hemodialysis catheter placement yesterday and was started on dialysis. The patient continues to remain the same. He denies any symptoms. However, he appears to be somewhat lethargic. He had some breakfast this morning. He denies any abdominal pain. No nausea, vomiting. PHYSICAL EXAMINATION: Appears comfortable in no apparent distress. VITAL SIGNS: Stable. Blood pressure is 118/62, pulse rate 64, temperature 98.2. HEENT examination unremarkable. Conjunctivae pink. Sclerae deeply icteric. Oral cavity no lesions. NECK: No JVD or lymph node enlargement. Chest was clear to auscultation. HEART: Regular rate and rhythm. Abdomen slightly distended. There was mild ascites noted. EXTREMITIES: 2+ pedal edema. SKIN: No rashes noted. Multiple bruises noted on the upper extremities. NEUROLOGIC: Awake, alert to name but not to name and place. LABS: Available from today, but yesterday WBC was 23.4, hemoglobin 10, platelets 73. INR 1.9, T-bilirubin is 14.2, AST 88, ALT 60, alkaline phosphatase 61. Hepatitis serologies for A, B, and C are negative. IMPRESSION: 1. Severe acute alcoholic hepatitis superimposed on underlying liver cirrhosis and significant decompensated liver disease. 2. Acute kidney injury/hepatic renal syndrome. Nephrology following the patient closely. He was started on dialysis yesterday, status post dialysis catheter placement yesterday. 3. Coagulopathy secondary to acute alcoholic hepatitis. 4. Hepatic encephalopathy. RECOMMENDATIONS: 1. Continue with symptomatic and supportive care. 2. The patient already started on dialysis yesterday. 3. He is on oral lactulose and Xifaxan for hepatic encephalopathy. 4. Continue with IV Protonix 40 mg q.12 hours. 5. We will discuss with Dr. Foreman regarding discontinuing prednisone because of increased risk of infection in the current clinical setting. 6. We will follow with you closely during his hospital stay. Thank you for this consultation. MMODL / IJN: [id number] /
[2018-09-12 11:46] LABS: Glucose,Whole Blood 169 mg/dL (75-99)
--- NOTE | 2018-09-12 15:03 | P.PN ---
Progress Note - Text Progress Note Date: 09/12/18 Presenting complaint: Tired Interval history: This is a pleasant 58-year-old patient of Dr. Wills. Patient has a known history of GERD hypertension hyperlipidemia, alcohol liver disease portal hypertension and hepatic coagulopathy thrombocytopenia severe portal hypertensive gastropathy was admitted with dark stools. Status post EGD. Also acute renal failure from hypertension and hepatorenal syndrome. Status post large volume paracentesis of 7.6 L and repeat 4.8 L. Hemodialysis catheter was placed on September 11 and dialysis was started on the same day Today-patient again getting dialyzed today. Not much urine output. Still rather tired lethargic. Did not eat any breakfast. Laying in bed. Review of systems: Was done for constitutional, cardiovascular, GI, pulmonary. psychiatry relevant finding as above Active Medications Sodium Chloride (Saline 0.9%) 1,000 mls @ 20 mls/hr IV .Q24H [facility] Last Admin: 09/11/18 23:05 Dose: Not Given Documented by: Insulin Aspart (Novolog) 0 unit SQ [facility]; Protocol Last Admin: 09/12/18 12:15 Dose: 2 unit Documented by: Lactulose (Cephulac) 20 gm PO TID [facility] Last Admin: 09/12/18 08:24 Dose: 20 gm Documented by: Metoprolol Tartrate (Lopressor) 12.5 mg PO BID [facility] Last Admin: 09/12/18 08:25 Dose: 12.5 mg Documented by: Midodrine (Proamatine) 10 mg PO AC-TID [facility] Last Admin: 09/12/18 11:28 Dose: 10 mg Documented by: Octreotide Acetate (Sandostatin) 100 mcg SQ Q8HR [facility] Last Admin: 09/12/18 08:25 Dose: 100 mcg Documented by: Ondansetron HCl (Zofran) 4 mg IVP Q6HR PRN PRN Reason: Nausea And Vomiting Last Admin: 09/07/18 08:43 Dose: 4 mg Documented by: Pantoprazole Sodium (Protonix) 40 mg IVP BID [facility] Last Admin: 09/12/18 08:25 Dose: 40 mg Documented by: Potassium Chloride (K-Dur 20) 20 meq PO DAILY [facility] Last Admin: 09/12/18 10:34 Dose: Not Given Documented by: Prednisone () 40 mg PO DAILY [facility] Last Admin: 09/12/18 08:25 Dose: 40 mg Documented by: Rifaximin (Xifaxan) 550 mg PO BID [facility] Stop: 10/03/18 11:01 Last Admin: 09/12/18 08:25 Dose: 550 mg Documented by: Spironolactone (Aldactone) 50 mg PO BID [facility] Last Admin: 09/12/18 08:25 Dose: 50 mg Documented by: Thiamine HCl (Vitamin B-1) 100 mg PO BID-W/MEALS [facility] Last Admin: 09/12/18 06:32 Dose: 100 mg Documented by: Physical examination: VITAL SIGNS: 98.2, 64, 18, 129/58, 98% room air GENERAL: Laying in bed, tired appearing EYES: Pupils equal. Conjunctiva icterus HEENT: External appearance of nose and ears normal, oral cavity grossly normal. NECK: JVD not raised; masses not palpable. HEART: First and second heart sounds are normal; minimal edema LUNGS: Respiratory rate increased, decreased breath sounds. ABDOMEN: Soft, less distended, nontender, liver spleen not palpable, no masses palpable. PSYCH: Tired lethargic answering some questions. DERMATOLOGICAL:. Extensive bruising on both upper extremities on the forearm. Chest wall-right upper chest dialysis catheter INVESTIGATIONS, reviewed in the clinical context: Potassium 4.9 bun 76 creatinine 4.25 Accu-Cheks 169 Assessment: - severe alcohol liver disease -Acute GI bleed -Acute severe anemia symptomatic from blood loss, requiring blood transfusion -Secondary Portal hypertension -Hepatic coagulopathy -Thrombocytopenia from chronic alcoholism -Metabolic acidosis -Severe portal hypertensive gastropathy. -Hepatic encephalopathy, with some worsening today -Severe hyper bilirubinemia -Acute renal failure combination of hypotension and hepatorenal syndrome, advancing to end-stage kidney disease, started on renal replacement therapy on September 11 -Tense ascites, status post large volume paracentesis 7.6 L followed by repeat paracentesis of 4.8 L -Severe hypoalbuminemia combination of mild protein calorie malnutrition and cirrhosis Plan: Repeat hemodialysis today. Continue current medication treatment plan. Prognosis remains guarded. Start to taper prednisone
[2018-09-12 16:44] LABS: Glucose,Whole Blood 146 mg/dL (75-99)
[2018-09-12] MEDS: SODIUM CHLORIDE 0.9% 1,000 ML IV SCH (17:18)
[2018-09-12 20:18] LABS: Glucose,Whole Blood 221 mg/dL (75-99)
[2018-09-13 06:24] LABS: Glucose,Whole Blood 149 mg/dL (75-99)
[2018-09-13] MEDS: MIDODRINE 5 MG TAB PO SCH ×3 (06:35→17:34)
[2018-09-13] MEDS: INSULIN ASPART (NovoLOG) 100 UNIT/ML VIAL SQ SCH ×4 (06:36→21:04)
[2018-09-13] MEDS: THIAMINE 100 MG TAB PO SCH ×2 (06:40→17:33)
[2018-09-13] MEDS: METOPROLOL TARTRATE 12.5 MG TAB PO SCH ×2 (09:25→21:04)
[2018-09-13] MEDS: SPIRONOLACTONE 25 MG TAB PO SCH ×2 (09:25→21:04)
[2018-09-13] MEDS: PANTOPRAZOLE 40 MG/10 ML VIAL IVP SCH ×2 (09:25→21:04)
[2018-09-13] MEDS: POTASSIUM CHLORIDE ER 20 MEQ TAB.ER PO SCH (09:25)
[2018-09-13] MEDS: OCTREOTIDE 100 MCG/ML INJ SQ SCH ×3 (09:25→23:45)
[2018-09-13] MEDS: predniSONE 10 MG TAB PO SCH (09:25)
[2018-09-13] MEDS: SODIUM CHLORIDE 0.9% 1,000 ML IV SCH ×2 (09:26→23:41)
[2018-09-13] MEDS: LACTULOSE 20 GM/30 ML CUP PO SCH ×3 (09:26→21:04)
[2018-09-13] MEDS: RIFAXIMIN 550 MG TABLET PO SCH ×2 (09:27→21:04)
--- NOTE | 2018-09-13 10:07 | P.PN ---
Subjective Progress Note Date: 09/13/18 Principal diagnosis: Decompensated alcohol liver disease, GI bleed, hepatic encephalopathy, ascites 58-year-old gentleman history of EtOH abuse admitted with acute alcohol hepatiti s GI bleed status post EGD with underlying acute kidney injury hepato-renal syndrome versus acute tubular necrosis. Dialysis catheter inserted; dialysis scheduled today. Nursing reports decreased urine output. Multiple nonbloody bowel movements. No chemistries to review. Objective - Vital Signs Vital signs: Vital Signs Temp 97.0 F L 09/13/18 08:00 Pulse 66 09/13/18 08:00 Resp 19 09/13/18 08:00 BP 103/58 09/13/18 08:00 Pulse Ox 100 09/13/18 08:00 Intake & Output 09/12/18 09/13/18 09/13/18 18:59 06:59 18:59 Intake Total 120 Output Total 185 100 35 Balance -65 -100 -35 Intake: Oral 120 Output: Urine 85 0 35 Coude 50 0 Stool 100 100 Hemodialysis 0 Other: Voiding Method Indwelling Catheter Indwelling Catheter Indwelling Catheter # Voids 1 # Bowel Movements 1 - Exam General appearance: The patient is alert, oriented, in no acute distress. Jaundice. HET: Head is normocephalic and atraumatic. Pupils are equal and reactive. Oropharynx is clear without lesions. Sclerae icterus. Neck: Supple without lymphadenopathy. Trachea midline. Heart: S1 S2. Regular rate and rhythm. Lungs: No crackles or wheezes are heard. Abdomen: Soft, distended with mild ascites nontender with bowel sounds. No peritoneal signs. No palpable organomegaly or masses. Neurological: No focal deficits. Strength and sensation are grossly intact. - Labs CBC & Chem 7: 09/11/18 06:14 09/12/18 09:53 Labs: Abnormal Lab Results - Last 24 Hours (Table) 09/12/18 09/12/18 09/12/18 Range/Units 09:53 11:44 16:37 BUN 76 H (9-20) mg/dL Creatinine 4.25 H (0.66-1.25) mg/dL Glucose 166 H (74-99) mg/dL POC Glucose (mg/dL) 169 H 146 H (75-99) mg/dL Calcium 8.2 L (8.4-10.2) mg/dL 09/12/18 09/13/18 Range/Units 20:17 06:22 BUN (9-20) mg/dL Creatinine (0.66-1.25) mg/dL Glucose (74-99) mg/dL POC Glucose (mg/dL) 221 H 149 H (75-99) mg/dL Calcium (8.4-10.2) mg/dL Assessment and Plan (1) Decompensated hepatic cirrhosis Narrative/Plan: 58 [id number] gentleman with a history of alcohol abuse admitted with acute GI bleed acute blood loss anemia alcoholic hepatitis hepatic encephalopathy weathers perimposed on decompensated alcohol liver disease with underlying portal hypertension and ascites. Possible spontaneous bacterial peritonitis cannot be excluded. EGD during this hospitalization reported severe portal hypertensive gastropathy Denies cannot be excluded presently on broad-spectrum antibiotics. Acute kidney injury underlying hepatorenal syndrome cannot be excluded nephrology following. Present meld score 35; 52% mortality. Current Visit: Yes Status: Acute Code(s): K72.90 - HEPATIC FAILURE, UNSPECI FIED WITHOUT COMA SNOMED Code(s): 462401302 (2) Acute alcoholic hepatitis Current Visit: Yes Status: Acute Code(s): K70.10 - ALCOHOLIC HEPATITIS WITHOUT ASCITES SNOMED Code(s): 6617831 (3) Portal hypertension Current Visit: Yes Status: Acute Code(s): K76.6 - PORTAL HYPERTENSION SNOMED Code(s): 08673962 (4) Coagulopathy Current Visit: Yes Status: Acute Code(s): D68.9 - COAGULATION DEFECT, UNSPECIFIED SNOMED Code(s): 78841877 (5) Thrombocytopenia Current Visit: Yes Status: Acute Code(s): D69.6 - THROMBOCYTOPENIA, UNSPECIFIED SNOMED Code(s): 032598327 (6) Acute kidney injury Narrative/Plan: Underlying hepatorenal syndrome cannot be excluded. Current Visit: Yes Status: Acute Code(s): N17.9 - ACUTE KIDNEY FAILURE, UNSPECIFIED SNOMED Code(s): 65825944 (7) Hepatic encephalopathy Current Visit: Yes Status: Acute Code(s): K72.90 - HEPATIC FAILURE, UNSPECIFIED WITHOUT COMA SNOMED Code(s): 74115027 (8) H/O ETOH abuse Current Visit: Yes Status: Acute Code(s): F10.11 - ALCOHOL ABUSE, IN REMISSION SNOMED Code(s): 949366962 (9) Portal hypertensive gastropathy Current Visit: Yes Status: Acute Code(s): K76.6 - PORTAL HYPERTENSION; K31.89 - OTHER DISEASES OF STOMACH AND DUODENUM SNOMED Code(s): 050230794 (10) Acute GI bleeding Current Visit: Yes Status: Acute Code(s): K92.2 - GASTROINTESTINAL HEMORRHAGE, UNSPECIFIED SNOMED Code(s): 72530671 (11) Acute blood loss anemia Current Visit: Yes Status: Acute Code(s): D62 - ACUTE POSTHEMORRHAGIC ANEMIA SNOMED Code(s): 879085616 Plan: 1. CBC CMP PT/INR ammonia. Prednisone being weaned. Nephrology following closely. Continue present medical therapy. Assessment and plan a care discussed with Dr. Daley
--- NOTE | 2018-09-13 10:19 | P.PN ---
Subjective Patient is seen in follow-up for acute kidney injury. Patient's creatinine on 08/07/2018 was 1 and was elevated at 7.94 this admission. Patient became oliguric and was started on hemodialysis on September 11. He is undergone 2 treatments of hemodialysis so far. Patient has history of alcohol induced liver cirrhosis. Patient had paracentesis done on September 02 with 7.6 L drained. He did receive a total of 75 g of albumin. Patient's hemoglobin was also 5.8 this admission for which he received blood transfusions as well as DDAVP. Another paracentesis done 09/07/18 - 4.8 L drained - received 50 g of albumin. Aldactone was started September 08. Remains oliguric. Urine output 35 mL overnight. Vital signs are stable. General: The patient appeared well nourished and normally developed. Lethargic. HEENT: Head exam is unremarkable. Neck is without jugular venous distension. LUNGS: Lungs are clear to auscultation and percussion. Breath sounds decreased. HEART: Rate and Rhythm are regular. First and second heart sounds normal. No murmurs, rubs or gallops. ABDOMEN: Bowel sounds decreased. Distention noted. EXTREMITITES: Trace edema. Objective - Vital Signs Vital signs: Vital Signs Temp 97.0 F L 09/13/18 08:00 Pulse 66 09/13/18 08:00 Resp 19 09/13/18 08:00 BP 103/58 09/13/18 08:00 Pulse Ox 100 09/13/18 08:00 Intake & Output 09/12/18 09/13/18 09/13/18 18:59 06:59 18:59 Intake Total 120 Output Total 185 100 35 Balance -65 -100 -35 Intake: Oral 120 Output: Urine 85 0 35 Coude 50 0 Stool 100 100 Hemodialysis 0 Other: Voiding Method Indwelling Catheter Indwelling Catheter Indwelling Catheter # Voids 1 # Bowel Movements 1 1 - Labs CBC & Chem 7: 09/11/18 06:14 09/12/18 09:53 Labs: Abnormal Lab Results - Last 24 Hours (Table) 09/12/18 09/12/18 09/12/18 Range/Units 09:53 11:44 16:37 BUN 76 H (9-20) mg/dL Creatinine 4.25 H (0.66-1.25) mg/dL Glucose 166 H (74-99) mg/dL POC Glucose (mg/dL) 169 H 146 H (75-99) mg/dL Calcium 8.2 L (8.4-10.2) mg/dL 09/12/18 09/13/18 Range/Units 20:17 06:22 BUN (9-20) mg/dL Creatinine (0.66-1.25) mg/dL Glucose (74-99) mg/dL POC Glucose (mg/dL) 221 H 149 H (75-99) mg/dL Calcium (8.4-10.2) mg/dL Assessment and Plan Plan: Assessment: 1. Acute kidney injury. Initially prerenal in nature secondary to hypotension, acute anemia and poor oral intake. Now hepatorenal syndrome. Creatinine was 7.94 on admission and did come down. However patient is oliguric. Baseline creatinine is near 1. UA from last month reveals no protein. No evidence of hydronephrosis noted on renal ultrasound. Currently hemodialysis dependent. 2 . Metabolic acidosis secondary to acute kidney injury s/p bicarb drip. Resolved. 3. Acute blood loss anemia status post 2 units of blood transfusion. Maintained on Sandostatin as well as PPI. Status post IV DDAVP on September 02. 4. Alcohol induced liver cirrhosis. 5. Hepatic encephalopathy. Better. 6. Ascites. Status post paracentesis on September 02 with 7.6 L drained; 4.8 L drained on 09/07/18. 7. Hypokalemia secondary to intracellular shifting from IV bicarb and poor oral intake. Better. Plan: Maintain management for hepatorenal syndrome including midodrine and Sandostatin. Maintain aldactone 50 mg bid. Hemodialysis today. Discontinue Vaz catheter.
[2018-09-13 11:50] LABS: Glucose,Whole Blood 125 mg/dL (75-99)
[2018-09-13] MEDS ORDERED: MIDODRINE 5 MG TAB PO STA (12:39)
[2018-09-13 17:18] LABS: Glucose,Whole Blood 169 mg/dL (75-99)
[2018-09-13 20:44] LABS: Glucose,Whole Blood 196 mg/dL (75-99)
--- NOTE | 2018-09-13 22:26 | P.PN ---
Progress Note - Text Progress Note Date: 09/13/18 Presenting complaint: Tired Interval history: This is a pleasant 58-year-old patient of Dr. Wills. Patient has a known history of GERD hypertension hyperlipidemia, alcohol liver disease portal hypertension and hepatic coagulopathy thrombocytopenia severe portal hypertensive gastropathy was admitted with dark stools. Status post EGD. Also acute renal failure from hypertension and hepatorenal syndrome. Status post large volume paracentesis of 7.6 L and repeat 4.8 L. Hemodialysis catheter was placed on September 11 and dialysis was started on the same day Today-patient getting dialyzed today. Remains lethargic. Had about 50% of his lunch yesterday. Did eat breakfast today. Tired lethargic. Answering some questions. Review of systems: Was done for constitutional, cardiovascular, GI, pulmonary. psychiatry relevant finding as above Active Medications Sodium Chloride (Saline 0.9%) 1,000 mls @ 20 mls/hr IV .Q24H [facility] Last Admin: 09/13/18 09:26 Dose: Not Given Documented by: Insulin Aspart (Novolog) 0 unit SQ ACHS [facility]; Protocol Last Admin: 09/13/18 21:04 Dose: 2 unit Documented by: Lactulose (Cephulac) 20 gm PO TID [facility] Last Admin: 09/13/18 21:04 Dose: 20 gm Documented by: Metoprolol Tartrate (Lopressor) 12.5 mg PO BID [facility] Last Admin: 09/13/18 21:04 Dose: 12.5 mg Documented by: Midodrine (Proamatine) 10 mg PO AC-TID [facility] Last Admin: 09/13/18 17:34 Dose: 10 mg Documented by: Octreotide Acetate (Sandostatin) 100 mcg SQ Q8HR [facility] Last Admin: 09/13/18 17:35 Dose: 100 mcg Documented by: Ondansetron HCl (Zofran) 4 mg IVP Q6HR PRN PRN Reason: Nausea And Vomiting Last Admin: 09/07/18 08:43 Dose: 4 mg Documented by: Pantoprazole Sodium (Protonix) 40 mg IVP BID [facility] Last Admin: 09/13/18 21:04 Dose: 40 mg Documented by: Prednisone () 30 mg PO DAILY [facility] Last Admin: 09/13/18 09:25 Dose: 30 mg Documented by: Rifaximin (Xifaxan) 550 mg PO BID [facility] Stop: 10/03/18 11:01 Last Admin: 09/13/18 21:04 Dose: 550 mg Documented by: Spironolactone (Aldactone) 50 mg PO BID [facility] Last Admin: 09/13/18 21:04 Dose: 50 mg Documented by: Thiamine HCl (Vitamin B-1) 100 mg PO BID-W/MEALS [facility] Last Admin: 09/13/18 17:33 Dose: 100 mg Documented by: Physical examination: VITAL SIGNS: 97.2, 74, 17, 107 / 53, 93% room air GENERAL: Laying in bed, tired appearing EYES: Pupils equal. Conjunctiva icterus HEENT: External appearance of nose and ears normal, oral cavity grossly normal. NECK: JVD not raised; masses not palpable. HEART: First and second heart sounds are normal; minimal edema LUNGS: Respiratory rate increased, decreased breath sounds. ABDOMEN: Soft, less distended, nontender, liver spleen not palpable, no masses palpable. PSYCH: Tired lethargic answering some questions. DERMATOLOGICAL:. Extensive bruising on both upper extremities on the forearm. Chest wall-right upper chest dialysis catheter INVESTIGATIONS, reviewed in the clinical context: Potassium 4.9 bun 76 creatinine 4.25 Accu-Cheks 169 Assessment: - severe alcohol liver disease -Acute GI bleed -Acute severe anemia symptomatic from blood loss, requiring blood transfusion -Secondary Portal hypertension -Hepatic coagulopathy -Thrombocytopenia from chronic alcoholism -Metabolic acidosis -Severe portal hypertensive gastropathy. -Hepatic encephalopathy, with some worsening today -Severe hyper bilirubinemia -Acute renal failure combination of hypotension and hepatorenal syndrome, advancing to end-stage kidney disease, started on renal replacement therapy on September 11 -Tense ascites, status post large volume paracentesis 7.6 L followed by repeat paracentesis of 4.8 L -Severe hypoalbuminemia combination of mild protein calorie malnutrition and cirrhosis Plan: -Continues to respond slowly. Eating dialyzed again today. Oral intake remains inadequate. High risk of bleeding for PEG tube or NG tube. Let us see how the patient does state in the next 1 to 2 days. Prognosis not good.
[2018-09-14 05:46] LABS: Glucose,Whole Blood 194 mg/dL (75-99)
[2018-09-14] MEDS: MIDODRINE 5 MG TAB PO SCH ×3 (06:05→16:44)
[2018-09-14] MEDS: THIAMINE 100 MG TAB PO SCH ×2 (06:06→16:44)
[2018-09-14] MEDS: INSULIN ASPART (NovoLOG) 100 UNIT/ML VIAL SQ SCH ×4 (06:06→21:23)
[2018-09-14 06:42] LABS: Anisocytosis Slight; Basophils % (A) 0 %; Eosinophils # (A) 0.2 k/uL (0-0.7); Eosinophils % (A) 1 %; Hypochromasia Slight; Lymphocytes # (A) 1.1 k/uL (1.0-4.8); Lymphocytes % (A) 4 %; MCH 34.4 pg (25.0-35.0); MCHC 32.2 g/dL (31.0-37.0); MCV 106.6 fL (80.0-100.0); Macrocytosis Marked; Mean Platelet Volume 9.4; Monocytes # (A) 1.3 k/uL (0-1.0); Monocytes % (A) 6 %; Neutrophils # (A) 21.1 k/uL (1.3-7.7); Neutrophils % (A) 88 %; RBC 2.35 m/uL (4.30-5.90); RDW 18.2 % (11.5-15.5)
[2018-09-14 06:43] LABS: INR 1.8 (<1.2); Prothrombin Time 17.9 sec (9.0-12.0)
[2018-09-14 06:47] LABS: HGB 8.1 gm/dL (13.0-17.5); Platelet Count 82 k/uL (150-450)
[2018-09-14 06:48] LABS: Albumin 2.3 g/dL (3.5-5.0); Calcium 8.1 mg/dL (8.4-10.2); Potassium 4.1 mmol/L (3.5-5.1); Total Protein 6.2 g/dL (6.3-8.2)
[2018-09-14 07:02] LABS: Total Bilirubin 15.7 mg/dL (0.2-1.3)
[2018-09-14 08:46] LABS: Poikilocytosis (M) Present
[2018-09-14] MEDS: PANTOPRAZOLE 40 MG/10 ML VIAL IVP SCH ×2 (09:01→21:26)
[2018-09-14] MEDS: RIFAXIMIN 550 MG TABLET PO SCH ×2 (09:02→21:27)
[2018-09-14] MEDS: predniSONE 10 MG TAB PO SCH (09:02)
[2018-09-14] MEDS: OCTREOTIDE 100 MCG/ML INJ SQ SCH ×3 (09:02→23:22)
--- NOTE | 2018-09-14 10:13 | P.PN ---
Subjective Patient is seen in follow-up for acute kidney injury. Patient's creatinine on 08/07/2018 was 1 and was elevated at 7.94 this admission. Patient became oliguric and was started on hemodialysis on September 11. He is undergone 3 treatments of hemodialysis so far. Patient has history of alcohol induced liver cirrhosis. Patient had paracentesis done on September 02 with 7.6 L drained. He did receive a total of 75 g of albumin. Patient's hemoglobin was also 5.8 this admission for which he received blood transfusions as well as DDAVP. Another paracentesis done 09/07/18 - 4.8 L drained - received 50 g of albumin. Aldactone was started September 08. Remains oliguric. Vaz catheter discontinued. Vital signs are stable. General: The patient appeared well nourished and normally developed. Lethargic. HEENT: Head exam is unremarkable. Neck is without jugular venous distension. LUNGS: Lungs are clear to auscultation and percussion. Breath sounds decreased. HEART: Rate and Rhythm are regular. First and second heart sounds normal. No murmurs, rubs or gallops. ABDOMEN: Bowel sounds decreased. Distention noted. EXTREMITITES: Trace edema. Objective - Vital Signs Vital signs: Vital Signs Temp 96.9 F L 09/14/18 08:00 Pulse 70 09/14/18 08:00 Resp 18 09/14/18 08:00 BP 90/52 09/14/18 08:00 Pulse Ox 100 09/14/18 08:00 Intake & Output 09/13/18 09/14/18 09/14/18 18:59 06:59 18:59 Intake Total 240 Output Total 835 100 Balance -595 -100 Weight 92.4 kg 92.9 kg Intake: Oral 240 Output: Urine 35 Coude 0 Stool 100 Hemodialysis 800 Other: Voiding Method Diaper Diaper # Voids 1 # Bowel Movements 1 4 - Labs CBC & Chem 7: 09/14/18 06:00 09/14/18 06:00 Labs: Abnormal Lab Results - Last 24 Hours (Table) 09/13/18 09/13/18 09/13/18 Range/Units 11:43 17:00 20:42 WBC (3.8-10.6) k/uL RBC (4.30-5.90) m/uL Hgb (13.0-17.5) gm/dL Hct (39.0-53.0) % MCV (80.0-100.0) fL RDW (11.5-15.5) % Plt Count (150-450) k/uL Neutrophils # (1.3-7.7) k/uL Monocytes # (0-1.0) k/uL Macrocytosis PT (9.0-12.0) sec INR (<1.2) BUN (9-20) mg/dL Creatinine (0.66-1.25) mg/dL Glucose (74-99) mg/dL POC Glucose (mg/dL) 125 H 169 H 196 H (75-99) mg/dL Calcium (8.4-10.2) mg/dL Total Bilirubin (0.2-1.3) mg/dL AST (17-59) U/L Alkaline Phosphatase (38-126) U/L Total Protein (6.3-8.2) g/dL Albumin (3.5-5.0) g/dL 09/14/18 09/14/18 09/14/18 Range/Units 05:45 06:00 06:00 WBC 24.0 H (3.8-10.6) k/uL RBC 2.35 L (4.30-5.90) m/uL Hgb 8.1 L D (13.0-17.5) gm/dL Hct 25.0 L (39.0-53.0) % MCV 106.6 H (80.0-100.0) fL RDW 18.2 H (11.5-15.5) % Plt Count 82 L (150-450) k/uL Neutrophils # 21.1 H (1.3-7.7) k/uL Monocytes # 1.3 H (0-1.0) k/uL Macrocytosis Marked A PT 17.9 H (9.0-12.0) sec INR 1.8 H (<1.2) BUN (9-20) mg/dL Creatinine (0.66-1.25) mg/dL Glucose (74-99) mg/dL POC Glucose (mg/dL) 194 H (75-99) mg/dL Calcium (8.4-10.2) mg/dL Total Bilirubin (0.2-1.3) mg/dL AST (17-59) U/L Alkaline Phosphatase (38-126) U/L Total Protein (6.3-8.2) g/dL Albumin (3.5-5.0) g/dL 09/14/18 Range/Units 06:00 WBC (3.8-10.6) k/uL RBC (4.30-5.90) m/uL Hgb (13.0-17.5) gm/dL Hct (39.0-53.0) % MCV (80.0-100.0) fL RDW (11.5-15.5) % Plt Count (150-450) k/uL Neutrophils # (1.3-7.7) k/uL Monocytes # (0-1.0) k/uL Macrocytosis PT (9.0-12.0) sec INR (<1.2) BUN 39 H (9-20) mg/dL Creatinine 3.66 H (0.66-1.25) mg/dL Glucose 180 H (74-99) mg/dL POC Glucose (mg/dL) (75-99) mg/dL Calcium 8.1 L (8.4-10.2) mg/dL Total Bilirubin 15.7 H* (0.2-1.3) mg/dL AST 89 H (17-59) U/L Alkaline Phosphatase 156 H (38-126) U/L Total Protein 6.2 L (6.3-8.2) g/dL Albumin 2.3 L (3.5-5.0) g/dL Assessment and Plan Plan: Assessment: 1. Acute kidney injury. Initially prerenal in nature secondary to hypotension, acute anemia and poor oral intake. Now hepatorenal syndrome. Creatinine was 7.94 on admission and did come down. However patient is oliguric. Baseline creatinine is near 1. UA from last month reveals no protein. No evidence of hydronephrosis noted on renal ultrasound. Currently hemodialysis dependent. 2 . Metabolic acidosis secondary to acute kidney injury s/p bicarb drip. Resolved. 3. Acute blood loss anemia status post 2 units of blood transfusion. Maintained on Sandostatin as well as PPI. Status post IV DDAVP on September 02. 4. Alcohol induced liver cirrhosis. 5. Hepatic encephalopathy. Better. 6. Ascites. Status post paracentesis on September 02 with 7.6 L drained; 4.8 L drained on 09/07/18. 7. Hypokalemia secondary to intracellular shifting from IV bicarb and poor oral intake. Better. Plan: Maintain management for hepatorenal syndrome including midodrine and Sandostatin. Maintain aldactone 50 mg bid. Hemodialysis tomorrow. Add Aranesp.
[2018-09-14] MEDS ORDERED: DARBEPOETIN ALFA 40 MCG/0.4 ML SYRINGE SQ SCH (10:15)
[2018-09-14] MEDS: LACTULOSE 20 GM/30 ML CUP PO SCH ×4 (11:28→21:59)
[2018-09-14] MEDS: SPIRONOLACTONE 25 MG TAB PO SCH ×2 (11:29→21:27)
[2018-09-14] MEDS: METOPROLOL TARTRATE 12.5 MG TAB PO SCH ×2 (11:29→21:26)
[2018-09-14] MEDS: SODIUM CHLORIDE 0.9% 1,000 ML IV SCH (11:33)
[2018-09-14 11:55] LABS: Glucose,Whole Blood 186 mg/dL (75-99)
--- NOTE | 2018-09-14 12:23 | P.PN ---
Subjective Progress Note Date: 09/14/18 Principal diagnosis: Decompensated alcohol liver disease, GI bleed, hepatic encephalopathy, ascites 58-year-old gentleman history of EtOH abuse admitted with acute alcohol hepatiti s GI bleed status post EGD with underlying acute kidney injury hepato-renal syndrome versus acute tubular necrosis. White count 24. Creatinine 3.6. Hemoglobin 8.1. Platelet 82,000. INR 1.8. Total bilirubin 15.7. AST 89. ALT 62. AP 156. Ammonia less than 9. Passing nonbloody bowel movements. Objective - Vital Signs Vital signs: Vital Signs Temp 97.6 F 09/14/18 11:30 Pulse 70 09/14/18 11:30 Resp 18 09/14/18 11:30 BP 109/54 09/14/18 11:30 Pulse Ox 100 09/14/18 11:30 Intake & Output 09/13/18 09/14/18 09/14/18 18:59 06:59 18:59 Intake Total 240 Output Total 835 100 Balance -595 -100 Weight 92.4 kg 92.9 kg Intake: Oral 240 Output: Urine 35 Coude 0 Stool 100 Hemodialysis 800 Other: Voiding Method Diaper Diaper Diaper # Voids 1 # Bowel Movements 1 4 - Exam General appearance: The patient is alert, oriented, in no acute distress. Jaundice. HET: Head is normocephalic and atraumatic. Pupils are equal and reactive. Oropharynx is clear without lesions. Sclerae icterus. Neck: Supple without lymphadenopathy. Trachea midline. Heart: S1 S2. Regular rate and rhythm. Lungs: No crackles or wheezes are heard. Abdomen: Soft, distended with mild ascites nontender with bowel sounds. No peritoneal signs. No palpable organomegaly or masses. Neurological: No focal deficits. Strength and sensation are grossly intact. - Labs CBC & Chem 7: 09/14/18 06:00 09/14/18 06:00 Labs: Abnormal Lab Results - Last 24 Hours (Table) 09/13/18 09/13/18 09/14/18 Range/Units 17:00 20:42 05:45 WBC (3.8-10.6) k/uL RBC (4.30-5.90) m/uL Hgb (13.0-17.5) gm/dL Hct (39.0-53.0) % MCV (80.0-100.0) fL RDW (11.5-15.5) % Plt Count (150-450) k/uL Neutrophils # (1.3-7.7) k/uL Monocytes # (0-1.0) k/uL Macrocytosis PT (9.0-12.0) sec INR (<1.2) BUN (9-20) mg/dL Creatinine (0.66-1.25) mg/dL Glucose (74-99) mg/dL POC Glucose (mg/dL) 169 H 196 H 194 H (75-99) mg/dL Calcium (8.4-10.2) mg/dL Total Bilirubin (0.2-1.3) mg/dL AST (17-59) U/L Alkaline Phosphatase (38-126) U/L Total Protein (6.3-8.2) g/dL Albumin (3.5-5.0) g/dL 09/14/18 09/14/18 09/14/18 Range/Units 06:00 06:00 06:00 WBC 24.0 H (3.8-10.6) k/uL RBC 2.35 L (4.30-5.90) m/uL Hgb 8.1 L D (13.0-17.5) gm/dL Hct 25.0 L (39.0-53.0) % MCV 106.6 H (80.0-100.0) fL RDW 18.2 H (11.5-15.5) % Plt Count 82 L (150-450) k/uL Neutrophils # 21.1 H (1.3-7.7) k/uL Monocytes # 1.3 H (0-1.0) k/uL Macrocytosis Marked A PT 17.9 H (9.0-12.0) sec INR 1.8 H (<1.2) BUN 39 H (9-20) mg/dL Creatinine 3.66 H (0.66-1.25) mg/dL Glucose 180 H (74-99) mg/dL POC Glucose (mg/dL) (75-99) mg/dL Calcium 8.1 L (8.4-10.2) mg/dL Total Bilirubin 15.7 H* (0.2-1.3) mg/dL AST 89 H (17-59) U/L Alkaline Phosphatase 156 H (38-126) U/L Total Protein 6.2 L (6.3-8.2) g/dL Albumin 2.3 L (3.5-5.0) g/dL 09/14/18 Range/Units 11:35 WBC (3.8-10.6) k/uL RBC (4.30-5.90) m/uL Hgb (13.0-17.5) gm/dL Hct (39.0-53.0) % MCV (80.0-100.0) fL RDW (11.5-15.5) % Plt Count (150-450) k/uL Neutrophils # (1.3-7.7) k/uL Monocytes # (0-1.0) k/uL Macrocytosis PT (9.0-12.0) sec INR (<1.2) BUN (9-20) mg/dL Creatinine (0.66-1.25) mg/dL Glucose (74-99) mg/dL POC Glucose (mg/dL) 186 H (75-99) mg/dL Calcium (8.4-10.2) mg/dL Total Bilirubin (0.2-1.3) mg/dL AST (17-59) U/L Alkaline Phosphatase (38-126) U/L Total Protein (6.3-8.2) g/dL Albumin (3.5-5.0) g/dL Assessment and Plan (1) Decompensated hepatic cirrhosis Narrative/Plan: 58 [id number] gentleman with a history of alcohol abuse admitted with acute GI bleed acute blood loss anemia alcoholic hepatitis hepatic encephalopathy superimposed on decompensated alcohol liver disease with underlying portal hypertension and ascites. Possible spontaneous bacterial peritonitis cannot be excluded. EGD during this hospitalization reported severe portal hypertensive gastropathy Denies cannot be excluded presently on broad-spectrum antibiotics. Acute kidney injury underlying hepatorenal syndrome cannot be excluded nephrology following. Current Visit: Yes Status: Acute Code(s): K72.90 - HEPATIC FAILURE, UNSPECIFIED WITHOUT COMA SNOMED Code(s): 049541724 (2) Acute alcoholic hepatitis Current Visit: Yes Status: Acute Code(s): K70.10 - ALCOHOLIC HEPATITIS WITHOUT ASCITES SNOMED Code(s): 4035518 (3) Portal hypertension Current Visit: Yes Status: Acute Code(s): K76.6 - PORTAL HYPERTENSION SNOMED Code(s): 07445227 (4) Coagulopathy Current Visit: Yes Status: Acute Code(s): D68.9 - COAGULATION DEFECT, UNSPECIFIED SNOMED Code(s): 90924641 (5) Thrombocytopenia Current Visit: Yes Status: Acute Code(s): D69.6 - THROMBOCYTOPENIA, UNSPECIFIED SNOMED Code(s): 670513854 (6) Acute kidney injury Narrative/Plan: Underlying hepatorenal syndrome cannot be excluded. Current Visit: Yes Status: Acute Code(s): N17.9 - ACUTE KIDNEY FAILURE, UNSPECIFIED SNOMED Code(s): 36190820 (7) Hepatic encephalopathy Current Visit: Yes Status: Acute Code(s): K72.90 - HEPATIC FAILURE, UNSPECIFIED WITHOUT COMA SNOMED Code(s): 49709707 (8) H/O ETOH abuse Current Visit: Yes Status: Acute Code(s): F10.11 - ALCOHOL ABUSE, IN REMISSION SNOMED Code(s): 518956423 (9) Portal hypertensive gastropathy Current Visit: Yes Status: Acute Code(s): K76.6 - PORTAL HYPERTENSION; K31.89 - OTHER DISEASES OF STOMACH AND DUODENUM SNOMED Code(s): 518305943 (10) Acute GI bleeding Current Visit: Yes Status: Acute Code(s): K92.2 - GASTROINTESTINAL HEMORRHAGE, UNSPECIFIED SNOMED Code(s): 04196650 (11) Acute blood loss anemia Current Visit: Yes Status: Acute Code(s): D62 - ACUTE POSTHEMORRHAGIC ANEMIA SNOMED Code(s): 835301682 Plan: 1. Total bilirubin worsening presently at 15.7. His overall prognosis is poor and guarded. Nephrology following closely. Continue present medical therapy. Discharge planning. Assessment and plan a care discussed with Dr. Daley
[2018-09-14 16:58] LABS: Glucose,Whole Blood 156 mg/dL (75-99)
[2018-09-14 21:28] LABS: Glucose,Whole Blood 142 mg/dL (75-99)
--- NOTE | 2018-09-14 22:59 | P.PN ---
Progress Note - Text Progress Note Date: 09/14/18 Presenting complaint: Tired Interval history: This is a pleasant 58-year-old patient of Dr. Wills. Patient has a known history of GERD hypertension hyperlipidemia, alcohol liver disease portal hypertension and hepatic coagulopathy thrombocytopenia severe portal hypertensive gastropathy was admitted with dark stools. Status post EGD. Also acute renal failure from hypertension and hepatorenal syndrome. Status post large volume paracentesis of 7.6 L and repeat 4.8 L. Hemodialysis catheter was placed on September 11 and dialysis was started on the same day Today-remains lethargic. Sitting upon a chair. Does answer questions. Doesn't know where he is. Barely eating.. Review of systems: Was attempted constitutional, cardiovascular, GI, pulmonary. psychiatry relevant finding as above Active Medications Darbepoetin Salo (Aranesp) 40 mcg SQ Q7D [facility] Last Admin: 09/14/18 11:56 Dose: 40 mcg Documented by: Sodium Chloride (Saline 0.9%) 1,000 mls @ 20 mls/hr IV .Q24H [facility] Last Admin: 09/14/18 11:33 Dose: Not Given Documented by: Insulin Aspart (Novolog) 0 unit SQ ACHS [facility]; Protocol Last Admin: 09/14/18 21:23 Dose: Not Given Documented by: Lactulose (Cephulac) 20 gm PO TID [facility] Last Admin: 09/14/18 21:59 Dose: Not Given Documented by: Metoprolol Tartrate (Lopressor) 12.5 mg PO BID [facility] Last Admin: 09/14/18 21:26 Dose: 12.5 mg Documented by: Midodrine (Proamatine) 10 mg PO AC-TID [facility] Last Admin: 09/14/18 16:44 Dose: 10 mg Documented by: Octreotide Acetate (Sandostatin) 100 mcg SQ Q8HR [facility] Last Admin: 09/14/18 16:44 Dose: 100 mcg Documented by: Ondansetron HCl (Zofran) 4 mg IVP Q6HR PRN PRN Reason: Nausea And Vomiting Last Admin: 09/07/18 08:43 Dose: 4 mg Documented by: Pantoprazole Sodium (Protonix) 40 mg IVP BID [facility] Last Admin: 09/14/18 21:26 Dose: 40 mg Documented by: Prednisone () 30 mg PO DAILY [facility] Last Admin: 09/14/18 09:02 Dose: 30 mg Documented by: Rifaximin (Xifaxan) 550 mg PO BID [facility] Stop: 10/03/18 11:01 Last Admin: 09/14/18 21:27 Dose: 550 mg Documented by: Spironolactone (Aldactone) 50 mg PO BID [facility] Last Admin: 09/14/18 21:27 Dose: 50 mg Documented by: Thiamine HCl (Vitamin B-1) 100 mg PO BID-W/MEALS [facility] Last Admin: 09/14/18 16:44 Dose: 100 mg Documented by: Physical examination: VITAL SIGNS: 97.6, 70, 18, 109/54, 100% room air GENERAL: Laying in bed, tired appearing EYES: Pupils equal. Conjunctiva icterus HEENT: External appearance of nose and ears normal, oral cavity grossly normal. NECK: JVD not raised; masses not palpable. HEART: First and second heart sounds are normal; minimal edema LUNGS: Respiratory rate increased, decreased breath sounds. ABDOMEN: Soft, some distention, nontender, liver spleen not palpable, no masses palpable. PSYCH: Tired lethargic answering some questions. Doesn't know where he is. DERMATOLOGICAL:. Extensive bruising on both upper extremities on the forearm. Chest wall-right upper chest dialysis catheter INVESTIGATIONS, reviewed in the clinical context: White count 24, hemoglobin 8.1, platelets 82, BUN 39, creatinine 3.66 Assessment: - severe alcohol liver disease -Acute GI bleed -Acute severe anemia symptomatic from blood loss, requiring blood transfusion -Secondary Portal hypertension -Hepatic coagulopathy -Thrombocytopenia from chronic alcoholism -Metabolic acidosis -Severe portal hypertensive gastropathy. -Hepatic encephalopathy, slow to respond -Severe hyper bilirubinemia -Acute renal failure combination of hypotension and hepatorenal syndrome, advancing to end-stage kidney disease, started on renal replacement therapy on September 11 -Tense ascites, status post large volume paracentesis 7.6 L followed by repeat paracentesis of 4.8 L -Severe hypoalbuminemia combination of mild protein calorie malnutrition and cirrhosis Plan: Patient overall not doing good. Not really benefiting much from treatment. Oral intake is not good. Did ask the nurse to arrange for a meeting with the late in the evening. Advanced care planning: met with the . Discussed at length with patient's overall condition. She does understand and see that the patient is slowly declining. Not responding well to the current treatment. We will continue with current treatment plan. She does agree that the patient will not have patient to go on the ventilator at that was to become the case. He did express patient's wishes not to be resuscitated conditions like this. She also agrees about no artificial feeding. At this point she has proceeded to make the patient DO NOT RESUSCITATE. Patient's more family is coming in couple of days. Total time spent was about 25 minutes for a ACP
[2018-09-15 06:25] LABS: Glucose,Whole Blood 158 mg/dL (75-99)
[2018-09-15] MEDS: INSULIN ASPART (NovoLOG) 100 UNIT/ML VIAL SQ SCH ×4 (06:56→22:03)
[2018-09-15] MEDS: THIAMINE 100 MG TAB PO SCH ×2 (06:56→17:00)
[2018-09-15] MEDS: MIDODRINE 5 MG TAB PO SCH ×3 (06:56→17:00)
[2018-09-15 07:19] LABS: Calcium 8.1 mg/dL (8.4-10.2); Magnesium 2.1 mg/dL (1.6-2.3); Potassium 4.8 mmol/L (3.5-5.1)
[2018-09-15] MEDS: SODIUM CHLORIDE 0.9% 1,000 ML IV SCH ×2 (08:26→16:59)
[2018-09-15] MEDS: PANTOPRAZOLE 40 MG/10 ML VIAL IVP SCH ×2 (08:27→20:35)
[2018-09-15] MEDS: SPIRONOLACTONE 25 MG TAB PO SCH ×3 (08:27→20:40)
[2018-09-15] MEDS: OCTREOTIDE 100 MCG/ML INJ SQ SCH ×3 (08:27→23:59)
[2018-09-15] MEDS: METOPROLOL TARTRATE 12.5 MG TAB PO SCH ×3 (08:27→20:40)
[2018-09-15] MEDS: RIFAXIMIN 550 MG TABLET PO SCH ×3 (08:27→20:40)
[2018-09-15] MEDS: predniSONE 10 MG TAB PO SCH (08:27)
[2018-09-15] MEDS: LACTULOSE 20 GM/30 ML CUP PO SCH ×4 (08:28→20:40)
--- NOTE | 2018-09-15 10:32 | P.PN ---
Subjective Patient is seen in follow-up for acute kidney injury. Patient's creatinine on 08/07/2018 was 1 and was elevated at 7.94 this admission. Patient became oliguric and was started on hemodialysis on September 11. He is undergone 3 treatments of hemodialysis so far. Patient has history of alcohol induced liver cirrhosis. Patient had paracentesis done on September 02 with 7.6 L drained. He did receive a total of 75 g of albumin. Patient's hemoglobin was also 5.8 this admission for which he received blood transfusions as well as DDAVP. Another paracentesis done 09/07/18 - 4.8 L drained - received 50 g of albumin. Aldactone was started September 08. Remains oliguric. Vaz catheter discontinued. Remains confused. Vital signs are stable. General: The patient appeared well nourished and normally developed. Lethargic. HEENT: Head exam is unremarkable. Neck is without jugular venous distension. LUNGS: Lungs are clear to auscultation and percussion. Breath sounds decreased. HEART: Rate and Rhythm are regular. First and second heart sounds normal. No murmurs, rubs or gallops. ABDOMEN: Bowel sounds decreased. Distention noted. EXTREMITITES: Trace edema. Objective - Vital Signs Vital signs: Vital Signs Temp 97.5 F L 09/15/18 07:30 Pulse 65 09/15/18 07:30 Resp 16 09/15/18 07:30 BP 85/47 09/15/18 07:30 Pulse Ox 100 09/15/18 07:30 Intake & Output 09/14/18 09/15/18 09/15/18 18:59 06:59 18:59 Output Total 200 Balance -200 Output: Stool 200 Other: Voiding Method Diaper Diaper Diaper - Labs CBC & Chem 7: 09/14/18 06:00 09/15/18 06:47 Labs: Abnormal Lab Results - Last 24 Hours (Table) 09/14/18 09/14/18 09/14/18 Range/Units 11:35 16:37 21:25 BUN (9-20) mg/dL Creatinine (0.66-1.25) mg/dL Glucose (74-99) mg/dL POC Glucose (mg/dL) 186 H 156 H 142 H (75-99) mg/dL Calcium (8.4-10.2) mg/dL 09/15/18 09/15/18 Range/Units 06:11 06:47 BUN 52 H (9-20) mg/dL Creatinine 4.82 H (0.66-1.25) mg/dL Glucose 156 H (74-99) mg/dL POC Glucose (mg/dL) 158 H (75-99) mg/dL Calcium 8.1 L (8.4-10.2) mg/dL Assessment and Plan Plan: Assessment: 1. Acute kidney injury. Initially prerenal in nature secondary to hypotension, acute anemia and poor oral intake. Now hepatorenal syndrome. Creatinine was 7.94 on admission and did come down. However patient is oliguric. Baseline creatinine is near 1. UA from last month reveals no protein. No evidence of hydronephrosis noted on renal ultrasound. Currently hemodialysis dependent. 2 . Metabolic acidosis secondary to acute kidney injury s/p bicarb drip. Resolved. 3. Acute blood loss anemia status post 2 units of blood transfusion. Maintained on Sandostatin as well as PPI. Status post IV DDAVP on September 02. Also on Aranesp. 4. Alcohol induced liver cirrhosis. 5. Hepatic encephalopathy. Better. 6. Ascites. Status post paracentesis on September 02 with 7.6 L drained; 4.8 L drained on 09/07/18. 7. Hypokalemia secondary to intracellular shifting from IV bicarb and poor oral intake. Better. Plan: Maintain management for hepatorenal syndrome including midodrine and Sand ostatin. Maintain aldactone 50 mg bid. Hemodialysis today. Overall prognosis poor. Case discussed with GI. Hospice seems appropriate.
--- NOTE | 2018-09-15 11:35 | P.PN ---
Subjective Progress Note Date: 09/15/18 Principal diagnosis: Decompensated alcohol liver disease, GI bleed, hepatic encephalopathy, ascites 58-year-old gentleman history of EtOH abuse admitted with acute alcohol hepatiti s GI bleed status post EGD with underlying acute kidney injury hepato-renal syndrome versus acute tubular necrosis. Creatinine worsened today 4.8. Appears more jaundice lethargic incoherent. No bleeding per nursing. INR yesterday 1.8. Total bilirubin 15.7. Sodium 140. Objective - Vital Signs Vital signs: Vital Signs Temp 97.5 F L 09/15/18 07:30 Pulse 65 09/15/18 07:30 Resp 16 09/15/18 07:30 BP 85/47 09/15/18 07:30 Pulse Ox 100 09/15/18 07:30 Intake & Output 09/14/18 09/15/18 09/15/18 18:59 06:59 18:59 Output Total 200 Balance -200 Output: Stool 200 Other: Voiding Method Diaper Diaper Diaper - Exam General appearance: The patient is awake and confused appears more jaundice. Quiet. at bedside. HET: Head is normocephalic and atraumatic. Pupils are equal and reactive. Oropharynx is clear without lesions. Sclerae icterus. Neck: Supple without lymphadenopathy. Trachea midline. Heart: S1 S2. Regular rate and rhythm. Lungs: No crackles or wheezes are heard. Abdomen: Soft, distended with mild ascites nontender with bowel sounds. No peritoneal signs. No palpable organomegaly or masses. - Labs CBC & Chem 7: 09/14/18 06:00 09/15/18 06:47 Labs: Abnormal Lab Results - Last 24 Hours (Table) 09/14/18 09/14/18 09/14/18 Range/Units 11:35 16:37 21:25 BUN (9-20) mg/dL Creatinine (0.66-1.25) mg/dL Glucose (74-99) mg/dL POC Glucose (mg/dL) 186 H 156 H 142 H (75-99) mg/dL Calcium (8.4-10.2) mg/dL 09/15/18 09/15/18 Range/Units 06:11 06:47 BUN 52 H (9-20) mg/dL Creatinine 4.82 H (0.66-1.25) mg/dL Glucose 156 H (74-99) mg/dL POC Glucose (mg/dL) 158 H (75-99) mg/dL Calcium 8.1 L (8.4-10.2) mg/dL Assessment and Plan (1) Decompensated hepatic cirrhosis Narrative/Plan: 58 [id number] gentleman with a history of chronic alcohol abuse admitted with acute GI bleed acute blood loss anemia alcoholic hepatitis hepatic encephalopathy superimposed on decompensated alcohol liver disease with u nderlying portal hypertension and ascites. EGD during this hospitalization reported severe portal hypertensive gastropathy. Current Visit: Yes Status: Acute Code(s): K72.90 - HEPATIC FAILURE, UNSPECIFIED WITHOUT COMA SNOMED Code(s): 829519732 (2) Acute alcoholic hepatitis Current Visit: Yes Status: Acute Code(s): K70.10 - ALCOHOLIC HEPATITIS WITHOUT ASCITES SNOMED Code(s): 5732929 (3) Portal hypertension Current Visit: Yes Status: Acute Code(s): K76.6 - PORTAL HYPERTENSION SNOMED Code(s): 28306321 (4) Coagulopathy Current Visit: Yes Status: Acute Code(s): D68.9 - COAGULATION DEFECT, UNSPECIFIED SNOMED Code(s): 33995246 (5) Thrombocytopenia Current Visit: Yes Status: Acute Code(s): D69.6 - THROMBOCYTOPENIA, UN SPECIFIED SNOMED Code(s): 746186131 (6) Acute kidney injury Narrative/Plan: Underlying hepatorenal syndrome cannot be excluded receiving dialysis worsening creatinine today 4.8. Current Visit: Yes Status: Acute Code(s): N17.9 - ACUTE KIDNEY FAILURE, UNSPECIFIED SNOMED Code(s): 93019788 (7) Hepatic encephalopathy Current Visit: Yes Status: Acute Code(s): K72.90 - HEPATIC FAILURE, UNSPECIFIED WITHOUT COMA SNOMED Code(s): 55841286 (8) H/O ETOH abuse Current Visit: Yes Status: Acute Code(s): F10.11 - ALCOHOL ABUSE, IN REMISSION SNOMED Code(s): 888065580 (9) Portal hypertensive gastropathy Current Visit: Yes Status: Acute Code(s): K76.6 - PORTAL HYPERTENSION; K31.89 - OTHER DISEASES OF STOMACH AND DUODENUM SNOMED Code(s): 072964395 (10) Acute GI bleeding Current Visit: Yes Status: Acute Code(s): K92.2 - GASTROINTESTINAL HEMORRHAGE, UNSPECIFIED SNOMED Code(s): 97943269 (11) Acute blood loss anemia Current Visit: Yes Status: Acute Code(s): D62 - ACUTE POSTHEMORRHAGIC ANEMIA SNOMED Code(s): 034485727 Plan: 1. Patient has been changed to no code status. His overall functional status is extremely poor. Most current MELD score to be calculated; 37 which is a 52.6 mortality within 3 months. Patient has a history of chronic alcoholism and severe decompensated alcohol liver disease was drinking as recently as 3 months ago therefore not a candidate for liver transplantation at this time. Discontinue prednisone secondary to encephalopathy. Recommend comfort care hospice. Assessment and plan a care discussed with Dr. Daley
[2018-09-15 11:36] LABS: Glucose,Whole Blood 166 mg/dL (75-99)
[2018-09-15] MEDS: ONDANSETRON 4 MG/2 ML VIAL IVP PRN (15:25)
[2018-09-15] MEDS ORDERED: MIDODRINE 5 MG TAB PO STA (15:31)
[2018-09-15 16:47] LABS: Glucose,Whole Blood 155 mg/dL (75-99)
[2018-09-15 22:03] LABS: Glucose,Whole Blood 184 mg/dL (75-99)
--- NOTE | 2018-09-16 00:22 | P.PN ---
Progress Note - Text Progress Note Date: 09/15/18 Presenting complaint: Tired Interval history: This is a pleasant 58-year-old patient of Dr. Wills. Patient has a known history of GERD hypertension hyperlipidemia, alcohol liver disease portal hypertension and hepatic coagulopathy thrombocytopenia severe portal hypertensive gastropathy was admitted with dark stools. Status post EGD. Also acute renal failure from hypertension and hepatorenal syndrome. Status post large volume paracentesis of 7.6 L and repeat 4.8 L. Hemodialysis catheter was placed on September 11 and dialysis was started on the same day Today-vision continued to poorly. Barely eating. Lethargic. Does answer some questions sometimes. at the bedside. Also for hospice informational visit today. Patient's family's in [place]. manager mail is working with her. Review of systems: Was attempted constitutional, cardiovascular, GI, pulmonary. psychiatry relevant finding as above Active Medications Darbepoetin Salo (Aranesp) 40 mcg SQ Q7D [facility] Last Admin: 09/14/18 11:56 Dose: 40 mcg Documented by: Sodium Chloride (Saline 0.9%) 1,000 mls @ 20 mls/hr IV .Q24H [facility] Last Admin: 09/15/18 16:59 Dose: Not Given Documented by: Insulin Aspart (Novolog) 0 unit SQ ACHS [facility]; Protocol Last Admin: 09/15/18 22:03 Dose: 2 unit Documented by: Lactulose (Cephulac) 20 gm PO TID [facility] Last Admin: 09/15/18 20:40 Dose: Not Given Documented by: Metoprolol Tartrate (Lopressor) 12.5 mg PO BID [facility] Last Admin: 09/15/18 20:40 Dose: Not Given Documented by: Midodrine (Proamatine) 10 mg PO AC-TID [facility] Last Admin: 09/15/18 17:00 Dose: 10 mg Documented by: Octreotide Acetate (Sandostatin) 100 mcg SQ Q8HR [facility] Last Admin: 09/15/18 23:59 Dose: 100 mcg Documented by: Ondansetron HCl (Zofran) 4 mg IVP Q6HR PRN PRN Reason: Nausea And Vomiting Last Admin: 09/15/18 15:25 Dose: 4 mg Documented by: Pantoprazole Sodium (Protonix) 40 mg IVP BID [facility] Last Admin: 09/15/18 20:35 Dose: 40 mg Documented by: Rifaximin (Xifaxan) 550 mg PO BID [facility] Stop: 10/03/18 11:01 Last Admin: 09/15/18 20:40 Dose: Not Given Documented by: Spironolactone (Aldactone) 50 mg PO BID [facility] Last Admin: 09/15/18 20:40 Dose: Not Given Documented by: Thiamine HCl (Vitamin B-1) 100 mg PO BID-W/MEALS [facility] Last Admin: 09/15/18 17:00 Dose: 100 mg Documented by: Physical examination: VITAL SIGNS: 97.4, 62, 16, 83 with 45, 98% room air GENERAL: Laying in bed, continues to be lethargic but does answer occasional question EYES: Pupils equal. Conjunctiva icterus HEENT: External appearance of nose and ears normal, oral cavity grossly normal. NECK: JVD not raised; masses not palpable. HEART: First and second heart sounds are normal; minimal edema LUNGS: Respiratory rate increased, decreased breath sounds. ABDOMEN: Soft, some distention, nontender, liver spleen not palpable, no masses palpable. PSYCH: Tired lethargic answering some questions. . DERMATOLOGICAL:. Extensive bruising on both upper extremities on the forearm. Chest wall-right upper chest dialysis catheter INVESTIGATIONS, reviewed in the clinical context: Potassium 4.8 Accu-Cheks 166, 155 Assessment: - severe alcohol liver disease -Acute GI bleed -Acute severe anemia symptomatic from blood loss, requiring blood transfusion -Secondary Portal hypertension -Hepatic coagulopathy -Thrombocytopenia from chronic alcoholism -Metabolic acidosis -Severe portal hypertensive gastropathy. -Hepatic encephalopathy, slow to respond -Severe hyper bilirubinemia -Acute renal failure combination of hypotension and hepatorenal syndrome, advancing to end-stage kidney disease, started on renal replacement therapy on September 11 -Tense ascites, status post large volume paracentesis 7.6 L followed by repeat paracentesis of 4.8 L -Severe hypoalbuminemia combination of mild protein calorie malnutrition and cirrhosis Plan: Discussed with the patient's at the bedside. Patient is to poorly. She is also hospice to talk to her. She asked the gearcase assembler if the patient could be taken to [place]. Both nephrology and GI feel that hospice also appropriate. Prognosis poor
[2018-09-16 07:04] LABS: Glucose,Whole Blood 142 mg/dL (75-99)
[2018-09-16] MEDS: SODIUM CHLORIDE 0.9% 1,000 ML IV SCH (07:48)
[2018-09-16] MEDS: LACTULOSE 20 GM/30 ML CUP PO SCH ×2 (07:49→15:27)
[2018-09-16] MEDS: INSULIN ASPART (NovoLOG) 100 UNIT/ML VIAL SQ SCH ×3 (07:49→17:14)
[2018-09-16] MEDS: SPIRONOLACTONE 25 MG TAB PO SCH (07:49)
[2018-09-16] MEDS: RIFAXIMIN 550 MG TABLET PO SCH (07:49)
[2018-09-16] MEDS: MIDODRINE 5 MG TAB PO SCH ×3 (07:49→15:27)
[2018-09-16] MEDS: PANTOPRAZOLE 40 MG/10 ML VIAL IVP SCH (07:49)
[2018-09-16] MEDS: THIAMINE 100 MG TAB PO SCH ×2 (07:49→15:27)
[2018-09-16] MEDS: METOPROLOL TARTRATE 12.5 MG TAB PO SCH (07:50)
[2018-09-16] MEDS: OCTREOTIDE 100 MCG/ML INJ SQ SCH ×2 (08:36→17:13)
--- NOTE | 2018-09-16 10:26 | P.PN ---
Subjective Patient is seen in follow-up for acute kidney injury. Patient's creatinine on 08/07/2018 was 1 and was elevated at 7.94 this admission. Patient became oliguric and was started on hemodialysis on September 11. He is undergone 3 treatments of hemodialysis so far. Patient has history of alcohol induced liver cirrhosis. Patient had paracentesis done on September 02 with 7.6 L drained. He did receive a total of 75 g of albumin. Patient's hemoglobin was also 5.8 this admission for which he received blood transfusions as well as DDAVP. Another paracentesis done 09/07/18 - 4.8 L drained - received 50 g of albumin. Aldactone was started September 08. Remains oliguric. Vaz catheter discontinued. Remains confused. Being considered for hospice. Vital signs are stable. General: The patient appeared well nourished and normally developed. Lethargic. HEENT: Head exam is unremarkable. Neck is without jugular venous distension. LUNGS: Lungs are clear to auscultation and percussion. Breath sounds decreased. HEART: Rate and Rhythm are regular. First and second heart sounds normal. No murmurs, rubs or gallops. ABDOMEN: Bowel sounds decreased. Distention noted. EXTREMITITES: Trace edema. Objective - Vital Signs Vital signs: Vital Signs Temp 98.0 F 09/16/18 04:45 Pulse 81 09/16/18 06:12 Resp 12 09/16/18 04:45 BP 91/52 09/16/18 06:12 Pulse Ox 94 L 09/16/18 04:45 Intake & Output 09/15/18 09/16/18 09/16/18 18:59 06:59 18:59 Output Total 600 Balance -600 Output: Hemodialysis 600 Other: Voiding Method Diaper Diaper - Labs CBC & Chem 7: 09/14/18 06:00 09/15/18 06:47 Labs: Abnormal Lab Results - Last 24 Hours (Table) 09/15/18 09/15/18 09/15/18 Range/Units 11:34 16:40 22:02 POC Glucose (mg/dL) 166 H 155 H 184 H (75-99) mg/dL 09/16/18 Range/Units 06:57 POC Glucose (mg/dL) 142 H (75-99) mg/dL Assessment and Plan Plan: Assessment: 1. Acute kidney injury. Initially prerenal in nature secondary to hypotension, acute anemia and poor oral intake. Now hepatorenal syndrome. Creatinine was 7.94 on admission and did come down. However patient is oliguric. Baseline creatinine is near 1. UA from last month reveals no protein. No evidence of hydronephrosis noted on renal ultrasound. Currently hemodialysis dependent. 2 . Metabolic acidosis secondary to acute kidney injury s/p bicarb drip. Resolved. 3. Acute blood loss anemia status post 2 units of blood transfusion. Maintained on Sandostatin as well as PPI. Status post IV DDAVP on September 02. Also on Aranesp. 4. Alcohol induced liver cirrhosis. 5. Hepatic encephalopathy. Better. 6. Ascites. Status post paracentesis on September 02 with 7.6 L drained; 4.8 L drained on 09/07/18. 7. Hypokalemia secondary to intracellular shifting from IV bicarb and poor oral intake. Better. Plan: Maintain management for hepatorenal syndrome including midodrine and Sandostatin. Maintain aldactone 50 mg bid. Hemodialysis tomorrow. Overall prognosis poor. Case discussed with GI. Hospice seems appropriate. Final decision still pending.
[2018-09-16 12:00] VITALS: BMI 34.0
[2018-09-16 12:09] LABS: Glucose,Whole Blood 156 mg/dL (75-99)
[2018-09-16 14:42] VITALS: BP 77/33; PULSE 69; RESP 18; TEMP 97.6
[2018-09-16 17:01] LABS: Glucose,Whole Blood 137 mg/dL (75-99)
--- NOTE | 2018-09-17 16:20 | P.DS ---
Providers Date of admission: 09/01/18 19:15 Expected date of discharge: 09/16/18 Attending physician: William Foreman Consults: 09/01/18 19:15 Consult Physician Urgent Consulting Provider: Wesley Steward Consult Reason/Comments: Renal failure Do you want consulting provider notified?: Yes 09/03/18 07:54 Consult Physician Routine Consulting Provider: Orin Serrano Consult Reason/Comments: ICU management Do you want consulting provider notified?: Yes 09/10/18 13:33 Consult Physician Routine Consulting Provider: Kody Hamm Consult Reason/Comments: dialysis catheter Do you want consulting provider notified?: Yes Primary care physician: Andrey Booth [facility] Course: Interval history: This is a pleasant 58-year-old patient of Dr. Wills. Patient has a known history of GERD hypertension hyperlipidemia, alcohol liver disease portal hypertension and hepatic coagulopathy thrombocytopenia severe portal hypertensive gastropathy was admitted with dark stools. Status post EGD. Also acute renal failure from hypertension and hepatorenal syndrome. Status post large volume paracentesis of 7.6 L and repeat 4.8 L. Hemodialysis catheter was placed on September 11 and dialysis was started on the same day Patient continued to do poorly. In spite of hemodialysis was barely eating. Continue to remain sluggish. . Care was discussed with the . After discus umer. Also after discussing with GI and nephrology who felt that all the treatment was futile patient was made comfort care and hospice. Hemodialysis was decided to be discontinued. chose to go down to the [facility] house. Care was discussed in the morning of discharge for the and the coordinator from the hospice house. Discussion and discharge planning more than 35 minutes Physical examination: VITAL SIGNS: 97.6, 69, 18, 91/52, 94% room air GENERAL: Laying in bed, continues to be lethargic but does answer occasional question EYES: Pupils equal. Conjunctiva icterus HEENT: External appearance of nose and ears normal, oral cavity grossly normal. NECK: JVD not raised; masses not palpable. HEART: First and second heart sounds are normal; minimal edema LUNGS: Respiratory rate increased, decreased breath sounds. ABDOMEN: Soft, some distention, nontender, liver spleen not palpable, no masses palpable. PSYCH: Tired lethargic answering some questions. . DERMATOLOGICAL:. Extensive bruising on both upper extremities on the forearm. Chest wall-right upper chest dialysis catheter INVESTIGATIONS, reviewed in the clinical context: Potassium 4.8 Accu-Cheks 166, 155 Assessment: - severe end-stage alcohol liver disease, with cirrhosis -Acute GI bleed -Acute severe anemia symptomatic from blood loss, requiring blood transfusion -Secondary Portal hypertension, secondary to liver disease -Hepatic coagulopathy, secondary to cirrhosis -Thrombocytopenia from chronic alcoholism -Metabolic acidosis -Severe portal hypertensive gastropathy., From cirrhosis -Hepatic encephalopathy, slow to respond -Severe hyper bilirubinemia -Acute renal failure combination of hypotension and hepatorenal syndrome, advancing to end-stage kidney disease, started on renal replacement therapy on September 11 -Tense ascites, status post large volume paracentesis 7.6 L followed by repeat paracentesis of 4.8 L -Severe hypoalbuminemia combination of mild protein calorie malnutrition and cirrhosis Disposition: [facility] with hospice Patient Condition at Discharge: Poor Plan - Discharge Summary Discharge Rx Participant: No New Discharge Prescriptions: New Spironolactone [Aldactone] 50 mg PO BID tab LORazepam [Ativan] 0.5 mg PO Q6H PRN #30 tab PRN Reason: Anxiety Lactulose [Cephulac] 20 gm PO TID ml MORPHINE ORAL ARMIN CONC 20mg/mL [Roxanol Oral Soln Conc 20Mg/ml] 5 mg PO Q4H PRN #30 ml PRN Reason: Pain Control Scopolamine 1.5MG/72Hr Patch [TransDerm Scop] 1 patch TRANSDERM Q72H #10 patch Continue Metoprolol Tartrate [Lopressor] 12.5 mg PO BID #60 tab Omeprazole Magnesium [PriLOSEC OTC] 20 mg PO BID #60 tablet. Discontinued Spironolactone [Aldactone] 100 mg PO DAILY #30 tab Thiamine [Vitamin B-1] 100 mg PO BID-W/MEALS #60 tab Discharge Medication List Metoprolol Tartrate [Lopressor] 12.5 mg PO BID #60 tab 08/07/18 [Rx] Omeprazole Magnesium [PriLOSEC OTC] 20 mg PO BID #60 tablet. 08/07/18 [Rx] LORazepam [Ativan] 0.5 mg PO Q6H PRN #30 tab 09/16/18 [Rx] Lactulose [Cephulac] 20 gm PO TID ml 09/16/18 [Rx] MORPHINE ORAL ARMIN CONC 20mg/mL [Roxanol Oral Soln Conc 20Mg/ml] 5 mg PO Q4H PRN #30 ml 09/16/18 [Rx] Scopolamine 1.5MG/72Hr Patch [TransDerm Scop] 1 patch TRANSDERM Q72H #10 patch 09/16/18 [Rx] Spironolactone [Aldactone] 50 mg PO BID tab 09/16/18 [Rx] Follow up Appointment(s)/Referral(s): Andrey Wills MD [Primary Care Provider] - As Needed Patient Instructions/Handouts: Hospice (DC) Discharge Disposition: DISCH TO [facility]
== END 2018-09-16 18:58 | disposition hospice, inpatient (51) | DRG 441 ==
LOC: EC 16:35 → 3NMEDONC 19:15 → UNDOADMIN 19:15 → 3SCARD 19:15 → 2SICU 23:54 → 3SCARD 09-09 18:27 → 4MS4W 09-16 00:12
PROVIDERS: ADMIT Internal Medicine; ATTEND Hospitalist
PROC: 0W9G3ZZ Drainage of Peritoneal Cavity, Percutaneous Approach (ICD-10-PCS; 2018-09-02)
PROC: 30233N1 Transfusion of Nonautologous Red Blood Cells into Peripheral Vein, Percutaneous Approach (ICD-10-PCS; 2018-09-02)
PROC: 0DC68ZZ Extirpation of Matter from Stomach, Via Natural or Artificial Opening Endoscopic (ICD-10-PCS; principal; 2018-09-02 08:30)
PROC: 0W9G3ZZ Drainage of Peritoneal Cavity, Percutaneous Approach (ICD-10-PCS; 2018-09-07)
PROC: 30233K1 Transfusion of Nonautologous Frozen Plasma into Peripheral Vein, Percutaneous Approach (ICD-10-PCS; 2018-09-07)
PROC: 5A1D70Z Performance of Urinary Filtration, Intermittent, Less than 6 Hours Per Day (ICD-10-PCS; 2018-09-11)
PROC: 0JH63XZ Insertion of Tunneled Vascular Access Device into Chest Subcutaneous Tissue and Fascia, Percutaneous Approach (ICD-10-PCS; 2018-09-11)
PROC: 02H633Z Insertion of Infusion Device into Right Atrium, Percutaneous Approach (ICD-10-PCS; 2018-09-11)
DX: K72.00 Acute and subacute hepatic failure without coma (principal); G93.41 Metabolic encephalopathy; K76.7 Hepatorenal syndrome; N17.0 Acute kidney failure with tubular necrosis; N18.6 End stage renal disease; K65.2 Spontaneous bacterial peritonitis; D62 Acute posthemorrhagic anemia; D68.4 Acquired coagulation factor deficiency; E44.1 Mild protein-calorie malnutrition; E87.4 Mixed disorder of acid-base balance; I12.0 Hypertensive chronic kidney disease with stage 5 chronic kidney disease or end stage renal disease; J98.11 Atelectasis; K76.6 Portal hypertension; K92.2 Gastrointestinal hemorrhage, unspecified; K70.31 Alcoholic cirrhosis of liver with ascites; I95.9 Hypotension, unspecified; D69.59 Other secondary thrombocytopenia; E87.5 Hyperkalemia; K70.11 Alcoholic hepatitis with ascites; D53.9 Nutritional anemia, unspecified; D73.1 Hypersplenism; E78.5 Hyperlipidemia, unspecified; E86.1 Hypovolemia; E87.6 Hypokalemia; F10.20 Alcohol dependence, uncomplicated; K21.9 Gastro-esophageal reflux disease without esophagitis; K64.8 Other hemorrhoids; K31.89 Other diseases of stomach and duodenum; F41.9 Anxiety disorder, unspecified; D72.829 Elevated white blood cell count, unspecified; D50.9 Iron deficiency anemia, unspecified; E66.9 Obesity, unspecified; Z68.34 Body mass index [BMI] 34.0-34.9, adult; Z79.899 Other long term (current) drug therapy; Z82.0 Family history of epilepsy and other diseases of the nervous system; Z82.49 Family history of ischemic heart disease and other diseases of the circulatory system
CPT/HCPCS: 36410; 36415; 36558; 36600; 43235; 49083; 70450; 71045; 71046; 76770; 76937; 77001; 80048; 80053; 80320; 81001; 82140; 82150; 82248; 82272; 82728; 82805; 82945; 83540; 83550; 83605; 83615; 83690; 83735; 84157; 85025; 85027; 85610; 85730; 86704; 86706; 86850; 86900; 86901; 86920; 87040; 87070; 87075; 87205; 87324; 87340; 89050; 90935; 96361; 96365; 96366; 96372; 96375; 99285